=== PATIENT | female | born 1975 | race Caucasian/White ===

== ENCOUNTER 2016-08-11 08:26 | Emergency (ER) | payer MEDICAID ==
[~2016-08-11] VITALS: Ht 157.5 cm; Wt 130.2 kg
[~2016-08-11 08:26] MED LIST: AEROCHAMBER1 DEV IH; ALBUTEROL2 PUFFS/17 IN; AMOXICOT500 MG PO; AMOXIL500 MG PO; AUGMENTIN 875-1 EACH PO; AZITHROMYCIN250 M1 PO; BENTYL20 MG PO; BENZONATATE100 MG PO; CERUMENEX 12 ML12 ML OT; CORTISPORIN OTI10 M1 OT; DARVOCET-N 1001 EACH PO; DICLOFENAC 50MG50 MG PO; DIOVAN HCT 25 M1 TA1 PO; FAMOTIDINE 20MG20 MG PO; FLEXERIL10 MG PO; FOLIC ACID 1MG T1 MG PO; HYDROCHLOROTHIA25 M1 PO; HYDROCODONE/ACE1 TA5 PO; HYDROCODONE1 TABLET PO; IBU-8800 MG PO; IBUPROFEN800 MG PO; KEFLEX 500MG.500 MG PO; LEVOTHROID0.05 MG PO; LEVOTHYROXIN0.075 MG PO; LEVOTHYROXIN0.088 MG PO; LISINOPRIL 10MG10 MG PO; LISINOPRIL 5MG T5 MG PO; LORTAB 5/500 501 TAB PO; LOVASTATIN40 MG PO; MEDROL 4MG. DOSE4 MG PO; METFORMIN1000 MG PO; METFORMIN500 MG PO; MULTI VITAMINS1 TAB PO; NADOLOL 20 MG T20 MG PO; NAPROSYN500 M1 PO; NAPROXEN SODIU500 MG PO; NOMEDS *; NORCO 325 MG-51 TAB PO; NORFLEX100 MG PO; ORTHO EVRA1 TD2 TD; PAROXETINE HCL40 MG PO; PAXIL40 MG PO; PHENERGAN 25MG.25 M1 PO; PRILOSEC OTC20 MG PO; PRINIVIL40 MG PO; PROTONIX40 MG PO; RANITIDINE HCL150 MG PO; RANITIDINE150 M1 PO; ROBAXIN500 M1 PO; ROBITUSSIN100 MG/5 M; SULFAMETHOXAZOL1 TA6 PO; TESSALON PERLE100 MG PO; TESSALON PERLE200 MG PO; TRAMADOL 512 EACH/PA PO; TRAZODO50 MG PO; ULTRAM50 MG PO; UTIRA-C TABLET1 TAB PO; VIBRAMYCIN 100100 MG PO; ZANTAC 150150 MG OR; ZITHROMAX Z PA250 MG PO; [UNRECOGNIZED DRUG - OTHER] PO
[2016-08-11] MEDS ORDERED: AUGMENTIN 875-1 EACH PO (08:48)
--- NOTE | 2016-08-11 08:56 | Emergency Room Report ---
History of Present Illness Time Seen by [id number] Presenting Problem in Triage Pt arrived:Walked Presenting Problem:PT STATES HER HEAD HURTS AROUND HER EYES FOR 5 DAYS. NASAL CONGESTION, SINUS DRAINAGE WITH THROAT PAIN. 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 N Clinical Suspician of Infection? N Mental Status: 1 - Regular (Normal Baseline) Sepsis Risk:Low Sepsis Risk Have you (or family members/close friends) recently traveled outside the [place]? N If Yes, where/when: Have you had exposure to infectious disease within the past month? TB? Other? Specify: Source patient, RN notes reviewed, family, RN/MD Exam Limitations no limitations Comment This is a 40-year-old lady presenting to the emergency room with headache, nasal congestion, sore throat, sinus drainage for the past 5 days. Patient denies any recent travel or exposure to sick contacts. ALLERGIES Coded Allergies: Fish Containing Products (From SEAFOOD (F/D)) (Intermediate, I-HIVES 08/11/16) Mushroom (Intermediate, I-HIVES 08/11/16) SEAFOOD (F) (From SEAFOOD (F/D)) (Intermediate, I-HIVES 08/11/16) mold (08/11/16) aspirin (Mild, NA-NAUSEA/VOMITING 08/11/16) Home Medications Active Scripts DICLOFENAC SODIUM (Diclofenac 50MG) 50 MG PO BID #60 TAB Prov: 06/05/16 Methocarbamol (Robaxin) 500 MG PO BID #60 TAB Prov: 06/05/16 NAPROXEN (NAPROXEN 500MG TAB) 500 MG PO BID PRN pain #20 TAB Prov: 07/20/16 Naproxen (Naprosyn 500MG Tab) 500 MG PO BID #12 TAB Prov: 10/05/14 VALSARTAN/HYDROCHLOROTHIAZIDE (Diovan Hct 320-25 MG Tablet) 1 TAB PO DAILY #30 TAB Prov: 06/29/16 Reported Medications METFORMIN HCL (Metformin) 1,000 MG PO BID Levothyroxine Sodium (Levothyroxine 0.088MG) 0.088 MG PO DAILY Lovastatin 40 MG PO DAILY Lisinopril (PRINIVIL (GEQ) 40MG) 40 MG PO DAILY Famotidine (Famotidine 20MG) 20 MG PO DAILY #90 History Medical History General CAD? No Angina: No CT: No Hypertension? Yes Hyperlipidemia? Yes CHF? No DVT? No PE? No COPD? No Asthma? Yes Anemia? No GERD? Yes Gastric ulcers? No GI Bleed? No Hernia? No Thyroid Problems? No Hypothyroidism? Yes CVA? No Seizures? No Diabetes? Yes Insulin Dependent: No Insulin Pump: No Home FSBS? Yes Renal Insuffiency? No End Stage Renal Disease? No UTI? Yes Stones? No BPH? No GB Disease: No Nephritic Syndrome? No Asplenia? No Hepatitis? No Sickle Cell Disease? No Arthritis? Yes Migraines? Yes Cataracts? No Glaucoma? No MRSA? No HIV? No TB? No Anxiety? Yes Depression? Yes Cancer? No More? 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 Physical Exam Vital Signs Vital Signs Date Time Temp Pulse Resp B/P Pulse O2 O2 Flow FiO2 Ox Delivery Rate 08/11 0902 98.5 94 18 136/109 98 08/11 0831 98.5 94 18 136/109 98 General Appearance normal appearance, WD/WN, no apparent distress Ear, Nose, Throat hearing grossly normal, nasal congestion, pharyngeal erythema, tonsillar exudate, postnasal drip present Neck normal inspection, non-tender, supple, full range of motion Respiratory Status Yes: trachea midline, chest symmetrical. No: respiratory distress. Lung Sounds bilateral: normal breath sounds, lungs clear. Cardiovascular normal exam, regular rate/rhythm, no peripheral edema, no gallop, no JVD, no murmur, no rub, normal peripheral pulses Gastrointestinal normal bowel sounds, normal exam, non tender, soft, no organomegaly Extremities non-tender, normal range of motion, normal inspection Neurologic alert, instructor modeling II-XII nml as tested, normal exam, oriented x 3 Mental status normal mood/affect Skin intact, normal color, warm/dry Medical Decision Making LABS/Meds/Orders Pt receiving controlled substance in ED? No Comment Patient appears medically stable, minimally symptomatic. Advised her to follow up with PCP per discharge instructions if no better. She'll be started on antibiotics at this time. Departure Departure Time of Disposition 0844 Disposition DC Home or Self Care(routine) Clinical Impression Primary Impression: Acute sinusitis Qualifiers: Sinusitis location: maxillary Recurrence: not specified as recurrent Qualified Code: J01.00 - Acute maxillary sinusitis, unspecified Condition STABLE Patient Instructions DI for Sinusitis Additional Instructions Please take the antibioticis prescribed as instructed, follow-up with your family physician if not better in 2 days. In addition he will also need to take [id number] antihistamine such as Claritin, Bridgett or Zyrtec. Discharge Counseling Counseled pt/family regarding diagnosis, medications/RX, home care, follow up needs Comment Please take the antibioticis prescribed as instructed, follow-up with your family physician if not better in 2 days. In addition he will also need to take fujl-kad-[id number] antihistamine such as Claritin, Bridgett or Zyrtec. Prescriptions Current Visit Scripts Amoxicillin/Potassium Clav (Augmentin 875-125 Tablet) 1 EACH PO BID #20 TAB ED Critical Care Critical Care No at 1430
--- NOTE | 2016-08-11 08:56 | Emergency Room Report ---
History of Present Illness Time Seen by [id number] Presenting Problem in Triage Pt arrived:Walked Presenting Problem:PT STATES HER HEAD HURTS AROUND HER EYES FOR 5 DAYS. NASAL CONGESTION, SINUS DRAINAGE WITH THROAT PAIN. 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 N Clinical Suspician of Infection? N Mental Status: 1 - Regular (Normal Baseline) Sepsis Risk:Low Sepsis Risk Have you (or family members/close friends) recently traveled outside the [place]? N If Yes, where/when: Have you had exposure to infectious disease within the past month? TB? Other? Specify: Source patient, RN notes reviewed, family, RN/MD Exam Limitations no limitations Comment This is a 40-year-old lady presenting to the emergency room with headache, nasal congestion, sore throat, sinus drainage for the past 5 days. Patient denies any recent travel or exposure to sick contacts. ALLERGIES Coded Allergies: Fish Containing Products (From SEAFOOD (F/D)) (Intermediate, I-HIVES 08/11/16) Mushroom (Intermediate, I-HIVES 08/11/16) SEAFOOD (F) (From SEAFOOD (F/D)) (Intermediate, I-HIVES 08/11/16) mold (08/11/16) aspirin (Mild, NA-NAUSEA/VOMITING 08/11/16) Home Medications Active Scripts DICLOFENAC SODIUM (Diclofenac 50MG) 50 MG PO BID #60 TAB Prov: 06/05/16 Methocarbamol (Robaxin) 500 MG PO BID #60 TAB Prov: 06/05/16 NAPROXEN (NAPROXEN 500MG TAB) 500 MG PO BID PRN pain #20 TAB Prov: 07/20/16 Naproxen (Naprosyn 500MG Tab) 500 MG PO BID #12 TAB Prov: 10/05/14 VALSARTAN/HYDROCHLOROTHIAZIDE (Diovan Hct 320-25 MG Tablet) 1 TAB PO DAILY #30 TAB Prov: 06/29/16 Reported Medications METFORMIN HCL (Metformin) 1,000 MG PO BID Levothyroxine Sodium (Levothyroxine 0.088MG) 0.088 MG PO DAILY Lovastatin 40 MG PO DAILY Lisinopril (PRINIVIL (GEQ) 40MG) 40 MG PO DAILY Famotidine (Famotidine 20MG) 20 MG PO DAILY #90 History Medical History General CAD? No Angina: No [place]: No Hypertension? Yes Hyperlipidemia? Yes CHF? No DVT? No PE? No COPD? No Asthma? Yes Anemia? No GERD? Yes Gastric ulcers? No GI Bleed? No Hernia? No Thyroid Problems? No Hypothyroidism? Yes CVA? No Seizures? No Diabetes? Yes Insulin Dependent: No Insulin Pump: No Home FSBS? Yes Renal Insuffiency? No End Stage Renal Disease? No UTI? Yes Stones? No BPH? No GB Disease: No Nephritic Syndrome? No Asplenia? No Hepatitis? No Sickle Cell Disease? No Arthritis? Yes Migraines? Yes Cataracts? No Glaucoma? No MRSA? No HIV? No TB? No Anxiety? Yes Depression? Yes Cancer? No More? 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 Physical Exam Vital Signs Vital Signs Date Time Temp Pulse Resp B/P Pulse O2 O2 Flow FiO2 Ox Delivery Rate 08/11 0902 98.5 94 18 136/109 98 08/11 0831 98.5 94 18 136/109 98 General Appearance normal appearance, WD/WN, no apparent distress Ear, Nose, Throat hearing grossly normal, nasal congestion, pharyngeal erythema, tonsillar exudate, postnasal drip present Neck normal inspection, non-tender, supple, full range of motion Respiratory Status Yes: trachea midline, chest symmetrical. No: respiratory distress. Lung Sounds bilateral: normal breath sounds, lungs clear. Cardiovascular normal exam, regular rate/rhythm, no peripheral edema, no gallop, no JVD, no murmur, no rub, normal peripheral pulses Gastrointestinal normal bowel sounds, normal exam, non tender, soft, no organomegaly Extremities non-tender, normal range of motion, normal inspection Neurologic alert, offc spec II-XII nml as tested, normal exam, oriented x 3 Mental status normal mood/affect Skin intact, normal color, warm/dry Medical Decision Making LABS/Meds/Orders Pt receiving controlled substance in ED? No Comment Patient appears medically stable, minimally symptomatic. Advised her to follow up with PCP per discharge instructions if no better. She'll be started on antibiotics at this time. Departure Departure Time of Disposition 0844 Disposition DC Home or Self Care(routine) Clinical Impression Primary Impression: Acute sinusitis Qualifiers: Sinusitis location: maxillary Recurrence: not specified as recurrent Qualified Code: J01.00 - Acute maxillary sinusitis, unspecified Condition STABLE Patient Instructions DI for Sinusitis Additional Instructions Please take the antibioticis prescribed as instructed, follow-up with your family physician if not better in 2 days. In addition he will also need to take [id number] antihistamine such as Claritin, Bridgett or Zyrtec. Discharge Counseling Counseled pt/family regarding diagnosis, medications/RX, home care, follow up needs Comment Please take the antibioticis prescribed as instructed, follow-up with your family physician if not better in 2 days. In addition he will also need to take ioge-tzj-qevlvxn antihistamine such as Claritin, Bridgett or Zyrtec. Prescriptions Current Visit Scripts Amoxicillin/Potassium Clav (Augmentin 875-125 Tablet) 1 EACH PO BID #20 TAB ED Critical Care Critical Care No at 143
[2016-08-11 09:02] VITALS: BP 136/109
== END 2016-08-11 09:02 | disposition home or self-care (01) ==
LOC: ER 08:26
DX: J01.00 Acute maxillary sinusitis, unspecified (principal); F41.8 Other specified anxiety disorders; E11.9 Type 2 diabetes mellitus without complications; K21.9 Gastro-esophageal reflux disease without esophagitis; I10 Essential (primary) hypertension

== ENCOUNTER 2017-02-22 06:17 | Day surgery (SDC) | payer MEDICAID ==
--- NOTE | 2017-02-22 08:36 | Anesthesia Record ---
Anesthesia Record Part I Total IV fluids: 1200 EBL (ml): 200 Urine Output: 0 B/P: 138/74 % SaO2: 97 Pulse: 110 Resps: 12 Temp: 98.1 Patient is: Awake, Stable Stable to PACU at: 0830 at 0835
--- NOTE | 2017-02-22 08:37 | Anesthesia Record ---
Anesthesia Record Part II Discharge time: 0900 Destination: Same day surgery PACU nurse assessment review? Yes Patient is: Awake, Stable Anesthesia complications? No at 0836
--- NOTE | 2017-02-22 08:38 | Operative Note ---
Procedure/Operative Record Procedure Date of procedure: 02/22/17 Pre-Op Dx: Genuine stress urinary incontinence Post-Op Dx: Genuine stress urinary incontinence Procedure performed: Tension-free vaginal tape Surgeon: Dr. Noe Cristina Machine Cementer And Folder(s): None Anesthesia: Pranay Paredes EBL (ml): 200 Clinical note: She is a 41-year-old lady who complains of loss of urine with laughing coughing sneezing. She had urodynamics in my office that demonstrated stress incontinence. As result of that she was offered TVT. The risks and benefits of surgery were discussed with the patient prior to surgery. Operative findings: She had a normal-appearing bladder on inspection with the cystoscope. The urethral orifices were seen and appeared normal. She had a grade 1 cystocele. Operative note: She was taken to the operating room where LMA anesthesia was found be adequate. She was prepped and draped in normal sterile fashion in the lithotomy position. A weighted speculum was placed in the vagina and I injected approximately 30 mL of 1 percent Xylocaine with epinephrine along the anterior vaginal wall below the urethra and laterally out towards the pubic rami. I then injected approximately 60 cc of 0.5 percent ropivacaine along the path of the trocar in the space of Retzius. I used a spinal needle for this. I grasped the vaginal mucosa starting about a centimeter below the urethral orifice and grasped at again approximately 2 cm beyond this. I then made a small incision in the skin. I grasped the edges of the mucosa and using Metzenbaum scissors I dissected out laterally to each pubic rami. I then drained the bladder and placed an obturator within the bladder. I pulled it to its ipsilateral side. I then placed the LEFT side of the tape under the pubic rami, through the urogenital diaphragm and then through the space of Retzius. The trocar was then passed through the skin. I then inspected the bladder with a 70 degree cystoscope. There was no evidence of tape within the bladder. The tape was then passed through the space of Retzius and out through the skin. I then drained the bladder and once again placed an obturator within the bladder and pulled it to its ipsilateral side. I then passed the RIGHT side of the tape under the pubic rami, through the urogenital diaphragm and through the space of Retzius. The trocar was then passed through the skin. Once again I inspected the bladder with a cystoscope. There was no evidence of tape within the bladder. I then passed the tape completely through the skin. I cut off the trochars and grasped the outer sheath with a [place] clamp. I then placed a large sponge forcep underneath the tape and remove the outer sheath of the tape. I once again inspected to be sure that the tape was not too tight. The tape was then cut off at the level of the skin bilaterally. The vaginal mucosa was then closed using interrupted 2-0 Vicryl suture in a mattress fashion. Once again hemostasis was assured. The patient tolerated the procedure well and was taken to the recovery room in excellent condition. All sponge instrument and needle counts were correct. Estimated blood loss was approximately 200 mL. Conplications: None Specimens: None at 0892
[2017-02-22 11:38] VITALS: BP 105/69
== END 2017-02-22 10:00 | disposition home or self-care (01) ==
LOC: SDC 06:17
PROVIDERS: Nurse Practitioner Obstetrics & Gynecology
PROC: 0USGXZZ Reposition Vagina, External Approach (ICD-10-PCS; principal; 2017-02-22 07:30)
DX: N39.3 Stress incontinence (female) (male) (principal)
CPT/HCPCS: J2405

== ENCOUNTER 2017-04-23 11:24 | Emergency (ER) | payer MEDICAID ==
[~2017-04-23] VITALS: Ht 157.5 cm; Wt 108.4 kg
--- NOTE | 2017-04-23 11:54 | Urgent Treatment Center Report ---
History of Present Issue Date/Time Seen by Provider 04/23/17 1137 Visit Reason Pt arrived:Walked Presenting Problem:PT STATES RUNNY NOSE, COUGH, SORE THROAT, CHEST CONGESTION AND FEVER SINCE WEDNESDAY Location if Accident: Onset of symptoms date/time:04/21/17/ or onset unknown for:MEDICAL HX UNKNOWN Have you (or family members/close friends) recently traveled outside the [place]? N If Yes, where/when: Have you had exposure to infectious disease within the past month? TB? Other? Specify: Patient state that she has been not feeling well for several days now States that several members of her household has had a virus. States that she has had runny nose, with clear drainage, sorethroat, cough and feeling feverish today. State that she is not coughing anything up and now today she noticed that she is starting to loose her voice ALLERGIES Coded Allergies: Fish Containing Products (From SEAFOOD (F/D)) (Intermediate, I-HIVES 02/22/17) Mushroom (Intermediate, I-HIVES 02/22/17) SEAFOOD (F) (From SEAFOOD (F/D)) (Intermediate, I-HIVES 02/22/17) mold (02/22/17) aspirin (Mild, NA-NAUSEA/VOMITING 02/22/17) Home Medications Active Scripts DICLOFENAC SODIUM (Diclofenac 50MG) 50 MG PO BID #60 TAB Prov: 06/05/16 Methocarbamol (Robaxin) 500 MG PO BID #60 TAB Prov: 06/05/16 Naproxen (Naprosyn 500MG Tab) 500 MG PO BID #12 TAB Prov: 10/05/14 VALSARTAN/HYDROCHLOROTHIAZIDE (Diovan Hct 320-25 MG Tablet) 1 TAB PO DAILY #30 TAB Prov: 06/29/16 Amoxicillin/Potassium Clav (Augmentin 875-125 Tablet) 1 EACH PO BID #20 TAB Prov: 08/11/16 Reported Medications METFORMIN HCL (Metformin) 1,000 MG PO BID Levothyroxine Sodium (Levothyroxine 0.088MG) 0.088 MG PO DAILY Lovastatin 40 MG PO DAILY Lisinopril (PRINIVIL (GEQ) 40MG) 40 MG PO DAILY Famotidine (Famotidine 20MG) 20 MG PO DAILY #90 History Medical History General CAD? No Angina: Yes [place]: No Hypertension? Yes Hyperlipidemia? Yes CHF? No DVT? No PE? No COPD? No Asthma? Yes Anemia? No GERD? Yes Gastric ulcers? No GI Bleed? No Hernia? No Thyroid Problems? No Hypothyroidism? Yes CVA? No Seizures? No Diabetes? Yes Insulin Dependent: No Insulin Pump: No Home FSBS? Yes Renal Insuffiency? No UTI? Yes Stones? No BPH? No GB Disease: Yes Nephritic Syndrome? No Asplenia? No Hepatitis? No Sickle Cell Disease? No Arthritis? Yes Migraines? Yes Cataracts? No Glaucoma? No MRSA? No HIV? No TB? No Anxiety? Yes Depression? Yes Cancer? No More? No Immunization HX DT/Tetanus 1-4 Years Ago Flu 2015- Flu Season Pneumonia Never Had Surgical Hx Previous Surgery?Y GALLBLADDER ORAL SURGERY LUMPECTOMY STOMACH BIOPSY IUD-INSERTION/REMOVAL COLONOSCOPY EGD Family History Family HX Diabetes Yes CAD Yes Hypertension Yes Hyperlipidemia Yes Cancer Yes TB No Social History Smoking Hx Smoker: Never Smoker Tobacco: No Alcohol Alcohol: No Review of Systems All Other Systems Reviewed and Negative ENT throat pain. Respiratory cough Physical Exam Vital Signs Vital Signs Date Time Temp Pulse Resp B/P Pulse O2 O2 Flow FiO2 Ox Delivery Rate 04/23 1131 97.8 84 20 116/47 96 General Appearance normal appearance, WD/WN, no apparent distress Ear, Nose, Throat sinus pain/drainage, throat mildly red, irritated, nose draining clear, denies productive cough, Respiratory Status Yes: trachea midline, chest symmetrical. No: respiratory distress. 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 No Departure Departure Time of Disposition 1153 Disposition DC Home or Self Care(routine) Clinical Impression Primary Impression: Viral upper respiratory infection Condition STABLE Patient Instructions DI for Laryngitis, DI for Viral Upper Respiratory Infection -- Adult, Laryngitis Additional Instructions Laryngitis is self-limiting and should last for only a few days, and symptoms should resolve within 7 days, but can linger up to two weeks. If symptoms persist longer than three weeks, this is considered chronic laryngitis and causes other than a viral infection need to be explored. Croup is often described as a disease of the nighttime because visits to the emergency department peak after midnight with sick infants and children. The treatment for viral laryngitis is supportive and the person should: Stay well hydrated by drinking plenty of fluids Breathe humidified air Take acetaminophen (Tylenol and others) or ibuprofen (Advil, Aleve, and others) for pain control Discharge Counseling Counseled pt/family regarding diagnosis, home care, follow up needs at 1150
[2017-04-23 11:56] VITALS: BP 116/47
== END 2017-04-23 11:56 | disposition home or self-care (01) ==
LOC: UTC 11:24
DX: J06.9 Acute upper respiratory infection, unspecified (principal); I10 Essential (primary) hypertension; E78.5 Hyperlipidemia, unspecified; J45.909 Unspecified asthma, uncomplicated; E03.9 Hypothyroidism, unspecified; E11.9 Type 2 diabetes mellitus without complications; Z79.84 Long term (current) use of oral hypoglycemic drugs; Z79.899 Other long term (current) drug therapy

== ENCOUNTER → 2017-04-28 | Outpatient (CLI) | payer MEDICAID ==
[2017-04-28 17:21] LABS: HEMOGLOBIN 12.4 g/dL (12.2-16.2); LYMPH # 2.8 K/mm3 (0.7-4.5)
[2017-04-28 18:36] LABS: BUN 15 mg/dL (7-18)
[2017-04-28 18:37] LABS: GFR (ESTIMATED) 55 ML/MIN (59-)
[2017-04-30 05:38] LABS: Vitamin D, 25-Hydroxy 15.6 ng/mL (30.0-100.0)
[2017-04-30 08:45] LABS: Folate (Folic Acid) 3.3 ng/mL (>3.0)
[2017-04-30 10:40] LABS: Creatinine, Urine 110.1 mg/dL (Not Estab.); Microalbumin, Urine 12.2 ug/mL (Not Estab.)
== END ==
LOC: LAB 16:50
PROVIDERS: Physician Assistant
DX: E11.9 Type 2 diabetes mellitus without complications (principal)

== ENCOUNTER 2017-05-19 19:43 | Emergency (ER) | payer MEDICAID ==
[~2017-05-19] VITALS: Ht 157.5 cm; Wt 110.2 kg
--- NOTE | 2017-05-19 20:08 | [facility]gent Treatment Center Report ---
History of Present Issue Date/Time Seen by Provider 05/19/172001 Visit Reason Pt arrived:Walked Presenting Problem:RT SIDE OF NECK RAISED RED AREA. PT COMPLAINS OF BURNING AND PAIN ON NECK AND EAR. Location if Accident: Onset of symptoms date/time:/ or onset unknown for:MEDICAL HX UNKNOWN Have you (or family members/close friends) recently traveled outside the [place]? N If Yes, where/when: Have you had exposure to infectious disease within the past month? TB? Other? Specify: Patient state that she noticed a place on the right side of her neck State that the area was red and raised and it began to get bigger State that it looked like a rash that montez and cause pain to the right side of her neck and ear. State that it is burning now and she noticed that it was getting more red and went from the size of a pencil eraser to quarter sized and still burning when she touches it ALLERGIES Coded Allergies: Fish Containing Products (From SEAFOOD (F/D)) (Intermediate, I-HIVES 02/22/17) Mushroom (Intermediate, I-HIVES 02/22/17) SEAFOOD (F) (From SEAFOOD (F/D)) (Intermediate, I-HIVES 02/22/17) mold (02/22/17) aspirin (Mild, NA-NAUSEA/VOMITING 02/22/17) Home Medications Active Scripts DICLOFENAC SODIUM (Diclofenac 50MG) 50 MG PO BID #60 TAB Prov: 06/05/16 Methocarbamol (Robaxin) 500 MG PO BID #60 TAB Prov: 06/05/16 Naproxen (Naprosyn 500MG Tab) 500 MG PO BID #12 TAB Prov: 10/05/14 VALSARTAN/HYDROCHLOROTHIAZIDE (Diovan Hct 320-25 MG Tablet) 1 TAB PO DAILY #30 TAB Prov: 06/29/16 Reported Medications Levothyroxine Sodium (Levothyroxine 0.088MG) 0.088 MG PO DAILY Lovastatin 40 MG PO DAILY Lisinopril (PRINIVIL (GEQ) 40MG) 40 MG PO DAILY Famotidine (Famotidine 20MG) 20 MG PO DAILY #90 History Medical History General CAD? No Angina: Yes NH: No Hypertension? Yes Hyperlipidemia? Yes CHF? No DVT? No PE? No COPD? No Asthma? Yes Anemia? No GERD? Yes Gastric ulcers? No GI Bleed? No Hernia? No Thyroid Problems? No Hypothyroidism? Yes CVA? No Seizures? No Diabetes? No Insulin Dependent: No Insulin Pump: No Home FSBS? Yes Renal Insuffiency? No UTI? Yes Stones? No BPH? No GB Disease: Yes Nephritic Syndrome? No Asplenia? No Hepatitis? No Sickle Cell Disease? No Arthritis? Yes Migraines? Yes Cataracts? No Glaucoma? No MRSA? No HIV? No TB? No Anxiety? Yes Depression? Yes Cancer? No More? No Immunization HX DT/Tetanus 1-4 Years Ago Flu 2015- Flu Season Pneumonia Never Had Surgical Hx Previous Surgery?Y GALLBLADDER ORAL SURGERY LUMPECTOMY STOMACH BIOPSY IUD-INSERTION/REMOVAL COLONOSCOPY EGD Family History Family HX Diabetes Yes CAD Yes Hypertension Yes Hyperlipidemia Yes Cancer Yes TB No Social History Smoking Hx Smoker: Never Smoker Tobacco: No Alcohol Alcohol: No Review of Systems All Other Systems Reviewed and Negative Comment Red rash on right side of neck that is painful and montez Physical Exam Vital Signs Vital Signs Date Time Temp Pulse Resp B/P Pulse O2 O2 Flow FiO2 Ox Delivery Rate 05/19 1953 97.8 99 20 136/78 98 General Appearance normal appearance, WD/WN, no apparent distress Ear, Nose, Throat hearing grossly normal, normal ENT inspection Respiratory Status Yes: trachea midline, chest symmetrical, non tender chest. No: respiratory distress. Cardiovascular normal exam, regular rate/rhythm, no peripheral edema Neurologic alert, normal exam, oriented x 3 Skin Complains of burning feeling on the right side of her neck, today noticed red rash coming on the right side of neck which is painful Comments State that she had a viral infection several weeks ago State that the skin on the right side of her neck has been painful to touch and burning States today red rash occured on the right side of her neck and pain seems to be radiating up from the rash causing her ear to hurt Medical Decision Making LABS/Meds/Orders Pt receiving controlled substance in ED? No Departure Departure Time of Disposition 2013 Disposition DC Home or Self Care(routine) Clinical Impression Primary Impression: Shingles Qualifiers: Herpes zoster complications: without complications Qualified Code: B02.9 - Zoster without complications Condition STABLE Referrals Jamie RUTHERFORD,Fidel Mar (Family): 2 Days-Call Office MEGHA PLATA: Tomorrow-Call Office Follow up with dermatology as needed if symptoms do not improve Patient Instructions DI for Shingles, Shingles Additional Instructions Take medication as prescribed Follow up with family doctor if needed Follow up wt Dermatology if symptoms do not improve for further treatment Return if needed Discharge Counseling Counseled pt/family regarding diagnosis, medications/RX, home care, follow up needs Prescriptions Current Visit Scripts Acyclovir (Acyclovir 800MG) 800 MG PO 5XDAY #35 TAB at 2017
[2017-05-19] MEDS ORDERED: ACYCLOVIR800 MG PO (20:17)
[2017-05-19 20:20] VITALS: BP 136/78
--- OUTSIDE RECORDS SUMMARY | 2017-05-22 13:35 | External Medical Summary Rpt | CCD ---
Author Author , JOSIANE Organization JOSIANE Address Unknown Phone [email or web address] Care Team Providers Care Train Attendant Name Role Phone [employer] Unavailable Unavailable INC, [employer] ALLRAN JR, ALLRAN JR Unavailable Unavailable ALLRAN JR ELVIA, ALLRAN Unavailable Unavailable JR ELVIA HORTON MITALI, HORTON MITALI Unavailable Unavailable CHELY PORTER MD, PSC, Unavailable Unavailable CHELY PORTER MD, PSC Nixon Vigil MD, Unavailable Unavailable JOSSE Anderson MD Unavailable Unavailable BRO BEINEFLY ISIDORO, BEINEKE Unavailable Unavailable ISIDORO BESSON ZAC, BESSON Unavailable Unavailable ZAC [facility]available [facility]available [facility], [facility] LAUGHLIN, LAUGHLIN Unavailable Unavailable LAUGHLIN ALL, LAUGHLIN ALL Unavailable Unavailable [facility] Unavailable Unavailable JULIAN LOAIZA MD, Unavailable Unavailable JULIAN LOAIZA MD BUX ANJ, BUX ANJ Unavailable Unavailable [facility]available [facility]available [facility], [facility] MARIE SALAZAR Unavailable Unavailable SALAZAR ALLEN, SALAZAR Unavailable Unavailable ALLEN BOZENA JOÃO, Unavailable Unavailable BOZENA JOÃO DUFF CHRISTIAN, DUFF CHRISTIAN Unavailable Unavailable FALLUJI LESLEY, FALLUJI Unavailable Unavailable LESLEY FRYMAN, FRYMAN Unavailable Unavailable FRYMAN EUG, FRYMAN Unavailable Unavailable EUG SHANTI, ELZ, Unavailable Unavailable SHANTI, JR CHONG LEOPOLDO, LEOPOLDO Unavailable Unavailable LEOPOLDO MAICO, LEOPOLDO Unavailable Unavailable MAICO GIANULCA NGUYEN MD, Unavailable Unavailable PATRICK ELLER MD Unavailable Unavailable I[facility] Unavailable Unavailable INC, [facility] Unavailable Unavailable HOS[facility], [facility] Unavailable [facility]available H[facility]PITAL P, [facility] CALZADA KINDRA, CALZADA KINDRA Unavailable Unavailable [facility]ADA KINDRA, CALZADA KINDRA Unavailable Unavailable [facility], Unavailable Unavailable [facility] RAMOS, RAMOS Unavailable Unavailable RAMOS MONI, RAMOS MONI Unavailable Unavailable [facility] Angela Wise MD, Unavailable Unavailable Angela Wise MD [facility] MYA CRI, MYA CRI Unavailable Unavailable DAWSON, DAWSON Unavailable Unavailable DAWSON RD, DAWSON Unavailable Unavailable RD JACIEL JR DWI, JACIEL Unavailable Unavailable JR DWI AYAN ISI, AYAN ISI Unavailable Unavailable [facility] Unavailable Unavailable SERVICES, [facility], Unavailable Unavailable [facility], Unavailable Unavailable [facility] Un[facility]available [facility], [facility] PETTEY JAM, PETTEY Unavailable Unavailable JAM MYARNDA MAT, Unavailable Unavailable MYRANDA MAT [facility] Unavailable Unavailable [facility], [facility] SOTINGEANU, Unavailable Unavailable SOTINGEANU SOTINGEANU ISIDORO, Unavailable Unavailable SOTINGEANU ISIDORO [facility] Unavailable Unavailable EMERGENCY PH[facility], [facility] STONE MARK, STONE MARK Unavailable Unavailable KALI, KALI Unavailable Unavailable HERIBERTO PHI, HERIBERTO PHI Unavailable Unavailable DARIO SHORT, Unavailable Unavailable DARIO SHORT Purpose Continuity of Care Document - 10-01-2012 through 2016 Problems Code Diagnosis DOS Provider Status [id number] DM D/T 04-07-2017 [facility] UNDERLYING PHYSICIANS COND GROUP W/DIABETIC MONONEUROPA THY E119 TYPE 2 04-07-2017 [facility] DIABETES PHYSICIANS MELLITUS GROUP WITHOUT COMPLICATIO NS L989 DISORDER 04-07-2017 [facility] THE SKIN & PHYSICIANS SUBCUTANEOU GROUP S TISSUE UNS M545 LOW BACK 04-07-2017 [facility] PAIN PHYSICIANS GROUP Z8719 PERSONAL 04-07-2017 [facility] HISTORY PHYSICIANS OTHER GROUP DISEASES DIGESTIVE SYSTEM N393 STRESS 02-22-2017 [facility] INCONTINENC PHYSICIANS E FEMALE GROUP MALE E6601 MORBID 12-22-2016 [facility] SEVERE PHYSICIANS OBESITY DUE GROUP TO EXCESS CALORIES L680 HIRSUTISM 12-22-2016 [facility] PHYSICIANS GROUP H6980 OTHER SPEC 11-26-2016 [facility] DISORDERS PHYSICIANS EUSTACHIAN GROUP TUBE UNS EAR J309 ALLERGIC 11-26-2016 [facility] RHINITIS PHYSICIANS UNSPECIFIED GROUP J310 CHRONIC 11-26-2016 [facility] RHINITIS PHYSICIANS GROUP J320 CHRONIC 11-16-2016 [facility] MAXILLARY PHYSICIANS SINUSITIS GROUP 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 DEVIATED 11-16-2016 [facility] NASAL PHYSICIANS SEPTUM GROUP E039 HYPOTHYROID 11-03-2016 [facility] UNSPECIFIED INC J341 CYST AND 11-03-2016 [facility] NASAL SINUS R040 EPISTAXIS 11-03-2016 [facility] R1013 EPIGASTRIC 09-24-2016 [facility] PAIN PHYSICIANS GROUP I10 ESSENTIAL 09-01-2016 [facility] PRIMARY PHYSICIANS HYPERTENSIO GROUP N M1990 UNSPECIFIED 09-01-2016 [facility] PHYSICIANS OSTEOARTHRI GROUP TIS UNSPECIFIED SITE K210 GASTRO-ESOP 08-28-2016 [facility] HAGEAL PHYSICIANS REFLUX GROUP DISEASE W/ ESOPHAGITIS J0100 ACUTE 08-11-2016 [facility] MAX[facility]ARY [facility], SINUSITIS PLLC UNSPECIFIED [id number] PAIN IN 07-20-2016 [facility] LEFT KNEE PHYSICIANS, PLLC N819 FEMALE 07-16-2016 [facility] GENITAL PHYSICIANS PROLAPSE GROUP UNSPECIFIED N920 EXCESS & 07-16-2016 [facility] FREQUENT PHYSICIANS MENSTRUATIO GROUP N W/REGULAR CYCLE Z1231 ENCOUNTER 07-16-2016 [facility] SCREENING MEDICAL MAMMO MALIG IMAGING ASS NEOPLASM BREAST Z3009 ENCOUNTER 07-16-2016 [facility] OT GENERAL PHYSICIANS GROUP B[place] PULP&ADV ICE CONTRACEPT E663 OVERWEIGHT 07-13-2016 [facility] PHYSICIANS GROUP 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 07-13-2016 [facility]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 D/O GROUP W/RADICULOP ATHY LUMB RGN N888 OTH SPEC 07-13-2016 [facility] NONINFLAMMA MEDICAL TORY IMAGING ASS DISORDERS CERVIX UTERI R102 PELVIC AND 07-13-2016 [facility] PERINEAL [facility]ICAL PAIN IMAGING ASS J26815 OTHER 07-08-2016 [employer] [facility] Q39308 ENCOUNTER 06-30-2016 [facility] 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 EXAM PHYSICIANS GENERAL RTN GROUP W/ABNORMAL FIND P04299 ENCOUNTER 06-30-2016 [facility] DAY CARE WORKER EXAM PHYSICIANS GENERAL RTN GROUP W/O ABNORMAL FIND Z803 FAMILY 06-30-2016 [facility] HISTORY OF PHYSICIANS MALIGNANT GROUP NEOPLASM OF BREAST R05 COUGH 06-29-2016 [facility] R5383 OTHER 06-22-2016 [facility] H5213 MYOPIA 06-19-2016 [facility] K[facility]DRA BILATERAL J40 BRONCHITIS 06-19-2016 [facility] NOT PHYSICIANS SPECIFIED GROUP ACUTE OR CHRONIC K219 GASTRO-ESOP 06-19-2016 [facility] H REFLUX PHYSICIANS DISEASE GROUP WITHOUT ESOPHAGITIS R32 UNSPECIFIED 06-19-2016 [facility] URINARY PHYSICIANS INCONTINENC GROUP E [id number] ALLERGY 06-19-2016 [facility] UNSPECIFIED PHYSICIANS INITIAL GROUP ENCOUNTER J029 ACUTE 06-05-2016 [facility] PHARYNGITIS [facility], PLLC UNSPECIFIED M1712 UNILATERAL 06-05-2016 [facility] PRIMARY [facility]YSIC[facility], OSTEOARTHRI PLLC TIS LEFT KNEE R0989 OT SPEC SX 06-05-2016 [facility]NS [facility]ICAL IN[facility]LV THE IMAGING ASS CIRC & RESP SYS O471 FALSE LABOR 05-13-2016 [facility] AT/AFTER PHYSICIANS 37 GROUP COMPLETED WEEKS GEST M7541 IMPINGEMENT 04-08-2016 [facility] SYNDROME PHYSICIANS OF RIGHT GROUP SHOULDER N27810 PAIN IN 02-28-2016 [facility] RIGHT MEDICAL SHOULDER [facility]ING ASS M542 CERVICALGIA 02-28-2016 [facility] PHYSICIANS GROUP Q890YOE UNSPECIFIED 02-28-2016 [facility] INJURY OF MEDICAL NECK IMAGING ASS INITIAL ENCOUNTER [id number] STRN UNS 02-28-2016 [facility] M&T SHLDR PHYSICIANS UP ARM LEVL GROUP RT ARM INIT ENC G4733 OBSTRUCTIVE 02-04-2016 [facility] APNEA ADULT INC PEDIATRIC A54935 UNSPECIFIED 01-24-2016 [facility] P ED E049 NONTOXIC 01-23-2016 [facility] GOITER PHYSICIANS UNSPECIFIED GROUP 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 R7989 OTHER SPEC 01-16-2016 [facility] ABNORMAL [facility] FINDINGS INC BLOOD CHEMISTRY G4730 SLEEP APNEA 01-02-2016 [facility] I959 HYPOTENSION 01-02-2016 [facility] R748 ABNORMAL 12-17-2015 [facility] OTHER SERUM INC ENZYMES E1165 TYPE 2 11-28-2015 [facility] DIABETES [facility] MELLITUS [facility] WITH HYPERGLYCEM [place] N926 IRREGULAR 11-28-2015 [facility] MENSTRUATIO [facility] UNSPECIFIED U11902 OTHER 09-26-2015 [facility] MUSCLE PHYSICIANS SPASM GROUP [id number] LACERATION 09-26-2015 [facility] WITHOUT PHYSICIANS FOREIGN GROUP BODY LT EAR INITIAL Z23 ENCOUNTER 09-26-2015 [facility] FOR PHYSICIANS IMMUNIZATIO GROUP N E139 OTH SPEC 08-27-2015 [facility] DI[facility] LAR MELLITUS CONSULTANTS W/O O COMPLICATIO NS E669 OBESITY 08-27-2015 [facility] INC E785 HYPERLIPIDE 08-27-2015 [facility] JOSE PHYSICIANS UNSPECIFIED GROUP G737 MYOPATHY IN 08-27-2015 [facility] DISEASES PHYSICIANS CLASSIFIED GROUP ELSEWHERE I119 HYPERTENSIV 08-27-2015 [facility] E HEART LAR DISEASE CONSULTANTS WITHOUT O HEART FAILURE M791 MYALGIA 08-27-2015 [facility] PHYSICIANS GROUP R9431 ABNORMAL 07-30-2015 [facility]ROCARD [facility] IOGRAM INC N24042 OTHER LONG 07-24-2015 [facility] TERM [facility] CURRENT INC DRUG THERAPY Z9861 CORONARY 07-24-2015 [facility] ANGIOPLASTY [facility] STATUS INC E138 OTH SPEC 07-18-2015 [facility] DIABETES [facility] MELLITUS INC W/UNS COMPLICATIO NS I209 ANGINA 07-18-2015 [facility] UNSPECIFIED INC R079 CHEST PAIN 07-18-2015 [facility]NSPECIFIED [facility] INC R9439 ABNORMAL 07-18-2015 [facility] RESULT OTH [facility] CARDIOVASCU INC LR FUNCTION STUDY Z6843 BODY MASS 07-18-2015 [facility] INDEX BMI [facility] 50-59.9 INC ADULT Z8249 FAMILY HX 07-18-2015 [facility] ISCHEMIC LAR HRT DZ OTH CONSULTANTS DZ CIRC O SYSTEM I340 NONRHEUMATI 07-16-2015 [facility] INSUFFICIEN CY I361 NONRHEUMATI 07-16-2015 [facility] TRICUS[facility] INSUFFICIEN CY I371 NONRHEUMATI 07-16-2015 [facility] P[facility]ARY [facility] INSUFFICIEN CY R000 TACHYCARDIA 07-02-2015 [facility] LAR UNSPECIFIED CONSULTANTS O R011 CARDIAC 07-02-2015 [facility] UNSPECIFIED INC R0602 SHORTNESS 07-02-2015 [facility] OF BREATH [facility] INC R0789 OTHER CHEST 07-02-2015 [facility] PAIN [facility] INC R42 DIZZINESS 07-02-2015 [facility] AND [facility] GIDDINESS INC R9430 ABNORMAL 07-02-2015 [facility] RESULT CV PHYSICIANS FUNCTION GROUP STUDY UNS R002 PALPITATION 06-17-2015 [facility] 03808 DEGEN 04-19-2015 [facility] LUMBAR/LUMB [facility] OSACRAL INC INTERVERTEB RAL DISC 7244 THORACIC/AMY 03-21-2015 SOHA LEDESMA MD, PSC NEURITIS/RA DICULITIS UNSPEC V5869 LONG-TERM 12-24-2014 [facility] (CURRENT) [facility] USE OF INC OTHER MEDICATIONS 05999 OSTEOARTHRO 11-21-2014 [facility] SIS UNSPEC PHYSICIANS WHETHER GROUP GEN/LOC LOWER LEG 64687 PAIN IN 11-16-2014 [facility] JOINT, MEDICAL LOWER LEG IMAGING ASS V7263 PRE-PROCEDU 11-16-2014 [facility] RAL [facility] LABORATORY INC EXAMINATION 2449 UNSPECIFIED 11-14-2014 [facility] HYPOTHYROID INC ISM 74609 DIAB W/O 11-14-2014 [facility] COMP TYPE [facility] II/UNS NOT INC STATED UNCNTRL 6259 UNSPEC 11-02-2014 GIANLUCA Davis SYMPTOM [facility] W/FEMALE GENITAL ORGANS 6262 EXCESSIVE 11-02-2014 GIANLU[facility] Davis OR AROLDO NGUYEN MD MENSTRUATIO N V7231 ROUTINE 11-02-2014 GIANLUCA Davis GYNECOLOGIC [facility] EXAMINATION 42919 ESOPHAGEAL 10-23-2014 [facility] REFLUX PHYSICIANS GROUP 56798 ABDOMINAL 10-23-2014 [facility] PAIN, PHYSICIANS EPIGASTRIC GROUP 6160 CERVICITIS 10-18-2014 [facility] AND MEDICAL ENDOCERVICI IMAGING ASS TIS 93608 ABDOMINAL 10-18-2014 [facility] PAIN OTHER MEDICAL SPECIFIED IMAGING ASS SITE 56639 ABDOMINAL 10-09-2014 [facility] PAIN, MEDICAL UNSPECIFIED IMAGING ASS SITE 4019 UNSPECIFIED 10-06-2014 [facility] N 4139 OTHER AND 10-06-2014 [facility] P PECT[place] 66803 ASTHMA, 10-06-2014 [facility] P UNSPECIFIED STATUS 1129 CANDIDIASIS 09-19-2014 [facility] OF PHYSICIANS UNSPECIFIED GROUP SITE 03599 REFLUX 09-04-2014 [facility] 5368 DYSPEPSIA&O 09-03-2014 [facility] THER SPEC PHYSICIANS DISORDERS GROUP FUNCTION STOMACH 32529 OBESITY, 08-23-2014 [facility] UNSPECIFIED PHYSICIANS GROUP 7242 LUMBAGO 08-23-2014 [facility] PHYSICIANS GROUP 88520 CLOSED 07-20-2014 [facility] FRACTURE OF PHYSICIANS UPPER END GROUP OF FIBULA V0481 NEED 07-20-2014 [facility] PROPHYLACTI PHYSICIANS C GROUP VACCINATION &INOCULATIO N FLU 3540 CARPAL 07-19-2014 [facility] TUNNEL PHYSICIANS SYNDROME GROUP V5416 AFTERCARE 07-19-2014 [facility] HEALING PHYSICIANS TRAUMATIC GROUP FRACTURE LOWER LEG 8449 SPRAIN&STRA 06-22-2014 [facility] IN OF PHYSICIANS UNSPECIFIED GROUP SITE OF KNEE&LEG 16324 CLOSED 06-16-2014 [facility] FRACTURE OF N EMERGENCY PHYS UNSPECIFIED PART OF FIBULA 18263 UNSPECIFIED 06-16-2014 [facility] SITE OF N EMERGENCY ANKLE PHYS SPRAIN AND STRAIN E8888 OTHER FALL 06-16-2014 [facility] N EMERGENCY PHYS 7231 CERVICALGIA 02-22-2014 [facility] 7291 UNSPECIFIED 02-22-2014 [facility] MYOSITIS 7210 CERVICAL 02-16-2014 [facility] SPONDYLOSIS [facility]ICAL WITHOUT IMAGING ASS MYELOPATHY 7213 LUMBOSACRAL 02-16-2014 [facility] SPONDYLOSIS IMAGING ASS WITHOUT MYELOPATHY 7220 DISPLCMT 02-16-2014 [facility] CERV MEDICAL INTERVERT IMAGING ASS DISC WITHOUT MYELOPATHY 48212 DISPLCMT 02-16-2014 [facility] LUMBAR MEDICAL INTERVERT IMAGING ASS DISC W/O MYELOPATHY E8859 FALL FROM 02-10-2014 [facility] OTHER N EMERGENCY SLIPPING PHYS TRIPPING OR STUMBLING V1582 PERS HX 02-10-2014 [facility] TOBACCO USE [facility] PRESENTING [facility] 2409 GOITER, 01-09-2014 [facility] UNSPECIFIED [facility]ICAL IMAGING ASS 7842 SWELLING 01-09-2014 [facility] MASS OR [facility] LUMP IN INC HEAD AND NECK 7945 NONSPECIFIC 01-09-2014 [facility] ABNORM MEDICAL RESULTS IMAGING ASS THYROID FUNCT STUDY 7245 UNSPECIFIED 12-19-2013 [facility] BACKACHE PHYSICIANS GROUP 48147 HELICOBACTE 11-20-2013 [facility] R PYLORI PHYSICIANS INFECTION GROUP 3559 MONONEURITI 10-19-2013 [facility] S OF PHYSICIANS UNSPECIFIED GROUP SITE 2724 OTHER AND 10-10-2013 [facility] UNSPECIFIED PHYSICIANS GROUP HYPERLIPIDE JOSE 68734 PAIN IN 10-10-2013 [facility] JOINT, SITE PHYSICIANS GROUP UNSPECIFIED 16035 CHEST PAIN 10-04-2013 [facility] INC 250.00 250.00 DIAB 08-24-2013 [facility] COMPL, TYPE Hospital II OR UNSPEC TYPE, NOT UNCNTRLD 401.9 401.9 08-24-2013 Joseph HYPERTENSIO [facility] NOS Hospital 493.90 493.90 08-24-2013 Joseph ASTHMA, [facility] UNSPECIFIED Hospital 530.81 530.81 08-24-2013 Joseph ESOPHAGEAL [facility] REFLUX Hospital 575.8 575.8 DIS 08-24-2013 Joseph OF [facility] GALLBLADDER [facility] NEC 786.59 786.59 08-24-2013 Joseph CHEST PAIN [facility] 06975 OTHER CHEST 08-24-2013 [facility] 272.4 272.4 06-02-2013 Joseph HYPERLIPIDE [facility]/NOS Hospital 845.09 845.09 06-02-2013 Joseph SPRAIN OF [facility] ANKLE [facility] E928.9 E928.9 06-02-2013 Joseph ACCIDENT [facility] 845.00 845.00 05-20-2013 Joseph SPRAIN OF [facility] ANKLE [facility] E849.8 E849.8 05-20-2013 Joseph ACCIDENT IN [facility] PLACE [facility] E927.0 E927.0 05-20-2013 Joseph OVEREXERTIO [facility] SUDDEN STRENUOUS MOVEMENT 915.6 915.6 03-18-2013 Joseph FOREIGN [facility] BODY FINGER Hospital 729.5 729.5 PAIN 10-01-2012 Joseph IN LIMB [facility] 844.9 844.9 10-01-2012 Joseph SPRAIN OF [facility] KNEE & LEG [facility] NOS E849.0 E849.0 10-01-2012 Joseph ACCIDENT IN [facility] E885.9 E885.9 FALL 10-01-2012 Joseph FROM [facility] SLIPPING, Hospital TRIPPING, OR STUMBLING [facility] Allergies, Adverse Reactions, Alerts Type Drug Allergy Food Allergy Adverse Reaction to Substance Substance Reaction Severity Aspirin NA-NAUSEA/VOMITING Unknown Seafood I-HIVES Intermediate Mushroom I-HIVES Intermediate Seafood I-HIVES Intermediate Clinical Alert Notifications Alert Asthma: no influenza vaccine in the last 365 days Diabetes: no A1C in the last 6 months Diabetes: no influenza vaccine in the last 365 days Diabetes: no lipid panel in the last 365 days Medications Na ND Rx Da Fi Fi Am Da Di Ph RX Ph St me C No te ll ll ou ys ag ar # ys at s nt no ma ic us Or Da si cy ia de te s n re d MO 60 09 10 30 30 00 EA Ac NT 50 -1 -[address] ti EL 53 3- 6- 00 00 SI ve UK 56 20 20 47 DE 20 17 17 99 T 8 56 PH SO AR D MA 10 CY MG OF CY TA NT BL HI ET AN A IN C PA 65 09 10 30 30 00 EA Ac NT 86 -1 -[address] ti OP 20 3- 6- 00 00 SI ve RA 56 20 20 50 DE ZO 09 17 17 14 LE 0 82 PH AR SO MA D CY DR OF 40 CY NT MG HI AN TA A B IN C HM 62 09 09 60 30 00 EA Ac 01 -0 -[address] ti AC 10 4- 9- 00 00 SI ve ID 22 20 20 48 DE 50 17 17 40 RE 2 30 PH DU AR CE MA R CY 75 OF MG CY NT TA HI BL AN ET A IN C LE 00 09 09 90 90 00 EA Ac VO 78 -0 -[address] ti TH 15 5- 9- 00 00 SI ve YR 18 20 20 50 DE OX 39 17 17 02 IN 2 64 PH E AR 88 MA CY MC G OF TA CY BL NT ET HI AN A IN C GA 16 08 09 90 30 00 EA Ac BA 71 -3 -[address] ti PE 40 0- 2- 00 00 SI ve NT 33 20 20 49 DE IN 00 17 17 97 2 24 PH 60 AR 0 MA MG CY TA OF BL CY ET NT HI AN A IN C AC 00 08 09 40 20 00 EA Ac ET 40 -3 -[address] ti AM 60 0- 2- 00 00 SI ve IN 48 20 20 49 DE OP 41 17 17 97 HE 0 25 PH N- AR CO MA D CY #3 OF TA CY BL NT ET HI AN A IN C VA 65 08 09 30 30 00 EA Ac LS 86 -2 -[address] ti AR 20 1- 5- 00 00 SI ve TA 55 20 20 49 DE N- 19 17 17 85 HC 0 97 PH TZ AR MA 32 CY 0- 25 OF CY MG NT HI TA AN B A IN C ON 65 08 09 15 5 00 EA Ac DA 86 -2 -[address] ti NS 20 0- 5- 00 00 SI ve ET 18 20 20 49 DE RO 73 17 17 74 N 0 32 PH HC AR L MA 4 CY MG OF TA CY BL NT ET HI AN A IN C SP 65 08 09 30 30 00 EA Ac IR 16 -1 -[address] ti ON 20 0- 8- 00 00 SI ve OL 51 20 20 49 DE AC 51 17 17 74 TO 0 31 PH NE AR MA 10 CY 0 MG OF CY TA NT BL HI ET AN A IN C MO 60 08 09 30 30 00 EA Ac NT 50 -0 -[address] ti EL 53 9- 1- 00 00 SI ve UK 56 20 20 47 DE 20 17 17 99 T 8 56 PH SO AR D MA 10 CY MG OF CY TA NT BL HI ET AN A IN C ON 65 07 08 15 5 00 EA Ac DA 86 -2 -[address] ti NS 20 0- 8- 00 00 SI ve ET 18 20 20 49 DE RO 73 17 17 51 N 0 39 PH HC AR L MA 4 CY MG OF TA CY BL NT ET HI AN A IN C HY 00 07 08 [address] 40 -2 -[address] ti OC 60 6- 8- 00 00 SI ve OD 12 20 20 49 DE ON 40 17 17 57 -A 5 39 PH CE AR TA MA MS CY NO PH OF CY 7. NT 5- HI 32 AN 5 A IN C HY 00 07 08 [address] 40 -1 -[address] ti OC 60 7- 1- 00 00 SI ve OD 12 20 20 49 DE ON 40 17 17 46 -A 5 27 PH CE AR TA MA MS CY NO PH OF CY 7. NT 5- HI 32 AN 5 A IN C CA 00 07 07 18 90 00 EA Ac RV 09 -0 -[address] ti ED 30 5- 8- 00 00 SI ve IL 13 20 20 0 49 DE OL 50 17 17 34 1 16 PH 6. AR 25 MA CY MG OF TA CY BL NT ET HI AN A IN C ME 68 07 07 18 90 00 EA Ac TF 38 -0 -[address] ti OR 20 5- 8- 00 00 SI ve MS 76 20 20 0 49 DE N 01 17 17 34 HC 0 28 PH L AR 1, MA 00 CY 0 MG OF CY TA NT BL HI ET AN A IN C VA 65 07 07 30 30 00 EA Ac LS 86 -0 -[address] ti AR 20 5- 8- 00 00 SI ve TA 55 20 20 49 DE N- 19 17 17 34 HC 0 29 PH TZ AR MA 32 CY 0- 25 OF CY MG NT HI TA AN B A IN C BU 43 07 07 60 30 00 EA Ac IN 59 -0 -[address] ti OP 80 5- 8- 00 00 SI ve IO 53 20 20 49 DE N 70 17 17 34 HC 5 32 PH L AR SR MA CY 15 0 OF MG CY NT TA HI BL AN ET A IN C IB 53 07 07 90 30 00 EA Ac UP 74 -0 -[address] ti RO 60 5- 8- 00 00 SI ve FE 46 20 20 49 DE N 50 17 17 34 60 5 31 PH 0 AR MG MA CY TA BL OF ET CY NT HI AN A IN C PA 65 07 07 30 30 00 EA Ac NT 86 -0 -[address] ti OP 20 3- 8- 00 00 SI ve RA 56 20 20 48 DE ZO 09 17 17 32 LE 0 36 PH AR SO MA D CY DR OF 40 CY NT MG HI AN TA A B IN C MO 60 07 07 30 30 00 EA Ac NT 50 -0 -[address] ti EL 53 3- 8- 00 00 SI ve UK 56 20 20 47 DE 20 17 17 99 T 8 56 PH SO AR D MA 10 CY MG OF CY TA NT BL HI ET AN A IN C FL 60 07 07 16 30 00 EA Ac UT 43 -0 -[address] ti IC 20 3- 8- 00 00 SI ve 26 20 20 46 DE ON 41 17 17 71 E 5 33 PH IN AR OP MA CY 50 OF MC CY G NT SP HI RA AN Y A IN C HM 62 07 07 60 30 00 EA Ac 01 -0 -[address] ti AC 10 3- 8- 00 00 SI ve ID 22 20 20 48 DE 50 17 17 40 RE 2 30 PH DU AR CE MA R CY 75 OF MG CY NT TA HI BL AN ET A IN C SP 65 06 07 30 30 00 EA Ac IR 16 -1 -[address] ti ON 20 5- 4- 00 00 SI ve OL 51 20 20 48 DE AC 51 17 17 77 TO 0 46 PH NE AR MA 10 CY 0 MG OF CY TA NT BL HI ET AN A IN C LO 00 06 07 90 90 00 EA Ac VA 18 -1 -[address] 50 5- 4- 00 00 SI ve AT 07 20 20 48 DE IN 26 17 17 33 0 63 PH 20 AR MA MG CY TA OF BL CY ET NT HI AN A IN C FR 99 06 07 50 30 00 EA Ac EE 07 -1 -[address] 30 5- 4- 00 00 SI ve YL 70 20 20 49 DE E 82 17 17 14 LI 2 58 PH TE AR MA TE CY ST OF ST CY RI NT P HI AN A IN C GL 00 06 07 90 90 00 EA Ac IP 78 -1 -[address] ti IZ 11 5- 4- 00 00 SI ve ID 45 20 20 49 DE E 30 17 17 14 10 1 88 PH AR MG MA CY TA BL OF ET CY NT HI AN A IN C PA 65 05 06 30 30 00 EA Ac NT 86 -2 -[address] ti OP 20 7- 3- 00 00 SI ve RA 56 20 20 48 DE ZO 09 17 17 32 LE 0 36 PH AR SO MA D CY DR OF 40 CY NT MG HI AN TA A B IN C MO 60 05 06 30 30 00 EA Ac NT 50 -2 -[address] ti EL 53 7- 3- 00 00 SI ve UK 56 20 20 47 DE 20 17 17 99 T 8 56 PH SO AR D MA 10 CY MG OF CY TA NT BL HI ET AN A IN C FL 60 05 06 16 30 00 EA Ac UT 43 -2 -[address] ti IC 20 7- 3- 00 00 SI ve 26 20 20 46 DE ON 41 17 17 71 E 5 33 PH IN AR OP MA CY 50 OF MC CY G NT SP HI RA AN Y A IN C LE 00 06 90 90 00 EA Ac VO 78 -2 -[address] ti TH 15 7- 3- 00 00 SI ve YR 18 20 20 48 DE OX 39 17 17 40 IN 2 29 PH E AR 88 MA CY MC G OF TA CY BL NT ET HI AN A IN C VA 65 05 06 30 30 00 EA Ac LS 86 -2 -[address] ti AR 20 7- 3- 00 00 SI ve TA 55 20 20 47 DE N- 19 17 17 35 HC 0 48 PH TZ AR MA 32 CY 0- 25 OF CY MG NT HI TA AN B A IN C BU 43 05 06 60 30 00 EA Ac IN 59 -3 -[address] ti OP 80 0- 3- 00 00 SI ve IO 53 20 20 48 DE N 70 17 17 93 HC 5 11 PH L AR SR MA CY 15 0 OF MG CY NT TA HI BL AN ET A IN C SP 65 05 06 30 30 00 EA Ac IR 16 -1 -[address] ti ON 20 6- 9 00 SI ve OL 51 20 20 48 DE AC 51 17 17 77 TO 0 46 PH NE AR MA 10 CY 0 MG OF CY TA NT BL HI ET AN A IN C MA 51 04 05 59 1 00 EA Ac LA 67 -2 -[address] ti TH 25 5- 9- 00 00 SI ve IO 29 20 20 48 DE N 40 17 17 48 0. 4 61 PH 5% AR MA LO CY TI ON OF CY NT HI AN A IN C AC 65 04 05 40 20 00 EA Ac ET 16 -1 -[address] ti AM 20 8- 2- 00 SI ve IN 03 20 20 48 DE OP 31 17 17 40 HE 1 25 PH N- AR CO MA D CY #3 OF TA CY BL NT ET HI AN A IN C ME 68 04 05 18 90 00 EA Ac TF 38 -1 -[address] ti OR 20 8- 2- 00 SI ve MS 76 20 20 0 48 DE N 01 17 17 40 HC 0 26 PH L AR 1, MA 00 CY 0 MG OF CY TA NT BL HI ET AN A IN C CA 00 04 05 18 90 00 EA Ac RV 09 -1 -[address] ti ED 30 8- 2- 00 00 SI ve IL 13 20 20 0 48 DE OL 50 17 17 40 1 27 PH 6. AR 25 MA CY MG OF TA CY BL NT ET HI AN A IN C IB 53 04 05 90 30 00 EA Ac UP 74 -1 -[address] ti RO 60 8- 2- 00 00 SI ve FE 46 20 20 48 DE N 50 17 17 40 60 5 28 PH 0 AR MG MA CY TA BL OF ET CY NT HI AN A IN C HM 62 04 05 60 30 00 EA Ac 01 -1 -[address] ti AC 10 8- 2- 00 00 SI ve ID 22 20 20 48 DE 50 17 17 40 RE 2 30 PH DU AR CE MA R CY 75 OF MG CY NT TA HI BL AN ET A IN C MO 60 04 05 30 30 00 EA Ac NT 50 -1 -[address] ti EL 53 0- 5- 00 00 SI ve UK 56 20 20 47 DE 20 17 17 99 T 8 56 PH SO AR D MA 10 CY MG OF CY TA NT BL HI ET AN A IN C BU 00 04 05 60 30 00 EA Ac IN 18 -1 -[address] ti OP 50 0- 5- 00 00 SI ve IO 41 20 20 47 DE N 56 17 17 73 HC 0 82 PH L AR SR MA CY 15 0 OF MG CY NT TA HI BL AN ET A IN C FL 60 04 05 16 30 00 EA Ac UT 43 -1 -[address] ti IC 20 0- 5- 00 00 SI ve 26 20 20 46 DE ON 41 17 17 71 E 5 33 PH IN AR OP MA CY 50 OF MC CY G NT SP HI RA AN Y A IN C PU 00 04 05 1. 30 00 EA Ac LM 18 -1 -[address] ti IC 60 0- 5- 0 00 SI ve OR 91 20 20 46 DE T 61 17 17 71 18 2 46 PH 0 AR MC MA G CY FL EX OF VELASCO CY LE NT R HI AN A IN C VE 00 04 05 18 23 00 EA Ac NT 17 -1 -[address] ti OL 30 0- 5- 00 00 SI ve IN 68 20 20 46 DE 22 17 17 71 HF 0 31 PH A AR 90 MA CY MC G OF IN CY VELASCO NT LE HI R AN A IN C CY 00 04 05 30 10 00 EA Ac CL 37 -1 -[address] ti OB 80 0- 5- 00 00 SI ve EN 75 20 20 47 DE ZA 11 17 17 73 IN 0 89 PH IN AR E MA 10 CY MG OF CY TA NT BL HI ET AN A IN C VA 65 04 05 30 30 00 EA Ac LS 86 -1 -[address] ti AR 20 2- 5- 00 00 SI ve TA 55 20 20 48 DE N- 19 17 17 33 HC 0 58 PH TZ AR MA 32 CY 0- 25 OF CY MG NT HI TA AN B A IN C LE 00 04 05 30 30 00 EA Ac VO 78 -1 -[address] ti TH 15 2- 5- 00 00 SI ve YR 18 20 20 48 DE OX 39 17 17 33 IN 2 62 PH E AR 88 MA CY MC G OF TA CY BL NT ET HI AN A IN C PA 65 04 05 30 30 00 EA Ac NT 86 -1 -[address] ti OP 20 1- 5- 00 00 SI ve RA 56 20 20 48 DE ZO 09 17 17 32 LE 0 36 PH AR SO MA D CY DR OF 40 CY NT MG HI AN TA A B IN C HY 00 03 04 [address] 40 -1 -[address] ti OC 60 4- 7- 00 00 SI ve OD 12 20 20 47 DE ON 30 17 17 96 -A 5 48 PH CE AR TA MA MS CY NO PH OF EN CY NT 5- HI 32 AN 5 A IN C LA 00 02 03 11 14 00 EA Ac NS 78 -2 -[address] ti OP 14 7- 4- 00 00 SI ve RA 05 20 20 0 47 DE ZO 44 17 17 78 L- 2 14 PH AM AR OX MA IC CY IL -C OF LA CY RI NT TH HI RO AN A IN C BU 00 02 03 60 30 00 EA Ac IN 18 -2 -[address] ti OP 50 3- 4- 00 00 SI ve IO 41 20 20 47 DE N 56 17 17 73 HC 0 82 PH L AR SR MA CY 15 0 OF MG CY NT TA HI BL AN ET A IN C LO 00 02 03 90 90 00 EA Ac VA 18 -2 -[address] 50 3- 4- 00 00 SI ve AT 07 20 20 47 DE IN 26 17 17 73 0 83 PH 20 AR MA MG CY TA OF BL CY ET NT HI AN A IN C VA 65 02 03 30 30 00 EA Ac LS 86 -2 -[address] ti AR 20 3- 4- 00 00 SI ve TA 55 20 20 47 DE N- 19 17 17 73 HC 0 84 PH TZ AR MA 32 CY 0- 25 OF CY MG NT HI TA AN B A IN C LE 00 02 03 30 30 00 EA Ac VO 78 -2 -[address] ti TH 15 3- 4- 00 00 SI ve YR 18 20 20 47 DE OX 39 17 17 73 IN 2 85 PH E AR 88 MA CY MC G OF TA CY BL NT ET HI AN A IN C ME 68 02 03 60 30 00 EA Ac TF 38 -2 -[address] ti OR 20 3- 4- 00 00 SI ve MS 76 20 20 47 DE N 01 17 17 73 HC 0 86 PH L AR 1, MA 00 CY 0 MG OF CY TA NT BL HI ET AN A IN C GL 02 03 90 90 00 EA Ac IP 78 -2 -[address] ti IZ 11 3- 4- 00 00 SI ve ID 45 20 20 47 DE E 30 17 17 73 10 1 87 PH AR MG MA CY TA BL OF ET CY NT HI AN A IN C GA 02 03 90 30 00 EA Ac BA 71 -2 -[address] ti PE 40 3- 4- 00 00 SI ve NT 33 20 20 47 DE IN 00 17 17 73 2 88 PH 60 AR 0 MA MG CY TA OF BL CY ET NT HI AN A IN C CY 03 30 10 00 EA Ac CL 37 -2 -[address] ti OB 80 3- 4- 00 00 SI ve EN 75 20 20 47 DE ZA 11 17 17 73 IN 0 89 PH IN AR E MA 10 CY MG OF CY TA NT BL HI ET AN A IN C AC 60 30 00 EA Ac ET 16 -2 -[address] ti AM 20 3- 4- 00 00 SI ve IN 03 20 20 47 DE OP 31 17 17 73 HE 1 90 PH N- AR CO MA D CY #3 OF TA CY BL NT ET HI AN A IN C GL 02 30 30 00 EA Ac IP 78 -2 -[address] ti IZ 11 4- 7- 00 00 SI ve ID 45 20 20 47 DE E 30 17 17 35 10 1 46 PH AR MG MA CY TA BL OF ET CY NT HI AN A IN C VA 65 08 10 30 30 00 EA Ac LS 86 -2 -[address] ti AR 20 4- 7- 00 00 SI ve TA 55 20 20 47 DE N- 19 17 17 35 HC 0 48 PH TZ AR MA 32 CY 0- 25 OF CY MG NT HI TA AN B A IN C AC 65 02 60 30 00 EA Ac ET 16 -2 -[address] ti AM 20 4- 7- 00 00 SI ve IN 03 20 20 47 DE OP 31 17 17 35 HE 1 49 PH N- AR CO MA D CY #3 OF TA CY BL NT ET HI AN A IN C LO 02 30 30 00 EA Ac VA 18 -1 -[address] 50 2- 0- 00 00 SI ve AT 07 20 20 46 DE IN 26 17 17 85 0 56 PH 20 AR MA MG CY TA OF BL CY ET NT HI AN A IN C LE 00 01 02 30 30 00 EA Ac VO 78 -1 -[address] ti TH 15 2- 0- 00 00 SI ve YR 18 20 20 46 DE OX 39 17 17 85 IN 2 55 PH E AR 88 MA CY MC G OF TA CY BL NT ET HI AN A IN C AM 16 01 01 20 10 00 EA Ac OX 71 -0 -[address] ti -C 40 3- 7- 00 00 SI ve LA 29 20 20 47 DE V 70 17 17 10 87 1 39 PH 5- AR 12 MA 5 CY MG OF TA CY BL NT ET HI AN A IN C IB 53 12 01 21 7 00 EA Ac UP 74 -2 -[address] ti RO 60 7- 0- 00 00 SI ve FE 46 20 20 47 DE N 50 16 17 02 60 5 61 PH 0 AR MG MA CY TA BL OF ET CY NT HI AN A IN C ME 68 12 01 60 30 00 EA Ac TF 38 -2 -[address] ti OR 20 3- 0- 00 00 SI ve MS 76 20 20 45 DE N 01 16 17 92 HC 0 14 PH L AR 1, MA 00 CY 0 MG OF CY TA NT BL HI ET AN A IN C CY 00 12 01 30 10 00 EA Ac CL 37 -2 -[address] ti OB 80 3- 0- 00 00 SI ve EN 75 20 20 46 DE ZA 11 16 17 52 IN 0 42 PH IN AR E MA 10 CY MG OF CY TA NT BL HI ET AN A IN C GA 16 12 90 30 00 EA Ac BA 71 -2 -[address] ti PE 40 3- 0- 00 00 SI ve NT 33 20 20 46 DE IN 00 16 17 52 2 36 PH 60 AR 0 MA MG CY TA OF BL CY ET NT HI AN A IN C BU 00 12 01 60 30 00 EA Ac IN 18 -2 -[address] ti OP 50 3- 0- 00 00 SI ve IO 41 20 20 46 DE N 50 16 17 52 HC 5 37 PH L AR SR MA CY 15 0 OF MG CY NT TA HI BL AN ET A IN C LO 00 12 01 30 30 00 EA Ac VA 18 -0 -[address] 50 9- 9- 00 00 SI ve AT 07 20 20 46 DE IN 26 16 17 83 0 66 PH 20 AR MA MG CY TA OF BL CY ET NT HI AN A IN C LE 00 12 01 30 30 00 EA Ac VO 78 -0 -[address] ti TH 15 9- 9- 00 00 SI ve YR 18 20 20 46 DE OX 39 16 17 83 IN 2 65 PH E AR 88 MA CY MC G OF TA CY BL NT ET HI AN A IN C OX 62 12 01 21 21 00 EA Ac YB 17 -0 -[address] ti UT 50 8- 9- 00 00 SI ve YN 27 20 20 46 DE IN 13 16 17 82 7 10 PH CL AR MA ER CY 10 OF CY MG NT HI TA AN BL A ET IN C HM 62 12 01 5. 30 00 EA Ac 01 -1 -[address] ti EY 10 2- 9- 0 00 SI ve E 23 20 20 46 DE IT 20 16 17 50 CH 1 18 PH AR RE MA LI CY EF OF 0. CY 02 NT 5% HI AN DR A OP IN C NA 68 12 01 20 10 00 EA Ac IN 46 -1 -[address] ti OX 20 2- 9- 00 00 SI ve EN 19 20 20 46 DE 00 16 17 86 50 5 35 PH 0 AR MG MA CY TA BL OF ET CY NT HI AN A IN C GI 12 01 0 No 32 -1 CO 22 6- Lo CK 22 20 ng TA 22 14 er IL 2 Ac 60 ti ML ve UD C Sa 63 01 0 No li 80 -1 ne 70 6- Lo 10 20 ng Fl 07 14 er us 5 h Ac 10 ti ML ve Sy ri ng e Sa 63 01 0 No li 80 -1 ne 70 6- Lo 10 20 ng Fl 07 14 er us 5 h Ac 10 ti ML ve Sy ri ng e GI 12 01 0 No 32 -1 CO 22 6- Lo CK 22 20 ng TA 22 14 er IL 2 Ac 60 ti ML ve UD C TR 65 10 0 No AM 16 -1 AD 20 2- Lo OL 62 20 ng 71 13 er HC 0 L Ac 50 ti ve MG TA BL ET AD 49 10 0 No AC 28 -1 EL 10 2- Lo 40 20 ng TD 01 13 er AP 0 Ac ti AL ve MA 00 02 0 No PA 90 -2 P 41 3- Lo 32 98 20 ng 5 26 13 er MG 1 Ac TA ti BL ve ET Immunization Name Date Rout CVX Reac Dose Comm Prov Is Faci e tion ent ider Refu lity Give sed n IIV3 02-1 141 GAIN No [facility] 8-20 EY PHYS VACC 16 ICIA INE NS SPLI GROU T P VIRU S 0.5 ML DOSA GE IM USE IIV3 12-1 140 GAIN No [facility] 2-20 EY PHYS VACC 14 MAICO ICIA NS PRES GROU ERVA P TIVE FREE 0.5 ML DOSA GE IM USE Vital Signs 08-24-2013 12:52 Name Value Interpretat Reference Comment ion Range BP 92 mm[Hg] Diastolic BP Systolic 121 mm[Hg] Heart 81 /min Rate/Pulse O2% 98 % Respiratory 20 /min Rate 08-24-2013 09:00 Name Value Interpretat Reference Comment ion Range BP 67 mm[Hg] Diastolic BP Systolic 117 mm[Hg] Heart 84 /min Rate/Pulse Respiratory 20 /min Rate 08-24-2013 08:33 Name Value Interpretat Reference Comment ion Range O2% 96 % 06-02-2013 12:27 Name Value Interpretat Reference Comment ion Range BP 90 mm[Hg] Diastolic BP Systolic 133 mm[Hg] Heart 84 /min Rate/Pulse O2% 96 % Respiratory 20 /min Rate 06-02-2013 12:16 Name Value Interpretat Reference Comment ion Range Body 98.5 [degF] Temperature BP 90 mm[Hg] Diastolic BP Systolic 133 mm[Hg] Heart 84 /min Rate/Pulse O2% 95 % Respiratory 18 /min Rate 05-20-2013 18:37 Name Value Interpretat Reference Comment ion Range Body 99 [degF] Temperature BP 99 mm[Hg] Diastolic BP Systolic 144 mm[Hg] Heart 90 /min Rate/Pulse O2% 98 % Respiratory 18 /min Rate 05-20-2013 18:07 Name Value Interpretat Reference Comment ion Range BP 93 mm[Hg] Diastolic BP Systolic 147 mm[Hg] Heart 94 /min Rate/Pulse O2% 99 % Respiratory 18 /min Rate 03-18-2013 18:49 Name Value Interpretat Reference Comment ion Range Body 98.4 [degF] Temperature BP 90 mm[Hg] Diastolic BP Systolic 153 mm[Hg] Heart 76 /min Rate/Pulse O2% 97 % Respiratory 18 /min Rate 03-18-2013 18:48 Name Value Interpretat Reference Comment ion Range Body 98.4 [degF] Temperature BP 90 mm[Hg] Diastolic BP Systolic 153 mm[Hg] Heart 76 /min Rate/Pulse O2% 97 % Respiratory 18 /min Rate 10-01-2012 20:16 Name Value Interpretat Reference Comment ion Range Body 98.3 [degF] Temperature BP 73 mm[Hg] Diastolic BP Systolic 114 mm[Hg] Heart 69 /min Rate/Pulse O2% 96 % Respiratory 18 /min Rate 10-01-2012 19:55 Name Value Interpretat Reference Comment ion Range Body 98.3 [degF] Temperature 10-01-2012 18:47 Name Value Interpretat Reference Comment ion Range BP 69 mm[Hg] Diastolic BP Systolic 116 mm[Hg] Heart 69 /min Rate/Pulse O2% 94 % Respiratory 17 /min Rate Results Labs Lab Lab Date Result Refere Interp Status Commen Order Detail nces retati t Range on Hemoglobin A1c in Blood (04-28-2017 14:10) Hemoglo 5.9 % 0.0% Normal complet bin A1c 017 - ed in 14:10 7.0% Blood COMPREHENSIVE METABOLIC PANEL (08-24-2013 08:45) Glucose 124 74-106 complet 014 mg/dL ed Bld-mCn 08:45 c BUN 13 7-18 complet Bld-mCn 014 mg/dL ed c 08:45 Creat 0.9 0.6-1.0 complet SerPl-m 014 mg/dL ed Cnc 08:45 GFR/BSA 71 59- complet .pred 014 ML/MIN ed SerPl 08:45 Schwart z-vRate Sodium 138 136-145 complet SerPl-s 014 mmoL/L ed Cnc 08:45 Potassi 4.2 3.5-5.1 complet um 014 mmoL/L ed SerPl-s 08:45 Cnc Chlorid 102 98-107 complet e 014 mmoL/L ed SerPl-s 08:45 Cnc CO2 29 21.0-32 complet SerPl-s 014 mmoL/L .0 ed Cnc 08:45 Calcium 9.0 8.5-10. complet 014 mg/dL 1 ed SerPl-m 08:45 Cnc Prot 7.9 6.4-8.2 complet SerPl-m 014 gm/dL ed Cnc 08:45 Albumin 3.6 3.4-5.0 complet 014 gm/dL ed SerPl-m 08:45 Cnc Globuli 16-2 4.3 1.3-3.2 complet n 014 gm/dL ed Ser-mCn 08:45 c Albumin 16-2 0.8 UNK 1.1-1.8 complet /Glob 014 ed SerPl-m 08:45 Rto Bilirub 08-24-2 0.3 0.2-1.0 complet 014 mg/dL ed SerPl-m 08:45 Cnc AST 08-24-2 36 U/L 15-37 complet SerPl-c 014 ed Cnc 08:45 ALT 08-24-2 74 U/L 12-78 complet SerPl-c 014 ed Cnc 08:45 ALP 08-24-2 96 U/L 50-136 complet SerPl-c 014 ed Cnc 08:45 BNP Bld-mCnc (08-24-2013 08:45) BNP 08-24-2 15 0-100 complet Bld-mCn 014 pg/mL ed c 08:45 CBC with AUTO DIFF (08-24-2013 08:45) WBC # -16-2 7.7 4.8-10. complet Bld 014 K/MM3 8 ed Auto 08:45 RBC # 16-2 4.40 4.2-5.4 complet Bld 014 M/mm3 ed Auto 08:45 Hgb 16-2 13.4 12.2-16 complet Bld-mCn 014 g/dL .2 ed c 08:45 Hct Fr 08-24-2 39.6 % 37.0-47 complet Bld 014 .0 ed 08:45 MCV RBC 08-24-2 90.0 fl 82.2-97 complet 014 .8 ed 08:45 MCH RBC 16-2 30.6 pg 27-31.2 complet Qn 014 ed Auto 08:45 MEAN 16-2 34.0 31.8-35 complet CORPUSC 014 g/dl .4 ed ULAR 08:45 HGB CONC RDW RBC 16-2 15.0 % 11.5-17 complet Auto 014 .5 ed 08:45 Platele 16-2 228 142-424 complet t Bld 014 K/mm3 ed Ql 08:45 Manual MEAN 08-24-2 8.9 fl 7.4-10. complet PLATELE 014 4 ed T 08:45 VOLUME Granulo 01-16-2 58.0 % 37.0-80 complet cytes 014 .0 ed Fr Bld 08:45 Auto LYMPH % 01-16-2 34.0 % 10-50.0 complet 014 ed 08:45 Monocyt 01-16-2 4.5 % 1.7-9.3 complet es Fr 014 ed Bld 08:45 Auto Eosinop 01-16-2 2.7 % 0.1-12. complet hil Fr 014 0 ed Bld 08:45 Auto Basophi 01-16-2 0.8 % 0.1-2.0 complet ls Fr 014 ed Bld 08:45 Auto Granulo 01-16-2 4.5 1.8-7.8 complet cytes # 014 K/mm3 ed Bld 08:45 Auto Lymphoc -16-2 2.6 0.7-4.5 complet ytes Fr 014 K/mm3 ed Bld 08:45 Auto Monocyt -16-2 0.4 0.1-1.0 complet es # 014 K/mm3 ed Bld 08:45 Auto Eosinop -16-2 0.2 0.0-0.4 complet hil # 014 K/mm3 ed Bld 08:45 Auto Basophi 01-16-2 0.1 0-0.2 complet ls # 014 K/MM3 ed Bld 08:45 Auto Procedures Procedure DOS Code Location Performer Comment SLING [address] [facility] SALAZAR OPERATION 7 PHYSICIAN STRESS S GROUP INCONTINE NCE ANES 96873 [facility] 7 ANESTH TONEAL OF THE LWR ABD BLUE W/URINARY TRACT NOS REPAIR C1771 [facility]ICE [facility] URINARY INC INC INCONTINE NCE W/SLING GRAFT GLUC BLD 10496 JOSEPH RUIZ GLUC MNTR 7 [facility] DEV INC INC CLEARED FDA SPEC HOME USE COMPLX 31272 [facility] CYSTOMETR 7 PHYSICIAN PHYSICIAN O W/VOID S GROUP S GROUP PRESS & URETHRAL PROFIL SHAVING 57481 [facility] LEOPOLDO SKIN 7 PHYSICIAN LESION 1 S GROUP S/N/H/F/G DIAM 0.6-[place] [address] [place] LAUGHLIN MAXILLOFA 7 MEDICAL CIAL W/O IMAGING CONTRAST ASS MATERIAL RADIOLOGI 79755 [facility] 6 MEDICAL JOÃO EXAMINATI IMAGING ON KNEE 3 ASS VIEWS COMPUTER- 58690 [facility] AIDED 6 [facility] DETECTION INC INC SCREENING MAMMOGRAP HY SCREENING G0202 [facility] 6 [facility] MAMMOGRAP INC INC [place] [address] [place] QIAN TRANSVAGI 6 MEDICAL NAL IMAGING ASS SPACR A4627 MT MED MT MED BAG/RESRV 6 EQUIPMENT EQUIPMENT OR W/WO INC INC MASK W/METRD DOSE INHAL IADNA 80643 [facility] NEISSERIA 6 PHYSICIAN PHYSICIAN S GROUP S GROUP GONORRHOE AE DIRECT PROBE TQ IADNA 91192 BIO BIO NEISSERIA 6 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 GONORRHOE IES IES AE AMPLIFIED PROBE TQ IADNA NOS 49219 BIO BIO 6 REFERNCE REFERNCE AMPLIFIED LABORATOR LABORATOR PROBE TQ IES IES EACH ORGANISM IADNA 99867 BIO BIO CHLAMYDIA 6 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 TRACHOMAT IES IES IS AMPLIFIED PROBE TQ SCR G0145 BIO BIO CYTOPATH 6 REFERNCE REFERNCE CERV/VAG LABORATOR LABORATOR SCR IES IES AUTO&MNL RSCR PHYS CULTURE 84470 [facility] HARPEL CHLAMYDIA 6 PHYSICIAN IONA ANY S GROUP SOURCE IADNA 40703 BIO BIO TRICHOMON 6 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 VAGINALIS IES IES AMPLIFIED PROBE TECH URINLS 50640 [facility] HARPEL DIP 6 PHYSICIAN IONA STICK/TAB S GROUP [place] RE[place] [address] [facility] R[facility] THYROID 6 [facility] STIMULATI INC INC NG HORMONE TSH HEMOGLOBI 40288 JOSE[facility] R[facility] N 6 [facility] GLYCOSYLA INC INC JAY A1C COMPREHEN 83010 [facility] SIVE 6 [facility] METABOLIC INC INC PANEL COLLECTIO 07818 JOSEPH JOSEPH N VENOUS 6 [facility] BLOOD INC INC VENIPUNCT URE OPHTH 14548 [facility] MEDICAL 6 XM&EVAL COMPRE NEW PT 1/> VST RADIOLOGI 81967 [facility] C EXAM 6 MEDICAL JOÃO CHEST 2 IMAGING VIEWS ASS FRONTAL&L ATERAL 91434 [facility] SALAZAR NONSTRESS 6 PHYSICIAN ALLEN TEST S GROUP 42920 [facility] SALAZAR NONSTRESS 6 PHYSICIAN ALLEN TEST S GROUP ARTHROCEN 47869 [facility] PETTE TESIS 6 PHYSICIAN JAM ASPIR&/IN S GROUP J MAJOR JT/BURSA W/O US RADEX 00935 ANDREW LAUGHLIN ALL SPINE 6 MEDICAL CERVICAL IMAGING 2 OR 3 ASS VIEWS RADEX 02068 [facility] SPINE 6 [facility] CERVICAL INC INC 4 OR 5 VIEWS RADEX 71150 [facility] ALL SHOULDER 6 MEDICAL 1 VIEW IMAGING ASS RADEX 69200 JOSEPH RUIZ SHOULDER 6 [facility] COMPLETE INC INC MINIMUM 2 VIEWS POLYSOM 46227 JOSEPH RUIZ 6/>YRS 6 [facility] SLEEP 4/> INC INC ADDL ADAM ATTND CONTINUOU E0601 ANGELA MILLER S 6 HOME HOME POSITIVE MEDICAL MEDICAL AIRWAY EQUIPME EQUIPME PRESSURE DEVICE BRNCDILAT 58142 JOSEPH [place] RSPSE 6 [facility] PRE&POST- P BRNCDILAT ADMN UNCLASSIF J3490 JOSEPH RUIZ IED DRUGS 6 [facility] INC INC HEPATITIS 10816 JOSEPH RUIZ C 6 [facility] [place] [address] JOSEPH RUIZ HEPATITIS 6 [facility] B INC INC SURFACE ANTIGEN HEPATITIS 77268 JOSEPH [place] CORE 6 [facility] ANTIBODY INC INC HBCAB TOTAL HEPATITIS 41957 JOSEPH [place] SURF 6 [facility] ANTIBODY INC INC HBSAB HEPATITIS 45498 JOSEPH RUIZ A 6 [facility] ANTIBODY INC INC HAAB COLLECTIO 26993 JOSEPH Mancera VENOUS 6 [facility] BLOOD INC INC VENIPUNCT URE US SOFT 47894 ANDREW LAUGHLIN ALL TISSUE 6 MEDICAL HEAD & IMAGING NECK REAL ASS TIME IMGE DOCM HEPATITIS 90748 JOSEPH RUIZ A 6 [facility] ANTIBODY INC INC HAAB HEPATITIS 82227 JOSEPH Henley SURF 6 [facility] ANTIBODY INC INC HBSAB HEPATITIS 08428 JOSEPH JOSEPH Henley CORE 6 [facility] [place] [address] JOSEPH RUIZ HEPATITIS 6 [facility] B INC INC SURFACE ANTIGEN HEPATITIS 46325 JOSEPH RUIZ C 6 [facility] ANTIBODY INC INC HEPATIC 75913 JOSEPH RUIZ FUNCTION 6 [facility] PANEL INC INC CONTINUOU E0601 ANGELA MILLER S 6 HOME HOME POSITIVE MEDICAL MEDICAL AIRWAY EQUIPME EQUIPME PRESSURE DEVICE ALBUMIN 52257 JOSEPH RUIZ URINE 6 [facility] MICROALBU INC INC MIN QUANTIATI VE COMPREHEN 81255 JOSEPH RUIZ SIVE 6 [facility] METABOLIC INC INC PANEL LIPID 48527 JOSEPH RUIZ PANEL 6 [place] [address] JOSEPH RUIZ THYROXINE 6 [facility] [place] [address] JOSEPH RUIZ THYROID 6 [facility] STIMULATI INC INC NG HORMONE TSH HEMOGLOBI 86796 JOSEPH RUIZ N 6 [facility] GLYCOSYLA INC INC JAY A1C BLOOD 96905 JOSEPH RUIZ COUNT 6 [facility] COMPLETE INC INC AUTO&AUTO DIFRNTL WBC CONTINUOU E0601 ANGELA MILLER S 6 HOME HOME POSITIVE MEDICAL MEDICAL AIRWAY EQUIPME EQUIPME PRESSURE DEVICE CONTINUOU E0601 ANGELA MILLER S 6 HOME HOME POSITIVE MEDICAL MEDICAL AIRWAY EQUIPME EQUIPME PRESSURE DEVICE NASL A7034 ANGELA MILLER INTRFCE 6 HOME HOME POS ARWAY MEDICAL MEDICAL PRSS EQUIPME EQUIPME DEVC W/WO HEAD STRAP HEADGEAR A7035 ANGELA MILLER USED 6 HOME HOME W/POSITIV MEDICAL MEDICAL E AIRWAY EQUIPME EQUIPME PRESSURE DEVICE FILTER A7038 ANGELA MILLER DISPBL 6 HOME HOME USED MEDICAL MEDICAL W/POS EQUIPME EQUIPME ARWAY PRESSURE DEVICE FILTER A7039 ANGELA MILLER NON 6 HOME HOME DISPBL MEDICAL MEDICAL USED EQUIPME EQUIPME W/POS ARWAY PRESS DEVICE HUMDIFIR E0562 ANGELA MILLER HEATED 6 HOME HOME USED MEDICAL MEDICAL W/POS EQUIPME EQUIPME ARWAY PRESSURE DEVICE TUBING A7037 ANGELA MILLER USED WITH 6 HOME HOME POSITIVE MEDICAL MEDICAL AIRWAY EQUIPME EQUIPME PRESSURE DEVICE IM ADM 92160 [facility] PRQ ID 6 PHYSICIAN SUBQ/IM S GROUP NJXS 1 VACCINE IIV3 71456 [facility] VACCINE 6 PHYSICIAN SPLIT S GROUP VIRUS 0.5 ML DOSAGE IM USE ECG 34630 CARDIOVAS MYRANDA ROUTINE 6 CULAR MAT ECG CONSULTAN W/LEAST TS O 12 LDS I&R ONLY LIPID 83107 JOSEPH RUIZ PANEL 6 [facility] INC INC COMPREHEN 99550 JOSEPH [facility]UIZ SIVE 6 [facility] METABOLIC INC INC PANEL SLEEP STD 87072 JOSEPH RUIZ AIRFLOW 6 [facility] HRT INC INC RATE&O2 SAT EFFORT UNATT CREATINE 22625 JOSEPH RUIZ KINASE 6 [facility] ISOENZYME INC INC S COLLECTIO 95181 JOSEPH RUIZ N VENOUS 6 [facility] [place] [address] JOSEPH RUIZ THYROID 6 [facility] STIMULATI [place] [address] JOSEPH RUIZ MAGNESIUM 6 [facility] INC INC BLOOD 93836 JOSEPH RUIZ COUNT 6 [facility] COMPLETE INC INC AUTO&AUTO DIFRNTL WBC HEMOGLOBI 81488 JOSEPH RUIZ N 6 [facility] GLYCOSYLA INC INC JAY A1C DUP-SCAN 52261 [place] LAUGHLIN ALL ARTL MARLYN 6 MEDICAL ABDL/PEL/ IMAGING SCROT&/[place] [address] ANDREW LAUGHLIN ALL RETROPERI 6 MEDICAL TONEAL IMAGING REAL TIME ASS W/IMAGE LIMITED ECG 50284 JOSEPH RUIZ ROUTINE 5 [facility] ECG INC INC W/LEAST 12 LDS TRCG ONLY W/O I&R ECG 60109 CARDIOVAS MYRANDA ROUTINE 5 CULAR MAT ECG CONSULTAN W/LEAST TS O 12 LDS I&R ONLY COLLECTIO 82022 JOSEPH RUIZ N VENOUS 5 [facility] BLOOD INC INC VENIPUNCT URE BASIC 63478 JOSEPH RUIZ METABOLIC 5 [facility] PANEL INC INC CALCIUM TOTAL BASIC 79391 JOSEPH RUIZ METABOLIC 5 [facility] PANEL INC INC CALCIUM TOTAL CATH PLMT 29818 JOSEPH RUIZ L HRT & 5 [facility] ARTS INC INC W/NJX & ANGIO IMG S&I THROMBOPL 30726 JOSEPH RUIZ ASTIN 5 [facility] TIME INC INC PARTIAL PLASMA/WH OLE BLOOD LOCM Q9967 JOSEPH RUIZ [phone] 5 [facility] MG/ML INC INC IODINE CONCENTRA TION PER ML PROTHROMB 30440 JOSEPH RUIZ IN TIME 5 [facility] INC INC BLOOD 57737 JOSEPH RUIZ COUNT 5 [facility] COMPLETE INC INC AUTO&AUTO DIFRNTL WBC CATHETER C1725 JOSEPH RUIZ TRANSLUMI 5 [facility] NAL INC INC ANGIOPLAS TY NON-LASER GUIDE C1769 JOSEPH RUIZ WIRE 5 [facility] INC INC UNCLASSIF [id number] JOSEPH RUIZ IED DRUGS 5 [facility] INC INC URINE 99817 JOSEPH RUIZ 5 [facility] TEST INC INC VISUAL COLOR CMPRSN METH ECG 42943 CARDIOVAS MYRANDA ROUTINE 5 CULAR MAT ECG CONSULTAN W/LEAST TS O 12 LDS I&R ONLY ECG 61346 JOSEPH RUIZ ROUTINE 5 [facility] ECG INC INC W/LEAST 12 LDS TRCG ONLY W/O I&R ECHO 59317 [facility]T 5 MEDICAL 2D SERV W/WOM-MOD FOUNDATIO E COMPL N SPEC&COLR D MYOCARDIA 63178 CARDIOVAS MYRANDA L SPECT 5 CULAR MAT MULTIPLE CONSULTAN STUDIES TS O CV STRS 24897 [facility] TST 5 [facility]YS[facility] [place] XERS&/OR S GROUP RX CONT ECG W/O I&R CV STRS 81963 JOSEPH RUIZ TST 5 [facility] XERS&/OR INC INC RX CONT ECG TRCG ONLY UNCLASSIF [id number] JOSEPH RUIZ IED DRUGS 5 [facility] INC INC INJECTION J2785 JOSEPH RUIZ 5 [facility] REGADENOS INC INC ON 0.1 MG ECG 01573 CARDIOVAS MYRANDA ROUTINE 5 CULAR MAT ECG CONSULTAN W/LEAST TS O 12 LDS I&R ONLY XTRNL ECG 74221 JOSEPH RUIZ & 48 HR 5 [facility] RECORDING INC INC XTRNL ECG 07029 JOSEPH GRISSOM JR 5 [facility] S RHYTHM P W/I&R UP TO 48 HRS EXTERNAL 58746 JOSEPH RUIZ ECG 5 [facility] SCANNING INC INC ANALYSIS REPORT CREATINE 99625 JOSEPH RUIZ KINASE MB 5 [facility] FRACTION INC INC ONLY ECG 27190 JOSEPH CAMPOVERDE ROUTINE [facility] W/LEAST P 12 LDS I&R ONLY COMPREHEN 04115 JOSEPH RUIZ SIVE 5 [facility] METABOLIC INC INC PANEL THER 12299 JOSEPH RUIZ PROPH/DX 5 [facility] NJX IV INC INC PUSH SINGLE/1S T SBST/DRUG ECG 48508 JOSEPH RUIZ ROUTINE 5 [facility] ECG INC INC W/LEAST 12 LDS TRCG ONLY W/O I&[place] [address] JOSEPH RUIZ THYROID 5 [facility] STIMULATI INC INC NG HORMONE TSH CREATINE 22182 JOSEPH RUIZ KINASE 5 [facility] TOTAL INC INC UNCLASSIF J3490 JOSEPH RUIZ IED DRUGS 5 [facility] INC INC RADIOLOGI 08262 JOSEPH RUIZ C EXAM 5 [facility] CHEST 2 INC INC VIEWS FRONTAL&[place] [address] JOSEPH RUIZ THYROXINE 5 [facility] TOTAL INC INC BLOOD 23296 JOSEPH RUIZ COUNT 5 [facility] COMPLETE INC INC AUTO&AUTO DIFRNTL WBC NATRIURET 29521 JOSEPH RUIZ IC 5 [facility] [place] [address] JOSEPH RUIZ TROPONIN 5 [facility] QUANTITAT INC INC COBY INJECTION J1030 JOSEPH RUIZ 5 [facility] METHYLPRE INC INC DNISOLONE ACETATE 40 MG FLUOR 10045 CHELY MYA CRI NEEDLE/CA 5 MD GERMAN, TH PSC SPINE/PAR ASPINAL DX/[place] ADD[place] NJX 49465 CHELY MYA CRI DX/THER 5 MD GERMAN, SBST PSC EPIDURAL/ SUBARACH LUMBAR/SA CRAL LOCM Q9966 JOSEPH JOSEPH [phone] [facility] MG/ML INC INC IODINE CONCENTRA TION PER ML DRUG/SUBS 01988 JOSEPH RUZI TANCE 5 [facility] DEFINITIV INC INC E QUAL/ALTAGRACIA T NOS 7/MORE ARTHROCEN [facility] TIMI VILLAGRAN 5 PHYSICIAN JAM ASPIR&/IN S GROUP J MAJOR JT/BURSA W/O US LOCM Q9966 JOSEPH JOSEPH [phone] [facility] MG/ML INC INC IODINE CONCENTRA TION PER ML RADIOLOGI 85792 ANDREW SEALS C EXAM 5 MEDICAL JOÃO KNEE IMAGING COMPLETE ASS 4/MORE VIEWS NJX 78692 MADAR BUX BUX ANJ DX/THER 5 SBST EPIDURAL/ SUBARACH LUMBAR/SA CRAL FLUOR 67486 MADAR BUX BUX ANJ NEEDLE/CA 5 SPINE/PAR ASPINAL DX/THER ADDON URINE 70140 JOSEPH RUIZ 5 [facility] TEST INC INC VISUAL COLOR CMPRSN METHS INJECTION J1040 JOSEPH RUIZ 5 [facility] METHYLPRE INC INC DNISOLONE ACETATE 80 MG BLOOD 77032 JOSEPH RUIZ COUNT 5 [facility] COMPLETE INC INC AUTO&[place] [address] JOSEPH RUIZ THYROXINE 5 [facility] [place] [address] JOSEPH RUIZ THYROID 5 [facility] STIMULATI INC INC NG HORMONE TSH COMPREHEN 38834 JOSEPH RUIZ SIVE 5 [facility] METABOLIC INC INC PANEL COLLECTIO 37092 JOSEPH RUIZ N VENOUS 5 [facility] BLOOD INC INC VENIPUNCT URE IADNA 06337 BIO BIO CHLAMYDIA 5 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 TRACHOMAT IES IES IS AMPLIFIED PROBE TQ URINLS 76959 GIANLUCA NGUYEN DIP 5 PATRICK MONSON STICK/TAB LET REAGNT NON-AUTO MICRSCPY HANDLG&/O 33395 GIANLUCA NGUYEN R CONVEY 5 PATRICK RUTHERFORD IONA OF SPEC FOR TR OFFICE TO LAB IADNA 89508 GIANLUCA NGUYEN NEISSERIA 5 PATRICK MONSON GONORRHOE AE DIRECT PROBE TQ IADNA 82741 BIO BIO NEISSERIA 5 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 GONORRHOE IES IES AE AMPLIFIED PROBE TQ IADNA NOS 77801 BIO BIO 5 REFERNCE REFERNCE AMPLIFIED LABORATOR LABORATOR PROBE TQ IES IES EACH ORGANISM IADNA 22832 BIO BIO TRICHOMON 5 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 VAGINALIS IES IES AMPLIFIED PROBE TECH CULTURE 71393 GIANLUCA NGUYEN CHLAMYDIA 5 PATRICK RUTHERFORD IONA ANY SOURCE CYTP C/V 58982 BIO BIO AUTO THIN 5 REFERNCE REFERNCE LYR LABORATOR LABORATOR PREPJ SCR IES IES MNL RESCR PHYS URINE 55361 GIANLUCA NGUYEN 5 HARPEL MD IONA TEST V[place] [address] ANDREW SEALS TRANSVAGI 5 MEDICAL JOÃO NAL IMAGING ASS GASTRIC 75947 ANDREW BEINEKE EMPTYING 5 MEDICAL ISIDORO IMAGING IMAGING STUDY ASS TECHNETIU A9541 JOSEPH Gaytan TC-99M 5 [facility] SULFUR INC INC COLLOID DX [place] [address] [place] [address] ANDREW SEALS ABDOMEN & 5 MEDICAL JOÃO PELVIS IMAGING W/O ASS CONTRAST MATERIAL COMPREHEN 66273 JSOEPH RUIZ SIVE 5 [facility] METABOLIC INC INC PANEL URINE 68988 JOSEPH RUIZ 5 [facility] TEST INC INC VISUAL COLOR CMPRSN METHS UNCLASSIF J3490 JOSEPH RUIZ IED DRUGS 5 [facility] INC INC BLOOD 58658 JOSEPH RUIZ COUNT 5 [facility] COMPLETE INC INC AUTO&AUTO DIFRNTL WBC URNLS DIP 08948 JOSEPH RUIZ 5 [facility] STICK/TAB INC INC LET REAGENT AUTO MICROSCOP Y HEMOGLOBI 55981 JOSEPH RUIZ N 5 [facility] GLYCOSYLA INC INC JAY A1C BLOOD 03856 JOSEPH RUIZ COUNT 5 [facility] COMPLETE INC INC AUTO&[place] [address] JOSEPH RUIZ THYROID 5 [facility] STIMULATI INC INC NG HORMONE TSH COMPREHEN 18669 JOSEPH RUIZ SIVE 5 [facility] METABOLIC INC INC PANEL COLLECTIO 82805 JOSEPH RUIZ N VENOUS 5 [facility] [place] [address] JOSEPH RUIZ FREE 5 [facility] THYROXINE INC INC URNLS DIP 42733 [facility] MARIE Brown PHYSICIAN ALLEN STICK/TAB S GROUP LET RGNT NON-AUTO W/O MICRSCP HANDLG&/O 52448 [facility] MARIE Davis CONVEY 5 PHYSICIAN ALLEN OF SPEC S GROUP FOR TR OFFICE TO LAB CYTP C/V 41417 [facility], AUTO THIN 5 [facility] LYR PREPJ SCR MNL RESCR PHYS SPCL STN 69626 [facility], 2 I&R 5 [facility] EXCPT MICROORG/ ENZYME/IM CYT EGD 15532 JOSEPH RUIZ TRANSORAL 5 [facility] BIOPSY INC INC SINGLE/[place] [address] JOSEPH RUIZ INFUSION 5 [facility] THERAPY/P INC INC ROPHYLAXI S /DX 1ST TO 1 [place] [address] JOSEPH VILLARREALON INFUSION 5 [facility] THERAPY INC INC PROPHYLAX IS/[place] [address] [facility], SURG 5 [facility] PATHOLOGY GROSS&[place] [address] JOSEPH RUIZ HPYLORI 5 [facility] INC INC UNCLASSIF J3490 JOSEPH RUIZ IED DRUGS 5 [facility] INC INC URINE 98721 JOSEPH RUIZ 5 [facility] TEST INC INC VISUAL COLOR CMPRSN METHS GLUC BLD 31058 JOSEPH RUIZ GLUC MNTR 5 [facility] DEV INC INC CLEARED FDA SPEC HOME USE RADEX 94982 IDAHO BOZENA ESOPHAGUS 5 MEDICAL JOÃO IMAGING ASS IM ADM 80977 [facility] LEOPOLDO PRQ ID 4 PHYSICIAN MAICO SUBQ/IM S GROUP NJXS 1 VACCINE IIV3 VACC 39229 [facility] LEOPOLDO 4 PHYSICIAN MAICO PRESERVAT S GROUP COBY FREE 0.5 ML DOSAGE IM USE RADIOLOGI 73939 JOSEPH Feliz 4 [facility] EXAMINATI INC INC ON TIBIA & FIBULA 2 VIEWS CLTX 27808 [facility] PETTE TIBIAL FX 4 PHYSICIAN JAM PROXIMAL S GROUP W/O MANIPULAT ION KNEE L1830 ADVANCED ADVANCED ORTHOSIS 4 TECHNOLOG TECHNOLOG IMMOBLIZE IES INC IES INC R CANVAS LONGTUDNL PREFAB MRI 14428 IDAHO BOZENA SPINAL 4 MEDICAL JOÃO CANAL IMAGING LUMBAR ASS W/O CONTRAST MATERIAL 3D 90506 JOSEPH RUIZ RENDERING 4 [facility] W/INTERP INC INC & POSTPROCE SS SUPERVISI ON MRI 57398 ANDREW SEALS SPINAL 4 MEDICAL JOÃO CANAL IMAGING CERVICAL ASS W/O CONTRAST MATRL RADIOLOGI 15665 JOSEPH RUIZ C 4 [facility] EXAMINATI INC INC ON KNEE 3 VIEWS KNEE L1830 [facility] INC. BREG INC. ORTHOSIS 4 IMMOBLIZE R CANVAS LONGTUDNL PREFAB HEPATITIS 04930 JOSEPH RUIZ A 4 [facility] [address] JOSEPH RUIZ HEPATITIS 4 [facility] B INC INC SURFACE ANTIGEN HEPATITIS 25802 JOSEPH Henley CORE 4 [facility] ANTIBODY INC INC HBCAB TOTAL HEPATITIS 24727 JOSEPH RUIZ B SURF 4 [facility] ANTIBODY INC INC HBSAB COMPREHEN 50817 JOSEPH RUIZ SIVE 4 [facility] METABOLIC INC INC PANEL HEPATITIS 74175 JOSEPH RUIZ C 4 [facility] ANTIBODY INC INC HEMOGLOBI 26170 JOSEPH RUIZ N 4 [facility] GLYCOSYLA INC INC JAY A1C BLOOD 06208 JOSEPH RUIZ COUNT 4 [facility] COMPLETE INC INC AUTO&[place] [address] JOSEPH RUIZ THYROXINE 4 [facility] [place] [address] JOSEPH RUIZ THYROID 4 [facility] STIMULATI INC INC NG HORMONE TSH US SOFT 87023 JOSEPH RUIZ TISSUE 4 [facility] HEAD & INC INC NECK REAL TIME IMGE DOCM IODINE A9516 JOSEPH RUIZ I-123 4 [facility] SODIUM INC INC IODIDE DX PER 100 UCI TO 999 THYROID 51766 JOESPH RUIZ UPTAKE 4 [facility] W/BLOOD INC INC FLOW SNGLE/MUL T ALTAGRACIA WENDI COMPREHEN 51795 JOSEPH RUIZ SIVE 4 [facility] METABOLIC INC INC PANEL RADEX ABD 05858 JOSEPH RUIZ COMPL 4 [facility] AQT ABD INC INC W/S/E/D VIEWS 1 [place] [address] JOSEPH RUIZ AMYLASE 4 [facility] INC INC COLLECTIO 47259 [facility] LEOP[facility] N VENOUS 4 PHYSICIAN [place] [address] JOSEPH URIZ LIPASE 4 [facility] INC INC BLOOD 90454 JOSEPH RUIZ COUNT 4 [facility] COMPLETE INC INC AUTO&AUTO DIFRNTL WBC URNLS DIP 56611 JOSEPH RUIZ 4 [facility] STICK/TAB INC INC LET REAGENT AUTO MICROSCOP Y HEMOGLOBI 99802 JOSEPH RUIZ N 4 [facility] GLYCOSYLA INC INC JAY A1C BLOOD 00276 JOSEPH RUIZ COUNT 4 [facility] COMPLETE INC INC AUTO&[place] [address] JOSEPH RUIZ THYROID 4 [facility] STIMULATI [place] [address] JOSEPH RUIZ THYROXINE 4 [facility] TOTAL INC INC ANTIBODY 18110 JOSEPH RUIZ HELICOBAC 4 [facility] TER INC INC PYLORI COMPREHEN 05162 JOSEPH RUIZ SIVE 4 [facility] METABOLIC INC INC PANEL LIPID 23478 JOSEPH JOSEPH PANEL 4 [facility] INC INC ECG 10184 [facility] ROUTINE 4 EMERGENCY BRO ECG SERVICES W/LEAST 12 LDS I&R ONLY INCIS W 86.05 Nixon REM OF Yaritza RUTHERFORD FORIEGN BODY OR DEV FROM SKIN & SUBCUT TISSUE Encounters Encounter Start End Date Code Location Performer Type Date OFFICE 86997 [facility] LUIS OUTKRISTIN 7 7 PHYSICIAN T VISIT S GROUP 15 MINUTES [facility]PH - [facility] 7 [facility] OUTPATIEN INC T OFFICE 60448 [facility] MARIE OUTPATIEN 7 7 PHYSICIAN T VISIT S GROUP 15 MINUTES OFFICE 99984 [facility] EUNICE OUTPATIEN 7 7 PHYSICIAN T VISIT S GROUP 10 MINUTES OFFICE 07600 [facility] LEOPOLDO OUTPATIEN 7 7 PHYSICIAN T VISIT S GROUP 15 MINUTES OFFICE 20443 [facility] DAWSON OUTPATIEN 7 7 PHYSICIAN T VISIT S GROUP 10 MINUTES HOSPITAL JOSEPH - 7 7 [facility] OUTPATIEN INC T OFFICE 38974 [facility] DAWSON OUTPATIEN 7 7 PHYSICIAN T VISIT S GROUP 15 MINUTES OFFICE 13950 [facility] FRYMAN OUTPATIEN 7 7 PHYSICIAN T VISIT S GROUP 25 MINUTES OFFICE 09525 [facility] LEOPOLDO OUTPATIEN 7 7 PHYSICIAN T VISIT S GROUP 15 MINUTES OFFICE 33399 [facility] ALLRAN JR OUTPATIEN 7 7 PHYSICIAN T VISIT S GROUP 15 MINUTES EMERGENCY 40197 BRE TOMLINSON 7 7 PHYSICIAN U [facility] T VISIT MODERATE SEVERITY EMERGENCY 77870 BRE RAMOS 6 6 PHYSICIAN [facility] S, [facility] T VISIT MODERATE SEVERITY OFFICE 70485 [facility] HARPEL OUTPATIEN 6 6 PHYSICIAN IONA T VISIT S GROUP 15 MINUTES HOSPITAL JOSEPH - 6 6 [facility] OUTPATIEN INC T [facility]OSPITAL JOSEPH - 6 6 [facility] OUTPATIEN INC T OFFICE 84608 [facility] LEOPOLDO OUTPATIEN 6 6 PHYSICIAN MAICO T VISIT S GROUP 25 MINUTES PERIODIC 06316 [facility] HARPEL PREVENTIV 6 6 PHYSICIAN IONA E MED EST S GROUP PATIENT 18-39 YRS EMERGENCY 62595 BRE TOMLINSON 6 6 PHYSICIAN U ISIDORO [facility] S, [facility] T VISIT MODERATE SEVERITY HOSPITAL JOSEPH - 6 6 [facility] OUTPATIEN INC T OFFICE 68372 [facility] FRYMAN OUTPATIEN 6 6 PHYSICIAN EUG T VISIT S GROUP 25 MINUTES EMERGENCY 68378 BRE MOSER 6 6 PHYSICIAN JR CHONG DEPARTMEN S, [facility] T VISIT HIGH/URGE NT SEVERITY EMERGENCY 45343 BRE MONTENEGRO 6 6 PHYSICIAN DEPARTMEN S, [facility] T VISIT MODERATE SEVERITY OFFICE 57852 [facility] LEOPOLDO OUTPATIEN 6 6 PHYSICIAN MAICO T VISIT S GROUP 25 MINUTES OFFICE 93216 [facility] FRYMAN OUTPATIEN 6 6 PHYSICIAN EUG T VISIT S GROUP 25 MINUTES HOSPITAL JOSEPH - 6 6 [facility] OUTPATIEN [facility] JOSEPH - 6 6 [facility] JOSEPH - 6 6 [facility] OUTPATIEN [facility] T OFFICE 28203 [facility] DAWSON OUTPATIEN [address] T VISIT S GROUP 15 MINUTES HOSPITAL JOSEPH - 6 6 [facility] JOSEPH - 6 6 [facility] OUTPATIEN [facility] T OFFICE 63469 JOSEPH FRYMAN OUTPATIEN 6 6 [facility] T VISIT HOSPITAL 15 MINUTES OFFICE 64392 [facility] DA[place]SON OUTPATIEN [address] T NEW 30 S GROUP MINUTES HOSPITAL JOSEPH - 6 6 [facility] OUTPATIEN INC T OFFICE 07327 JOSEPH FRYMAN OUTPATIEN 6 6 [facility] T VISIT HOSPITAL 15 MINUTES HOSPITAL JOSEPH - 6 6 [facility] OUTPATIEN INC T OFFICE 59992 [facility] LEOPOLDO OUTPATIEN 6 6 PHYSICIAN T VISIT S GROUP 15 MINUTES HOSPITAL JOSEPH - 6 6 [facility] OUTPATIEN INC T OFFICE 89242 [facility] [place] OUTPATIEN 6 6 PHYSICIAN T VISIT S GROUP 25 MINUTES HOSPITAL JOSEPH - 6 6 [facility] OUTPATIEN INC [facility] JOSEPH - 5 5 [facility] OUTPATIEN INC T OFFICE 35377 [facility] MYRANDA OUTPATIEN 5 5 CULAR MAT T VISIT CONSULTAN 25 TS O MINUTES [facility] JOSEPH - 5 5 [facility] OUTPATIEN INC [facility] JOSEPH - 5 5 [facility] JOSEPH - 5 5 [facility] OUTPATIEN [facility] OFFICE 63112 CARDIOVAS MYRANDA OUTPATIEN 5 5 CULAR MAT T VISIT CONSULTAN 40 TS O MINUTES [facility] JOSEPH - 5 5 [facility] JOSEPH - 5 5 [facility] OUTPATIEN [facility] T OFFICE 26288 CARDIOVAS MYRANDA OUTPATIEN 5 5 CULAR MAT T NEW 60 CONSULTAN MINUTES TS O EMERGENCY 33014 JOSEPH 5 5 [facility] T VISIT HIGH/URGE NT SEVERITY EMERGENCY 47812 BRE MINA DEPT 5 5 PHYSICIAN MAICO VISIT S, [facility] HIGH SEVERITY& THREAT [facility] JOSEPH - 5 5 [facility]PATIEN [facility] JOSEPH - 5 5 [facility] OUTPATIEN INC T OFFICE 97706 CHELY GONZALES [facility] 5 5 MD GERMAN, T VISIT PSC 15 MINUTES [facility] JOSEPH - 5 5 [facility]EN [facility] JOSEPH - 5 5 [facility] OUTPATIEN INC T OFFICE 72993 [facility] TIMI OUTPATIEN 5 5 PHYSICIAN JAM T VISIT S GROUP 15 MINUTES [facility] JOSEPH - 5 5 [facility] OUTPATIEN INC T INITIAL 79059 GIANLUCA NGUYEN PREVENTIV 5 5 PATRICK RUTHERFORD IONA E MEDICINE NEW PT AGE 18-39YRS OFFICE 48158 [facility] ALLRAN JR OUTPATIEN 5 5 PHYSICIAN ELVIA T VISIT S GROUP 15 MINUTES OFFICE 84834 JUANI ROBISONBhargav ANJ OUTPATIEN 5 5 MD T NEW 30 MINUTES HOSPITAL JOSEPH - 5 5 [facility] OUTPATIEN INC T [facility]OSPITAL JOSEPH - 5 5 [facility] OUTPATIEN INC T EMERGENCY 53926 JOSEPH BOTELLO ISI 5 5 [facility] T VISIT P MODERATE SEVERITY HOSPITAL JOSEPH - 5 5 [facility] OUTPATIEN INC T [facility]OSPITAL JOSEPH - 5 5 [facility] OUTPATIEN INC T INITIAL 61145 [facility] MARIE PREVENTIV 5 5 PHYSICIAN ALLEN E S GROUP MEDICINE NEW PT AGE 18-39YRS HOSPITAL JOSEPH - 5 5 [facility] OUTPATIEN INC T OFFICE 31676 [facility] ALLRAN JR OUTPATIEN 5 5 PHYSICIAN ELVIA T NEW 30 S GROUP MINUTES HOSPITAL JOSEPH - 5 5 [facility] OUTPATIEN INC T OFFICE 39381 [facility] LEOPOLDO OUTPATIEN 5 5 PHYSICIAN MAICO T VISIT S GROUP 15 MINUTES OFFICE 35303 [facility] LEOPOLDO OUTPATIEN 4 4 PHYSICIAN MAICO T VISIT S GROUP 10 MINUTES HOSPITAL JOSEPH - 4 4 [facility] OUTPATIEN INC T OFFICE 61568 [facility] PETTEY OUTPATIEN 4 4 PHYSICIAN JAM T VISIT S GROUP 15 MINUTES OFFICE 51757 [facility] LEOPOLDO OUTPATIEN 4 4 PHYSICIAN MAICO T VISIT S GROUP 10 MINUTES OFFICE 04343 [facility] LEOPOLDO OUTPATIEN 4 4 PHYSICIAN MAICO T VISIT S GROUP 10 MINUTES EMERGENCY 55159 [facility] LEOPOLDO 4 4 RADHA MAICO DEPARTMEN EMERGENCY T VISIT PHYS HIGH/URGE NT SEVERITY OFFICE 06702 [facility] LEOPOLDO OUTPATIEN 4 4 PHYSICIAN MAICO T VISIT S GROUP 15 MINUTES OFFICE 60095 [place] [facility] OUTPATIEN 4 4 MEDICAL T NEW 30 SERV MINUTES [facility] JOSEPH - 4 4 [facility] OUTPATIEN INC T HOSPITAL JOSEPH - 4 4 [facility] OUTPATIEN INC T EMERGENCY 48320 JOSEPH 4 4 [facility] DEPARTMEN INC T VISIT MODERATE SEVERITY HOSPITAL JOSEPH - 4 4 [facility] OUTPATIEN INC T OFFICE 29646 [facility] LEOPOLDO OUTPATIEN 4 4 PHYSICIAN MAICO T VISIT S GROUP 10 MINUTES HOSPITAL JOSEPH - 4 4 [facility] OUTPATIEN INC T [facility]OSPITAL JOSEPH - 4 4 [facility] OUTPATIEN INC T OFFICE 15050 [facility] LEOPOLDO OUTPATIEN 4 4 PHYSICIAN MAICO T VISIT S GROUP 10 MINUTES OFFICE 48303 [facility] LEOP[facility]DO OUTPATIEN 4 4 PHYSICIAN MAICO T VISIT S GROUP 15 MINUTES HOSPITAL JOSEPH - 4 4 [facility] OUTPATIEN INC T OFFICE 73995 [facility] LEOP[facility]DO OUTPATIEN 4 4 PHYSICIAN MAICO T VISIT S GROUP 15 MINUTES OFFICE 47735 [facility] LE[facility] OUTPATIEN 4 4 PHYSICIAN MAICO T VISIT S GROUP 15 MINUTES OFFICE 34874 [facility] LE[facility]DO OUTPATIEN 4 4 PHYSICIAN MAICO T VISIT S GROUP 15 MINUTES [facility] - [facility] 4 [facility] MARY LOAIZA MD (ER) 4 08:50 4 12:52 [facility] EMERGENCY 36443 MONICA LOAIZA DEPT 4 4 EMERGENCY BRO VISIT SERVICES HIGH SEVERITY& THREAT FUN Emergency MARY Wise MD (ER) 3 11:11 3 12:27 [facility] Emergency MARY Wise MD (ER) 3 17:32 3 18:42 [facility] Emergency MARY Vigil MD (ER) 3 18:16 3 18:49 [facility] Emergency MARY SHORT (ER) 3 17:52 3 20:18 [facility]
--- OUTSIDE RECORDS SUMMARY | 2017-05-22 13:35 | External Medical Summary Rpt | CCD ---
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 Name Role Phone [employer] Unavailable Unavailable [...] Unavailable LEOPOLDO MAICO, LEOPOLDO Unavailable Unavailable MAICO GIANLUCA NGUYEN MD, Unavailable Unavailable PATRICK ELLER MD Unavailable Unavailable IONA [facility] Unavailable Unavailable INC, [facility] Unavailable Unavailable HOSPITAL, [facility] Unavailable Unavailable HOSPITAL P, [facility] CALZADA KINDRA, CALZADA KINDAR Unavailable Unavailable [facility] KINDRA, CALZADA KINDRA Unavailable Unavailable [facility], Unavailable Unavailable [facility] RAMOS, RAMOS Unavailable Unavailable RAMOS MONI, RAMOS MONI Unavailable Unavailable [facility] Angela Wise MD, Unavailable Unavailable Angela Wise MD [facility] MYA CRI, MYA CRI Unavailable Unavailable DAWSON, DAWSON Unavailable Unavailable DAWSON RD, DAWSON Unavailable Unavailable RD JACIEL JR DWI, JACIEL Unavailable Unavailable JR DWI AYAN ISI, AYAN ISI Unavailable Unavailable [facility] Unavailable Unavailable SERVICES, [facility], Unavailable Unavailable [facility], Unavailable Unavailable [facility] Un[facility], [facility] PETTEY JAM, PETTEY Unavailable Unavailable JAM MYRANDA MAT, Unavailable Unavailable MYRANDA MAT [facility] Unavailable Unavailable E[facility], [facility] SOTINGEANU, Unavailable Unavailable SOTINGEANU SOTINGEANU ISIDORO, Unavailable Unavailable SOTINGEANU ISIDORO [facility] Unavailable Unavailable EMERGENCY PHYS, [facility] STONE MARK, STONE MARK Unavailable Unavailable KALI, KALI Unavailable Unavailable HERIBERTO PHI, HERIBERTO PHI Unavailable Unavailable DARIO SHORT, Unavailable Unavailable DARIO SHORT Purpose Continuity of Care Document - 10-01-2012 through 2016 Problems Code Diagnosis DOS Provider Status E0841 DM D/T 04-07-2017 [facility] UNDERLYING PHYSICIANS COND GROUP W/DIABETIC MONONEUROPA THY E119 TYPE 2 04-07-2017 [facility] DIABETES PHYSICIANS MELLITUS GROUP WITHOUT COMPLICATIO NS L989 DISORDER 04-07-2017 [facility] THE SKIN & PHYSICIANS SUBCUTANEOU GROUP S TISSUE UNS M545 LOW BACK 04-07-2017 [facility] PAIN PHYSICIANS GROUP Z8719 PERSONAL 04-07-2017 [facility] HISTORY PHYSICIANS OTHER GROUP DISEASES DIGESTIVE SYSTEM N393 STRESS 02-22-2017 [facility] INCONTINENC PHYSICIANS E FEMALE GROUP MALE E6601 MORBID 12-22-2016 [facility] SEVERE PHYSICIANS OBESITY DUE GROUP TO EXCESS CALORIES L680 HIRSUTISM 12-22-2016 [facility] PHYSICIANS GROUP H6980 OTHER SPEC 11-26-2016 [facility] DISORDERS PHYSICIANS EUSTACHIAN GROUP TUBE UNS EAR J309 ALLERGIC 11-26-2016 [facility] RHINITIS PHYSICIANS UNSPECIFIED GROUP J310 CHRONIC 11-26-2016 [facility] RHINITIS PHYSICIANS GROUP J320 CHRONIC 11-16-2016 [facility] MAXILLARY PHYSICIANS SINUSITIS GROUP 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 DEVIATED 11-16-2016 [facility] NASAL PHYSICIANS SEPTUM GROUP E039 HYPOTHYROID 11-03-2016 [facility] UNSPECIFIED INC J341 CYST AND 11-03-2016 [facility] NASAL SINUS R040 EPISTAXIS 11-03-2016 [facility] INC R1013 EPIGASTRIC 09-24-2016 [facility] PAIN PHYSICIANS GROUP I10 ESSENTIAL 09-01-2016 [facility] PRIMARY PHYSICIANS HYPERTENSIO GROUP N M1990 UNSPECIFIED 09-01-2016 [facility] PHYSICIANS OSTEOARTHRI GROUP TIS UNSPECIFIED SITE K210 GASTRO-ESOP 08-28-2016 [facility] HAGEAL PHYSICIANS REFLUX GROUP DISEASE W/ ESOPHAGITIS J0100 ACUTE 08-11-2016 [facility] MAXILLARY [facility], SINUSITIS PLLC UNSPECIFIED [id number] PAIN IN 07-20-2016 [facility] LEFT KNEE PHYSICIANS, PLLC N819 FEMALE 07-16-2016 [facility] GENITAL PHYSICIANS PROLAPSE GROUP UNSPECIFIED N920 EXCESS & 07-16-2016 [facility] FREQUENT PHYSICIANS MENSTRUATIO GROUP N W/REGULAR CYCLE Z1231 ENCOUNTER 07-16-2016 [facility] SCREENING MEDICAL MAMMO MALIG IMAGING ASS NEOPLASM BREAST Z3009 ENCOUNTER 07-16-2016 [facility] OT GENERAL PHYSICIANS GROUP MAINTENANCE OF WAY SUPERINTENDENT&ADV ICE CONTRACEPT E663 OVERWEIGHT 07-13-2016 [facility] PHYSICIANS GROUP 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 07-13-2016 [facility]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 D/O GROUP W/RADICULOP ATHY LUMB RGN N888 OTH SPEC 07-13-2016 [facility] NONINFLAMMA MEDICAL TORY IMAGING ASS DISORDERS CERVIX UTERI R102 PELVIC AND 07-13-2016 [place] PERINEAL MEDICAL PAIN IMAGING ASS I70929 OTHER 07-08-2016 [facility] Y17530 ENCOUNTER 06-30-2016 [facility] 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 EXAM PHYSICIANS GENERAL RTN GROUP W/ABNORMAL FIND W79357 ENCOUNTER 06-30-2016 [facility] 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 EXAM PHYSICIANS GENERAL RTN GROUP W/O ABNORMAL FIND Z803 FAMILY 06-30-2016 [facility] HISTORY OF PHYSICIANS MALIGNANT GROUP NEOPLASM OF BREAST R05 COUGH 06-29-2016 [facility], PLLC R5383 OTHER 06-22-2016 [facility] [facility]UE [facility] INC 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 MYOPIA 06-19-2016 [facility] KINDRA BILATERAL J40 BRONCHITIS 06-19-2016 [facility] NOT PHYSICIANS SPECIFIED GROUP ACUTE OR CHRONIC K219 GASTRO-ESOP 06-19-2016 [facility] H REFLUX PHYSICIANS DISEASE GROUP WITHOUT ESOPHAGITIS R32 UNSPECIFIED 06-19-2016 [facility] URINARY PHYSICIANS INCONTINENC GROUP E [id number] ALLERGY 06-19-2016 [facility] UNSPECIFIED PHYSICIANS INITIAL GROUP ENCOUNTER J029 ACUTE 06-05-2016 [facility] PHARYNGITIS PHYSICIANS, PLLC UNSPECIFIED M1712 UNILATERAL 06-05-2016 [facility] PRIMARY PHYSICIANS, OSTEOARTHRI PLLC TIS LEFT KNEE R0989 OT SPEC SX 06-05-2016 [place] & SIGNS MEDICAL INVLV THE IMAGING ASS CIRC & RESP SYS O471 FALSE LABOR 05-13-2016 [facility] AT/AFTER PHYSICIANS 37 GROUP COMPLETED WEEKS GEST M7541 IMPINGEMENT 04-08-2016 [facility] SYNDROME PHYSICIANS OF RIGHT GROUP SHOULDER N75979 PAIN IN 02-28-2016 [facility] RIGHT MEDICAL SHOULDER IMAGING ASS M542 CERVICALGIA 02-28-2016 [facility] PHYSICIANS GROUP [id number] UNSPECIFIED 02-28-2016 [place] INJURY OF MEDICAL NECK IMAGING ASS INITIAL ENCOUNTER [id number] STRN UNS 02-28-2016 [facility] M&T SHLDR PHYSICIANS UP ARM LEVL GROUP RT ARM INIT ENC G4733 OBSTRUCTIVE 02-04-2016 [facility] SLEEP [facility] APNEA ADULT INC PEDIATRIC C52936 UNSPECIFIED 01-24-2016 [facility] P ED E049 NONTOXIC 01-23-2016 [facility] GOITER PHYSICIANS UNSPECIFIED GROUP 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 R7989 OTHER SPEC 01-16-2016 [place] ABNORMAL [facility] FINDINGS INC BLOOD CHEMISTRY G4730 SLEEP APNEA 01-02-2016 [facility] I959 HYPOTENSION 01-02-2016 [facility] R748 ABNORMAL 12-17-2015 [place] LEVELS OF MEM [facility] OTHER SERUM INC ENZYMES E1165 TYPE 2 11-28-2015 [place] DIABETES [facility] [place]CEM [place] N926 IRREGULAR 11-28-2015 [place] MENSTRUATIO [facility] UNSPECIFIED P06401 OTHER 09-26-2015 [facility] MUSCLE PHYSICIANS SPASM GROUP [id number] LACERATION 09-26-2015 [facility] WITHOUT PHYSICIANS FOREIGN GROUP BODY LT EAR INITIAL Z23 ENCOUNTER 09-26-2015 [facility] FOR PHYSICIANS IMMUNIZATIO GROUP N E139 OTH SPEC 08-27-2015 [facility] LAR MELLITUS CONSULTANTS W/O O COMPLICATIO NS E669 OBESITY 08-27-2015 [facility] UNSPECIFIED [facility] INC E785 HYPERLIPIDE 08-27-2015 [facility] JOSE PHYSICIANS UNSPECIFIED GROUP G737 MYOPATHY IN 08-27-2015 [facility] DISEASES PHYSICIANS CLASSIFIED GROUP ELSEWHERE I119 HYPERTENSIV 08-27-2015 [facility] E HEART LAR DISEASE CONSULTANTS WITHOUT O HEART FAILURE M791 MYALGIA 08-27-2015 [facility] PHYSICIANS GROUP R9431 ABNORMAL 07-30-2015 [facility] ELECTROCARD [facility] IOGRAM INC Y29499 OTHER LONG 07-24-2015 [facility] TERM [facility] [...] [facility] INSUFFICIEN [place] I371 NONRHEUMATI 07-16-2015 [facility] INSUFFICIEN CY R000 TACHYCARDIA 07-02-2015 [facility] LAR UNSPECIFIED CONSULTANTS O R011 CARDIAC 07-02-2015 [facility] UNSPECIFIED INC R0602 SHORTNESS 07-02-2015 [facility] OF BREATH [facility] INC R0789 OTHER CHEST 07-02-2015 [facility] PAIN [facility] INC R42 DIZZINESS 07-02-2015 [facility] AND [facility] GIDDINESS INC R9430 ABNORMAL 07-02-2015 [facility] RESULT CV PHYSICIANS FUNCTION GROUP STUDY UNS R002 PALPITATION 06-17-2015 [facility] 16576 DEGEN 04-19-2015 [facility] LUMBAR/LUMB [facility] OSACRAL INC INTERVERTEB RAL DISC 7244 THORACIC/AMY 03-21-2015 SOHA LEDESMA MD, PSC NEURITIS/RA DICULITIS UNSPEC V5869 LONG-TERM 12-24-2014 [facility] (CURRENT) [facility] USE OF INC OTHER MEDICATIONS 11674 OSTEOARTHRO 11-21-2014 [facility] SIS UNSPEC PHYSICIANS WHETHER GROUP GEN/LOC LOWER LEG 17953 PAIN IN 11-16-2014 [place] JOINT, MEDICAL LOWER LEG IMAGING ASS V7263 PRE-PROCEDU 11-16-2014 [facility] RAL [facility] LABORATORY INC EXAMINATION 2449 UNSPECIFIED 11-14-2014 [facility] HYPOTHYROID INC ISM 41194 DIAB W/O 11-14-2014 [facility] COMP TYPE [facility] II/UNS NOT INC STATED UNCNTRL 6259 UNSPEC 11-02-2014 GIANLUCA Davis SYMPTOM [facility] W/FEMALE GENITAL ORGANS 6262 EXCESSIVE 11-02-2014 GIANLUCA Davis OR AROLDO NGUYEN MD MENSTRUATIO N V7231 ROUTINE 11-02-2014 GIANLUCA Davis GYNECOLOGIC [facility] AL EXAMINATION 85075 ESOPHAGEAL 10-23-2014 [facility] REFLUX PHYSICIANS GROUP 08533 ABDOMINAL 10-23-2014 [facility] PAIN, PHYSICIANS EPIGASTRIC GROUP 6160 CERVICITIS 10-18-2014 [place] AND MEDICAL ENDOCERVICI IMAGING ASS TIS 59100 ABDOMINAL 10-18-2014 [facility] OTHER MEDICAL SPECIFIED IMAGING ASS SITE 05772 ABDOMINAL 10-09-2014 [place] PAIN, MEDICAL UNSPECIFIED IMAGING ASS SITE 4019 UNSPECIFIED 10-06-2014 [facility] N 4139 OTHER AND 10-06-2014 [facility] P [place] 37597 ASTHMA, 10-06-2014 [facility] P UNSPECIFIED STATUS 1129 CANDIDIASIS 09-19-2014 [facility] OF PHYSICIANS UNSPECIFIED GROUP SITE 60487 REFLUX 09-04-2014 [facility] 5368 DYSPEPSIA&O 09-03-2014 [facility] THER SPEC PHYSICIANS DISORDERS GROUP FUNCTION STOMACH 34485 OBESITY, 08-23-2014 [facility] UNSPECIFIED PHYSICIANS GROUP 7242 LUMBAGO 08-23-2014 [facility] PHYSICIANS GROUP 23850 CLOSED 07-20-2014 [facility] FRACTURE OF PHYSICIANS UPPER END GROUP OF FIBULA V0481 NEED 07-20-2014 [facility] PROPHYLACTI PHYSICIANS C GROUP VACCINATION &INOCULATIO N FLU 3540 CARPAL 07-19-2014 [facility] TUNNEL PHYSICIANS SYNDROME GROUP V5416 AFTERCARE 07-19-2014 [facility] HEALING PHYSICIANS TRAUMATIC GROUP FRACTURE LOWER LEG 8449 SPRAIN&STRA 06-22-2014 [facility] IN OF PHYSICIANS UNSPECIFIED GROUP SITE OF KNEE&LEG 72013 CLOSED 06-16-2014 [facility] FRACTURE OF N EMERGENCY PHYS UNSPECIFIED PART OF FIBULA 74423 UNSPECIFIED 06-16-2014 [facility] SITE OF N EMERGENCY ANKLE PHYS SPRAIN AND STRAIN E8888 OTHER FALL 06-16-2014 [facility] N EMERGENCY PHYS 7231 CERVICALGIA 02-22-2014 [facility] 7291 UNSPECIFIED 02-22-2014 [facility] MYOSITIS 7210 CERVICAL 02-16-2014 [place] SPONDYLOSIS MEDICAL WITHOUT IMAGING ASS MYELOPATHY 7213 LUMBOSACRAL 02-16-2014 [facility] SPONDYLOSIS IMAGING ASS WITHOUT MYELOPATHY 7220 DISPLCMT 02-16-2014 [place] CERV MEDICAL INTERVERT IMAGING ASS DISC WITHOUT MYELOPATHY 67683 DISPLCMT 02-16-2014 [place] LUMBAR MEDICAL INTERVERT IMAGING ASS DISC W/O MYELOPATHY E8859 FALL FROM 02-10-2014 [facility] OTHER N EMERGENCY SLIPPING PHYS TRIPPING OR STUMBLING V1582 PERS HX 02-10-2014 [facility] TOBACCO USE [facility] PRESENTING [facility] 2409 GOITER, 01-09-2014 [place] UNSPECIFIED MEDICAL IMAGING ASS 7842 SWELLING 01-09-2014 [facility] MASS OR [facility] LUMP IN INC HEAD AND NECK 7945 NONSPECIFIC 01-09-2014 [place] ABNORM MEDICAL RESULTS IMAGING ASS THYROID FUNCT STUDY 7245 UNSPECIFIED 12-19-2013 [facility] BACKACHE PHYSICIANS GROUP 03821 HELICOBACTE 11-20-2013 [facility] R PYLORI PHYSICIANS INFECTION GROUP 3559 MONONEURITI 10-19-2013 [facility] S OF PHYSICIANS UNSPECIFIED GROUP SITE 2724 OTHER AND 10-10-2013 [facility] UNSPECIFIED PHYSICIANS GROUP HYPERLIPIDE JOSE 17678 PAIN IN 10-10-2013 [facility] JOINT, SITE PHYSICIANS GROUP UNSPECIFIED 65093 CHEST PAIN 10-04-2013 [facility] UNSPECIFIED [facility] INC 250.00 250.00 DIAB 08-24-2013 [facility] JOVITA WO [facility] COMPL, TYPE Hospital II OR UNSPEC TYPE, NOT UNCNTRLD 401.9 401.9 08-24-2013 [facility] HYPERTENSIO [facility] NOS Hospital 493.90 493.90 08-24-2013 Joseph ASTHMA, [facility] UNSPECIFIED Hospital 530.81 530.81 08-24-2013 Joseph ESOPHAGEAL [facility] REFLUX Hospital 575.8 575.8 DIS 08-24-2013 Joseph OF [facility] GALLBLADDER [facility] NEC 786.59 786.59 08-24-2013 Joseph CHEST PAIN [facility] [address] OTHER CHEST 08-24-2013 [place] [facility] 272.4 272.4 06-02-2013 [facility] HYPERLIPIDE [facility]note 2[facility]NOS Hospital 845.09 845.09 06-02-2013 Joseph SPRAIN OF [facility] ANKLE [facility] E928.9 E928.9 06-02-2013 Joseph ACCIDENT [facility] 845.00 845.00 05-20-2013 Joseph SPRAIN OF [facility] ANKLE [facility] E849.8 E849.8 05-20-2013 Joseph ACCIDENT IN [facility] PLACE [facility] E927.0 E927.0 05-20-2013 Joseph OVEREXERTIO [facility] SUDDEN STRENUOUS MOVEMENT 915.6 915.6 03-18-2013 Joseph FOREIGN [facility] BODY FINGER Hospital 729.5 729.5 PAIN 10-01-[address] [facility] 844.9 844.9 10-01-2012 Joseph SPRAIN OF [facility] KNEE & LEG [facility] NOS E849.0 E849.0 10-01-[address] [facility] E885.9 E885.9 FALL 10-01-2012 Joseph FROM [facility] SLIPPING, Hospital TRIPPING, OR STUMBLING [facility] Allergies, Adverse Reactions, Alerts Type [...] 5 39 PH CE AR TA MA FL CY NO PH OF CY 7. NT 5- HI 32 AN 5 A IN C HY 00 07 08 [address] 40 -1 -[address] ti OC 60 7- 1- 00 00 SI ve OD 12 20 20 49 DE ON 40 17 17 46 -A 5 27 PH CE AR TA MA FL CY NO PH OF CY 7. NT [...] 20 5- 8- 00 00 SI ve FL 76 20 20 0 49 DE N [...] 07 07 60 30 00 EA Ac TX 59 -0 -[address] ti [...] 17 17 71 E 5 33 PH TX AR OP MA CY 50 OF MC [...] 17 17 71 E 5 33 PH TX AR OP MA CY 50 OF MC [...] 05 06 60 30 00 EA Ac TX 59 -3 -[address] ti [...] OR 20 8- 2- 00 SI ve FL 76 20 20 0 48 DE N [...] 04 05 60 30 00 EA Ac TX 18 -1 -[address] ti [...] 17 17 71 E 5 33 PH TX AR OP MA CY 50 OF MC [...] 47 DE ZA 11 17 17 73 TX 0 89 PH IN AR E MA [...] 5 48 PH CE AR TA MA FL CY NO PH OF EN CY NT [...] 02 03 60 30 00 EA Ac TX 18 -2 -[address] ti [...] 20 3- 4- 00 00 SI ve FL 76 20 20 47 DE N 01 [...] 47 DE ZA 11 17 17 73 TX 0 89 PH IN AR E MA [...] 20 3- 0- 00 00 SI ve FL 76 20 20 45 DE N 01 [...] 46 DE ZA 11 16 17 52 TX 0 42 PH IN AR E MA [...] 12 01 60 30 00 EA Ac TX 18 -2 -[address] ti [...] 12 01 20 10 00 EA Ac TX 46 -1 -[address] ti [...] Procedure DOS Code Location Performer Comment SLING 97984 [facility] SALAZAR OPERATION 7 PHYSICIAN STRESS S GROUP INCONTINE NCE ANES 40815 [facility] 7 ANESTH TONEAL OF THE LWR ABD BLUE W/URINARY TRACT NOS REPAIR C1771 [facility] DEVICE 7 [facility] URINARY INC INC INCONTINE NCE W/SLING GRAFT GLUC BLD 92013 [facility] GLUC MNTR 7 [facility] DEV INC INC CLEARED FDA SPEC HOME USE COMPLX 05823 [facility] CYSTOMETR 7 PHYSICIAN PHYSICIAN O W/VOID S GROUP S GROUP PRESS & URETHRAL PROFIL SHAVING 21746 [facility] LEOPOLDO SKIN 7 PHYSICIAN LESION 1 S GROUP S/N/H/F/G DIAM 0.6-[address] [place] [address] [place] LAUGHLIN MAXILLOFA 7 MEDICAL CIAL W/O IMAGING CONTRAST ASS MATERIAL RADIOLOGI 75678 [facility] BOZENA C 6 MEDICAL JOÃO EXAMINATI IMAGING ON KNEE 3 ASS VIEWS COMPUTER- 17962 [facility] AIDED 6 [facility] DETECTION INC INC SCREENING MAMMOGRAP HY SCREENING G0202 [facility]Z 6 [facility] MAMMOGRAP INC [place] IN[place] [address] [place] QIAN TRANSVAGI 6 MEDICAL NAL IMAGING ASS SPACR A4627 MT MED MT MED BAG/RESRV 6 EQUIPMENT EQUIPMENT OR W/WO INC INC MASK W/METRD DOSE INHAL IADNA 99244 [facility] NEISSERIA 6 PHYSICIAN PHYSICIAN S GROUP S GROUP GONORRHOE AE DIRECT PROBE TQ IADNA 48845 BIO BIO NEISSERIA 6 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 GONORRHOE IES IES AE AMPLIFIED PROBE TQ IADNA NOS 94034 BIO BIO 6 REFERNCE REFERNCE AMPLIFIED LABORATOR LABORATOR PROBE TQ IES IES EACH ORGANISM IADNA 44590 BIO BIO CHLAMYDIA 6 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 TRACHOMAT IES IES IS AMPLIFIED PROBE TQ SCR G0145 BIO BIO CYTOPATH 6 REFERNCE REFERNCE CERV/VAG LABORATOR LABORATOR SCR IES IES AUTO&MNL RSCR PHYS CULTURE 58053 [facility] HARPEL CHLAMYDIA 6 PHYSICIAN IONA ANY S GROUP SOURCE IADNA 06790 BIO BIO TRICHOMON 6 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 VAGINALIS IES IES AMPLIFIED PROBE TECH URINLS 22210 [facility] HARPEL DIP 6 PHYSICIAN IONA STICK/TAB S GROUP [place] [address] [facility] THYROID 6 [facility] STIMULATI INC INC NG HORMONE TSH HEMOGLOBI 26684 [facility] N 6 [facility] GLYCOSYLA INC INC JAY A1C COMPREHEN 73831 [facility] SIVE 6 [facility] METABOLIC INC INC PANEL COLLECTIO 72680 [facility] N VENOUS 6 [facility] H[facility]OS[facility] BLOOD INC INC VENIPUNCT URE OPHTH 10061 [facility] MEDICAL 6 XM&EVAL COMPRE NEW PT 1/> VST RADIOLOGI 91186 [facility] SEALS C EXAM 6 MEDICAL JOÃO CHEST 2 IMAGING VIEWS ASS FRONTAL&L ATERAL 32212 [facility] SALAZAR NONSTRESS 6 PHYSICIAN ALLEN TEST S GROUP 49974 [facility] SALAZAR NONSTRESS 6 PHYSICIAN ALLEN TEST S GROUP ARTHROCEN 12105 [facility] PETTE TESIS 6 PHYSICIAN JAM ASPIR&/IN S GROUP J MAJOR JT/BURSA W/O US RADEX 97317 ANDREW LAUGHLIN ALL SPINE 6 MEDICAL CERVICAL IMAGING 2 OR 3 ASS VIEWS RADEX 51979 [facility] SPINE 6 [facility] CERVICAL INC INC 4 OR 5 VIEWS RADEX 73836 [facility] LA[facility] ALL SHOULDER 6 MEDICAL 1 VIEW IMAGING ASS RADEX 46366 [facility] SHOULDER 6 [facility] COMPLETE INC INC MINIMUM 2 VIEWS POLYSOM 61975 [facility] 6/>YRS 6 [facility] H[facility] SLEEP 4/> INC INC ADDL ADAM ATTND CONTINUOU E0601 ANGELA MILLER S 6 HOME HOME POSITIVE MEDICAL MEDICAL AIRWAY EQUIPME EQUIPME PRESSURE DEVICE BRNCDILAT 47502 [facility] [place] RSPSE 6 [facility] PRE&POST- P BRNCDILAT ADMN UNCLASSIF J3490 [facility] IED DRUGS 6 [facility] INC INC HEPATITIS 76022 [facility] C 6 [facility] [place] [address] [facility] HEPATITIS 6 [facility] B INC INC SURFACE ANTIGEN HEPATITIS 30350 [facility] [place] CORE 6 [facility]OS[facility] ANTIBODY INC INC HBCAB TOTAL HEPATITIS 43985 [facility] [place] SURF 6 [facility]OS[facility] ANTIBODY INC INC HBSAB HEPATITIS 59944 [facility] R[facility] A 6 [facility]OS[facility] ANTIBODY INC INC HAAB COLLECTIO 65076 [facility] Mancera VENOUS 6 [facility] BLOOD INC INC VENIPUNCT URE US SOFT 06409 ANDREW LAUGHLIN ALL TISSUE 6 MEDICAL HEAD & IMAGING NECK REAL ASS TIME IMGE DOCM HEPATITIS 15737 [facility] A [facility] ANTIBODY INC INC HAAB HEPATITIS 05540 JOSEPH [facility] SURF 6 [facility] ANTIBODY INC INC HBSAB HEPATITIS 93104 JOSEPH JOSEPH [place] CORE 6 [facility] [place] [address] JOSE[facility]PATITIS 6 [facility] INC SURFACE ANTIGEN HEPATITIS 16590 [facility] C [facility] ANTIBODY INC INC HEPATIC 09142 [facility] FUNCTION [facility] PANEL INC INC CONTINUOU E0601 ANGELA MILLER S 6 HOME HOME POSITIVE MEDICAL MEDICAL AIRWAY EQUIPME EQUIPME PRESSURE DEVICE ALBUMIN 33906 [facility] URINE [facility] MICROALBU INC INC MIN QUANTIATI VE COMPREHEN 60390 [facility] SIVE [facility] METABOLIC INC INC PANEL LIPID 15933 JOSEPH RUIZ PANEL 6 [place] [address] JOSEPH [facility] THYROXINE 6 [facility] [place] [address] [facility] R[facility] THYROID 6 [facility] STIMULATI INC INC NG HORMONE TSH HEMOGLOBI 17059 [facility] N [facility] GLYCOSYLA INC INC JAY A1C BLOOD 70410 JO[facility] COUNT 6 [facility] MEM [...] AIRWAY EQUIPME EQUIPME PRESSURE DEVICE IM ADM 98047 [facility] PRQ ID 6 PHYSICIAN SUBQ/IM S GROUP NJXS 1 VACCINE IIV3 [id number] [facility] VACCINE 6 PHYSICIAN SPLIT S GROUP VIRUS 0.5 ML DOSAGE IM USE ECG 91633 CARDIOVAS MYRANDA ROUTINE 6 CULAR MAT ECG CONSULTAN W/LEAST TS O 12 LDS I&R ONLY LIPID 53073 [facility] PANEL [facility] INC COMPREHEN [id number] [facility] R[facility] SIVE 6 [facility] METABOLIC INC INC PANEL SLEEP STD 68657 JO[facility] AIRFLOW 6 [facility] HRT INC INC RATE&O2 SAT EFFORT UNATT CREATINE 92566 JOSEPH RUIZ KINASE 6 [facility] [facility] ISOENZYME INC INC S COLLECTIO 93060 JOSEPH RUIZ N VENOUS 6 [facility] [place]LO[place] [address] JOSEPH RUIZ THYROID 6 [facility] STIMULATI [place] [address] JOSEPH RUIZ MAGNESIUM 6 [facility] INC INC BLOOD 34836 JOSEPH RUIZ COUNT 6 [facility] COMPLETE INC INC AUTO&AUTO DIFRNTL WBC HEMOGLOBI 62757 JOSEPH RUIZ N 6 [facility] GLYCOSYLA INC INC JAY A1C DUP-SCAN 77709 [place] LAUGHLIN ALL ARTL MARLYN 6 MEDICAL ABDL/PEL/ IMAGING SCROT&/[place] [address] ANDREW LAUGHLIN ALL RETROPERI 6 MEDICAL TONEAL IMAGING REAL TIME ASS W/IMAGE LIMITED ECG 60572 JOSEPH RUIZ ROUTINE 5 [facility] ECG INC INC W/LEAST 12 LDS TRCG ONLY W/O I&R ECG 74781 CARDIOVAS MYRANDA ROUTINE 5 CULAR MAT ECG CONSULTAN W/LEAST TS O 12 LDS I&R ONLY COLLECTIO 36215 JOSEPH RUIZ N VENOUS 5 [facility] BLOOD INC INC VENIPUNCT URE BASIC 46902 JOSEPH RUIZ METABOLIC 5 [facility] PANEL INC INC CALCIUM TOTAL BASIC 52840 JOSEPH RUIZ METABOLIC 5 [facility] PANEL INC INC CALCIUM TOTAL CATH PLMT 69516 JOSEPH RUIZ L HRT & 5 [facility] ARTS INC INC W/NJX & ANGIO IMG S&I THROMBOPL 03128 JOSEPH RUIZ ASTIN 5 [facility] TIME INC INC PARTIAL PLASMA/WH OLE BLOOD LOCM Q9967 JOSEPH RUIZ [phone] [facility] MG/ML INC INC IODINE CONCENTRA TION PER ML PROTHROMB 98502 JOSEPH RUIZ IN TIME 5 [facility] INC INC BLOOD 47910 JOSEPH RUIZ COUNT 5 [facility] COMPLETE INC INC AUTO&AUTO DIFRNTL WBC CATHETER C1725 JOSEPH RUIZ TRANSLUMI 5 [facility] NAL INC INC ANGIOPLAS TY NON-LASER GUIDE C1769 JOSEPH RUIZ WIRE 5 [facility] INC INC UNCLASSIF J3490 JOSEPH RUIZ IED DRUGS 5 [facility] INC INC URINE 28482 JOSEPH RUIZ 5 [facility] TEST INC INC VISUAL COLOR CMPRSN METH ECG 05670 CARDIOVAS MYRANDA ROUTINE 5 CULAR MAT ECG CONSULTAN W/LEAST TS O 12 LDS I&R ONLY ECG 19904 JOSEPH RUIZ ROUTINE 5 [facility] ECG INC INC W/LEAST 12 LDS TRCG ONLY W/O I&R ECHO 87256 [facility] MEDICAL 2D SERV W/WOM-MOD FOUNDATIO E COMPL N SPEC&COLR D MYOCARDIA 75035 CARDIOVAS MYRANDA L SPECT 5 CULAR MAT MULTIPLE CONSULTAN STUDIES TS O CV STRS 06406 [facility] GINNYUARTHUR TST 5 PHYSICIAN LESLEY XERS&/OR S GROUP RX CONT ECG W/O I&R CV STRS 95022 JOSEPH RUIZ TST 5 [facility] XERS&/OR INC INC RX CONT ECG TRCG ONLY UNCLASSIF [id number] JOSEPH RUIZ IED DRUGS 5 [facility] INC INC INJECTION J2785 JOSEPH RUIZ 5 [facility] REGADENOS INC INC ON 0.1 MG ECG 09715 CARDIOVAS MYRANDA ROUTINE 5 CULAR MAT ECG CONSULTAN W/LEAST TS O 12 LDS I&R ONLY XTRNL ECG 41941 JOSEPH RUIZ & 48 HR 5 [facility] RECORDING INC INC XTRNL ECG 08089 JOSEPH GRISSOM JR 5 [facility] S RHYTHM P W/I&R UP TO 48 HRS EXTERNAL 29878 JOSEPH RUIZ ECG 5 [facility] SCANNING INC INC ANALYSIS REPORT CREATINE 75898 JOSEPH RUIZ KINASE MB 5 [facility] FRACTION INC INC ONLY ECG 50415 JOSEPH CAMPOVERDE ROUTINE 5 [facility] W/LEAST P 12 LDS I&R ONLY COMPREHEN 24937 JOSEPH RUIZ SIVE 5 [facility] METABOLIC INC INC PANEL THER 57677 JOSEPH RUIZ PROPH/DX 5 [facility] NJX IV INC INC PUSH SINGLE/1S T SBST/DRUG ECG 20272 JOSEPH RUIZ ROUTINE 5 [facility] ECG INC INC W/LEAST 12 LDS TRCG ONLY W/O I&[place] [address] JOSEPH RUIZ THYROID 5 [facility] STIMULATI INC INC NG HORMONE TSH CREATINE 89130 JOSEPH RUIZ KINASE 5 [facility] TOTAL INC INC UNCLASSIF J3490 JOSEPH RUIZ IED DRUGS 5 [facility] INC INC RADIOLOGI 12902 JOSEPH RUIZ C EXAM 5 [facility] CHEST 2 INC INC VIEWS FRONTAL&[place] [address] JOSEPH RUIZ THYROXINE 5 [facility] TOTAL INC INC BLOOD 00270 JOSEPH RUIZ COUNT 5 [facility] COMPLETE INC INC AUTO&AUTO DIFRNTL WBC NATRIURET 82105 JOSEPH RUIZ IC 5 [facility] [place] [address] JOSEPH RUIZ TROPONIN 5 [facility] QUANTITAT INC INC COBY INJECTION J1030 JOSEPH RUIZ 5 [facility] METHYLPRE INC INC DNISOLONE ACETATE 40 MG FLUOR 39951 CHELY MYA CRI NEEDLE/CA 5 MD GERMAN, TH PSC SPINE/PAR ASPINAL DX/THER ADDON NJX 12427 CHELY MYA CRI DX/THER 5 MD GERMAN, SBST PSC EPIDURAL/ SUBARACH LUMBAR/SA CRAL LOCM Q9966 JOSEPH JOSEPH [phone] [facility] MG/ML INC INC IODINE CONCENTRA TION PER ML DRUG/SUBS 55546 JOSEPH RUIZ TANCE 5 [facility] DEFINITIV INC INC E QUAL/ALTAGRACIA T NOS 7/MORE ARTHROCEN [facility] TIMI VILLAGRAN 5 PHYSICIAN JAM ASPIR&/IN S GROUP J MAJOR JT/BURSA W/O US LOCM Q9966 JOSEPH JOSEPH [phone] 5 [facility] MG/ML INC INC IODINE CONCENTRA TION PER ML RADIOLOGI 62951 ANDREW SEALS C EXAM 5 MEDICAL JOÃO KNEE IMAGING COMPLETE ASS 4/MORE VIEWS NJX 65925 MADAR BUX BUX ANJ DX/THER 5 SBST EPIDURAL/ SUBARACH LUMBAR/SA CRAL FLUOR 93894 MADAR BUX BUX ANJ NEEDLE/CA 5 SPINE/PAR ASPINAL DX/THER ADDON URINE 39233 JOSEPH RUIZ 5 [facility] TEST INC INC VISUAL COLOR CMPRSN METHS INJECTION J1040 JOSEPH RUIZ 5 [facility] METHYLPRE INC INC DNISOLONE ACETATE 80 MG BLOOD 36198 JOSEPH RUIZ COUNT 5 [facility] COMPLETE INC INC AUTO&[place] [address] JOSEPH RUIZ THYROXINE 5 [facility] [place] [address] JOSEPH RUIZ THYROID 5 [facility] STIMULATI INC INC NG HORMONE TSH COMPREHEN 71418 JOSEPH RUIZ SIVE 5 [facility] METABOLIC INC INC PANEL COLLECTIO 74248 JOSEPH RUIZ N VENOUS 5 [facility] BLOOD INC INC VENIPUNCT URE IADNA 66950 BIO BIO CHLAMYDIA 5 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 TRACHOMAT IES IES IS AMPLIFIED PROBE TQ URINLS 98817 GIANLUCA NGUYEN DIP 5 PATRICK MONSON STICK/TAB LET REAGNT NON-AUTO MICRSCPY HANDLG&/O 99479 GIANLUCA NGUYEN R CONVEY 5 PATRICK RUTHERFORD IONA OF SPEC FOR TR OFFICE TO LAB IADNA 20384 GIANLUCA NGUYEN NEISSERIA 5 PATRICK MONSON GONORRHOE AE DIRECT PROBE TQ IADNA 76860 BIO BIO NEISSERIA 5 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 GONORRHOE IES IES AE AMPLIFIED PROBE TQ IADNA NOS 58935 BIO BIO 5 REFERNCE REFERNCE AMPLIFIED LABORATOR LABORATOR PROBE TQ IES IES EACH ORGANISM IADNA 01267 BIO BIO TRICHOMON 5 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 VAGINALIS IES IES AMPLIFIED PROBE TECH CULTURE 06842 GIANLUAC NGUYEN CHLAMYDIA 5 PATRICK RUTHERFORD IONA ANY SOURCE CYTP C/V 51440 BIO BIO AUTO THIN 5 REFERNCE REFERNCE LYR LABORATOR LABORATOR PREPJ SCR IES IES MNL RESCR PHYS URINE 11396 GIANLUCA NGUYEN 5 HARPEL MD IONA TEST V[place] [address] ANDREW SEALS TRANSVAGI 5 MEDICAL JOÃO NAL IMAGING ASS GASTRIC 49940 ANDREW BEINEKE EMPTYING 5 MEDICAL ISIDORO IMAGING IMAGING STUDY ASS TECHNETIU A9541 JOSEPH Gaytan TC-99M 5 [facility] SULFUR INC INC COLLOID DX [place] [address] [place] [address] ANDREW SEALS ABDOMEN & 5 MEDICAL JOÃO PELVIS IMAGING W/O ASS CONTRAST MATERIAL COMPREHEN 25010 JOSEPH RUIZ SIVE 5 [facility] METABOLIC INC INC PANEL URINE 80833 JOSEPH RUIZ 5 [facility] TEST INC INC VISUAL COLOR CMPRSN METHS UNCLASSIF J3490 JOSEPH RUIZ IED DRUGS 5 [facility] INC INC BLOOD 50185 JOSEPH RUIZ COUNT 5 [facility] COMPLETE INC INC AUTO&AUTO DIFRNTL WBC URNLS DIP 64547 JOSEPH RUIZ 5 [facility] STICK/TAB INC INC LET REAGENT AUTO MICROSCOP Y HEMOGLOBI 17944 JOSEPH RUIZ N 5 [facility] GLYCOSYLA INC INC JAY A1C BLOOD 95353 JOSEPH RUIZ COUNT 5 [facility] COMPLETE INC INC AUTO&[place] [address] JOSEPH RUIZ THYROID 5 [facility] STIMULATI INC INC NG HORMONE TSH COMPREHEN 91142 JOSEPH RUIZ SIVE 5 [facility] METABOLIC INC INC PANEL COLLECTIO 95961 JOSEPH RUIZ N VENOUS 5 [facility] [place] [address] JOSPEH RUIZ FREE 5 [facility] THYROXINE INC INC URNLS DIP 67058 [facility] MARIE Brown PHYSICIAN ALLEN STICK/TAB S GROUP LET RGNT NON-AUTO W/O MICRSCP HANDLG&/O 09477 [facility] MAREI Davis CONVEY 5 PHYSICIAN ALLEN OF SPEC S GROUP FOR TR OFFICE TO LAB CYTP C/V 15137 [facility], AUTO THIN 5 [facility] LYR PREPJ SCR MNL RESCR PHYS SPCL STN 01301 [facility], 2 I&R 5 [facility] EXCPT MICROORG/ ENZYME/IM CYT EGD 61599 JOSEPH RUIZ TRANSORAL 5 [facility] BIOPSY INC INC SINGLE/[place] [address] JOSEPH RUIZ INFUSION 5 [facility] THERAPY/P INC INC ROPHYLAXI S /DX 1ST TO 1 [place] [address] JOSEPH VILLARREALON INFUSION 5 [facility] THERAPY INC INC PROPHYLAX IS/[place] [address] [facility], SURG 5 [facility] PATHOLOGY GROSS&[place] [address] JOSEPH RUIZ HPYLORI 5 [facility] INC INC UNCLASSIF J3490 JOSEPH RUIZ IED DRUGS 5 [facility] INC INC URINE 07194 JOSEPH RUIZ 5 [facility] TEST INC INC VISUAL COLOR CMPRSN METHS GLUC BLD 38830 JOSEPH RUIZ GLUC MNTR 5 [facility] DEV INC INC CLEARED FDA SPEC HOME USE RADEX 98237 [place] BOZENA ESOPHAGUS 5 MEDICAL JOÃO IMAGING ASS IM ADM 65400 [facility] LEOPOLDO PRQ ID 4 PHYSICIAN MAICO SUBQ/IM S GROUP NJXS 1 VACCINE IIV3 VACC 42124 [facility] LEOPOLDO 4 PHYSICIAN MAICO PRESERVAT S GROUP COBY FREE 0.5 ML DOSAGE IM USE RADIOLOGI 38970 JOSEPH Feliz 4 [facility] EXAMINATI INC INC ON TIBIA & FIBULA 2 VIEWS CLTX 08655 [facility] PETTE TIBIAL FX 4 PHYSICIAN JAM PROXIMAL S GROUP W/O MANIPULAT ION KNEE L1830 ADVANCED ADVANCED ORTHOSIS 4 TECHNOLOG TECHNOLOG IMMOBLIZE IES INC IES INC R CANVAS LONGTUDNL PREFAB MRI 26733 [place] BO[place] SPINAL 4 MEDICAL JOÃO CANAL IMAGING LUMBAR ASS W/O CONTRAST MATERIAL 3D 05282 JOSEPH RUIZ RENDERING 4 [facility] W/INTERP INC INC & POSTPROCE SS SUPERVISI ON MRI 50739 ANDREW SEALS SPINAL 4 MEDICAL JOÃO CANAL IMAGING CERVICAL ASS W/O CONTRAST MATRL RADIOLOGI 71436 JOSEPH RUIZ C 4 [facility] EXAMINATI INC INC ON KNEE 3 VIEWS KNEE L1830 be[employer] INC. BREG INC. ORTHOSIS 4 IMMOBLIZE R CANVAS LONGTUDNL PREFAB HEPATITIS 80909 JOSEPH RUIZ A 4 [facility] [address] JOSEPH RUIZ HEPATITIS 4 [facility] B INC INC SURFACE ANTIGEN HEPATITIS 62684 JOSEPH Henley CORE 4 [facility] ANTIBODY INC INC HBCAB TOTAL HEPATITIS 63562 JOSEPH RUIZ B SURF 4 [facility] ANTIBODY INC INC HBSAB COMPREHEN 66713 JOSEPH RUIZ SIVE 4 [facility] METABOLIC INC INC PANEL HEPATITIS 10230 JOSEPH RUIZ C 4 [facility] ANTIBODY INC INC HEMOGLOBI 50359 JOSEPH RUIZ N 4 [facility] GLYCOSYLA INC INC JAY A1C BLOOD 66773 JOSEPH RUIZ COUNT 4 [facility] COMPLETE INC INC AUTO&[place] [address] JOSEPH RUIZ THYROXINE 4 [facility] [place] [address] JOSEPH RUIZ THYROID 4 [facility] STIMULATI INC INC NG HORMONE TSH US SOFT 85810 JOSEPH RUIZ TISSUE 4 [facility] HEAD & INC INC NECK REAL TIME IMGE DOCM IODINE A9516 JOSEPH RUIZ I-123 4 [facility] SODIUM INC INC IODIDE DX PER 100 UCI TO 999 THYROID 03212 JOSEPH RUIZ UPTAKE 4 [facility] W/BLOOD INC INC FLOW SNGLE/MUL T ALTAGRACIA WENDI COMPREHEN 99768 JOSEPH RUIZ SIVE 4 [facility] METABOLIC INC INC PANEL RADEX ABD 58712 JOSEPH RUIZ COMPL 4 [facility] AQT ABD INC INC W/S/E/D VIEWS 1 [place] [address] JOSEPH RUIZ AMYLASE 4 [facility] INC INC COLLECTIO 50816 [facility] LEOPOLDO N VENOUS 4 PHYSICIAN MA[place] [address] JOSEPH RUIZ LIPASE 4 [facility] INC INC BLOOD 79309 JOSEPH RUIZ COUNT 4 [facility] COMPLETE INC INC AUTO&AUTO DIFRNTL WBC URNLS DIP 31888 JOSEPH RUIZ 4 [facility] STICK/TAB INC INC LET REAGENT AUTO MICROSCOP Y HEMOGLOBI 24049 JOSEPH RUIZ N 4 [facility] GLYCOSYLA INC INC JAY A1C BLOOD 95875 JOSEPH RUIZ COUNT 4 [facility] COMPLETE INC INC AUTO&[place] [address] JOSEPH RUIZ THYROID 4 [facility] STIMULATI [place] [address] JOSEPH RUIZ THYROXINE 4 [facility] TOTAL INC INC ANTIBODY 44820 JOSEPH RUIZ HELICOBAC 4 [facility] TER INC INC PYLORI COMPREHEN 85256 JOSEPH RUIZ SIVE 4 [facility] METABOLIC INC INC PANEL LIPID 91737 JOSEPH JOSEPH PANEL 4 [facility] INC INC ECG 75327 [facility] ROUTINE 4 EMERGENCY BRO ECG SERVICES W/LEAST 12 LDS I&R ONLY INCIS W 86.05 Nixon REM OF Yaritza RUTHERFORD FORIEGN BODY OR DEV FROM SKIN & SUBCUT TISSUE Encounters Encounter Start End Date Code Location Performer Type Date OFFICE 52967 [facility] LUIS OUTKRISTIN 7 7 PHYSICIAN T VISIT S GROUP 15 MINUTES HOSPITAL JOSEPH - 7 7 [facility] OUTPATIEN INC T OFFICE 83932 [facility] MARIE OUTPATIEN 7 7 PHYSICIAN T VISIT S GROUP 15 MINUTES OFFICE 30091 [facility] EUNICE OUTPATIEN 7 7 PHYSICIAN T VISIT S GROUP 10 MINUTES OFFICE 29173 [facility] LEOPOLDO OUTPATIEN 7 7 PHYSICIAN T VISIT S GROUP 15 MINUTES OFFICE 30373 [facility] DAWSON OUTPATIEN 7 7 PHYSICIAN T VISIT S GROUP 10 MINUTES HOSPITAL JOSEPH - 7 7 [facility] OUTPATIEN INC T OFFICE 38512 [facility] DAWSON OUTPATIEN 7 7 PHYSICIAN T VISIT S GROUP 15 MINUTES OFFICE 11059 [facility] FRYMAN OUTPATIEN 7 7 PHYSICIAN T VISIT S GROUP 25 MINUTES OFFICE 34628 [facility] LEOPOLDO OUTPATIEN 7 7 PHYSICIAN T VISIT S GROUP 15 MINUTES OFFICE 62392 [facility] ALLRAN JR OUTPATIEN 7 7 PHYSICIAN T VISIT S GROUP 15 MINUTES EMERGENCY 64025 BRE TOMLINSON 7 7 PHYSICIAN U [facility] S, [facility] T VISIT MODERATE SEVERITY EMERGENCY 75634 BRE RAMOS 6 6 PHYSICIAN [facility] S, [facility] T VISIT MODERATE SEVERITY OFFICE 09231 [facility] HARPEL OUTPATIEN 6 6 PHYSICIAN IONA T VISIT S GROUP 15 MINUTES HOSPITAL JOSEPH - 6 6 [facility] OUTPATIEN INC T HOSPITAL JOSEPH - 6 6 [facility] OUTPATIEN INC T OFFICE 19087 [facility] LEOPOLDO OUTPATIEN 6 6 PHYSICIAN MAICO T VISIT S GROUP 25 MINUTES PERIODIC 04697 [facility] HARPEL PREVENTIV 6 6 PHYSICIAN IONA E MED EST S GROUP PATIENT 18-39 YRS EMERGENCY 33760 BRE TOMLINSON 6 6 PHYSICIAN U ISIDORO [facility] S, [facility] T VISIT MODERATE SEVERITY HOSPITAL JOSEPH - 6 6 [facility] OUTPATIEN INC T OFFICE 34446 [facility] FRYMAN OUTPATIEN 6 6 PHYSICIAN EUG T VISIT S GROUP 25 MINUTES EMERGENCY 32875 BRE MOSER 6 6 PHYSICIAN JR CHONG DEPARTMEN S, [facility] T VISIT HIGH/URGE NT SEVERITY EMERGENCY 43745 BRE MONTENEGRO 6 6 PHYSICIAN DEPARTMEN S, [facility] T VISIT MODERATE SEVERITY OFFICE 52989 [facility] LEOPOLDO OUTPATIEN 6 6 PHYSICIAN MAICO T VISIT S GROUP 25 MINUTES OFFICE 60147 [facility] FRYMAN OUTPATIEN 6 6 PHYSICIAN EUG T VISIT S GROUP 25 MINUTES HOSPITAL JOSEPH - 6 6 [facility]PATIEN [facility] JOSEPH - 6 6 [facility] OUTPATIEN [facility] JOSEPH - 6 6 [facility] OUTPATIEN [facility] T OFFICE 38603 [facility] [place]SON OUTPATIEN [address] T VISIT S GROUP 15 MINUTES HOSPITAL JOSEPH - 6 6 [facility] OUTPATIEN [facility] JOSEPH - 6 6 [facility] OUTPATIEN [facility] T OFFICE 05754 JOSEPH FRYMAN OUTPATIEN 6 6 [facility] T VISIT HOSPITAL 15 MINUTES OFFICE 17833 [facility] DA[place]SON OUTPATIEN [address] T NEW 30 S GROUP MINUTES HOSPITAL JOSEPH - 6 6 [facility] OUTPATIEN INC T OFFICE 25392 JOSEPH FRYMAN OUTPATIEN 6 6 [facility] T VISIT HOSPITAL 15 MINUTES HOSPITAL JOSEPH - 6 6 [facility] OUTPATIEN INC T OFFICE 84577 [facility] LEOPOLDO OUTPATIEN 6 6 PHYSICIAN T VISIT S GROUP 15 MINUTES HOSPITAL JOSEPH - 6 6 [facility] OUTPATIEN INC T OFFICE 45190 [facility] [place] OUTPATIEN 6 6 PHYSICIAN T VISIT S GROUP 25 MINUTES HOSPITAL JOSEPH - 6 6 [facility] OUTPATIEN INC [facility] JOSEPH - 5 5 [facility] OUTPATIEN INC T OFFICE 72504 CARDIOVAS MYRANDA OUTPATIEN 5 5 CULAR MAT T VISIT CONSULTAN 25 TS O MINUTES [facility] JOSEPH - 5 5 [facility] OUTPATIEN INC [facility] JOSEPH - 5 5 [facility] OUTPATIEN [facility] JOSEPH - 5 5 [facility] OUTPATIEN [facility] OFFICE 90590 CARDIOVAS MYRANDA OUTPATIEN 5 5 CULAR MAT T VISIT CONSULTAN 40 TS O MINUTES [facility] JOSEPH - 5 5 [facility] OUTPATIEN [facility] JOSEPH - 5 5 [facility] OUTPATIEN [facility] T OFFICE 24138 CARDIOVAS MYRANDA OUTPATIEN 5 5 CULAR MAT T NEW 60 CONSULTAN MINUTES TS O EMERGENCY 56811 JOSEPH 5 5 [facility] T VISIT HIGH/URGE NT SEVERITY EMERGENCY 75052 BRE MINA DEPT 5 5 PHYSICIAN MAICO VISIT S, [facility] HIGH SEVERITY& THREAT [facility] JOSEPH - 5 5 [facility] OUTPATIEN [facility] JOSEPH - 5 5 [facility] OUTPATIEN INC T OFFICE 24859 CHE[facility] 5 5 MD GERMAN, T VISIT PSC 15 MINUTES [facility] JOSEPH - 5 5 [facility] OUTPATIEN [facility] JOSEPH - 5 5 [facility] OUTPATIEN INC T OFFICE 16584 [facility] TIMI OUTPATIEN 5 5 PHYSICIAN JAM T VISIT S GROUP 15 MINUTES [facility] JOSEPH - 5 5 [facility] OUTPATIEN INC T INITIAL 38008 GIANLUCA NGUYEN PREVENTIV 5 5 PATRICK RUTHERFORD IONA E MEDICINE NEW PT AGE 18-39YRS OFFICE 54351 [facility] ALLRAN JR OUTPATIEN 5 5 PHYSICIAN ELVIA T VISIT S GROUP 15 MINUTES OFFICE 99466 JUANI RBOISONBhargav ANJ OUTPATIEN 5 5 MD T NEW 30 MINUTES HOSPITAL JOSEPH - 5 5 [facility] OUTPATIEN INC T [facility]OSPITAL JOSEPH - 5 5 [facility] OUTPATIEN INC T EMERGENCY 40652 JOSEPH BOTELLO ISI 5 5 [facility] T VISIT P MODERATE SEVERITY [facility] 5 [facility] - [facility] 5 [facility] T INITIAL [id number] [facility] MARIE PREVENTIV 5 5 PHYSICIAN ALLEN E S GROUP MEDICINE NEW PT AGE [id number] [facility] - 5 5 [facility] T OFFICE [id number] [facility] ALLRAN JR OUTPATIEN 5 5 PHYSICIAN ELVIA T NEW 30 S GROUP MINUTES [facility] - [facility] 5 [facility] T OFFICE 58062 [facility] [place] OUTPATIEN 5 5 PHYSICIAN MAICO T VISIT S GROUP 15 MINUTES OFFICE 93434 [facility] [place] OUTPATIEN 4 4 PHYSICIAN MAICO T VISIT S GROUP 10 MINUTES [facility] - 4 4 [facility] T OFFICE 10930 [facility] [place] OUTPATIEN 4 4 PHYSICIAN JAM T VISIT S GROUP 15 MINUTES OFFICE 96334 [facility] [place] OUTPATIEN 4 4 PHYSICIAN [place] T VISIT S GROUP 10 MINUTES OFFICE 18372 [facility] [place] OUTPATIEN 4 4 PHYSICIAN MAICO T VISIT S GROUP 10 MINUTES EMERGENCY 80320 [facility] 4 4 RADHA MAICO DEPARTMEN EMERGENCY T VISIT PHYS HIGH/URGE NT SEVERITY OFFICE 22758 [facility] [place] OUTPATIEN 4 4 PHYSICIAN MAICO T VISIT S GROUP 15 MINUTES OFFICE 33031 [place] [facility] [facility] OUTPATIEN 4 4 MEDICAL T NEW 30 SERV MINUTES [facility] - 4 4 [facility] OUTPATI[facility] INC T [facility] 4 4 [facility] OUTPATIEN INC T EMERGENCY 05985 [facility] 4 4 [facility] DEPARTMEN INC T VISIT MODERATE SEVERITY [facility] - 4 4 [facility] OUTPATI[facility] INC T OFFICE 27162 [facility] [place] OUTPATIEN 4 4 PHYSICIAN MAICO T VISIT S GROUP 10 MINUTES [facility] - 4 4 [facility] INC T [facility] - 4 4 [facility] OUTPATIEN INC T OFF[facility] 10442 [facility] [place] OUTPATIEN 4 4 PHYSICIAN MAICO T VISIT S GROUP 10 MINUTES OFFICE 22215 [facility] [place] OUTPATIEN 4 4 PHYSICIAN [place] T VISIT S GROUP 15 MINUTES [facility] - 4 4 [facility] OUTPATIEN INC T OFFICE 50054 [facility] [place] OUTPATIEN 4 4 PHYSICIAN [place] T VISIT S GROUP 15 MINUTES OFFICE 42045 [facility] [place] OUTPATIEN 4 4 PHYSICIAN [place] T VISIT S GROUP 15 MINUTES OFFICE 46653 [facility] [place] OUTPATIEN 4 4 PHYSICIAN MAICO T VISIT S GROUP 15 MINUTES [facility] MARY LOAIZA MD (ER) 4 08:50 4 12:52 [facility] EMERGENCY [id number] MONICA LOAIZA DEPT 4 4 EMERGENCY BRO VISIT SERVICES HIGH SEVERITY& THREAT FUN Emergency MARY Wise MD (ER) 3 11:11 3 12:27 [facility] Emergency MARY Wise MD (ER) 3 17:32 3 18:42 [facility] Emergency MARY Vigil MD (ER) 3 18:16 3 18:49 [facility] Emergency MARY SHORT (ER) 3 17:52 3 20:18 [facility]
--- OUTSIDE RECORDS SUMMARY | 2017-05-22 13:42 | External Medical Summary Rpt | CCD ---
Author Author , CHADKANDACE Organization JOSIANE Address Unknown Phone [email or web address] Care Team Providers Care Lunchroom Attendant Name Role Phone [employer] Unavailable Unavailable INC, [employer] ALLRAN JR, ALLRAN JR Unavailable Unavailable ALLRAN JR ELVIA, ALLRAN Unavailable Unavailable JR ELVIA CHELY PORTER MD, PSC, Unavailable Unavailable CHELY PORTER MD, PSC LOAIZA BRO, LOAIZA Unavailable Unavailable BRO BEINEKE, BEINEKE Unavailable Unavailable BESSON ZAC, BESSON Unavailable Unavailable ZAC [facility]available [facility]available [facility], [facility] LAUGHLIN, LAUGHLIN Unavailable Unavailable LAUGHLIN ALL, LAUGHLIN ALL Unavailable Unavailable [facility] [employer] [employer] Unavailable Unavailable BUX ANJ, BUX ANJ Unavailable Unavailable [facility] Unavailable Unavailable [facility], [facility] MARIE SALAZAR Unavailable Unavailable SALAZAR ALLEN, SALAZAR Unavailable Unavailable ALLEN BOZENA JOÃO, Unavailable Unavailable BOZENA JOÃO DUFF CHRISTIAN, DUFF CHRISTIAN Unavailable Unavailable FALLUJI LESLEY, FALLUJI Unavailable Unavailable LESLEY FRYMAN, FRYMAN Unavailable Unavailable FRYMAN EUG, FRYMAN Unavailable Unavailable JR CASTILLO HILL, Unavailable Unavailable JR CASTILLO MOSER LEOPOLDO, LEOPOLDO Unavailable Unavailable LEOPOLDO MAICO, LEOPOLDO Unavailable Unavailable MAICO GIANLUCA NGUYEN MD, Unavailable Unavailable GIANLUCA NGUYEN IONA, HARPEL Unavailable Unavailable IONA [facility] Unavailable Unavailable INC, [facility] Unavailable Unavailable [facility]ITAL, [facility] Unavailable Unavailable HOSPITAL P, [facility] CALZADA KINDRA, CALZADA KINDRA Unavailable Unavailable [facility] KIN[facility], [facility] Unavailable Unavailable [facility], Unavailable Unavailable [facility] RAMOS, RAMOS Unavailable Unavailable RAMOS MONI, RAMOS MONI Unavailable Unavailable [facility] Un[facility] Unavailable [facility], [email or web address] MYA CRI, MYA CRI Unavailable Unavailable DAWSON, DAWSON Unavailable Unavailable DAWSON RD, DAWSON Unavailable Unavailable RD JACIEL JR DWI, JACIEL Unavailable Unavailable JR DWI [facility] Unavailable Unavailable SERVICES, [facility], Unavailable [...] SOTINGEANU SOTINGEANU ISIDORO, Unavailable Unavailable SOTINGEANU ISIDORO [facility] Unavailable Unavailable EMERGENCY PH[facility], [facility] STONE MARK, STONE MARK Unavailable Unavailable KALIKALI Unavailable Unavailable HERIBERTO PHI, HERIBERTO PHI Unavailable Unavailable Purpose Continuity of Care Document - 08-24-2013 through 2016 Problems Code Diagnosis DOS Provider Status [id number] DM D/T 04-07-2017 [facility] UNDERLYING PHYSICIANS COND GROUP W/DIABETIC MONONEUROPA THY E119 TYPE 2 04-07-2017 [facility] DIABETES PHYSICIANS MELLITUS GROUP WITHOUT COMPLICATIO NS L989 DISORDER 04-07-2017 [facility] THE SKIN & PHYSICIANS SUBCUTANEOU GROUP S TISSUE UNS M545 LOW BACK 04-07-2017 [facility] PAIN PHYSICIANS GROUP Z8719 PERSONAL 04-07-2017 [facility] HISTORY PHYSICIANS OTHER GROUP DISEASES DIGESTIVE SYSTEM N393 STRESS 02-22-2017 [facility] INCONTINENC PHYSICIANS E FEMALE GROUP MALE E6601 MORBID 12-22-2016 [facility] SEVERE PHYSICIANS OBESITY DUE GROUP TO EXCESS CALORIES L680 HIRSUTISM 12-22-2016 [facility] PHYSICIANS GROUP H6980 OTHER SPEC 11-26-2016 [facility] DISORDERS PHYSICIANS EUSTACHIAN GROUP TUBE UNS EAR J309 ALLERGIC 11-26-2016 [facility] RHINITIS PHYSICIANS UNSPECIFIED GROUP J310 CHRONIC 11-26-2016 [facility] RHINITIS PHYSICIANS GROUP J320 CHRONIC 11-16-2016 [facility] MAXILLARY PHYSICIANS SINUSITIS GROUP J342 DEVIATED 11-16-2016 [facility] NASAL PHYSICIANS SEPTUM GROUP E039 HYPOTHYROID 11-03-2016 [facility] UNSPECIFIED INC J341 CYST AND 11-03-2016 [facility] OF MEDICAL NOSE AND IMAGING ASS NASAL SINUS R040 EPISTAXIS 11-03-2016 [facility] INC R1013 EPIGASTRIC 09-24-2016 [facility] PAIN PHYSICIANS GROUP I10 ESSENTIAL 09-01-2016 [facility] PRIMARY PHYSICIANS HYPERTENSIO GROUP N M1990 UNSPECIFIED 09-01-2016 [facility] PHYSICIANS OSTEOARTHRI GROUP TIS UNSPECIFIED SITE K210 GASTRO-ESOP 08-28-2016 [facility] HAGEAL PHYSICIANS REFLUX GROUP DISEASE W/ ESOPHAGITIS J0100 ACUTE 08-11-2016 [facility] MAXILLARY PHYSICIANS, SINUSITIS PLLC UNSPECIFIED T07380 PAIN IN 07-20-2016 [facility] LEFT KNEE PHYSICIANS, PLLC N819 FEMALE 07-16-2016 [facility] GENITAL PHYSICIANS PROLAPSE GROUP UNSPECIFIED N920 EXCESS & 07-16-2016 [facility] FREQUENT PHYSICIANS MENSTRUATIO GROUP N W/REGULAR CYCLE Z1231 ENCOUNTER 07-16-2016 [facility] [place] SCREENING MEDICAL MAMMO MALIG IMAGING ASS NEOPLASM BREAST Z3009 ENCOUNTER 07-16-2016 [facility] OT GENERAL PHYSICIANS GROUP ELASTIC TAPE INSERTER&ADV ICE CONTRACEPT E663 OVERWEIGHT 07-13-2016 [facility] GROUP 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 07-13-2016 [facility]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 D/O GROUP W/RADICULOP ATHY LUMB RGN N888 OT SPEC 07-13-2016 [facility] NONINFLAMMA MEDICAL TORY IMAGING ASS DISORDERS CERVIX UTERI R102 PELVIC AND 07-13-2016 [place] PERINEAL MEDICAL PAIN IMAGING ASS W19970 OTHER 07-08-2016 [employer] H18106 ENCOUNTER 06-30-2016 [facility] CREDIT CONTROL OFFICER EXAM PHYSICIANS GENERAL RTN GROUP W/ABNORMAL FIND Q00641 ENCOUNTER 06-30-2016 [facility] CREDIT CONTROL OFFICER EXAM PHYSICIANS GENERAL RTN GROUP W/O ABNORMAL FIND Z803 FAMILY 06-30-2016 [facility] HISTORY OF PHYSICIANS MALIGNANT GROUP NEOPLASM OF BREAST R05 COUGH 06-29-2016 [facility]YSICIANS, PLLC R5383 OTHER 06-22-2016 [facility] INC H5213 MYOPIA 06-19-2016 [facility] KINDRA BILATERAL J40 BRONCHITIS 06-19-2016 [facility] NOT PHYSICIANS SPECIFIED GROUP ACUTE OR CHRONIC K219 GASTRO-ESOP 06-19-2016 [facility] H REFLUX PHYSICIANS DISEASE GROUP WITHOUT ESOPHAGITIS R32 UNSPECIFIED 06-19-2016 [facility] URINARY PHYSICIANS INCONTINENC GROUP E C3428TV ALLERGY 06-19-2016 [facility] UNSPECIFIED PHYSICIANS INITIAL GROUP ENCOUNTER J029 ACUTE 06-05-2016 [facility] PHARYNGITIS PHYSICIANS, PLLC UNSPECIFIED M1712 UNILATERAL 06-05-2016 [facility] PRIMARY PHYSICIANS, OSTEOARTHRI PLLC TIS LEFT KNEE R0989 OTH SPEC SX 06-05-2016 [place] & SIGNS MEDICAL INVLV THE IMAGING ASS CIRC & RESP SYS O471 FALSE LABOR 05-13-2016 [facility] AT/AFTER PHYSICIANS 37 GROUP COMPLETED WEEKS GEST M7541 IMPINGEMENT 04-08-2016 [facility] SYNDROME PHYSICIANS OF RIGHT GROUP SHOULDER D80927 PAIN IN 02-28-2016 [place] RIGHT MEDICAL SHOULDER IMAGING ASS M542 CERVICALGIA 02-28-2016 [facility] PHYSICIANS GROUP W105JMB UNSPECIFIED 02-28-2016 [place] INJURY OF MEDICAL NECK IMAGING ASS INITIAL ENCOUNTER N85097T STRN UNS 02-28-2016 [facility] M&T SHLDR PHYSICIANS UP ARM LEVL GROUP RT ARM INIT ENC G4733 OBSTRUCTIVE 02-04-2016 [facility] APNEA ADULT INC PEDIATRIC N34879 UNSPECIFIED 01-24-2016 [facility] ED E049 NONTOXIC 01-23-2016 [facility] GOITER PHYSICIANS UNSPECIFIED GROUP 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 R7989 OTHER SPEC 01-16-2016 [facility] ABNORMAL [facility] FINDINGS INC BLOOD CHEMISTRY G4730 SLEEP APNEA 01-02-2016 [facility] I959 HYPOTENSION 01-02-2016 [facility] R748 ABNORMAL 12-17-2015 [facility] LEVELS OF [facility] OTHER SERUM INC ENZYMES E1165 TYPE 2 11-28-2015 [facility] WITH HYPERGLYCEM IA N926 IRREGULAR 11-28-2015 [facility] UNSPECIF[facility] A56833 OTHER 09-26-2015 [facility] MUSCLE PHYSICIANS SPASM GROUP O83696V LACERATION 09-26-2015 [facility] WITHOUT PHYSICIANS FOREIGN GROUP BODY LT EAR INITIAL Z23 ENCOUNTER 09-26-2015 [facility] FOR PHYSICIANS IMMUNIZATIO GROUP N E139 OTH SPEC 08-27-2015 [facility] DIABETES LAR MELLITUS CONSULTANTS W/O O COMPLICATIO NS E669 OBESITY 08-27-2015 [facility] UNSPECIFIED [facility] INC E785 HYPERLIPIDE 08-27-2015 [facility] JOSE PHYSICIANS UNSPECIFIED GROUP G737 MYOPATHY IN 08-27-2015 [facility] DISEASES PHYSICIANS CLASSIFIED GROUP ELSEWHERE I119 HYPERTENSIV 08-27-2015 [facility] E HEART LAR DISEASE CONSULTANTS WITHOUT O HEART FAILURE M791 MYALGIA 08-27-2015 [facility] PHYSICIANS GROUP R9431 ABNORMAL 07-30-2015 [facility] ELECTROCARD [facility] IOGRAM INC B25996 OTHER LONG 07-24-2015 [facility] TERM [facility] [...] HX 07-18-2015 [facility] ISCHEMIC LAR HRT DZ OT CONSULTANTS DZ CIRC O SYSTEM I340 NONRHEUMATI 07-16-2015 [facility] INSUFFICIEN CY I361 NONRHEUMATI 07-16-2015 [facility] TRICUSPID [facility] INSUFFICIEN CY I371 NONRHEUMATI 07-16-2015 [facility] PULMONARY [facility] INSUFFICIEN CY R000 TACHYCARDIA 07-02-2015 [facility] LAR UNSPECIFIED CONSULTANTS O R011 CARDIAC 07-02-2015 [facility] UNSPECIFIED INC R0602 SHORTNESS 07-02-2015 [facility] OF BREATH [facility] INC R0789 OTHER CHEST 07-02-2015 [facility] PAIN [facility] INC R42 DIZZINESS 07-02-2015 [facility] AND [facility] GIDDINESS INC R9430 ABNORMAL 07-02-2015 [facility] RESULT CV PHYSICIANS FUNCTION GROUP STUDY UNS R002 PALPITATION 06-17-2015 [facility] P 27509 DEGEN 04-19-2015 [facility] LUMBAR/LUMB [facility] OSACRAL INC INTERVERTEB RAL DISC 7244 THORACIC/AMY 03-21-2015 SOHA LEDESMA MD, PSC NEURITIS/RA DICULITIS UNSPEC V5869 LONG-TERM 12-24-2014 [facility] (CURRENT) [facility] USE OF INC OTHER MEDICATIONS 93936 OSTEOARTHRO 11-21-2014 [facility] SIS UNSPEC PHYSICIANS WHETHER GROUP GEN/LOC LOWER LEG 46379 PAIN IN 11-16-2014 [place] JOINT, MEDICAL LOWER LEG IMAGING ASS V7263 PRE-PROCEDU 11-16-2014 [facility] LABORATORY INC EXAMINATION 2449 UNSPECIFIED 11-14-2014 [facility] HYPOTHYROID INC ISM 59846 DIAB W/O 11-14-2014 [facility] COMP TYPE [facility] II/UNS NOT INC STATED UNCNTRL 6259 UNSPEC 11-02-2014 GIANLUCA Davis SYMPTOM [facility] W/FEMALE GENITAL ORGANS 6262 EXCESSIVE 11-02-2014 GIANLUCA Davis OR FREQUENT [facility] MENSTRUATIO N V7231 ROUTINE 11-02-2014 GIANLUCA Davis GYNECOLOGIC [facility] AL EXAMINATION 18256 ESOPHAGEAL 10-23-2014 [facility] REFLUX PHYSICIANS GROUP 78822 ABDOMINAL 10-23-2014 [facility] PAIN, PHYSICIANS EPIGASTRIC GROUP 6160 CERVICITIS 10-18-2014 [place] [facility] ENDOCERVICI IMAGING ASS TIS 93554 ABDOMINAL 10-18-2014 [place] [facility] OTHER MEDICAL SPECIFIED IMAGING ASS SITE 43721 ABDOMINAL 10-09-2014 [facility], MEDICAL UNSPECIFIED IMAGING ASS SITE 4019 UNSPECIFIED 10-06-2014 [facility] P N 4139 OTHER AND 10-06-2014 [facility] P PECTORIS 33649 ASTHMA, 10-06-2014 [facility] P UNSPECIFIED STATUS 1129 CANDIDIASIS 09-19-2014 [facility] OF PHYSICIANS UNSPECIFIED GROUP SITE 46592 REFLUX 09-04-2014 [facility], ESOPHAGITIS [facility] 5368 DYSPEPSIA&O 09-03-2014 [facility] THER SPEC PHYSICIANS DISORDERS GROUP FUNCTION STOMACH 10685 OBESITY, 08-23-2014 [facility] UNSPECIFIED PHYSICIANS GROUP 7242 LUMBAGO 08-23-2014 [facility] PHYSICIANS GROUP 56579 CLOSED 07-20-2014 [facility] FRACTURE OF PHYSICIANS UPPER END GROUP OF FIBULA V0481 NEED 07-20-2014 [facility] PROPHYLACTI PHYSICIANS C GROUP VACCINATION &INOCULATIO N FLU 3540 CARPAL 07-19-2014 [facility] TUNNEL PHYSICIANS SYNDROME GROUP V5416 AFTERCARE 07-19-2014 [facility] HEALING PHYSICIANS TRAUMATIC GROUP FRACTURE LOWER LEG 8449 SPRAIN&STRA 06-22-2014 [facility] IN OF PHYSICIANS UNSPECIFIED GROUP SITE OF KNEE&LEG 06292 CLOSED 06-16-2014 [facility] N EMERGENCY PHYS UNSPECIFIED PART OF FIBULA 55866 UNSPECIFIED 06-16-2014 [facility] OF N EMERGENCY ANKLE PHYS SPRAIN AND STRAIN E8888 OTHER FALL 06-16-2014 [facility] PHYS 7231 CERVICALGIA 02-22-2014 [facility] 7291 UNSPECIFIED 02-22-2014 [facility] MYOSITIS 7210 CERVICAL 02-16-2014 [place] SPONDYLOSIS MEDICAL WITHOUT IMAGING ASS MYELOPATHY 7213 LUMBOSACRAL 02-16-2014 [place] [facility] SPONDYLOSIS IMAGING ASS WITHOUT MYELOPATHY 7220 DISPLCMT 02-16-2014 [place] CERV MEDICAL INTERVERT IMAGING ASS DISC WITHOUT MYELOPATHY 90985 DISPLCMT 02-16-2014 [place] LUMBAR MEDICAL INTERVERT IMAGING ASS DISC W/O MYELOPATHY E8859 FALL FROM 02-10-2014 [facility] OTHER N EMERGENCY SLIPPING PHYS TRIPPING OR STUMBLING V1582 PERS HX 02-10-2014 [facility] TOBACCO USE [facility] PRESENTING INC HAZARDS HEALTH 2409 GOITER, 01-09-2014 [place] UNSPECIFIED MEDICAL IMAGING ASS 7842 SWELLING 01-09-2014 [facility] MASS OR [facility] LUMP IN INC HEAD AND NECK 7945 NONSPECIFIC 01-09-2014 [place] ABNORM MEDICAL RESULTS IMAGING ASS THYROID FUNCT STUDY 7245 UNSPECIFIED 12-19-2013 [facility] BACKACHE PHYSICIANS GROUP 99958 HELICOBACTE 11-20-2013 [facility] R PYLORI PHYSICIANS INFECTION GROUP 3559 MONONEURITI 10-19-2013 [facility] S OF PHYSICIANS UNSPECIFIED GROUP SITE 2724 OTHER AND 10-10-2013 [facility] UNSPECIFIED PHYSICIANS GROUP HYPERLIPIDE JOSE 59760 PAIN IN 10-10-2013 [facility] JOINT, SITE PHYSICIANS GROUP UNSPECIFIED 21070 CHEST PAIN 10-04-2013 [facility] UNSPECIFIED [facility] INC 79331 OTHER CHEST 08-24-2013 [facility] Medications Na ND Rx Da Fi Fi Am Da Di Ph RX Ph St me C No te ll ll ou ys ag ar # ys at rm s nt no ma ic us Or [...] NT ET HI AN A IN C ON 65 08 09 [...] HI TA AN B A IN C SP 65 08 09 [...] BL HI ET AN A IN C HY 00 07 08 [address] 40 -2 -[address] ti OC 60 6- 8- 00 00 SI ve OD 12 20 20 49 DE ON 40 17 17 57 -A 5 39 PH CE AR TA MA CO CY NO PH OF CY 7. NT 5- HI 32 AN 5 A IN C ON 65 07 08 [...] 5 27 PH CE AR TA MA CO CY NO PH OF CY 7. NT 5- HI 32 AN 5 A IN C PA 65 07 07 [...] HI BL AN ET A IN C CA 00 07 07 [...] 20 5- 8- 00 00 SI ve CO 76 20 20 0 49 DE N [...] CY NT HI AN A IN C SP 65 06 07 30 30 00 EA Ac IR 16 -1 -[address] ti ON 20 5- 4- 00 00 SI ve OL 51 20 20 48 DE AC 51 17 17 77 TO 0 46 PH NE AR MA 10 CY 0 MG OF CY TA NT BL HI ET AN A IN C LO 00 07 90 90 00 EA Ac VA [...] AN A IN C PA 65 05 30 30 00 EA Ac NT 86 -2 -[address] ti OP 20 7- 3- 00 00 SI ve RA 56 20 20 48 DE ZO 09 17 17 32 LE 0 36 PH AR SO MA D CY DR OF 40 CY NT MG HI AN TA A B IN C MO 60 05 30 30 00 EA Ac NT [...] AN Y A IN C LE 00 12 12 89 90 00 EA Ac VO 78 -2 -[address] ti TH 15 7- 3- 00 00 SI ve YR 18 20 20 48 DE OX 39 17 17 40 IN 2 29 PH E AR 88 MA CY MC G OF TA CY BL NT ET HI AN A IN C VA 65 05 30 30 00 EA Ac LS [...] .[address] ti ON 20 6- 9- 00 00 SI ve OL 51 20 [...] ST ti AM 20 8- 2- 00 00 SI ve IN 03 20 20 48 DE OP 31 17 17 40 HE 1 25 PH N- AR CO MA D CY #3 OF TA CY BL NT ET HI AN A IN C ME 68 04 05 18 90 00 EA Ac TF 38 -1 -[address] ti OR 20 8- 2- 00 00 SI ve CO 76 20 20 0 48 DE N [...] 5 48 PH CE AR TA MA CO CY NO PH OF EN CY NT 5- HI 32 AN 5 A IN C BU 00 02 03 60 30 00 EA Ac TX 18 -2 -[address] ti OP 50 3- 4- 00 00 SI ve IO 41 20 20 47 DE N 56 17 17 73 HC 0 82 PH L AR SR MA CY 15 0 OF MG CY NT TA HI BL AN ET A IN C LO 02 03 90 90 00 EA Ac [...] TA AN B A IN C LE 02 03 30 30 00 EA Ac [...] 20 3- 4- 00 00 SI ve CO 76 20 20 47 DE N 01 17 17 73 HC 0 86 PH L AR 1, MA 00 CY 0 MG OF CY TA NT BL HI ET AN A IN C GL 90 90 00 EA Ac IP 78 -2 -[address] ti IZ 11 3- 4- 00 00 SI ve ID 45 20 20 47 DE E 30 17 17 73 10 1 87 PH AR MG MA CY TA BL OF ET CY NT HI AN A IN C GA 16 02 03 90 30 00 EA Ac BA 71 -2 -[address] ti PE 40 3- 4- 00 00 SI ve NT 33 20 20 47 DE IN 00 17 17 73 2 88 PH 60 AR 0 MA MG CY TA OF BL CY ET NT HI AN A IN C CY 00 02 03 30 10 00 EA Ac CL 37 -2 -[address] ti OB 80 3- 4- 00 00 SI ve EN 75 20 20 47 DE ZA 11 17 17 73 TX 0 89 PH IN AR E MA 10 CY MG OF CY TA NT BL HI ET AN A IN C AC 65 02 03 60 30 00 EA Ac ET 16 -2 -[address] ti AM 20 3- 4- 00 00 SI ve IN 03 20 20 47 DE OP 31 17 17 73 HE 1 90 PH N- AR CO MA D CY #3 OF TA CY BL NT ET HI AN A IN C LA 00 02 03 [...] TH HI RO AN A IN C GL 00 02 30 30 00 EA Ac IP 78 -2 -[address] ti IZ 11 4- 7- 00 00 SI ve ID 45 20 20 47 DE E 30 17 17 35 10 1 46 PH AR MG MA CY TA BL OF ET CY NT HI AN A IN C VA 65 01 02 30 30 00 EA Ac LS 86 -2 -[address] ti AR 20 4- 7- 00 00 SI ve TA 55 20 20 47 DE N- 19 17 17 35 HC 0 48 PH TZ AR MA 32 CY 0- 25 OF CY MG NT HI TA AN B A IN C AC 65 01 02 60 30 00 EA Ac ET 16 -2 -[address] ti AM 20 4- 7- 00 00 SI ve IN 03 20 20 47 DE OP 31 17 17 35 HE 1 49 PH N- AR CO MA D CY #3 OF TA CY BL NT ET HI AN A IN C LO 00 02 30 30 00 EA Ac VA 18 -1 -[address] 50 2- 0- 00 00 SI ve AT 07 20 20 46 DE IN 26 17 17 85 0 56 PH 20 AR MA MG CY TA OF BL CY ET NT HI AN A IN C LE 00 02 30 30 00 EA Ac VO [...] 20 3- 0- 00 00 SI ve CO 76 20 20 45 DE N 01 [...] ET AN A IN C BU 00 12 01 60 30 00 EA Ac TX 18 -2 -[address] ti OP 50 3- 0- 00 00 SI ve IO 41 20 20 46 DE N 50 16 17 52 HC 5 37 PH L AR SR MA CY 15 0 OF MG CY NT TA HI BL AN ET A IN C GA 16 12 01 90 30 00 EA Ac BA 71 -2 -[address] ti PE 40 3- 0- 00 00 SI ve NT 33 20 20 46 DE IN 00 16 17 52 2 36 PH 60 AR 0 MA MG CY TA OF BL CY ET NT HI AN A IN C LO 00 12 30 30 00 EA Ac VA 18 [...] NT ET HI AN A IN C HM 62 12 01 5. [...] CY NT HI AN A IN C OX 62 12 01 21 21 00 EA Ac YB 17 -0 -[address] ti UT 50 8- 9- 00 00 SI ve YN 27 20 20 46 DE IN 13 16 17 82 7 10 PH CL AR MA ER CY 10 OF CY MG NT HI TA AN BL A ET IN C Immunization Name Date Rout CVX Reac Dose Comm Prov Is Faci e tion ent ider Refu lity Give sed n IIV3 02- 141 GAIN No [facility] 8-20 EY PHYS VACC 16 ICIA INE NS SPLI GROU T P VIRU S 0.5 ML DOSA GE IM USE IIV3 07-09 140 GAIN No [facility] 2-20 EY PHYS VACC 14 MAICO ICIA NS PRES GROU ERVA P TIVE FREE 0.5 ML DOSA GE IM USE Procedures Procedure DOS Code Location Performer Comment GLUC BLD 76069 [facility] MNTR [facility] DEV INC INC CLEARED FDA SPEC HOME USE SLING 41654 [facility] OPERATION 7 [facility] STRESS INC INC INCONTINE NCE ANES 29991 [facility] EXTRAPERI 7 ANESTH TONEAL OF THE LWR ABD BLUE W/URINARY TRACT NOS REPAIR C1771 [facility] DEVICE 7 [facility] URINARY INC INC INCONTINE NCE W/SLING GRAFT COMPLX 12931 [facility] BETTEND[facility] CYSTOMETR 7 PHYSICIAN PHYSICIAN O W/VOID S GROUP S GROUP PRESS & URETHRAL PROFIL SHAVING 34921 [facility] SKIN 7 PHYSICIAN LESION 1 S GROUP S/N/H/F/G DIAM 0.6-[address] [place] [address] [facility] MAXILLOFA 7 [facility] CIAL W/O INC INC CONTRAST MATERIAL RADIOLOGI 04681 [place] BOZE[facility] C 6 MEDICAL JOÃO EXAMINATI IMAGING ON KNEE 3 ASS VIEWS COMPUTER- 58482 [place] HERMANN AIDED 6 MEDICAL DETECTION IMAGING ASS SCREENING MAMMOGRAP HY SCREENING G0202 [place] [facility] 6 MEDICAL MAMMOGRAP IMAGING [place] [address] [place] LAUGHLIN TRANSVAGI 6 MEDICAL NAL IMAGING ASS SPACR A4627 [facility] MED MT MED BAG/RESRV 6 EQUIPMENT EQUIPMENT OR W/WO INC INC MASK W/METRD DOSE INHAL IADNA 36973 BIO BIO CHLAMYDIA 6 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 TRACHOMAT IES IES IS AMPLIFIED PROBE TQ URINLS 33338 [facility] HARPEL DIP 6 PHYSICIAN IONA STICK/TAB S GROUP LET REAGNT NON-AUTO MICRSCPY SCR G0145 BIO BIO CYTOPATH 6 REFERNCE REFERNCE CERV/VAG LABORATOR LABORATOR SCR IES IES AUTO&MNL RSCR PHYS IADNA 72305 BIO BIO TRICHOMON 6 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 VAGINALIS IES IES AMPLIFIED PROBE TECH CULTURE 73636 [facility] HARPEL CHLAMYDIA 6 PHYSICIAN IONA ANY S GROUP SOURCE IADNA 73306 [facility] NEISSERIA 6 PHYSICIAN PHYSICIAN S GROUP S GROUP GONORRHOE AE DIRECT PROBE TQ IADNA 75184 BIO BIO NEISSERIA 6 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 GONORRHOE IES IES AE AMPLIFIED PROBE TQ IADNA NOS 30514 BIO BIO 6 REFERNCE REFERNCE AMPLIFIED LABORATOR LABORATOR PROBE TQ IES IES EACH ORGANISM HEMOGLOBI 25600 [facility] N 6 [facility] GL[place]COS[place] [address] [facility] THYROID 6 [facility] STIMULATI INC INC NG HORMONE TSH COLLECTIO 82772 [facility] N VENOUS 6 [facility] BLOOD INC INC VENIPUNCT URE COMPREHEN 96597 [facility] SIVE 6 [facility] METABOLIC INC INC PANEL OPHTH 60759 [facility] MEDICAL 6 XM&EVAL COMPRE NEW PT 1/> VST RADIOLOGI 13920 [place] BO[place] C EXAM 6 MEDICAL JOÃO CHEST 2 IMAGING VIEWS ASS FRONTAL&L ATERAL 72432 [facility] SALAZAR NONSTRESS 6 PHYSICIAN ALLEN TEST S GROUP 52039 [facility] SALAZAR NONSTRESS 6 PHYSICIAN ALLEN TEST S GROUP ARTHROCEN 07147 [facility] PETTEY TESIS 6 PHYSICIAN JAM ASPIR&/IN S GROUP J MAJOR JT/BURSA W/O US RADEX 21304 [facility] [place] ALL SPINE 6 MEDICAL CERVICAL IMAGING 2 OR 3 ASS VIEWS RADEX 86443 [facility] SPINE 6 [facility] CERVICAL INC INC 4 OR 5 VIEWS RADEX 52894 [place] QIAN ALL SHOULDER 6 MEDICAL 1 VIEW IMAGING ASS RADEX 04713 [facility] SHOULDER 6 [facility] COMPLETE INC INC MINIMUM 2 VIEWS POLYSOM 42979 [facility] 6/>YRS 6 [facility] SLEEP 4/> INC INC ADDL ADAM ATTND CONTINUOU E0601 ANGELA MILLER S 6 HOME HOME POSITIVE MEDICAL MEDICAL AIRWAY EQUIPME EQUIPME PRESSURE DEVICE BRNCDILAT 50682 [facility] RSPSE 6 [facility] SPMTRY INC INC PRE&POST- BRNCDILAT ADMN UNCLASSIF [id number] [facility] IED DRUGS 6 [facility] INC INC COLLECTIO 09226 [facility] N VENOUS 6 [facility] BLOOD INC INC VENIPUNCT URE US SOFT 06553 [facility] TISSUE 6 [facility] HEAD & INC INC NECK REAL TIME IMGE DOCM HEPATITIS 02933 [facility] C 6 [facility] ANTIBODY INC INC HEPATITIS 30861 [facility] A 6 [facility] ANTIBODY INC INC HAAB HEPATITIS 18623 [facility] B SURF 6 [facility] [address] [facility] HEPATITIS 6 [facility] B INC INC SURFACE ANTIGEN HEPATITIS 24262 [facility] CORE 6 [facility] ANTIBODY INC INC HBCAB TOTAL HEPATITIS 94219 [facility] CORE 6 [facility] ANTIBODY INC INC HBCAB TOTAL HEPATITIS 83147 [facility] SURF 6 [facility] [place] [address] [facility] HEPATITIS 6 [facility] B INC INC SURFACE ANTIGEN HEPATITIS 05974 [facility] A 6 [facility] ANTIBODY INC INC HAAB HEPATITIS 07206 [facility] R[facility] C 6 [facility] ANTIBODY INC INC CONTINUOU E0601 ANGELA MILLER S 6 HOME HOME POSITIVE MEDICAL MEDICAL AIRWAY EQUIPME EQUIPME PRESSURE DEVICE HEPATIC 20164 [facility] FUNCTION 6 [facility] PANEL INC INC LIPID 74382 [facility] R[facility] PANEL 6 [place] [address] [facility] THYROXINE 6 [facility] TOTAL INC INC COMPREHEN 75381 [facility] SIVE 6 [facility] METABOLIC INC INC PANEL HEMOGLOBI 28535 [facility] N 6 [facility] [place] [address] [facility] R[facility] THYROID 6 [facility] STIMULATI INC INC NG HORMONE TSH ALBUMIN 36162 [facility] URINE 6 [facility] MICROALBU INC INC MIN QUANTIATI VE BLOOD 34951 [facility] COUNT 6 [facility] MEM [...] AIRWAY EQUIPME EQUIPME PRESSURE DEVICE IM ADM 24301 [facility] PRQ ID 6 PHYSICIAN SUBQ/IM S GROUP NJXS 1 VACCINE IIV3 99086 [facility] VACCINE 6 PHYSICIAN SPLIT S GROUP VIRUS 0.5 ML DOSAGE IM USE BLOOD 84415 JOSEPH RUIZ COUNT 6 [facility] COMPLETE INC INC AUTO&[place] [address] JOSEPH RUIZ MAGNESIUM 6 [facility] [place] [address] JOSEPH RUIZ THYROID 6 [facility] STIMULATI INC INC NG HORMONE TSH ECG 11710 CARDIOVAS MYRANDA ROUTINE 6 CULAR MAT ECG CONSULTAN W/LEAST TS O 12 LDS I&R ONLY CREATINE 07417 JOSEPH RUIZ KINASE 6 [facility] ISOENZYME INC INC S HEMOGLOBI 38624 JOSEPH RUIZ N 6 [facility] GLYCOSYLA INC INC JAY A1C LIPID 04353 JOSEPH RUIZ PANEL 6 [facility] INC INC SLEEP STD 02463 JOSEPH RUIZ AIRFLOW 6 [facility] HRT INC INC RATE&O2 SAT EFFORT UNATT COLLECTIO 01723 JOSEPH RUIZ N VENOUS 6 [facility] BLOOD INC INC VENIPUNCT URE COMPREHEN 03213 JOSEPH RUIZ SIVE 6 [facility] METABOLIC INC INC PANEL DUP-SCAN 85725 JOSEPH RUIZ ARTL MARLYN 6 [facility] ABDL/PEL/ INC INC SCROT&/RP [place] [address] [place] LAUGHLIN ALL RETROPERI 6 MEDICAL TONEAL IMAGING REAL TIME ASS W/IMAGE LIMITED ECG 43683 CARDIOVAS MYRANDA ROUTINE 5 CULAR MAT ECG CONSULTAN W/LEAST TS O 12 LDS I&R ONLY ECG 52281 JOSEPH RUIZ ROUTINE 5 [facility] ECG INC INC W/LEAST 12 LDS TRCG ONLY W/O I&R BASIC 99509 JOSEPH RUIZ METABOLIC 5 [facility] PANEL INC INC CALCIUM TOTAL COLLECTIO 91706 JOSEPH RUIZ N VENOUS 5 [facility] BLOOD INC INC VENIPUNCT URE UNCLASSIF J3490 JOSEPH RUIZ IED DRUGS 5 [facility] INC INC LOCM Q9967 JOSEPH RUIZ [phone] 5 [facility] MG/ML INC INC IODINE CONCENTRA TION PER ML BASIC 57770 JOSEPH RUIZ METABOLIC 5 [facility] PANEL INC INC CALCIUM TOTAL CATH PLMT 22704 JOSEPH RUIZ L HRT & 5 [facility] ARTS INC INC W/NJX & ANGIO IMG S&I URINE 78975 JOSEPH RUIZ 5 [facility] TEST INC INC VISUAL COLOR CMPRSN METHS CATHETER C1725 JOSEPH RUIZ TRANSLUMI 5 [facility] NAL INC INC ANGIOPLAS TY NON-LASER GUIDE C1769 JOSEPH RUIZ WIRE 5 [facility] INC INC BLOOD 24115 JOSEPH RUIZ COUNT 5 [facility] COMPLETE INC INC AUTO&AUTO DIFRNTL WBC THROMBOPL 47336 JOSEPH RUIZ ASTIN 5 [facility] TIME INC INC PARTIAL PLASMA/WH OLE BLOOD PROTHROMB 00429 JOSEPH RUIZ IN TIME 5 [facility] INC INC ECHO 04171 JOSEPH RUIZ TTHRC R-T 5 [facility] 2D INC INC W/WOM-MOD E COMPL SPEC&COLR D ECG 49637 CARDIOVAS MYRANDA ROUTINE 5 CULAR MAT ECG CONSULTAN W/LEAST TS O 12 LDS I&R ONLY ECG 40222 JOSEPH RUIZ ROUTINE 5 [facility] ECG INC INC W/LEAST 12 LDS TRCG ONLY W/O I&R CV STRS 53803 [facility] GINNYUARTHUR TST 5 PHYSICIAN LESLEY XERS&/OR S GROUP RX CONT ECG W/O I&R CV STRS 83645 JOSEPH RUIZ TST 5 [facility] XERS&/OR INC INC RX CONT ECG TRCG ONLY INJECTION J2785 JOSEPH RUIZ 5 [facility] REGADENOS INC INC ON 0.1 MG MYOCARDIA 95338 JOSEPH [facility]UIZ L SPECT 5 [facility] MULTIPLE INC INC STUDIES UNCLASSIF J3490 JOSEPH RUIZ IED DRUGS 5 [facility] INC INC EXTERNAL 08943 JOSEPH RUIZ ECG 5 [facility] SCANNING INC INC ANALYSIS REPORT ECG 63084 CARDIOVAS MYRANDA ROUTINE 5 CULAR MAT ECG CONSULTAN W/LEAST TS O 12 LDS I&R ONLY XTRNL ECG 92852 JOSEPH RUIZ & 48 HR 5 [facility] RECORDING INC INC XTRNL ECG 72321 JOSEPH JACIEL JR 5 [facility] S RHYTHM P W/I&R UP TO [address] [place] [address] JOSEPH RUIZ THYROID 5 [facility] STIMULATI INC INC NG HORMONE TSH CREATINE 11385 JOSEPH RUIZ KINASE MB 5 [facility] FRACTION INC INC ONLY ECG 44990 JOSEPH CAMPOVERDE ROUTINE 5 [facility] W/LEAST P 12 LDS I&R ONLY BLOOD 93225 JOSEPH RUIZ COUNT 5 [facility] COMPLETE INC INC AUTO&AUTO DIFRNTL WBC CREATINE 39171 JOSEPH RUIZ KINASE 5 [facility] TOTAL INC INC THER 69354 JOSEPH RUIZ PROPH/DX 5 [facility] NJX IV INC INC PUSH SINGLE/1S T SBST/DRUG ECG 30975 JOSEPH RUIZ ROUTINE 5 [facility] ECG INC INC W/LEAST 12 LDS TRCG ONLY W/O I&R NATRIURET 88611 JOSEPH RUIZ IC 5 [facility] [place] [address] JOSEPH RUIZ TROPONIN 5 [facility] QUANTITAT INC INC COBY RADIOLOGI 87277 JOSEPH RUIZ C EXAM 5 [facility] CHEST 2 INC INC VIEWS FRONTAL&[place] [address] JOSEPH RUIZ THYROXINE 5 [facility] TOTAL INC INC COMPREHEN 36927 JOSEPH RUIZ SIVE 5 [facility] METABOLIC INC INC PANEL UNCLASSIF J3490 JOSEPH RUIZ IED DRUGS 5 [facility] INC INC INJECTION J1030 JOSEPH RUIZ 5 [facility] METHYLPRE INC INC DNISOLONE ACETATE 40 MG LOCM Q9966 JOSEPH RUIZ 200-299 5 [facility] MG/ML INC INC IODINE CONCENTRA TION PER ML FLUOR 39962 CHELY MARTINEZ NEEDLE/CA 5 MD [place] [place] [facility] SPINE/PAR ASPINAL DX/THER [place] NJX 49347 JOSEPH RUIZ DX/THER 5 [facility] SBST INC INC EPIDURAL/ SUBARACH LUMBAR/SA CRAL DRUG/SUBS 35020 JOSEPH RUIZ TANCE 5 [facility] DEFINITIV INC INC E QUAL/ALTAGRACIA T NOS 7/MORE ARTHROCEN 41217 [facility] TIMI VILLAGRAN 5 PHYSICIAN JAM ASPIR&/IN S GROUP J MAJOR JT/BURSA W/O US FLUOR 43773 JUANI PORTER ANJ NEEDLE/CA 5 [facility] SPINE/PAR ASPINAL DX/THER ADDON INJECTION J1040 JOSEPH RUIZ 5 [facility] METHYLPRE INC INC DNISOLONE ACETATE 80 MG NJX 84286 JOSEPH RUIZ DX/THER 5 [facility] SBST INC INC EPIDURAL/ SUBARACH LUMBAR/SA CRAL RADIOLOGI 02768 JOSEPH RUIZ C EXAM 5 [facility] KNEE INC INC COMPLETE 4/MORE VIEWS URINE 79702 JOSEPH RUIZ 5 [facility] TEST INC INC VISUAL COLOR CMPRSN METHS LOCM Q9966 JOSEPH RUIZ 200-299 5 [facility] MG/ML INC INC IODINE CONCENTRA TION PER ML COMPREHEN 03326 JOSEPH RUIZ SIVE 5 [facility] METABOLIC INC INC PANEL COLLECTIO 62549 JOSEPH RUIZ N VENOUS 5 [facility] [place] [address] JOSEPH RUIZ THYROXINE 5 [facility] TOTAL INC INC BLOOD 46347 JOSEPH RUIZ COUNT 5 [facility] COMPLETE INC INC AUTO&[place] [address] JOSEPH RUIZ THYROID 5 [facility] STIMULATI INC INC NG HORMONE TSH IADNA 87577 BIO BIO CHLAMYDIA 5 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 TRACHOMAT IES IES IS AMPLIFIED PROBE TQ IADNA 09880 BIO BIO TRICHOMON 5 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 VAGINALIS IES IES AMPLIFIED PROBE TECH CYTP C/V 64900 BIO BIO AUTO THIN 5 REFERNCE REFERNCE LYR LABORATOR LABORATOR PREPJ SCR IES IES MNL RESCR PHYS IADNA 55156 GIANLUCA NGUYEN NEISSERIA 5 PATRICK RUTHERFORD IONA GONORRHOE AE DIRECT PROBE TQ IADNA NOS 44461 BIO BIO 5 REFERNCE REFERNCE AMPLIFIED LABORATOR LABORATOR PROBE TQ IES IES EACH ORGANISM IADNA 44737 BIO BIO NEISSERIA 5 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 GONORRHOE IES IES AE AMPLIFIED PROBE TQ CULTURE 78938 GIANLUAC NGUYEN CHLAMYDIA 5 [facility] IONA ANY SOURCE URINE 03845 GIANLUCA NGUYEN 5 PATRICK MONSON TEST VISUAL COLOR CMPRSN METHS HANDLG&/O 72297 GIANLUCA NGUYEN R CONVEY 5 [facility] IONA OF SPEC FOR TR OFFICE TO LAB URINLS 24304 GIANLUCA NGUYEN DIP 5 [facility] IONA STICK/[place] [address] JOSEPH JOSEPH TRANSVAGI 5 [facility] NAL INC INC GASTRIC 35870 JOSEPH JOSEPH EMPTYING 5 [facility] IMAGING INC INC STUDY TECHNETIU A9541 JOSEPH RUIZ M TC-99M 5 [facility] SULFUR INC INC COLLOID DX UP TO 20 MCI COMPREHEN 56231 JOSEPH RUIZ SIVE 5 [facility] METABOLIC INC INC PANEL URINE 16199 JOSEPH RUIZ 5 [facility] TEST INC INC VISUAL COLOR CMPRSN METHS UNCLASSIF J3490 JOSEPH RUIZ IED DRUGS 5 [facility] INC INC BLOOD 39167 JOSEPH RUIZ COUNT 5 [facility] COMPLETE INC INC AUTO&[place] [address] JOSEPH RUIZ ABDOMEN & 5 [facility] PELVIS INC INC W/O CONTRAST MATERIAL URNLS DIP 94575 JOSEPH RUIZ 5 [facility] STICK/TAB INC INC LET REAGENT AUTO MICROSCOP Y HEMOGLOBI 23269 JOSEPH RUIZ N 5 [facility] GLYCOSYLA INC INC JAY A1C BLOOD 96304 JOSEPH RUIZ COUNT 5 [facility] COMPLETE INC INC AUTO&[place] [address] JOSEPH RUIZ FREE 5 [facility] [place] [address] JOSEPH RUIZ THYROID 5 [facility] STIMULATI INC INC NG HORMONE TSH COLLECTIO 62713 JOSEPH RUIZ N VENOUS 5 [facility] BLOOD INC INC VENIPUNCT URE COMPREHEN 36778 JOSEPH RUIZ SIVE 5 [facility] METABOLIC INC INC PANEL HANDLG&/O 46866 [facility] MARIE Davis CONVEY 5 PHYSICIAN ALELN OF SPEC S GROUP FOR TR OFFICE TO LAB URNLS DIP 01663 [facility] MARIE 5 PHYSICIAN ALLEN STICK/TAB S GROUP LET RGNT NON-AUTO W/O MICRSCP CYTP C/V 70570 [facility], AUTO THIN 5 [facility] LYR [place] [address] [facility], SURG 5 [facility] PATHOLOGY GROSS&MAICO ROSCOPIC EXAM SPCL STN 39371 [facility], 2 I&R 5 [facility] EXCPT MICROORG/ ENZYME/[place] [address] JOSEPH RUIZ HPYLORI 5 [facility] INC INC GLUC BLD 51565 JOSEPH RUIZ GLUC MNTR 5 [facility] DEV INC INC CLEARED FDA SPEC HOME USE EGD 04891 JOSEPH RUIZ TRANSORAL 5 [facility] BIOPSY INC INC [place]INGLE/[place] [address] JOSEPH RUIZ INFUSION 5 [facility] THERAPY/P INC INC ROPHYLAXI S /DX 1ST TO 1 [place] [address] JOSEPH RUIZ INFUSION 5 [facility] THERAPY INC INC PROPHYLAX IS/DX EA HOUR URINE 90187 JOSEPH RUIZ 5 [facility] TEST INC INC VISUAL COLOR CMPRSN METHS UNCLASSIF J3490 JOSEPH RUIZ IED DRUGS 5 [facility] INC INC RADEX 63645 JOSEPH RUIZ ESOPHAGUS 5 [facility] INC INC IM ADM 28932 [facility] LEOPOLDO PRQ ID 4 PHYSICIAN MAICO SUBQ/IM S GROUP NJXS 1 VACCINE IIV3 VACC 30706 [facility] LE[facility] 4 PHYSICIAN MAICO PRESERVAT S GROUP COBY FREE 0.5 ML DOSAGE IM USE RADIOLOGI 87471 JOSEPH RUIZ C 4 [facility] EXAMINATI INC INC ON TIBIA & FIBULA 2 VIEWS CLTX 54790 [facility] PETTEY TIBIAL FX 4 PHYSICIAN JAM PROXIMAL S GROUP W/O MANIPULAT ION KNEE L1830 ADVANCED ADVANCED ORTHOSIS 4 TECHNOLOG TECHNOLOG IMMOBLIZE IES INC IES INC R CANVAS LONGTUDNL PREFAB 3D 98789 JOSEPH RUIZ RENDERING 4 [facility] W/INTERP INC INC & POSTPROCE SS SUPERVISI ON MRI 87608 JOSEPH RUIZ SPINAL 4 [facility] CANAL INC INC LUMBAR W/O CONTRAST MATERIAL MRI 85961 JOSEPH RUIZ SPINAL 4 [facility] CANAL INC INC CERVICAL W/O CONTRAST MATRL RADIOLOGI 94549 JOSEPH RUIZ C 4 [facility] EXAMINATI INC INC ON KNEE 3 VIEWS KNEE L1830 BREG INC. BREG INC. ORTHOSIS 4 IMMOBLIZE [place] [address] JOSEPH RUIZ THYROID 4 [facility] STIMULATI INC INC NG HORMONE TSH HEPATITIS 71251 JOSEPH RUIZ C 4 [facility] ANTIBODY INC INC BLOOD 23659 JOSEPH RUIZ COUNT 4 [facility] COMPLETE INC INC AUTO&AUTO DIFRNTL WBC HEMOGLOBI 35284 JOSEPH RUIZ N 4 [facility] GLYCOSYLA INC INC JAY A1C HEPATITIS 78818 JOSEPH RUIZ B SURF 4 [facility] ANTIBODY INC INC HBSAB HEPATITIS 25787 JOSEPH RUIZ B CORE 4 [facility] [place] [address] JOSEPH RUIZ HEPATITIS 4 [facility] B INC INC SURFACE ANTIGEN HEPATITIS 65237 JOSEPHLES RUIZ A 4 [facility] ANTIBODY INC INC HAAB COMPREHEN 54834 JOSEPH RUIZ SIVE 4 [facility] [address] JOSEPH RUIZ THYROXINE 4 [facility] TOTAL INC INC US SOFT 31825 JOSEPH RUIZ TISSUE 4 [facility] HEAD & INC INC NECK REAL TIME IMGE DOCM THYROID 70813 JOSEPH RUIZ UPTAKE 4 [facility] W/BLOOD INC INC FLOW SNGLE/MUL T ALTAGRACIA WENDI IODINE A9516 JOSEPH RUIZ I-123 4 [facility] SODIUM INC INC IODIDE DX PER 100 UCI TO 999 COMPREHEN 33316 JOSEPH RUIZ SIVE 4 [facility] METABOLIC INC INC PANEL COLLECTIO 57084 [facility] N VENOUS 4 PHYSICIAN MAICO BLOOD S GROUP VENIPUNCT URE URNLS DIP 77677 JOSEPHLES RUIZ 4 [facility] STICK/TAB INC INC LET REAGENT AUTO MICROSCOP Y RADEX ABD 60396 JOSEPH RUIZ COMPL 4 [facility] AQT ABD INC INC W/S/E/D VIEWS 1 [place] [address] JOSEPH RUIZ AMYLASE 4 [facility] INC INC BLOOD 55377 JOSEPH RUIZ COUNT 4 [facility] COMPLETE INC INC AUTO&[place] [address] JOSEPH RUIZ LIPASE 4 [place] [address] JOSEPH RUIZ THYROID 4 [facility] STIMULATI INC INC NG HORMONE TSH HEMOGLOBI 71077 JOSEPH RUIZ N 4 [facility] GLYCOSYLA INC INC JAY A1C BLOOD 98035 JOSEPH RUIZ COUNT 4 [facility] COMPLETE INC INC AUTO&AUTO DIFRNTL WBC ANTIBODY 98154 JOSEPH RUIZ HELICOBAC 4 [facility] TER INC INC PYLORI COMPREHEN 61798 JOSEPH RUIZ SIVE 4 [facility] METABOLIC INC INC PANEL LIPID 51430 JOSEPH RUIZ PANEL 4 [place] [address] JOSEPH RUIZ THYROXINE 4 [facility] TOTAL INC INC ECG 07087 MONICA LOAIZA ROUTINE 4 EMERGENCY BRO ECG SERVICES W/LEAST 12 LDS I&R ONLY Encounters Encounter Start End Date Code Location Performer Type Date OFFICE 72647 [facility] YMAN OUTPATIEN 7 7 PHYSICIAN T VISIT S GROUP 15 MINUTES [facility] JO[facility]PH - 7 7 [facility] OUTPATIEN INC T OFFICE 29137 [facility] SALAZAR OUTPATIEN 7 7 PHYSICIAN T VISIT S GROUP 15 MINUTES OFFICE 21529 [facility] DAWSON OUTPATIEN 7 7 PHYSICIAN T VISIT S GROUP 10 MINUTES OFFICE 50728 [facility] LEOPOLDO OUTPATIEN 7 7 PHYSICIAN T VISIT S GROUP 15 MINUTES OFFICE 68482 [facility] DAWSON OUTPATIEN 7 7 PHYSICIAN T VISIT S GROUP 10 MINUTES HOSPITAL JOSEPH - 7 7 [facility] OUTPATIEN INC T OFFICE 70122 [facility] DAWSON OUTPATIEN 7 7 PHYSICIAN T VISIT S GROUP 15 MINUTES OFFICE 29091 [facility] FRYMAN OUTPATIEN 7 7 PHYSICIAN T VISIT S GROUP 25 MINUTES OFFICE 47449 [facility] LEOP[facility] OUTPATIEN 7 7 PHYSICIAN T VISIT S GROUP 15 MINUTES OFFICE 61190 [facility] ALLRAN JR OUTPATIEN 7 7 PHYSICIAN T VISIT S GROUP 15 MINUTES EMERGENCY 47032 BRE TOMLINSON 7 7 PHYSICIAN U [facility]PARTMEN [facility] T VISIT MODERATE SEVERITY EMERGENCY 44350 BRE RAMOS 6 6 PHYSICIAN DEPARTMEN [facility] T VISIT MODERATE SEVERITY OFFICE 31076 [facility] HARPEL OUTPATIEN 6 6 PHYSICIAN IONA T VISIT S GROUP 15 MINUTES HOSPITAL JOSEPH - 6 6 [facility] OUTPATIEN INC T OFFICE 33779 [facility] LEOPOLDO OUTPATIEN 6 6 PHYSICIAN MAICO T VISIT S GROUP 25 MINUTES HOSPITAL JOSEPH - 6 6 [facility] OUTPATIEN INC T PERIODIC 53058 [facility] HARPEL PREVENTIV 6 6 PHYSICIAN IONA E MED EST S GROUP PATIENT 18-39 YRS EMERGENCY 84892 BRE TOMLINSON 6 6 PHYSICIAN U ISIDORO DEPARTMEN S, PLLC T VISIT MODERATE SEVERITY HOSPITAL JOSEPH - 6 6 [facility] OUTPATIEN INC T OFFICE 88527 [facility] FRYMAN OUTPATIEN 6 6 PHYSICIAN EUG T VISIT S GROUP 25 MINUTES EMERGENCY 60024 BRE MOSER, 6 6 PHYSICIAN JR CHONG DEPARTMEN S, PLLC T VISIT HIGH/URGE NT SEVERITY EMERGENCY 71154 BRE MONTENEGRO 6 6 PHYSICIAN DEPARTMEN [facility] T VISIT MODERATE SEVERITY OFFICE 04122 [facility] LEOPOLDO OUTPATIEN 6 6 PHYSICIAN MAICO T VISIT S GROUP 25 MINUTES OFFICE 84731 [facility] FRYMAN OUTPATIEN 6 6 PHYSICIAN EUG T VISIT S GROUP 25 MINUTES HOSPITAL JO[facility]PH - 6 6 [facility] OUTPATIEN INC T [facility] JO[facility] - 6 6 [facility] OUTPATIEN INC [facility] JOSEPH - 6 6 [facility] OUTPATIEN INC T OFFICE 63820 [facility] DAWSON OUTPATIEN [address] T VISIT S GROUP 15 MINUTES HOSPITAL JOSEPH - 6 6 [facility] OUTPATIEN INC [facility] JOSEPH - 6 6 [facility] OUTPATIEN INC T OFFICE 34937 JOSEPH FRYMAN OUTPATIEN 6 6 [facility] 15 MINUTES OFFICE 39893 [facility] DAWSON OUTPATIEN [address] T NEW 30 S GROUP MINUTES HOSPITAL JOSEPH - 6 6 [facility] OUTPATIEN INC T OFFICE 63943 JOSEPH FRYMAN OUTPATIEN 6 6 [facility] 15 MINUTES HOSPITAL JOSEPH - 6 6 [facility] OUTPATIEN INC T OFFICE 55576 [facility] OUTPATIEN 6 6 PHYSICIAN T VISIT S GROUP 15 MINUTES HOSPITAL JOSEPH - 6 6 [facility] OUTPATIEN INC T OFFICE 38902 [facility] [place] OUTPATIEN 6 6 PHYSICIAN T VISIT S GROUP 25 MINUTES [facility] - [facility] 6 [facility] - 5 5 [facility] T OFFICE 11702 [facility] MYRANDA OUTPATIEN 5 5 CULAR MAT T VISIT CONSULTAN 25 TS O MINUTES [facility] T OFFICE 15744 [facility] MYRANDA [facility]PATIEN 5 5 CULAR MAT T VISIT CONSULTAN 40 TS O MINUTES [facility] 5 [facility] - 5 5 [facility] OFFICE 65166 [facility]ARDI[facility] MYRANDA OUTPATIEN 5 5 CULAR MAT T NEW 60 CONSULTAN MINUTES TS O EMERGENCY 69449 [facility] DEPT 5 5 PHYSICIAN MAICO VISIT S, [facility] HIGH SEVERITY& THREAT FUNJ EMERGENCY 03181 [facility] 5 5 [facility] T VISIT HIGH/URGE NT SEVERITY [facility] 5 [facility] - 5 5 [facility] OFFICE 97255 [facility] GONZALES OUTPATIEN 5 5 MD GERMAN, T VISIT PSC 15 MINUTES [facility] T OFFICE 52463 [facility] TIMI OUTPATIEN 5 5 PHYSICIAN JAM T VISIT S GROUP 15 MINUTES [facility] JOSEPH - 5 5 [facility] T INITIAL 43422 GIANLUCA NGUYEN PREVENTIV 5 5 PATRICK RUTHERFORD [facility] NEW PT AGE 18-39YRS OFFICE 84628 [facility] ALLRAN JR OUTPATIEN 5 5 PHYSICIAN ELVIA T VISIT S GROUP 15 MINUTES OFFICE 69793 JUANI PORTER ANCorona OUTPATIEN 5 5 MD T NEW 30 MINUTES [facility] T EMERGENCY 66696 [facility] 5 5 [facility] DE[facility] T VISIT MODERATE SEVERITY [facility] 5 5 [facility] T INITIAL 67191 [facility] SALAZAR PREVENTIV 5 5 PHYSICIAN ALLEN E S GROUP MEDICINE NEW PT AGE 18-39YRS [facility] JOSPEH - 5 5 [facility] T OFF[facility] 10122 [facility] ALLRAN JR OUTPATIEN 5 5 PHYSICIAN ELVIA T NEW 30 S GROUP MINUTES [facility] 5 [facility] T OFFICE 73699 [facility] LEOPOLDO OUTPATIEN 5 5 PHYSICIAN MAICO T VISIT S GROUP 15 MINUTES OFFICE 48560 [facility] LEOP[facility]DO OUTPATIEN 4 4 PHYSICIAN MAICO T VISIT S GROUP 10 MINUTES OFFICE 12702 [facility] PETTEY OUTPATIEN 4 4 PHYSICIAN JAM T VISIT S GROUP 15 MINUTES [facility] - [facility] 4 [facility] T OFFICE 41529 [facility] OUTPATIEN 4 4 PHYSICIAN MAICO T VISIT S GROUP 10 MINUTES OFFICE 31629 [facility] OUTPATIEN 4 4 PHYSICIAN MAICO T VISIT S GROUP 10 MINUTES EMERGENCY 18900 [facility] 4 4 RADHA MAICO DEPARTMEN EMERGENCY T VISIT PHYS HIGH/URGE NT SEVERITY OFFICE 41998 [place] [facility] PHI OUTPATIEN 4 4 MEDICAL T NEW 30 SERV MINUTES FOUNDATIO N OFFICE 16465 [facility] LEOPOLDO OUTPATIEN 4 4 PHYSICIAN MAICO T VISIT S GROUP 15 MINUTES [facility] - 4 4 [facility] T [facility] - 4 4 [facility] T EMERGENCY 84374 [facility] 4 4 [facility] T VISIT MODERATE SEVERITY [facility] - 4 4 [facility] T OFFICE 47227 [facility] LE[facility] OUTPATIEN 4 4 PHYSICIAN MAICO T VISIT S GROUP 10 MINUTES [facility] - 4 4 [facility] - [facility] 4 [facility] T OFFICE 47653 [facility] LEOPOLDO OUTPATIEN 4 4 PHYSICIAN MAICO T VISIT S GROUP 10 MINUTES OFFICE 64083 [facility] OUTPATIEN 4 4 PHYSICIAN MAICO T VISIT S GROUP 15 MINUTES [facility] - 4 4 [facility] T OFFICE 01455 [facility] OUTPATIEN 4 4 PHYSICIAN MAICO T VISIT S GROUP 15 MINUTES OFFICE 63825 [facility] OUTPATIEN 4 4 PHYSICIAN MAICO T VISIT S GROUP 15 MINUTES OFFICE 96426 [facility] LE[facility] OUTPATIEN 4 4 PHYSICIAN MAICO T VISIT S GROUP 15 MINUTES [facility] - 4 4 [facility] T EMERGENCY 13840 MONICA LOAIZA DEPT 4 4 EMERGENCY BRO VISIT SERVICES HIGH SEVERITY& THREAT FUNCJ
--- OUTSIDE RECORDS SUMMARY | 2017-05-22 13:42 | External Medical Summary Rpt | CCD ---
Author Author , CHADKANDACE Organization JOSIANE Address Unknown Phone [email or web address] Consulting Care Team Providers Care Fuel Manager Name Role Phone [employer] Unavailable Unavailable [...] GIANLUCA NGUYEN IONA, HARPEL Unavailable Unavailable IONA [facility] Unavailable Unavailable INC, [facility] Unavailable Unavailable HOSPITAL, [facility] Unavailable Unavailable [facility]OSPITAL P, [facility], [facility] Unavailable Unavailable [facility], [facility]available Unavailable [facility], Unavailable Unavailable [facility] RAMOS, RAMOS Unavailable Unavailable RAMOS MONI, RAMOS MONI Unavailable Unavailable [facility] Un[facility] Unavailable [facility] MAY CRI, MYA CRI Unavailable Unavailable DAWSON, DAWSON Unavailable Unavailable DAWSON RD, DAWSON Unavailable Unavailable RD JACIEL JR DWI, JACIEL Unavailable Unavailable JR DW[facility] Unavailable Unavailable SERVICES, [facility], Unavailable [...] SOTINGEANU SOTINGEANU ISIDORO, Unavailable Unavailable SOTINGEANU ISIDORO [facility] Unavailable Unavailable EMERGENCY PHYS, [facility] STONE MARK, STONE MARK Unavailable Unavailable KALIKALI Unavailable Unavailable HERBIERTO PHI, HERIBERTO PHI Unavailable Unavailable Purpose Continuity of Care Document - 08-24-2013 through 2016 Problems Code Diagnosis DOS Provider Status E0841 DM D/T 04-07-2017 [facility] UNDERLYING PHYSICIANS COND GROUP W/DIABETIC MONONEUROPA THY E119 TYPE 2 04-07-2017 [facility] DIABETES PHYSICIANS MELLITUS GROUP WITHOUT COMPLICATIO NS L989 DISORDER 04-07-2017 [facility] THE SKIN & PHYSICIANS SUBCUTANEOU GROUP S TISSUE UNS M545 LOW BACK 04-07-2017 [facility] PAIN PHYSICIANS GROUP Z8719 PERSONAL 04-07-2017 [facility] HISTORY PHYSICIANS OTHER GROUP DISEASES DIGESTIVE SYSTEM N393 STRESS 02-22-2017 [facility] INCONTINENC PHYSICIANS E FEMALE GROUP MALE E6601 MORBID 12-22-2016 [facility] SEVERE PHYSICIANS OBESITY DUE GROUP TO EXCESS CALORIES L680 HIRSUTISM 12-22-2016 [facility] PHYSICIANS GROUP H6980 OTHER SPEC 11-26-2016 [facility] DISORDERS PHYSICIANS EUSTACHIAN GROUP TUBE UNS EAR J309 ALLERGIC 11-26-2016 [facility] RHINITIS PHYSICIANS UNSPECIFIED GROUP J310 CHRONIC 11-26-2016 [facility] RHINITIS PHYSICIANS GROUP J320 CHRONIC 11-16-2016 [facility] MAXILLARY PHYSICIANS SINUSITIS GROUP 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 UNSPECIFIED INC J341 CYST AND 11-03-2016 [facility] AND IM[facility] NASAL SINUS R040 EPISTAXIS 11-03-2016 [facility] INC R1013 EPIGASTRIC 09-24-2016 [facility] PAIN PHYSICIANS GROUP I10 ESSENTIAL 09-01-2016 [facility] PRIMARY PHYSICIANS HYPERTENSIO GROUP N M1990 UNSPECIFIED 09-01-2016 [facility] PHYSICIANS OSTEOARTHRI GROUP TIS UNSPECIFIED SITE K210 GASTRO-ESOP 08-28-2016 [facility] HAGEAL PHYSICIANS REFLUX GROUP DISEASE W/ ESOPHAGITIS J0100 ACUTE 08-11-2016 [facility] MAXILLARY PHYSICIANS, SINUSITIS PLLC UNSPECIFIED [id number] PAIN IN 07-20-2016 [facility] LEFT KNEE PHYSICIANS, PLLC N819 FEMALE 07-16-2016 [facility] GENITAL PHYSICIANS PROLAPSE GROUP UNSPECIFIED N920 EXCESS & 07-16-2016 [facility] FREQUENT PHYSICIANS MENSTRUATIO GROUP N W/REGULAR CYCLE Z1231 ENCOUNTER 07-16-2016 [place] SCREENING MEDICAL MAMMO MALIG IMAGING ASS NEOPLASM BREAST Z3009 ENCOUNTER 07-16-2016 [facility] OT GENERAL PHYSICIANS GROUP ASSISTANT PROFESSOR OF COMMUNICATION&ADV ICE CONTRACEPT E663 OVERWEIGHT 07-13-2016 [facility] PHYSICIANS GROUP 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 07-13-2016 [facility]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 D/O GROUP W/RADICULOP ATHY LUMB RGN N888 OT SPEC 07-13-2016 [place] NONINFLAMMA MEDICAL TORY IMAGING ASS DISORDERS CERVIX UTERI R102 PELVIC AND 07-13-2016 [place] PERINEAL MEDICAL PAIN IMAGING ASS W31775 OTHER 07-08-2016 [facility] P98392 ENCOUNTER 06-30-2016 [facility] JAIL GUARD EXAM PHYSICIANS GENERAL RTN GROUP W/ABNORMAL FIND Q44177 ENCOUNTER 06-30-2016 [facility] JAIL GUARD EXAM PHYSICIANS GENERAL RTN GROUP W/O ABNORMAL FIND Z803 FAMILY 06-30-2016 [facility] HISTORY OF PHYSICIANS MALIGNANT GROUP NEOPLASM OF BREAST R05 COUGH 06-29-2016 [facility]IC[facility]ANS, PLLC R5383 OTHER 06-22-2016 [facility] INC H5213 MYOPIA 06-19-2016 [facility] BILATERAL J40 BRONCHITIS 06-19-2016 [facility] NOT PHYSICIANS SPECIFIED GROUP ACUTE OR CHRONIC K219 GASTRO-ESOP 06-19-2016 [facility] H REFLUX PHYSICIANS DISEASE GROUP WITHOUT ESOPHAGITIS R32 UNSPECIFIED 06-19-2016 [facility] URINARY PHYSICIANS INCONTINENC GROUP E D1634IS ALLERGY 06-19-2016 [facility] UNSPECIFIED PHYSICIANS INITIAL GROUP ENCOUNTER J029 ACUTE 06-05-2016 [facility] PHARYNGITIS PHYSICIANS, PLLC UNSPECIFIED M1712 UNILATERAL 06-05-2016 [facility] PRIMARY PHYSICIANS, OSTEOARTHRI PLLC TIS LEFT KNEE R0989 OTH SPEC SX 06-05-2016 [place] & [facility]NS [facility] IN[facility] THE IMAGING ASS CIRC & RESP SYS O471 FALSE LABOR 05-13-2016 [facility] AT/AFTER PHYSICIANS 37 GROUP COMPLETED WEEKS GEST M7541 IMPINGEMENT 04-08-2016 [facility] SYNDROME PHYSICIANS OF RIGHT GROUP SHOULDER G21427 PAIN IN 02-28-2016 [place] RIGHT MEDICAL SHOULDER IMAGING ASS M542 CERVICALGIA 02-28-2016 [facility] PHYSICIANS GROUP Y365PAW UNSPECIFIED 02-28-2016 [place] INJURY OF MEDICAL NECK IMAGING ASS INITIAL ENCOUNTER S86263N STRN UNS 02-28-2016 [facility] M&T SHLDR PHYSICIANS UP ARM LEVL GROUP RT ARM INIT ENC G4733 OBSTRUCTIVE 02-04-2016 [facility]EP [facility] APNEA ADULT INC PEDIATRIC N93064 UNSPECIFIED 01-24-2016 [facility] P ED E049 NONTOXIC 01-23-2016 [facility] GOITER PHYSICIANS UNSPECIFIED GROUP 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 UNSPECIF[facility] Y57887 OTHER 09-26-2015 [facility] MUSCLE PHYSICIANS SPASM GROUP [id number] LACERATION 09-26-2015 [facility] WITHOUT PHYSICIANS FOREIGN GROUP BODY LT EAR INITIAL Z23 ENCOUNTER 09-26-2015 [facility] FOR PHYSICIANS IMMUNIZATIO GROUP N E139 OTH SPEC 08-27-2015 [facility] DIABETES LAR MELLITUS CONSULTANTS W/O O COMPLICATIO NS E669 OBESITY 08-27-2015 [facility]NSPECIFIED [facility] INC E785 HYPERLIPIDE 08-27-2015 [facility] JOSE PHYSICIANS UNSPECIFIED GROUP G737 MYOPATHY IN 08-27-2015 [facility] DISEASES PHYSICIANS CLASSIFIED GROUP ELSEWHERE I119 HYPERTENSIV 08-27-2015 [facility] E HEART LAR DISEASE CONSULTANTS WITHOUT O HEART FAILURE M791 MYALGIA 08-27-2015 [facility] PHYSICIANS GROUP R9431 ABNORMAL 07-30-2015 [facility] ELECTROCARD [facility] IOGRAM INC P23347 OTHER LONG 07-24-2015 [facility] TERM [facility] [...] [facility]OS[facility] GIDDINESS INC R9430 ABNORMAL 07-02-2015 [facility] RESULT CV PHYSICIANS FUNCTION GROUP STUDY UNS R002 PALPITATION 06-17-2015 [facility] P 38660 DEGEN 04-19-2015 [facility] LUMBAR/LUMB [facility] OSACRAL INC INTERVERTEB RAL DISC 7244 THORACIC/AMY 03-21-2015 SOHA LEDESMA MD, PSC NEURITIS/RA DICULITIS UNSPEC V5869 LONG-TERM 12-24-2014 [facility] (CURRENT) [facility] USE OF INC OTHER MEDICATIONS 71312 OSTEOARTHRO 11-21-2014 [facility] SIS UNSPEC PHYSICIANS WHETHER GROUP GEN/LOC LOWER LEG 32578 PAIN IN 11-16-2014 [place] JO[facility], MEDICAL LOWER LEG IMAGING ASS V7263 PRE-PROCEDU 11-16-2014 [facility] LABORATORY INC EXAMINATION 2449 UNSPECIFIED 11-14-2014 [facility] HYPOTHYROID INC ISM 86707 DIAB W/O 11-14-2014 [facility] COMP TYPE [facility] II/UNS NOT INC STATED UNCNTRL 6259 UNSPEC 11-02-2014 GIANLUCA Davis SYMPTOM [facility] W/FEMALE GENITAL ORGANS 6262 EXCESSIVE 11-02-2014 GIANLUCA Davsi OR FREQUENT [facility] MENSTRUATIO N V7231 ROUTINE 11-02-2014 GIANLUCA Davis GYNECOLOGIC [facility] AL EXAMINATION 92715 ESOPHAGEAL 10-23-2014 [facility] REFLUX PHYSICIANS GROUP 38585 ABDOMINAL 10-23-2014 [facility] PAIN, PHYSICIANS EPIGASTRIC GROUP 6160 CERVICITIS 10-18-2014 [place] [facility]OCERV[facility]I IMAGING ASS TIS 69679 ABDOMINAL 10-18-2014 [place] PA[facility] OTHER MEDICAL SPECIFIED IMAGING ASS SITE 12125 ABDOMINAL 10-09-2014 [facility] PAIN, MEDICAL UNSPECIFIED IMAGING ASS SITE 4019 UNSPECIFIED 10-06-2014 [facility] P N 4139 OTHER AND 10-06-2014 [facility] P PECTORIS 75438 ASTHMA, 10-06-2014 [facility] P UNSPECIFIED STATUS 1129 CANDIDIASIS 09-19-2014 [facility] OF PHYSICIANS UNSPECIFIED GROUP SITE 90475 REFLUX 09-04-2014 [facility] ESOPHAGITIS [facility] 5368 DYSPEPSIA&O 09-03-2014 [facility] THER SPEC PHYSICIANS DISORDERS GROUP FUNCTION STOMACH 17210 OBESITY, 08-23-2014 [facility] UNSPECIFIED PHYSICIANS GROUP 7242 LUMBAGO 08-23-2014 [facility] PHYSICIANS GROUP 96043 CLOSED 07-20-2014 [facility] FRACTURE OF PHYSICIANS UPPER END GROUP OF FIBULA V0481 NEED 07-20-2014 [facility] PROPHYLACTI PHYSICIANS C GROUP VACCINATION &INOCULATIO N FLU 3540 CARPAL 07-19-2014 [facility] TUNNEL PHYSICIANS SYNDROME GROUP V5416 AFTERCARE 07-19-2014 [facility] HEALING PHYSICIANS TRAUMATIC GROUP FRACTURE LOWER LEG 8449 SPRAIN&STRA 06-22-2014 [facility] IN OF PHYSICIANS UNSPECIFIED GROUP SITE OF KNEE&LEG 74595 CLOSED 06-16-2014 [facility] N [facility]ERGENCY PHYS UNSPECIFIED PART OF FIBULA 88528 UNSPECIFIED 06-16-2014 [facility] OF N EMERGENCY ANKLE PHYS SPRAIN AND STRAIN E8888 OTHER FALL 06-16-2014 [facility] N [facility] PH[facility] 7231 CERVICALGIA 02-22-2014 [facility] 7291 UNSPECIFIED 02-22-2014 [facility] MYOSITIS 7210 CERVICAL 02-16-2014 [place] SPONDYLOSIS MEDICAL WITHOUT IMAGING ASS MYELOPATHY 7213 LUMBOSACRAL 02-16-2014 [place] [facility] SPONDYLOSIS IMAGING ASS WITHOUT MYELOPATHY 7220 DISPLCMT 02-16-2014 [place] CERV MEDICAL INTERVERT IMAGING ASS DISC WITHOUT MYELOPATHY 28166 DISPLCMT 02-16-2014 [place] LUMBAR MEDICAL INTERVERT IMAGING ASS DISC W/O MYELOPATHY E8859 FALL FROM 02-10-2014 [facility] OTHER N EMERGENCY SLIPPING PHYS TRIPPING OR STUMBLING V1582 PERS HX 02-10-2014 [facility] TOBACCO USE [facility] PRESENTING INC HAZARDS HEALTH 2409 GOITER, 01-09-2014 [place] UNSPECIFIED MEDICAL IMAGING ASS 7842 SWELLING 01-09-2014 [facility] MASS OR [facility] LUMP IN INC HEAD AND NECK 7945 NONSPECIFIC 01-09-2014 [place] ABNORM MEDICAL RESULTS IMAGING ASS THYROID FUNCT STUDY 7245 UNSPECIFIED 12-19-2013 [facility] BACKACHE PHYSICIANS GROUP 38273 HELICOBACTE 11-20-2013 [facility] R PYLORI PHYSICIANS INFECTION GROUP 3559 MONONEURITI 10-19-2013 [facility] S OF PHYSICIANS UNSPECIFIED GROUP SITE 2724 OTHER AND 10-10-2013 [facility] UNSPECIFIED PHYSICIANS GROUP HYPERLIPIDE JOSE 75541 PAIN IN 10-10-2013 [facility] JOINT, SITE PHYSICIANS GROUP UNSPECIFIED 69662 CHEST PAIN 10-04-2013 [facility] UNSPECIFIED [facility] INC 20237 OTHER CHEST 08-24-2013 [facility] Medications Na ND Rx [...] 5 39 PH CE AR TA MA NV CY NO PH OF CY 7. NT [...] 5 27 PH CE AR TA MA NV CY NO PH OF CY 7. NT [...] 17 17 71 E 5 33 PH IA AR OP MA CY 50 OF MC [...] 20 5- 8- 00 00 SI ve NV 76 20 20 0 49 DE N [...] 07 07 60 30 00 EA Ac IA 59 -0 -[address] ti [...] 17 17 71 E 5 33 PH IA AR OP MA CY 50 OF MC [...] 05 06 60 30 00 EA Ac IA 59 -3 -[address] ti [...] 20 8- 2- 00 00 SI ve NV 76 20 20 0 48 DE N [...] 04 05 60 30 00 EA Ac IA 18 -1 -[address] ti [...] 17 17 71 E 5 33 PH IA AR OP MA CY 50 OF MC [...] 47 DE ZA 11 17 17 73 IA 0 89 PH IN AR E MA [...] 5 48 PH CE AR TA MA NV CY NO PH OF EN CY NT 5- HI 32 AN 5 A IN C BU 00 02 03 60 30 00 EA Ac IA 18 -2 -[address] ti [...] 20 3- 4- 00 00 SI ve NV 76 20 20 47 DE N 01 [...] 47 DE ZA 11 17 17 73 IA 0 89 PH IN AR E MA [...] 20 3- 0- 00 00 SI ve NV 76 20 20 45 DE N 01 [...] 46 DE ZA 11 16 17 52 IA 0 42 PH IN AR E MA 10 CY MG OF CY TA NT BL HI ET AN A IN C BU 00 12 01 60 30 00 EA Ac IA 18 -2 -[address] ti [...] 12 01 20 10 00 EA Ac IA 46 -1 -[address] ti [...] DOS Code Location Performer Comment GLUC BLD 84737 [facility] GLUC MNTR 7 [facility] DEV INC INC CLEARED FDA SPEC HOME USE SLING 44080 [facility] OPERATION 7 [facility] STRESS INC INC INCONTINE NCE ANES 31423 [facility] EXTRAPERI 7 ANESTH TONEAL OF THE LWR ABD BLUE W/URINARY TRACT NOS REPAIR C1771 [facility] DEVICE 7 [facility] URINARY INC INC INCONTINE NCE W/SLING GRAFT COMPLX 79098 [facility] CYSTOMETR 7 PHYSICIAN PHYSICIAN O W/VOID S GROUP S GROUP PRESS & URETHRAL PROFIL SHAVING 91439 [facility] SKIN 7 PHYSICIAN LESION 1 S GROUP S/N/H/F/G DIAM 0.6-[address] [place] [address] [facility] MAXILLOFA 7 [facility] CIAL W/O INC INC CONTRAST MATERIAL RADIOLOGI 51073 [place] BOZENA C 6 MEDICAL JOÃO EXAMINATI IMAGING ON KNEE 3 ASS VIEWS COMPUTER- 13671 [place] HERMANN AIDED 6 MEDICAL DETECTION IMAGING ASS SCREENING MAMMOGRAP HY SCREENING G0202 [place] [facility] 6 MEDICAL MAMMOGRAP IMAGING HY [place] [address] [place] [facility]UG[facility]IN TRANSVAGI 6 MEDICAL NAL IMAGING ASS SPACR A4627 MT MED MT MED BAG/RESRV 6 EQUIPMENT EQUIPMENT OR W/WO INC INC MASK W/METRD DOSE INHAL IADNA 57097 BIO BIO CHLAMYDIA 6 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 TRACHOMAT IES IES IS AMPLIFIED PROBE TQ URINLS 93641 [facility] HARPEL DIP 6 PHYSICIAN IONA STICK/TAB S GROUP LET REAGNT NON-AUTO MICRSCPY SCR G0145 BIO BIO CYTOPATH 6 REFERNCE REFERNCE CERV/VAG LABORATOR LABORATOR SCR IES IES AUTO&MNL RSCR PHYS IADNA 96193 BIO BIO TRICHOMON 6 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 VAGINALIS IES IES AMPLIFIED PROBE TECH CULTURE 55773 [facility] HARPEL CHLAMYDIA 6 PHYSICIAN IONA ANY S GROUP SOURCE IADNA 85014 [facility] NEISSERIA 6 PHYSICIAN PHYSICIAN S GROUP S GROUP GONORRHOE AE DIRECT PROBE TQ IADNA 52233 BIO BIO NEISSERIA 6 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 GONORRHOE IES IES AE AMPLIFIED PROBE TQ IADNA NOS 70541 BIO BIO 6 REFERNCE REFERNCE AMPLIFIED LABORATOR LABORATOR PROBE TQ IES IES EACH ORGANISM HEMOGLOBI 14427 [facility] N 6 [facility] [place] [address] [facility] THYROID 6 [facility] STIMULATI INC INC NG HORMONE TSH COLLECTIO 09870 [facility] N VENOUS 6 [facility] BLOOD INC INC VENIPUNCT URE COMPREHEN 53579 [facility] SIVE 6 [facility] METABOLIC INC INC PANEL OPHTH 47766 [facility] MEDICAL 6 XM&EVAL COMPRE NEW PT 1/> VST RADIOLOGI 27013 [place] [facility] C EXAM 6 MEDICAL JOÃO CHEST 2 IMAGING VIEWS ASS FRONTAL&L ATERAL 77882 [facility] SALAZAR NONSTRESS 6 PHYSICIAN ALLEN TEST S GROUP 80443 [facility] SALAZAR NONSTRESS 6 PHYSICIAN ALLEN TEST S GROUP ARTHROCEN 18503 [facility] PETTEY TESIS 6 PHYSICIAN JAM ASPIR&/IN S GROUP J MAJOR JT/BURSA W/O US RADEX 57055 [facility] LAUGHLIN ALL SPINE 6 MEDICAL CERVICAL IMAGING 2 OR 3 ASS VIEWS RADEX 98894 [facility] SPINE 6 [facility] CERVICAL INC INC 4 OR 5 VIEWS RADEX 37358 [place] QIAN ALL SHOULDER 6 MEDICAL 1 VIEW IMAGING ASS RADEX 02897 [facility] SHOULDER 6 [facility] COMPLETE INC INC MINIMUM 2 VIEWS POLYSOM 24958 [facility] 6/>YRS 6 [facility] SLEEP 4/> INC INC ADDL ADAM ATTND CONTINUOU E0601 ANGELA MILLER S 6 HOME HOME POSITIVE MEDICAL MEDICAL AIRWAY EQUIPME EQUIPME PRESSURE DEVICE BRNCDILAT 18303 [facility] RSPSE 6 [facility] SPMTRY INC INC PRE&POST- BRNCDILAT ADMN UNCLASSIF J3490 [facility] IED DRUGS 6 [facility] INC INC COLLECTIO 76596 [facility] N VENOUS 6 [facility] BLOOD INC INC VENIPUNCT URE US SOFT 21216 [facility] TISSUE 6 [facility] HEAD & INC INC NECK REAL TIME IMGE DOCM HEPATITIS 05384 [facility] C 6 [facility] ANTIBODY INC INC HEPATITIS 01697 [facility] R[facility] A 6 [facility] ANTIBODY INC INC HAAB HEPATITIS 97026 [facility] R[facility] B SURF 6 [facility] [place] [address] [facility] HEPATITIS 6 [facility] B INC INC SURFACE ANTIGEN HEPATITIS 61683 [facility] Henley CORE 6 [facility] ANTIBODY INC INC HBCAB TOTAL HEPATITIS 43233 [facility] Henley CORE 6 [facility] ANTIBODY INC INC HBCAB TOTAL HEPATITIS 63746 [facility] [place] SURF 6 [facility] [place] [address] [facility] HEPATITIS 6 [facility] B INC INC SURFACE ANTIGEN HEPATITIS 21878 [facility] A 6 [facility] ANTIBODY INC INC HAAB HEPATITIS 11403 [facility] R[facility] C 6 [facility] ANTIBODY INC INC CONTINUOU E0601 ANGELA MILLER S 6 HOME HOME POSITIVE MEDICAL MEDICAL AIRWAY EQUIPME EQUIPME PRESSURE DEVICE HEPATIC 39336 [facility] FUNCTION 6 [facility] PANEL INC INC LIPID 34754 [facility] PANEL 6 [place] [address] [facility] THYROXINE 6 [facility] TOTAL INC INC COMPREHEN 06959 [facility] SIVE 6 [facility] METABOLIC INC INC PANEL HEMOGLOBI 56363 [facility] R[facility] N 6 [facility] GL[place]OS[place] [address] [facility] R[facility] THYROID 6 [facility] STIMULATI INC INC NG HORMONE TSH ALBUMIN 21158 [facility] URINE 6 [facility] MICROALBU INC INC MIN QUANTIATI VE BLOOD 24076 [facility] COUNT 6 [facility] MEM [...] AIRWAY EQUIPME EQUIPME PRESSURE DEVICE IM ADM 96239 [facility] PRQ ID 6 PHYSICIAN SUBQ/IM S GROUP NJXS 1 VACCINE IIV3 24985 [facility] VACCINE 6 PHYSICIAN SPLIT S GROUP VIRUS 0.5 ML DOSAGE IM USE BLOOD 74339 [facility] COUNT 6 [facility] COMPLETE INC INC AUTO&[place] [address] [facility] MAGNESIUM 6 [facility] [place] [address] [facility] THYROID 6 [facility] STIMULATI INC INC NG HORMONE TSH ECG 61038 CARDIOVAS MYRANDA ROUTINE 6 CULAR MAT ECG CONSULTAN W/LEAST TS O 12 LDS I&R ONLY CREATINE 41293 [facility] KINASE 6 [facility] ISOENZYME INC INC S HEMOGLOBI 70832 [facility] N 6 [facility] GLYCOSYLA INC INC JAY A1C LIPID 28139 [facility] R[facility] PANEL 6 [facility] INC INC SLEEP STD 80832 [facility] AIRFLOW 6 [facility] HRT INC INC RATE&O2 SAT EFFORT UNATT COLLECTIO 71167 [facility] R[facility] N VENOUS 6 [facility] BLOOD INC INC VENIPUNCT URE COMPREHEN 49268 [facility] R[facility] SIVE 6 [facility] METABOLIC INC INC PANEL DUP-SCAN 10800 [facility] ARTL MARLYN 6 [facility] ABDL/PEL/ INC INC SCROT&/[place] [address] [place] LAUG[place] ALL RETROPERI 6 MEDICAL TONEAL IMAGING REAL TIME ASS W/IMAGE LIMITED ECG [id number] CARDIOVAS MYRANDA ROUTINE 5 CULAR MAT ECG CONSULTAN W/LEAST TS O 12 LDS I&R ONLY ECG 34845 JOSEPH RUIZ ROUTINE 5 [facility] ECG INC INC W/LEAST 12 LDS TRCG ONLY W/O I&R BASIC 30040 JOSEPH RUIZ METABOLIC 5 [facility] PANEL INC INC CALCIUM TOTAL COLLECTIO 10969 JOSEPH RUIZ N VENOUS 5 [facility] BLOOD INC INC VENIPUNCT URE UNCLASSIF [id number] JOSEPH RUIZ IED DRUGS 5 [facility] INC INC LOCM Q9967 JOSEPH RUIZ [phone] [facility] MG/ML INC INC IODINE CONCENTRA TION PER ML BASIC 11612 JOSEPH RUIZ METABOLIC 5 [facility] PANEL INC INC CALCIUM TOTAL CATH PLMT 98972 JOSEPH RUIZ L HRT & 5 [facility] ARTS INC INC W/NJX & ANGIO IMG S&I URINE 14954 JOSEPH RUIZ 5 [facility] TEST INC INC VISUAL COLOR CMPRSN METHS CATHETER C1725 JOSEPH RUIZ TRANSLUMI 5 [facility] NAL INC INC ANGIOPLAS TY NON-LASER GUIDE C1769 JOSEPH RUIZ WIRE 5 [facility] INC INC BLOOD 26122 JOSEPH RUIZ COUNT 5 [facility] COMPLETE INC INC AUTO&AUTO DIFRNTL WBC THROMBOPL 22525 JOSEPH RUIZ ASTIN 5 [facility] TIME INC INC PARTIAL PLASMA/WH OLE BLOOD PROTHROMB 58901 JOSEPH RUIZ IN TIME 5 [facility] INC INC ECHO 26344 JOSEPH RUIZ TTHRC R-T 5 [facility] 2D INC INC W/WOM-MOD E COMPL SPEC&COLR D ECG 76233 CARDIOVAS MYRANDA ROUTINE 5 CULAR MAT ECG CONSULTAN W/LEAST TS O 12 LDS I&R ONLY ECG 79380 JOSEPH RUIZ ROUTINE 5 [facility] ECG INC INC W/LEAST 12 LDS TRCG ONLY W/O I&R CV STRS 09338 [facility] TST 5 [facility] [place] XERS&/OR S GROUP RX CONT ECG W/O I&R CV STRS 98197 JOSEPH RUIZ TST 5 [facility] XERS&/OR INC INC RX CONT ECG TRCG ONLY INJECTION [id number] JOSEPH RUIZ 5 [facility] REGADENOS INC INC ON 0.1 MG MYOCARDIA 26686 JOSEPH RUIZ L SPECT 5 [facility] MULTIPLE INC INC STUDIES UNCLASSIF J3490 JOSEPH RUIZ IED DRUGS 5 [facility] INC INC EXTERNAL 67022 JOSEPH RUIZ ECG 5 [facility] SCANNING INC INC ANALYSIS REPORT ECG 81462 CARDIOVAS MYRANDA ROUTINE 5 CULAR MAT ECG CONSULTAN W/LEAST TS O 12 LDS I&R ONLY XTRNL ECG 72088 JOSEPH RUIZ & 48 HR 5 [facility] RECORDING INC INC XTRNL ECG 19896 JOSEPH JACIEL JR [facility]&R [place] [address] [place] [address] JOSEPH RUIZ THYROID 5 [facility] STIMULATI INC INC NG HORMONE TSH CREATINE 39457 JOSEPH RUIZ KINASE MB 5 [facility] [facility] FRACTION INC INC ONLY ECG 49495 JOSEPH CAMPOVERDE ROUTINE 5 [facility] W/LEAST P 12 LDS I&R ONLY BLOOD 50075 JOSEPH RUIZ COUNT 5 [facility] COMPLETE INC INC AUTO&AUTO DIFRNTL WBC CREATINE 34807 JOSEPH RUIZ KINASE 5 [facility] TOTAL INC INC THER 83153 JOSEPH RUIZ PROPH/DX 5 [facility] NJX IV INC INC PUSH SINGLE/1S T SBST/DRUG ECG 17839 JOSEPH RUIZ ROUTINE 5 [facility] ECG INC INC W/LEAST 12 LDS TRCG ONLY W/O I&R NATRIURET 52147 JOSEPH RUIZ IC 5 [facility] [place] [address] JOSEPH RUIZ TROPONIN 5 [facility] QUANTITAT INC INC COBY RADIOLOGI 98288 JOSEPH RUIZ C EXAM 5 [facility] CHEST 2 INC INC VIEWS FRONTAL&[place] [address] JOSEPH RUIZ THYROXINE 5 [facility] TOTAL INC INC COMPREHEN 56811 JOSEPH RUIZ SIVE 5 [facility] METABOLIC INC INC PANEL UNCLASSIF J3490 JOSEPH RUIZ IED DRUGS 5 [facility] INC INC INJECTION J1030 JOSEPH RUIZ 5 [facility] METHYLPRE INC INC DNISOLONE ACETATE 40 MG LOCM Q9966 JOSEPH RUIZ 200-299 5 [facility] MG/ML INC INC IODINE CONCENTRA TION PER ML FLUOR 34836 CHELY MARTINEZ NEEDLE/CA 5 [facility], [facility] SPINE/PAR ASPINAL DX/THER ADDON NJX 51498 JOSEPH RUIZ DX/THER 5 [facility] SBST INC INC EPIDURAL/ SUBARACH LUMBAR/SA CRAL DRUG/SUBS 77017 JOSEPH RUIZ TANCE 5 [facility] DEFINITIV INC INC E QUAL/ALTAGRACIA T NOS 7/MORE ARTHROCEN 35844 [facility] TIMI VILLAGRAN 5 PHYSICIAN JAM ASPIR&/IN S GROUP J MAJOR JT/BURSA W/O US FLUOR 26651 JUANI PORTER ANJ NEEDLE/CA 5 [facility] SPINE/PAR ASPINAL DX/THER ADDON INJECTION J1040 JOSEPH RUIZ 5 [facility] METHYLPRE INC INC DNISOLONE ACETATE 80 MG NJX 85812 JOSEPH RUIZ DX/THER 5 [facility] SBST INC INC EPIDURAL/ SUBARACH LUMBAR/SA CRAL RADIOLOGI 01348 JOSEPH RUIZ C EXAM 5 [facility] KNEE INC INC COMPLETE 4/MORE VIEWS URINE 73650 JOSEPH RUIZ 5 [facility] TEST INC INC VISUAL COLOR CMPRSN METHS LOCM Q9966 JOSEPH RUIZ 200-299 5 [facility] MG/ML INC INC IODINE CONCENTRA TION PER ML COMPREHEN 72202 JOSEPH RUIZ SIVE 5 [facility] METABOLIC INC INC PANEL COLLECTIO 84220 JOSEPH RUIZ N VENOUS 5 [facility] [place] [address] JOSEPH RUIZ THYROXINE 5 [facility] TOTAL INC INC BLOOD 76450 JOSEPH RUIZ COUNT 5 [facility] COMPLETE INC INC AUTO&[place] [address] JOSEPH RUIZ THYROID 5 [facility] STIMULATI INC INC NG HORMONE TSH IADNA 22343 BIO BIO CHLAMYDIA 5 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 TRACHOMAT IES IES IS AMPLIFIED PROBE TQ IADNA 43279 BIO BIO TRICHOMON 5 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 VAGINALIS IES IES AMPLIFIED PROBE TECH CYTP C/V 60171 BIO BIO AUTO THIN 5 REFERNCE REFERNCE LYR LABORATOR LABORATOR PREPJ SCR IES IES MNL RESCR PHYS IADNA 04270 GIANLUCA NGUYEN NEISSERIA 5 [facility]ICK R[facility] IONA GONORRHOE AE DIRECT PROBE TQ IADNA NOS 88943 BIO BIO 5 REFERNCE REFERNCE AMPLIFIED LABORATOR LABORATOR PROBE TQ IES IES EACH ORGANISM IADNA 40937 BIO BIO NEISSERIA 5 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 GONORRHOE IES IES AE AMPLIFIED PROBE TQ CULTURE 33627 GIANLUCA NGUYEN CHLAMYDIA 5 [facility] IONA ANY SOURCE URINE 51940 GIANLUCA NGUYEN 5 PATRICK MONSON TEST VISUAL COLOR CMPRSN METHS HANDLG&/O 07046 GIANLUCA NGUYEN R CONVEY 5 [facility] IONA OF SPEC FOR TR OFFICE TO LAB URINLS 94407 GIANLUCA NGUYEN DIP 5 [facility] IONA STICK/[place] [address] JOSEPH JOSEPH TRANSVAGI 5 [facility] NAL INC INC GASTRIC 35139 JOSEPH JOSEPH EMPTYING 5 [facility] IMAGING INC INC STUDY TECHNETIU A9541 JOSEPH RUIZ M TC-99M 5 [facility] SULFUR INC INC COLLOID DX UP TO 20 MCI COMPREHEN 37995 JOSEPH RUIZ SIVE 5 [facility] METABOLIC INC INC PANEL URINE 69427 JOSEPH RUIZ 5 [facility] TEST INC INC VISUAL COLOR CMPRSN METHS UNCLASSIF J3490 JOSEPH RUIZ IED DRUGS 5 [facility] INC INC BLOOD 65005 JOSEPH RUIZ COUNT 5 [facility] COMPLETE INC INC AUTO&[place] [address] JOSEPH RUIZ ABDOMEN & 5 [facility] PELVIS INC INC W/O CONTRAST MATERIAL URNLS DIP 17352 JOSEPH RUIZ 5 [facility] STICK/TAB INC INC LET REAGENT AUTO MICROSCOP Y HEMOGLOBI 44245 JOSEPH RUIZ N 5 [facility] GLYCOSYLA INC INC JAY A1C BLOOD 81049 JOSEPH RUIZ COUNT 5 [facility] COMPLETE INC INC AUTO&[place] [address] JOSEPH RUIZ FREE 5 [facility] [place] [address] JOSEPH RUIZ THYROID 5 [facility] STIMULATI INC INC NG HORMONE TSH COLLECTIO 89411 JOSEPH RUIZ N VENOUS 5 [facility] BLOOD INC INC VENIPUNCT URE COMPREHEN 68490 JOSEPH RUIZ SIVE 5 [facility] METABOLIC INC INC PANEL HANDLG&/O 36470 [facility] MARIE Davis CONVEY 5 PHYSICIAN ALLEN OF SPEC S GROUP FOR TR OFFICE TO LAB URNLS DIP 77905 [facility] MARIE 5 PHYSICIAN ALLEN STICK/TAB S GROUP LET RGNT NON-AUTO W/O MICRSCP CYTP C/V 82444 [facility], AUTO THIN 5 [facility] LYR [place] [address] [facility], SURG 5 [facility] PATHOLOGY GROSS&MAICO ROSCOPIC EXAM SPCL STN 79532 [facility], 2 I&R 5 [facility] EXCPT MICROORG/ ENZYME/[place] [address] JOSEPH RUIZ HPYLORI 5 [facility] INC INC GLUC BLD 70375 JOSEPH RUIZ GLUC MNTR 5 [facility] DEV INC INC CLEARED FDA SPEC HOME USE EGD 61018 JOSEPH RUIZ TRANSORAL 5 [facility] BIOPSY INC INC SINGLE/[place] [address] JOSEPH RUIZ INFUSION 5 [facility] THERAPY/P INC INC ROPHYLAXI S /DX 1ST TO 1 [place] [address] JOSEPH RUIZ INFUSION 5 [facility] THERAPY INC INC PROPHYLAX IS/DX EA HOUR URINE 42046 JOSEPH RUIZ 5 [facility] TEST INC INC VISUAL COLOR CMPRSN METHS UNCLASSIF J3490 JOSEPH RUIZ IED DRUGS 5 [facility] INC INC RADEX 44414 JOSEPH RUIZ ESOPHAGUS 5 [facility] INC INC IM ADM 43093 [facility] LEOPOLDO PRQ ID 4 PHYSICIAN MAICO SUBQ/IM S GROUP NJXS 1 VACCINE IIV3 VACC 59996 [facility] LEOPOLDO 4 PHYSICIAN MAICO PRESERVAT S GROUP COBY FREE 0.5 ML DOSAGE IM USE RADIOLOGI 10976 JOSEPH RUIZ C 4 [facility] EXAMINATI INC INC ON TIBIA & FIBULA 2 VIEWS CLTX 14343 [facility] PETTEY TIBIAL FX 4 PHYSICIAN JAM PROXIMAL S GROUP W/O MANIPULAT ION KNEE L1830 ADVANCED ADVANCED ORTHOSIS 4 TECHNOLOG TECHNOLOG IMMOBLIZE IES INC IES INC R CANVAS LONGTUDNL PREFAB 3D 88362 JOSEPH RUIZ RENDERING 4 [facility] W/INTERP INC INC & POSTPROCE SS SUPERVISI ON MRI 51249 JOSEPH RUIZ SPINAL 4 [facility] CANAL INC INC LUMBAR W/O CONTRAST MATERIAL MRI 37608 JOSEPH RUIZ SPINAL 4 [facility] CANAL INC INC CERVICAL W/O CONTRAST MATRL RADIOLOGI 58209 JOSEPH RUIZ C 4 [facility] EXAMINATI INC INC ON KNEE 3 VIEWS KNEE L1830 BREG INC. BREG INC. ORTHOSIS 4 IMMOBLIZE [place] [address] JOSEPH RUIZ THYROID 4 [facility] STIMULATI INC INC NG HORMONE TSH HEPATITIS 76651 JOSEPH RUIZ C 4 [facility] ANTIBODY INC INC BLOOD 84356 JOSEPH RUIZ COUNT 4 [facility] COMPLETE INC INC AUTO&AUTO DIFRNTL WBC HEMOGLOBI 79224 JOSEPH RUIZ N 4 [facility] GLYCOSYLA INC INC JAY A1C HEPATITIS 48701 JOSEPH RUIZ B SURF 4 [facility] ANTIBODY INC INC HBSAB HEPATITIS 85614 JOSEPH RUIZ B CORE 4 [facility] [place] [address] JOSEPH RUIZ HEPATITIS 4 [facility] B INC INC SURFACE ANTIGEN HEPATITIS 82665 JOSEPHLES RUIZ A 4 [facility] ANTIBODY INC INC HAAB COMPREHEN 78556 JOSEPH RUIZ SIVE 4 [facility] [address] JOSEPH RUIZ THYROXINE 4 [facility] TOTAL INC INC US SOFT 89065 JOSEPH RUIZ TISSUE 4 [facility] HEAD & INC INC NECK REAL TIME IMGE DOCM THYROID 87675 JOSEPH RUIZ UPTAKE 4 [facility] W/BLOOD INC INC FLOW SNGLE/MUL T ALTAGRACIA WENDI IODINE A9516 JOSEPH RIUZ I-123 4 [facility] SODIUM INC INC IODIDE DX PER 100 UCI TO 999 COMPREHEN 63189 JOSEPH RUIZ SIVE 4 [facility] METABOLIC INC INC PANEL COLLECTIO 16792 [facility] LEOPOLDO N VENOUS 4 PHYSICIAN MAICO BLOOD S GROUP VENIPUNCT URE URNLS DIP 79725 JOSEPHLES RUIZ 4 [facility] STICK/TAB INC INC LET REAGENT AUTO MICROSCOP Y RADEX ABD 92754 JOSEPH RUIZ COMPL 4 [facility] AQT ABD INC INC W/S/E/D VIEWS 1 [place] [address] JOSEPH RUIZ AMYLASE 4 [facility] INC INC BLOOD 79660 JOSEPH RUIZ COUNT 4 [facility] COMPLETE INC INC AUTO&[place] [address] JOSEPH RUIZ LIPASE 4 [place] [address] JOSEPH RUIZ THYROID 4 [facility] STIMULATI INC INC NG HORMONE TSH HEMOGLOBI 66793 JOSEPH RUIZ N 4 [facility] GLYCOSYLA INC INC JAY A1C BLOOD 94252 JOSEPH RUIZ COUNT 4 [facility] COMPLETE INC INC AUTO&AUTO DIFRNTL WBC ANTIBODY 36697 JOSEPH RUIZ HELICOBAC 4 [facility] TER INC INC PYLORI COMPREHEN 69118 JOSEPH RUIZ SIVE 4 [facility] METABOLIC INC INC PANEL LIPID 72205 JOSEPH RUIZ PANEL 4 [place] [address] JOSEPH RUIZ THYROXINE 4 [facility] TOTAL INC INC ECG 98165 MONICA LOAIZA ROUTINE 4 EMERGENCY BRO ECG SERVICES W/LEAST 12 LDS I&R ONLY Encounters Encounter Start End Date Code Location Performer Type Date OFFICE 22853 [facility] YMAN OUTPATIEN 7 7 PHYSICIAN T VISIT S GROUP 15 MINUTES [facility]PITAL JOSEPH - 7 7 [facility] OUTPATIEN INC T OFFICE 99765 [facility] SALAZAR OUTPATIEN 7 7 PHYSICIAN T VISIT S GROUP 15 MINUTES OFFICE 31649 [facility] DAWSON OUTPATIEN 7 7 PHYSICIAN T VISIT S GROUP 10 MINUTES OFFICE 02891 [facility] LEOPOLDO OUTPATIEN 7 7 PHYSICIAN T VISIT S GROUP 15 MINUTES OFFICE 14030 [facility] DAWSON OUTPATIEN 7 7 PHYSICIAN T VISIT S GROUP 10 MINUTES HOSPITAL JOSEPH - 7 7 [facility] OUTPATIEN INC T OFFICE 08147 [facility] DAWSON OUTPATIEN 7 7 PHYSICIAN T VISIT S GROUP 15 MINUTES OFFICE 77060 [facility] FRYMAN OUTPATIEN 7 7 PHYSICIAN T VISIT S GROUP 25 MINUTES OFFICE 24616 [facility] LEOPOLDO OUTPATIEN 7 7 PHYSICIAN T VISIT S GROUP 15 MINUTES OFFICE 36585 [facility] ALLRAN JR OUTPATIEN 7 7 PHYSICIAN T VISIT S GROUP 15 MINUTES EMERGENCY 56019 BRE TOMLINSON 7 7 PHYSICIAN U DEPARTMEN [facility] T VISIT MODERATE SEVERITY EMERGENCY 38040 BRE RAMOS 6 6 PHYSICIAN DEPARTMEN S, PLLC T VISIT MODERATE SEVERITY OFFICE 53339 [facility] HARPEL OUTPATIEN 6 6 PHYSICIAN IONA T VISIT S GROUP 15 MINUTES HOSPITAL JOSEPH - 6 6 [facility] OUTPATIEN INC T OFFICE 80894 [facility] LEOPOLDO OUTPATIEN 6 6 PHYSICIAN MAICO T VISIT S GROUP 25 MINUTES HOSPITAL JOSEPH - 6 6 [facility] OUTPATIEN INC T PERIODIC 86474 [facility] HARPEL PREVENTIV 6 6 PHYSICIAN IONA E MED EST S GROUP PATIENT 18-39 YRS EMERGENCY 31977 BRE TOMLINSON 6 6 PHYSICIAN U ISIDORO DEPARTMEN S, PLLC T VISIT MODERATE SEVERITY HOSPITAL JOSEPH - 6 6 [facility] OUTPATIEN INC T OFFICE 76748 [facility] FRYMAN OUTPATIEN 6 6 PHYSICIAN EUG T VISIT S GROUP 25 MINUTES EMERGENCY 98540 BRE MOSER, 6 6 PHYSICIAN JR CHONG DEPARTMEN S, PLLC T VISIT HIGH/URGE NT SEVERITY EMERGENCY 19665 BRE MONTENEGRO 6 6 PHYSICIAN DEPARTMEN S, PLLC T VISIT MODERATE SEVERITY OFFICE 00959 [facility] LEOPOLDO OUTPATIEN 6 6 PHYSICIAN MAICO T VISIT S GROUP 25 MINUTES OFFICE 54868 [facility] FRYMAN OUTPATIEN 6 6 PHYSICIAN EUG T VISIT S GROUP 25 MINUTES HOSPITAL JOSEPH - 6 6 [facility] OUTPATIEN INC T [facility]OSP[facility] JOSEPH - 6 6 [facility] OUTPATIEN INC [facility] JOSEPH - 6 6 [facility] OUTPATIEN INC T OFFICE 69421 [facility] DAWSON OUTPATIEN [address] T VISIT S GROUP 15 MINUTES HOSPITAL JOSEPH - 6 6 [facility] OUTPATIEN INC [facility] JOSEPH - 6 6 [facility] OUTPATIEN INC T OFFICE 58919 JOSEPH FRYMAN OUTPATIEN 6 6 [facility] T [facility] 15 MINUTES OFFICE 35955 [facility] DAWSON OUTPATIEN [address] T NEW 30 S GROUP MINUTES HOSPITAL JOSEPH - 6 6 [facility] OUTPATIEN INC T OFFICE 87632 JOSEPH FRYMAN OUTPATIEN 6 6 [facility] 15 MINUTES HOSPITAL JOSEPH - 6 6 [facility] OUTPATIEN INC T OFFICE 47542 [facility] LEOPOLDO OUTPATIEN 6 6 PHYSICIAN T VISIT S GROUP 15 MINUTES HOSPITAL JOSEPH - 6 6 [facility] OUTPATIEN INC T OFFICE 27919 [facility] [place] OUTPATIEN 6 6 PHYSICIAN T VISIT S GROUP 25 MINUTES HOSPITAL JOSEPH - 6 6 [facility] OUTPATIEN INC [facility] JOSEPH - 5 5 [facility] OUTPATIEN INC T OFFICE 42210 CARDIOV[facility] MYRANDA OUTPATIEN 5 5 CULAR MAT T VISIT CONSULTAN 25 TS O MINUTES HOSPITAL JOSEPH - 5 5 [facility] OUTPATIEN INC [facility] JOSEPH - 5 5 [facility] OUTPATIEN INC [facility] JOSEPH - 5 5 [facility] OUTPATIEN INC T OFFICE 03632 CARDIOVAS MYRANDA OUTPATIEN 5 5 CULAR MAT T VISIT CONSULTAN 40 TS O MINUTES HOSPITAL JOSEPH - 5 5 [facility] OUTPATIEN INC [facility] JOSEPH - 5 5 [facility] OUTPATIEN INC OFFICE 20574 CARDIOVAS MYRANDA OUTPATIEN 5 5 CULAR MAT T NEW 60 CONSULTAN MINUTES TS O EMERGENCY 94095 BRE MINA DEPT 5 5 PHYSICIAN MAICO VISIT S, [facility] HIGH SEVERITY& THREAT FUNJ EMERGENCY 82030 [facility] 5 [facility] HIGH/URGE NT SEVERITY HOSPITAL JO[facility]PH - 5 5 [facility]PAT[facility]EN [facility] JOSEPH - 5 5 [facility] OUTPATIEN INC OFFICE 39051 CHE[facility] GONZALES OUTPATIEN 5 5 MD GERMAN, T VISIT PSC 15 MINUTES HOSPITAL JOSEPH - 5 5 [facility] OUTPATIEN INC [facility] JO[facility]PH - 5 5 [facility] OUTPATIEN INC T OFFICE 63344 [facility] TIMI OUTPATIEN 5 5 PHYSICIAN JAM T VISIT S GROUP 15 MINUTES [facility] JOSEPH - 5 5 [facility] OUTPATIEN INC T INITIAL 05671 GIANLUCA NGUYEN PREVENTIV 5 5 PATRICK RUTHERFORD IONA [facility] NEW PT AGE 18-39YRS OFFICE 42804 [facility] ALLRAN JR OUTPATIEN 5 5 PHYSICIAN ELVIA T VISIT S GROUP 15 MINUTES OFFICE 03381 JUANI PORTER [facility]Corona OUTPATIEN 5 5 MD T NEW 30 MINUTES HOSPITAL JOSEPH - 5 5 [facility] OUTPATIEN INC T [facility] JO[facility]PH - 5 5 [facility] OUTPATIEN INC T [facility] JO[facility] - 5 5 [facility] OUTPATIEN INC T EMERGENCY 30190 JOSEPH 5 5 [facility] DEPARTMEN INC T VISIT MODERATE SEVERITY HOSPITAL JOSEPH - 5 5 [facility] OUTPATIEN INC T INITIAL 54126 [facility] SALAZAR PREVENTIV 5 5 PHYSICIAN ALLEN E S GROUP MEDICINE NEW PT AGE 18-39YRS [facility] JOSEPH - 5 5 [facility] OUTPATIEN INC T OFFICE 93213 [facility] ALLRAN JR OUTPATIEN 5 5 PHYSICIAN ELVIA T NEW 30 S GROUP MINUTES HOSPITAL JOSEPH - 5 5 [facility] OUTPATIEN INC T OFFICE 69593 [facility] LEOPOLDO OUTPATIEN 5 5 PHYSICIAN MAICO T VISIT S GROUP 15 MINUTES OFFICE 39400 [facility] LEOPOLDO OUTPATIEN 4 4 PHYSICIAN MAICO T VISIT S GROUP 10 MINUTES OFFICE 56649 [facility] PETTEY OUTPATIEN 4 4 PHYSICIAN JAM T VISIT S GROUP 15 MINUTES HOSPITAL JOSEPH - 4 4 [facility] OUTPATIEN INC T OFFICE 57264 [facility] LEOPOLDO OUTPATIEN 4 4 PHYSICIAN MAICO T VISIT S GROUP 10 MINUTES OFFICE 28815 [facility] LEOPOLDO OUTPATIEN 4 4 PHYSICIAN MAICO T VISIT S GROUP 10 MINUTES EMERGENCY 35998 [facility] 4 4 RADHA MAICO DEPARTMEN EMERGENCY T VISIT PHYS HIGH/URGE NT SEVERITY OFFICE 72799 [place] HERIBERTO PHI OUTPATIEN 4 4 MEDICAL T NEW 30 SERV MINUTES FOUNDATIO N OFFICE 95432 [facility] LEOPOLDO OUTPATIEN 4 4 PHYSICIAN MAICO T VISIT S GROUP 15 MINUTES HOSPITAL JOSEPH - 4 4 [facility] OUTPATIEN INC T [facility]OSP[facility] JOSEPH - 4 4 [facility] OUTPATIEN INC T EMERGENCY 45466 [facility] 4 [facility] VISIT MODERATE SEVERITY [facility]PH - 4 4 [facility] OUTPATIEN INC T OFFICE 31258 [facility] LEOPOLDO OUTPATIEN 4 4 PHYSICIAN MAICO T VISIT S GROUP 10 MINUTES HOSPITAL JOSEPH - 4 4 [facility] OUTPATIEN INC T [facility]OSPITAL JOSEPH - 4 4 [facility] OUTPATIEN INC T OFFICE 43937 [facility] LEOPOLDO OUTPATIEN 4 4 PHYSICIAN MAICO T VISIT S GROUP 10 MINUTES OFFICE 40079 [facility] LEOPOLDO OUTPATIEN 4 4 PHYSICIAN MAICO T VISIT S GROUP 15 MINUTES HOSPITAL JOSEPH - 4 4 [facility] OUTPATIEN INC T OFFICE 44797 [facility] LEOPOLDO OUTPATIEN 4 4 PHYSICIAN MAICO T VISIT S GROUP 15 MINUTES OFFICE 46418 [facility] LEOPOLDO OUTPATIEN 4 4 PHYSICIAN MAICO T VISIT S GROUP 15 MINUTES OFFICE 51010 [facility] LEOPOLDO OUTPATIEN 4 4 PHYSICIAN MAICO T VISIT S GROUP 15 MINUTES HOSPITAL JOSEPH - 4 4 [facility] OUTPATIEN INC T EMERGENCY 06706 MONICA LOAIZA DEPT 4 4 EMERGENCY BRO VISIT SERVICES HIGH SEVERITY& THREAT FUNCJ
--- OUTSIDE RECORDS SUMMARY | 2017-05-22 13:43 | External Medical Summary Rpt | CCD ---
Author Author , JOSIANE JOSHUA Address Unknown Phone Immunization Name Date Rout CVX Reac Dose Comm Prov Is Faci e tion ent ider Refu lity Give sed n Tdap 01-2 115 999 Hist H149 No H149 , 9-20 oric Adso 13 al rbed Info rmat ion - Sour ce Unsp ecif ied
--- OUTSIDE RECORDS SUMMARY | 2017-05-22 13:43 | External Medical Summary Rpt | CCD ---
Author Author , JOSIANE JOSHUA Address Unknown Phone [email or web address] Immunization Name Date Rout CVX Reac Dose Comm Prov Is Faci e tion ent ider Refu lity Give sed n Tdap 01-2 115 999 Hist H149 No H149 , 9-20 oric Adso 13 al rbed Info rmat ion - Sour ce Unsp ecif ied
--- OUTSIDE RECORDS SUMMARY | 2017-05-22 13:44 | External Medical Summary Rpt ---
Author Author JOSIANE Moulton, JOSIANE [employer] Organization [employer] Address Unknown Phone Unavailable Results Cobalamin (Vitamin B12) [Mass/volume] in Serum Observa Value Referen Units Interpr Notes Date tion ce etation Range Cobalamin 211 - 946 pg/mL No Performed Sep 20 (Vitamin informati at: CB 2017 2:10 B12) on in - [facility] PM [Mass/vol source ume] in data [id number] Serum 0 [place], [place] [id number] Truck Unloader: Dez Flores PhD, Phone: [phone] Folate [Mass/volume] in Serum or Plasma Observa Value Referen Units Interpr Notes Date tion ce etation Range Folate >3.0 ng/mL No A serum Sep 20 [Mass/vol informati folate 2017 2:10 ume] in on in concentra PM Serum or source tion of Plasma data less than 3.1 ng/mL isconside red to represent clinical deficienc y. Microalb/Creat Ratio, Randm Ur Observa Value Referen Units Interpr Notes Date tion ce etation Range Microalbu Not ug/mL No No Sep 20 min Estab. informati informati 2017 2:10 [Mass/vol on in on in PM ume] in source source Urine data data Albumin/C 0.0 - No No INFCE Sep 20 reatinine 30.0 informati informati Result 2017 2:10 [Mass on in on in Units: PM ratio] in source source mg/g Urine data data creatPerf ormed at: CB - [facility] [id number] [place], [place] [id number] Truck Unloader: Dez Flores PhD, Phone: [phone] Creatinin Not mg/dL No No Sep 20 e Estab. informati informati 2017 2:10 [Mass/vol on in on in PM ume] in source source Urine data data 25-Hydroxyvitamin D [Mass/volume] in Serum or Plasma Observa Value Referen Units Interpr Notes Date tion ce etation Range 25-Hydrox 30.0 - ng/mL Low Vitamin D Sep 20 yvitamin 100.0 2016 2:10 D deficienc PM [Mass/vol y has ume] in been Serum or defined Plasma by the [place] ofMedicin e and an Endocrine Society practice guideline as alevel of serum 25-OH vitamin D less than 20 ng/mL (1,2).The Endocrine Society went on to further define vitamin Dinsuffic iency as a level between 21 and 29 ng/mL (2).1. IOM (Institut e of Medicine) . 2010. Dietary reference intakes for calcium and D. [place]: [employer].2. Dina MF, [place], Leigh Kwok VELASCO, et al.Evalua tion, treatment , and preventio n of vitamin Ddeficien cy: an Endocrine Society clinical practiceg uideline. JCEM. 2010; 96(7):191 1-30.Perf ormed at: CB - [facility] [place] [id number] Truck Unloader: Dez Flores PhD, Phone: [phone] Hemoglobin A1c in Blood Observa Value Referen Units Interpr Notes Date tion ce etation Range Hemoglo 5.9 0.0 - % Normal < 6% Sep 20 bin A1c 7.0 NON-MAURICIO 2017 in BETIC 2:10 PM Blood LEVEL< 7% CONTROL LED DIABETI C LEVEL> 8% POORLY CONTROL LED DIABETI C LEVEL Comprehensive metabolic 2000 panel in Serum or Plasma Observa Value Referen Units Interpr Notes Date tion ce etation Range Albumin/G 1.1 - 1.8 No Normal No Sep 20 lobulin informati informati 2017 2:10 [Mass on in on in PM ratio] in source source Serum or data data Plasma Albumin 3.4 - 5.0 gm/dL Normal No Sep 20 [Mass/vol informati 2017 2:10 ume] in on in PM Serum or source Plasma data Alkaline 46 - 116 U/L Normal No Sep 20 phosphata informati 2017 2:10 se on in PM [Enzymati source c data activity/ volume] in Serum or Plasma Bilirubin 0.2 - 1.0 mg/dL Normal No Sep 20 .total informati 2017 2:10 [Mass/vol on in PM ume] in source Serum or data Plasma Urea 7 - 18 mg/dL Normal No Sep 20 nitrogen informati 2017 2:10 [Mass/vol on in PM ume] in source Serum or data Plasma Calcium 8.5 - mg/dL Normal No Sep 20 [Mass/vol 10.1 informati 2017 2:10 ume] in on in PM Serum or source Plasma data Chloride 98 - 107 mmoL/L Normal No Sep 20 [Moles/vo informati 2017 2:10 lume] in on in PM Serum or source Plasma data Carbon 21.0 - mmoL/L Normal No Sep 20 dioxide, 32.0 informati 2017 2:10 total on in PM [Moles/vo source lume] in data Serum or Plasma Creatinin 0.55 - mg/dL High No Sep 20 e 1.02 informati 2017 2:10 [Mass/vol on in PM ume] in source Serum or data Plasma Estimated 59- ML/MIN Low REFERENCE Sep 20 RANGE: 2017 2:10 glomerula >60 PM r ML/MIN/1. filtratio 73 SQUARE n rate METERSIf (GF this patient is -A merican, then multiply theresult by 1.210. Globulin 1.3 - 3.2 gm/dL High No Sep 20 [Mass/vol informati 2017 2:10 ume] in on in PM Serum source data Glucose 74 - 106 mg/dL High No Sep 20 [Mass/vol informati 2017 2:10 ume] in on in PM Serum or source Plasma data Potassium 3.5 - 5.1 mmoL/L Normal No Sep 20 informati 2017 2:10 [Moles/vo on in PM lume] in source Serum or data Plasma Sodium 136 - 145 mmoL/L Normal No Sep 20 [Moles/vo informati 2017 2:10 lume] in on in PM Serum or source Plasma data Aspartate 15 - 37 U/L Normal No Sep 20 informati 2017 2:10 aminotran on in PM sferase source [Enzymati data c activity/ volume] in Serum or Plasma Alanine 12 - 78 U/L Normal No Sep 20 aminotran informati 2017 2:10 sferase on in PM [Enzymati source c data activity/ volume] in Serum or Plasma Protein 6.4 - 8.2 gm/dL Normal No Sep 20 [Mass/vol informati 2017 2:10 ume] in on in PM Serum or source Plasma data Thyroxine (T4) free [Mass/volume] in Serum or Plasma Observa Value Referen Units Interpr Notes Date tion ce etation Range Thyroxine 0.76 - ng/dL Normal No Sep 20 (T4) 1.46 informati 2016 2:10 free on in PM [Mass/vol source ume] in data Serum or Plasma Lipid 1996 panel in Serum or Plasma Observa Value Referen Units Interpr Notes Date tion ce etation Range Cholester < 200 mg/dL No No Sep 20 ol informati informati 2017 2:10 [Moles/vo on in on in PM lume] in source source Unspecifi data data ed specimen Cholester 40 - 60 MG/DL Normal No Sep 20 ol in HDL informati 2016 2:10 on in PM [Mass/vol source ume] in data Serum or Plasma Cholester 0 - 130 mg/dL Normal No Sep 20 ol in LDL informati 2017 2:10 on in PM [Mass/vol source ume] in data Serum or Plasma by calculati on Triglycer 30 - 200 mg/dL Normal No Sep 20 tess informati 2017 2:10 [Moles/vo on in PM lume] in source Serum or data Plasma Cholester 0 - 40 No Normal No Sep 20 ol in informati informati 2017 2:10 VLDL on in on in PM [Mass/vol source source ume] in data data Serum or Plasma Thyrotropin [Units/volume] in Serum or Plasma Observa Value Referen Units Interpr Notes Date tion ce etation Range Thyrotrop 0.358 - uIU/ml No No Sep 20 in 3.740 informati informati 2016 2:10 [Units/vo on in on in PM lume] in source source Serum or data data Plasma CBC W Auto Differential panel in Blood Observa Value Referen Units Interpr Notes Date tion ce etation Range Basophils 0 - 0.2 K/MM3 Normal No Sep 20 informati 2017 2:10 [#/volume on in PM ] in source Blood by data Automated count Basophils 0.1 - 2.0 % Normal No Sep 20 /100 informati 2016 2:10 leukocyte on in PM s in source Blood by data Automated count Eosinophi 0.0 - 0.4 K/mm3 Normal No Sep 20 ls informati 2016 2:10 [#/volume on in PM ] in source Blood by data Automated count Eosinophi 0.1 - % Normal No Sep 20 ls/100 12.0 informati 2016 2:10 leukocyte on in PM s in source Blood by data Automated count Granulocy 1.8 - 7.8 K/mm3 Normal No Sep 20 michael informati 2016 2:10 [#/volume on in PM ] in source Blood by data Automated count Granulocy 37.0 - % Normal No Sep 20 michael/100 80.0 informati 2016 2:10 leukocyte on in PM s in source Blood by data Automated count Hematocri 37.0 - % Normal No Sep 20 t [Volume 47.0 informati 2016 2:10 on in PM Fraction] source of Blood data Hemoglobi 12.2 - g/dL Normal No Sep 20 n 16.2 inform2016 2:10 [Mass/vol on in PM ume] in source Blood data Lymphocyt 0.7 - 4.5 K/mm3 Normal No Sep 20 es informati 2017 2:10 [#/volume on in PM ] in source Unspecifi data ed specimen by Automated count Lymphocyt 10 - 50.0 % Normal No Sep 20 es inform 2017 2:10 [#/volume on in PM ] in source Unspecifi data ed specimen by Automated count Erythrocy 27 - 31.2 pg Normal No Sep 20 te mean informati 2017 2:10 corpuscul on in PM ar source hemoglobi data n [Entitic mass] Erythrocy 31.8 - g/dl Normal No Sep 20 te mean 35.4 informati 2016 2:10 corpuscul on in PM ar source hemoglobi data n concentra tion [Mass/vol ume] by Automated count Erythrocy 82.2 - fl Normal No Sep 20 te mean 97.8 informati 2017 2:10 corpuscul on in PM ar volume source [Entitic data volume] by Automated count Monocytes 0.1 - 1.0 K/mm3 Normal No Sep 20 ati 2016 2:10 [#/volume on in PM ] in source Blood by data Automated count Monocytes 1.7 - 9.3 % Normal No Sep 20 /100 informati 2016 2:10 leukocyte on in PM s in source Blood by data Automated count Platelet 7.4 - fl High No Sep 20 mean 10.4 informati 2017 2:10 volume on in PM [Entitic source volume] data in Blood by Automated count Platelets 142 - 424 K/mm3 Normal No Sep 20 informati 2017 2:10 [#/volume on in PM ] in source Blood data Erythrocy 4.2 - 5.4 M/mm3 Low No Apr 20 michael informati 2017 2:10 [#/volume on in PM ] in source Amniotic data fluid Erythrocy 11.5 - % Normal No Apr 20 te 17.5 informati 2016 2:10 distribut on in PM ion width source [Entitic data volume] by Automated count Leukocyte 4.8 - K/MM3 Normal No Apr 20 s 10.8 informati 2017 2:10 [#/volume on in PM ] in source Blood data Glucose [Mass/volume] in Capillary blood by Glucometer Observa Value Referen Units Interpr Notes Date tion ce etation Range Glucose 70 - 110 mg/dl Normal No Feb 22 [Mass/vol informati 2016 8:54 ume] in on in AM Capillary source blood by data Glucomete r Glucose [Mass/volume] in Capillary blood by Glucometer Observa Value Referen Units Interpr Notes Date tion ce etation Range Glucose 70 - 110 mg/dl No No Feb 22 [Mass/vol informati informati 2016 7:09 ume] in on in on in AM Capillary source source blood by data data Glucomete r Basic metabolic panel in Blood Observa Value Referen Units Interpr Notes Date tion ce etation Range Urea 7 - 18 mg/dL Normal No Feb 18 nitrogen informati 2016 5:52 [Mass/vol on in PM ume] in source Serum or data Plasma Calcium 8.5 - mg/dL Normal No Feb 18 [Mass/vol 10.1 informati 2016 5:52 ume] in on in PM Serum or source Plasma data Chloride 98 - 107 mmoL/L Normal No Feb 18 [Moles/vo informati 2016 5:52 lume] in on in PM Serum or source Plasma data Carbon 21.0 - mmoL/L Normal No Feb 18 dioxide, 32.0 informati 2016 5:52 total on in PM [Moles/vo source lume] in data Serum or Plasma Creatinin 0.55 - mg/dL High No Feb 18 e 1.02 informati 2016 5:52 [Mass/vol on in PM ume] in source Serum or data Plasma Estimated 59- ML/MIN Low REFERENCE Feb 18 RANGE: 2017 5:52 glomerula >60 PM r ML/MIN/1. filtratio 73 SQUARE n rate METERSIf (GF this patient is -A merican, then multiply theresult by 1.210. Glucose 74 - 106 mg/dL High No Feb 18 [Mass/vol informati 2016 5:52 ume] in on in PM Serum or source Plasma data Potassium 3.5 - 5.1 mmoL/L Normal No Feb 18 inform2016 5:52 [Moles/vo on in PM lume] in source Serum or data Plasma Sodium 136 - 145 mmoL/L Normal No Feb 18 [Moles/vo informati 2016 5:52 lume] in on in PM Serum or source Plasma data Choriogonadotropin [Units/volume] in Serum or Plasma Observa Value Referen Units Interpr Notes Date tion ce etation Range Choriogon NEG No No No Feb 18 adotropin informati informati informati 2016 5:52 on in on in on in PM [Units/vo source source source lume] in data data data Serum or Plasma CBC W Auto Differential panel in Blood Observa Value Referen Units Interpr Notes Date tion ce etation Range Basophils 0 - 0.2 K/MM3 Normal No Feb 18 inform2016 5:52 [#/volume on in PM ] in source Blood by data Automated count Basophils 0.1 - 2.0 % Normal No Feb 18 informati 2016 5:52 leukocyte on in PM s in source Blood by data Automated count Eosinophi 0.0 - 0.4 K/mm3 Normal No Feb 18 ls informati 2016 5:52 [#/volume on in PM ] in source Blood by data Automated count Eosinophi 0.1 - % Normal No Feb 18 ls/100 12.0 informati 2016 5:52 leukocyte on in PM s in source Blood by data Automated count Granulocy 1.8 - 7.8 K/mm3 Normal No Feb 18 michael informati 2016 5:52 [#/volume on in PM ] in source Blood by data Automated count Granulocy 37.0 - % Normal No Feb 18 michael/100 80.0 informati 2016 5:52 leukocyte on in PM s in source Blood by data Automated count Hematocri 37.0 - % Normal No Feb 18 t [Volume 47.0 informati 2016 5:52 on in PM Fraction] source of Blood data Hemoglobi 12.2 - g/dL Normal No Feb 18 n 16.2 informati 2016 5:52 [Mass/vol on in PM ume] in source Blood data Lymphocyt 0.7 - 4.5 K/mm3 Normal No Feb 18 es informati 2016 5:52 [#/volume on in PM ] in source Unspecifi data ed specimen by Automated count Lymphocyt 10 - 50.0 % Normal No Feb 18 es informati 2016 5:52 [#/volume on in PM ] in source Unspecifi data ed specimen by Automated count Erythrocy 27 - 31.2 pg Normal No Feb 18 te mean informati 2016 5:52 corpuscul on in PM ar source hemoglobi data n [Entitic mass] Erythrocy 31.8 - g/dl Normal No Feb 18 te mean 35.4 informati 2016 5:52 corpuscul on in PM ar source hemoglobi data n concentra tion [Mass/vol ume] by Automated count Erythrocy 82.2 - fl Normal No Feb 18 te mean 97.8 informati 2016 5:52 corpuscul on in PM ar volume source [Entitic data volume] by Automated count Monocytes 0.1 - 1.0 K/mm3 Normal No Feb 18 informati 2016 5:52 [#/volume on in PM ] in source Blood by data Automated count Monocytes 1.7 - 9.3 % Normal No Feb 18 /100 informati 2017 5:52 leukocyte on in PM s in source Blood by data Automated count Platelet 7.4 - fl Normal No Feb 18 mean 10.4 informati 2016 5:52 volume on in PM [Entitic source volume] data in Blood by Automated count Platelets 142 - 424 K/mm3 Normal No Feb 18 informati 2016 5:52 [#/volume on in PM ] in source Blood data Erythrocy 4.2 - 5.4 M/mm3 Normal No Feb 18 michael informati 2017 5:52 [#/volume on in PM ] in source Amniotic data fluid Erythrocy 11.5 - % Normal No Feb 18 te 17.5 informati 2017 5:52 distribut on in PM ion width source [Entitic data volume] by Automated count Leukocyte 4.8 - K/MM3 Normal No Feb 18 s 10.8 informati 2016 5:52 [#/volume on in PM ] in source Blood data
--- OUTSIDE RECORDS SUMMARY | 2017-05-22 13:44 | External Medical Summary Rpt ---
Author Author JOSIANE Moulton, JOSIANE [employer] Organization [employer] Address Unknown Phone Unavailable Results Cobalamin (Vitamin B12) [Mass/volume] in Serum Observa Value Referen Units Interpr Notes Date tion ce etation Range Cobalamin 211 - 946 pg/mL No Performed Sep 20 (Vitamin informati at: CB 2017 2:10 B12) on in - [facility] PM [Mass/vol source ume] in data [id number] Serum 0 [place], [place] [id number] Credit Department Manager: Dez Flores PhD, Phone: [phone] Folate [Mass/volume] in Serum or Plasma [...] data creatPerf ormed at: CB - [facility] [id number] [place], [place] [id number] Credit Department Manager: Dez Flores PhD, Phone: [phone] Creatinin Not mg/dL No No Sep [...] been Serum or defined Plasma by the [place] ofMedicin e and an Endocrine Society practice guideline as alevel of serum 25-OH vitamin D less than 20 ng/mL (1,2).The Endocrine Society went on to further define vitamin Dinsuffic iency as a level between 21 and 29 ng/mL (2).1. IOM (Institut e of Medicine) . 2010. Dietary reference intakes for calcium and D. [place]: [employer].2. Dina MF, [place], Leigh Kwok VELASCO, et al.Evalua tion, treatment , and preventio n of vitamin Ddeficien cy: an Endocrine Society clinical practiceg uideline. JCEM. 2010; 96(7):191 1-30.Perf ormed at: CB - [facility] [place] [id number] Credit Department Manager: Dez Flores PhD, Phone: [phone] Hemoglobin A1c in Blood Observa Value [...]
== END 2017-05-19 20:21 | disposition home or self-care (01) ==
LOC: UTC 19:43
DX: B02.9 Zoster without complications (principal); I10 Essential (primary) hypertension; J45.909 Unspecified asthma, uncomplicated; E78.5 Hyperlipidemia, unspecified

== ENCOUNTER → 2017-06-14 | Outpatient (CLI) | payer MEDICAID ==
[~2017-06-14] MED LIST changes: +ACYCLOVIR800 MG PO
[2017-06-14 16:52] LABS: HEMOGLOBIN 12.5 g/dL (12.2-16.2); LYMPH # 3.5 K/mm3 (0.7-4.5); LYMPH % 38.6 % (10-50.0)
[2017-06-14 19:12] LABS: BUN 14 mg/dL (7-18)
[2017-06-14 19:19] LABS: GFR (ESTIMATED) 55 ML/MIN (59-)
== END ==
LOC: LAB 16:36
PROVIDERS: Nurse Practitioner Obstetrics & Gynecology
DX: N92.0 Excessive and frequent menstruation with regular cycle (principal)

== ENCOUNTER → 2017-06-17 | Outpatient (CLI) | payer MEDICAID ==
--- NOTE | 2017-06-17 14:08 | RADIOLOGY REPORT PS360 ---
KNEE-4 OR 5 VIEWS-RT HISTORY: Right knee pain BILAT KNEE PAIN ORDERING PHYSICIAN: Wilmer Alvarez MD PATIENT AGE: 41 years COMPARISON: None FINDINGS: Weightbearing views are performed No fracture or dislocation. No lytic or blastic change. Normal mineralization. No significant arthritic changes evident. No other significant findings IMPRESSION: Negative Knee
--- NOTE | 2017-06-17 14:10 | RADIOLOGY REPORT PS360 ---
KNEE-4 OR 5 VIEWS-LT HISTORY: Left knee pain BILAT KNEE PAIN ORDERING PHYSICIAN: Wilmer Alvarez MD PATIENT AGE: 41 years COMPARISON: 07-24 FINDINGS: Weightbearing views are performed Old proximal fibular shaft fracture with callus formation. There is slight decrease in joint space medially with mild osteophyte formation. No fracture or dislocation. No lytic or blastic change. IMPRESSION: 1. Mild osteoarthritis of the medial compartment which may be slightly worse when compared to 07/20/2016 2. Old proximal fibular fracture
== END ==
LOC: RAD 12:46
DX: M25.561 Pain in right knee (principal); M25.562 Pain in left knee

== ENCOUNTER → 2017-06-18 | Outpatient (CLI) | payer MEDICAID ==
--- NOTE | 2017-06-18 14:47 | RADIOLOGY REPORT PS360 ---
US PELVIS-TRANSVAGINAL ONLY HISTORY: HEAVY BLEEDING ORDERING PHYSICIAN: Noe Cristina MD PATIENT AGE: 41 years COMPARISON: None FINDINGS: The uterus is 9 x 4 x 5 cm with a combined endometrial thickness of 16 mm.. The endometrium is homogeneously thickened. No uterine mass is evident. There are small nabothian cyst measuring up to 8 mm. The right ovary is 2 x 1.7 cm. Left ovary is 2.2 x 1.4 cm. No adnexal mass or cul-de-sac fluid. IMPRESSION: 1. Thickened endometrium. 2. Otherwise negative pelvic ultrasound
== END ==
LOC: RAD 10:39
DX: N92.0 Excessive and frequent menstruation with regular cycle (principal)

== ENCOUNTER → 2017-06-30 | Emergency (ER) | payer MEDICAID ==
[~2017-06-30] VITALS: Ht 157.5 cm; Wt 124.7 kg
[~2017-06-30] MED LIST changes: +MACROBID100 M3 PO; +ZOFRAN ODT4 MG PO
--- OUTSIDE RECORDS SUMMARY | 2017-06-30 15:42 | External Medical Summary Rpt | CCD ---
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 Webmaster Name Role Phone Nixon Vigil MD, Unavailable Unavailable Nixon LOAIZA MD, Unavailable Unavailable JUILAN Wise MD, Unavailable Unavailable Angela SHORT, Unavailable Unavailable DARIO SHORT Purpose Continuity of Care Document - 10-01-2012 through 2016 Problems Code Diagnosis DOS Provider Status 250.00 250.00 DIAB 08-24-2013 [facility], TYPE Hospital II OR UNSPEC TYPE, NOT UNCNTRLD 401.9 401.9 08-24-2013 [place] HYPERTENSIO [facility] NOS [facility] 493.90 493.90 08-24-2013 [place] ASTHMA, [facility] UNSPECIFIED Hospital 530.81 530.81 08-24-2013 [place] ESOPHAGEAL [facility] REFLUX Hospital 575.8 575.8 DIS 08-24-2013 [facility] GALLBLADDER Hospital NEC 786.59 786.59 08-24-2013 [place] CHEST PAIN [facility] 272.4 272.4 06-02-2013 [place] HYPERLIPIDE [facility] NEC/NOS Hospital 845.09 845.09 06-02-2013 [place] SPRAIN OF [facility] ANKLE [facility] E928.9 E928.9 06-02-2013 [place] ACCIDENT [facility] 845.00 845.00 05-20-2013 [place] SPRAIN OF [facility] ANKLE [facility] E849.8 E849.8 05-20-2013 [place] ACCIDENT IN [facility] PLACE [facility] E927.0 E927.0 05-20-2013 [place] OVEREXERTIO [facility] FROM [facility] SUDDEN STRENUOUS MOVEMENT 915.6 915.6 03-18-2013 [place] FOREIGN [facility] BODY [facility] 729.5 729.5 PAIN 10-01-2012 [place] IN LIMB [facility] 844.9 844.9 10-01-2012 [place] SPRAIN OF [facility] KNEE & LEG [facility] NOS E849.0 E849.0 10-01-2012 [place] ACCIDENT IN [facility] E885.9 E885.9 FALL 10-01-2012 [place] FROM [facility] SLIPPING, Hospital TRIPPING, OR STUMBLING NEC Allergies, Adverse Reactions, Alerts Type Drug Allergy Food Allergy Adverse Reaction to Substance Substance Reaction Severity Aspirin NA-NAUSEA/VOMITING Unknown Seafood I-HIVES Intermediate Mushroom I-HIVES Intermediate Seafood I-HIVES Intermediate Clinical Alert Notifications Alert Asthma: no influenza vaccine in the last 365 days Diabetes: no A1C in the last 6 months Diabetes: no eye exam in the last 365 days Diabetes: no influenza vaccine in the last 365 days Diabetes: no lipid panel in the last 365 days Diabetes: no urine protein screening in the last 365 days Medications Na ND Rx Da Fi Fi Am Da Di Ph RX Ph St me C No te ll ll ou ys ag ar # ys at rm s nt no ma ic us Or Da si cy ia de te s n re d Sa 63 01 0 No li 80 [...] 1 Ac TA ti BL ve ET Vital Signs 08-24-2013 12:52 Name Value Interpretat [...] Order Detail nces retati t Range on Serum or plasma thyroid stimulating horm (06-14-2017 16:36) Serum 06-14-2 = 3.58 0.358-3 complet or 017 uIU/ml .740 ed plasma 16:36 thyroid stimula ting horm Basic metabolic panel (06-14-2017 16:36) Serum = 138 136-145 complet sodium 017 mmoL/L ed measure 16:36 ment Serum = 4.8 3.5-5.1 complet potassi 017 mmoL/L ed um 16:36 measure ment Serum = 107 74-106 complet or 017 mg/dL ed plasma 16:36 glucose measure ment (mas Estimat = 55 59- complet ed 017 ML/MIN ed glomeru 16:36 lar filtrat ion rate (GF Comment: REFERENCE RANGE: >60 ML/MIN/1.73 SQUARE METERS Comment: If this patient is -Wallisian, then multiply the Comment: result by 1.210. Serum = 1.1 0.55-1. complet or 017 mg/dL 02 ed plasma 16:36 creatin ine measure ment ( Carbon = 29 21.0-32 complet dioxide 017 mmoL/L .0 ed 16:36 measure ment Serum = 103 98-107 complet or 017 mmoL/L ed plasma 16:36 chlorid e measure ment (mo Serum = 9.4 8.5-10. complet or 017 mg/dL 1 ed plasma 16:36 calcium measure ment (mas Serum = 14 7-18 complet or 017 mg/dL ed plasma 16:36 urea nitroge n measure men Serum test (06-14-2017 16:36) Serum = NEG complet pregnan 017 NEGATIV ed cy test 16:36 E CBC w auto diff (06-14-2017 16:36) Blood = 9.1 4.8-10. complet leukocy 017 K/MM3 8 ed michael 16:36 count (number /volume ) Automat = 13.5 11.5-17 complet ed 017 % .5 ed erythro 16:36 cyte distrib ution width Red = 4.28 4.2-5.4 complet blood 017 M/mm3 ed cell 16:36 count Blood = 283 142-424 complet platele 017 K/mm3 ed t count 16:36 Automat = 10.0 7.4-10. complet ed 017 fl 4 ed blood 16:36 platele t mean volume pat [place] % = 5.8 % 1.7-9.3 complet 017 ed 16:36 Absolut = 0.5 0.1-1.0 complet e 017 K/mm3 ed monocyt 16:36 e count Automat = 89.7 82.2-97 complet ed 017 fl .8 ed erythro 16:36 cyte mean corpusc ular v Automat = 32.4 31.8-35 complet ed 017 g/dl .4 ed erythro 16:36 cyte mean corpusc ular h Mean = 29.1 27-31.2 complet corpusc 017 pg ed ular 16:36 hemoglo bin (MCH) determ Lymphoc = 38.6 10-50.0 complet yte 017 % ed count, 16:36 blood, automat ed Absolut = 3.5 0.7-4.5 complet e 017 K/mm3 ed lymphoc 16:36 yte count Blood = 12.5 12.2-16 complet hemoglo 017 g/dL .2 ed bin 16:36 measure ment (mass/v olum Blood = 38.4 37.0-47 complet hematoc 017 % .0 ed rit 16:36 (volume fractio n) Baso % = 0.7 % 0.1-2.0 complet 017 ed 16:36 Granulo = 53.5 37.0-80 complet cyte 017 % .0 ed percent 16:36 age Blood = 4.9 1.8-7.8 complet granulo 017 K/mm3 ed cytes 16:36 automat ed count (numb Automat 11-06-2 = 1.3 % 0.1-12. complet ed 017 0 ed blood 16:36 eosinop hils/10 0 leukocy t Automat = 0.1 0.0-0.4 complet ed 017 K/mm3 ed blood 16:36 eosinop hil count Automat = 0.1 0-0.2 complet ed 017 K/MM3 ed blood 16:36 basophi l count (count/ vo Hemoglobin A1c in Blood (04-28-2017 14:10) Hemoglo [...] 014 gm/dL ed SerPl-m 08:45 Cnc Globuli 4.3 1.3-3.2 complet n 014 gm/dL ed Ser-mCn 08:45 c Albumin 0.8 UNK 1.1-1.8 complet /Glob 014 ed SerPl-m 08:45 Rto Bilirub 0.3 0.2-1.0 complet 014 mg/dL ed SerPl-m 08:45 Cnc AST 36 U/L 15-37 complet SerPl-c 014 ed Cnc 08:45 ALT 74 U/L 12-78 complet SerPl-c 014 ed Cnc 08:45 ALP 96 U/L 50-136 complet SerPl-c 014 ed Cnc 08:45 BNP Bld-mCnc (08-24-2013 08:45) BNP 15 0-100 complet Bld-mCn 014 pg/mL ed c 08:45 CBC with AUTO DIFF (08-24-2013 08:45) WBC # 08-24- 7.7 4.8-10. complet Bld 014 K/MM3 8 ed Auto 08:45 RBC # 08-24-2 4.40 4.2-5.4 complet Bld 014 M/mm3 ed Auto 08:45 Hgb 13.4 12.2-16 complet Bld-mCn 014 g/dL .2 ed c 08:45 Hct Fr 39.6 % 37.0-47 complet Bld 014 .0 ed 08:45 MCV RBC 90.0 fl 82.2-97 complet 014 .8 ed 08:45 MCH RBC 30.6 pg 27-31.2 complet Qn 014 ed Auto 08:45 MEAN 34.0 31.8-35 complet CORPUSC 014 g/dl .4 ed ULAR 08:45 HGB CONC RDW RBC 15.0 % 11.5-17 complet Auto 014 .5 ed 08:45 Platele 228 142-424 complet t Bld 014 K/mm3 ed Ql 08:45 Manual MEAN 8.9 fl 7.4-10. complet PLATELE 014 4 ed T 08:45 VOLUME Granulo 58.0 % 37.0-80 complet cytes 014 .0 ed Fr Bld 08:45 Auto LYMPH % 01-16-2 34.0 % 10-50.0 complet 014 ed 08:45 Monocyt -16-2 4.5 % 1.7-9.3 complet es Fr 014 ed Bld 08:45 Auto Eosinop -16-2 2.7 % 0.1-12. complet hil Fr 014 0 ed Bld 08:45 Auto Basophi 16-2 0.8 % 0.1-2.0 complet ls Fr 014 ed Bld 08:45 Auto Granulo 16-2 4.5 1.8-7.8 complet cytes # 014 K/mm3 ed Bld 08:45 Auto Lymphoc 16-2 2.6 0.7-4.5 complet ytes Fr 014 K/mm3 ed Bld 08:45 Auto Monocyt 16-2 0.4 0.1-1.0 complet es # 014 K/mm3 ed Bld 08:45 Auto Eosinop 16-2 0.2 0.0-0.4 complet hil # 014 K/mm3 ed Bld 08:45 Auto Basophi 16-2 0.1 0-0.2 complet ls # 014 K/MM3 ed Bld 08:45 Auto Procedures Procedure DOS Code Location Performer Comment INCIS W 86.05 Nixon REM OF Yaritza [place] FORIEGN BODY OR DEV FROM SKIN & SUBCUT TISSUE Encounters Encounter Start End Date Code Location Performer Type Date Emergency MARY LOAIZA MD (ER) 4 08:50 4 12:52 [facility] Emergency MARY Wise MD (ER) 3 11:11 3 12:27 [facility] Emergency MARY Wise MD (ER) 3 17:32 3 18:42 [facility] Emergency MARY Vigil MD (ER) 3 18:16 3 18:[address] [facility] Emergency MARY SHORT (ER) 3 17:52 3 20:18 [facility]
--- OUTSIDE RECORDS SUMMARY | 2017-06-30 15:42 | External Medical Summary Rpt | CCD ---
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 Correctional Therapy Director Name Role Phone Nixon Vigil MD, Unavailable Unavailable Nixon LOAIZA MD, Unavailable Unavailable JULIAN Wise MD, Unavailable Unavailable Angela SHORT, Unavailable Unavailable DARIO SHORT Purpose Continuity of Care Document - 10-01-2012 through 2016 Problems Code Diagnosis DOS Provider Status 250.00 250.00 DIAB 08-24-2013 [facility], TYPE Hospital II OR UNSPEC TYPE, NOT UNCNTRLD 401.9 401.9 08-24-2013 [place] HYPERTENSIO [facility] NOS [facility] 493.90 493.90 08-24-2013 [place] ASTHMA, [facility] UNSPECIFIED Hospital 530.81 530.81 08-24-2013 [place] ESOPHAGEAL [facility] REFLUX Hospital 575.8 575.8 DIS 08-24-2013 [facility] GALLBLADDER Hospital NEC 786.59 786.59 08-24-2013 [place] CHEST PAIN [facility] 272.4 272.4 06-02-2013 [place] HYPERLIPIDE [facility] NEC/NOS Hospital 845.09 845.09 06-02-2013 [place] SPRAIN OF [facility] ANKLE [place] [facility] E928.9 E928.9 06-02-2013 [place] ACCIDENT [facility] 845.00 845.00 05-20-2013 [place] SPRAIN OF [facility] ANKLE [facility] E849.8 E849.8 05-20-2013 [place] ACCIDENT IN [facility] PLACE [place] [facility] E927.0 E927.0 05-20-2013 [place] OVEREXERTIO [facility] FROM [facility] SUDDEN STRENUOUS MOVEMENT 915.6 915.6 03-18-2013 [place] FOREIGN [facility] BODY [facility] 729.5 729.5 PAIN 10-01-2012 [place] IN LIMB [facility] 844.9 844.9 10-01-2012 [place] SPRAIN OF [facility] KNEE & LEG [facility] NOS E849.0 E849.0 10-01-2012 [place] ACCIDENT IN [facility] E885.9 E885.9 FALL 10-01-2012 [place] FROM [facility] SLIPPING, Hospital TRIPPING, OR STUMBLING NEC [...] SQUARE METERS Comment: If this patient is -Swedish, then multiply the Comment: result by 1.210. [...] blood 16:36 platele t mean volume pat [place] % = 5.8 % 1.7-9.3 complet 017 [...] LOAIZA MD (ER) 4 08:50 4 12:52 [facility] Emergency MARY Wise MD (ER) 3 11:11 3 12:27 [facility] Emergency MARY Wise MD (ER) 3 17:32 3 18:42 [facility] Emergency MARY Vigil MD (ER) 3 18:16 3 18:49 [facility] Emergency MARY SHORT (ER) 3 17:52 3 20:18 [facility]
--- OUTSIDE RECORDS SUMMARY | 2017-06-30 15:43 | External Medical Summary Rpt | CCD ---
Author Author [employer] Organization [employer] Address Unknown Phone Unavailable Purpose Continuity of Care Document - through 2016
--- OUTSIDE RECORDS SUMMARY | 2017-06-30 15:43 | External Medical Summary Rpt ---
Author Author CHADKANDACE Moulton, JOSIANE [employer] Address Unknown Phone Unavailable Results Basic metabolic panel in Blood Observa Value Referen Units Interpr Notes Date tion ce etation Range Urea 7 - 18 mg/dL Normal No Jun 14 nitrogen informati 2016 4:36 [Mass/vol on in PM ume] in source Serum or data Plasma Calcium 8.5 - mg/dL Normal No Jun 14 [Mass/vol 10.1 informati 2016 4:36 ume] in on in PM Serum or source Plasma data Chloride 98 - 107 mmoL/L Normal No Jun 14 [Moles/vo informati 2016 4:36 lume] in on in PM Serum or source Plasma data Carbon 21.0 - mmoL/L Normal No Jun 14 dioxide, 32.0 informati 2016 4:36 total on in PM [Moles/vo source lume] in data Serum or Plasma Creatinin 0.55 - mg/dL High No Jun 14 e 1.02 informati 2016 4:36 [Mass/vol on in PM ume] in source Serum or data Plasma Estimated 59- ML/MIN Low REFERENCE Jun 14 RANGE: 2017 4:36 glomerula >60 PM r ML/MIN/1. filtratio 73 SQUARE n rate METERSIf (GF this patient is -A merican, then multiply theresult by 1.210. Glucose 74 - 106 mg/dL High No Jun 14 [Mass/vol informati 2016 4:36 ume] in on in PM Serum or source Plasma data Potassium 3.5 - 5.1 mmoL/L Normal No Jun 14 informati 2016 4:36 [Moles/vo on in PM lume] in source Serum or data Plasma Sodium 136 - 145 mmoL/L Normal No Jun 14 [Moles/vo informati 2016 4:36 lume] in on in PM Serum or source Plasma data Thyrotropin [Units/volume] in Serum or Plasma Observa Value Referen Units Interpr Notes Date ti ce etation Range Thyrotrop 0.358 - uIU/ml Normal No Nov 6 in 3.740 informati 2016 4:36 [Units/vo on in PM lume] in source Serum or data Plasma Choriogonadotropin [Units/volume] in Serum or Plasma Observa Value Referen Units Interpr Notes Date tion ce etation Range Choriogon NEG No No No Jun 6 adotropin informati informati informati 2016 4:36 on in on in on in PM [Units/vo source source source lume] in data data data Serum or Plasma CBC W Auto Differential panel in Blood Observa Value Referen Units Interpr Notes Date tion ce etation Range Basophils 0 - 0.2 K/MM3 Normal No Jun 6 informati 2016 4:36 [#/volume on in PM ] in source Blood by data Automated count Basophils 0.1 - 2.0 % Normal No Jun 14 /100 informati 2017 4:36 leukocyte on in PM s in source Blood by data Automated count Eosinophi 0.0 - 0.4 K/mm3 Normal No Jun 14 ls informati 2016 4:36 [#/volume on in PM ] in source Blood by data Automated count Eosinophi 0.1 - % Normal No Jun 14 ls/100 12.0 informati 2016 4:36 leukocyte on in PM s in source Blood by data Automated count Granulocy 1.8 - 7.8 K/mm3 Normal No Jun 6 michael informati 2016 4:36 [#/volume on in PM ] in source Blood by data Automated count Granulocy 37.0 - % Normal No Jun 14 michael/100 80.0 informati 2016 4:36 leukocyte on in PM s in source Blood by data Automated count Hematocri 37.0 - % Normal No Jun 14 t [Volume 47.0 informati 2016 4:36 on in PM Fraction] source of Blood data Hemoglobi 12.2 - g/dL Normal No Jun 14 n 16.2 informati 2016 4:36 [Mass/vol on in PM ume] in source Blood data Lymphocyt 0.7 - 4.5 K/mm3 Normal No Jun 14 es informati 2016 4:36 [#/volume on in PM ] in source Unspecifi data ed specimen by Automated count Lymphocyt 10 - 50.0 % Normal No Jun 14 es informati 2016 4:36 [#/volume on in PM ] in source Unspecifi data ed specimen by Automated count Erythrocy 27 - 31.2 pg Normal No Jun 14 te mean informati 2016 4:36 corpuscul on in PM ar source hemoglobi data n [Entitic mass] Erythrocy 31.8 - g/dl Normal No Jun 14 te mean 35.4 informati 2016 4:36 corpuscul on in PM ar source hemoglobi data n concentra tion [Mass/vol ume] by Automated count Erythrocy 82.2 - fl Normal No Jun 14 te mean 97.8 informati 2016 4:36 corpuscul on in PM ar volume source [Entitic data volume] by Automated count Monocytes 0.1 - 1.0 K/mm3 Normal No Jun 14 informati 2016 4:36 [#/volume on in PM ] in source Blood by data Automated count Monocytes 1.7 - 9.3 % Normal No Jun 14 informati 2016 4:36 leukocyte on in PM s in source Blood by data Automated count Platelet 7.4 - fl Normal No Jun 14 mean 10.4 informati 2016 4:36 volume on in PM [Entitic source volume] data in Blood by Automated count Platelets 142 - 424 K/mm3 Normal No Jun 14 informati 2016 4:36 [#/volume on in PM ] in source Blood data Erythrocy 4.2 - 5.4 M/mm3 Normal No Jun 14 michael informati 2017 4:36 [#/volume on in PM ] in source Amniotic data fluid Erythrocy 11.5 - % Normal No Jun 14 te 17.5 informati 2016 4:36 distribut on in PM ion width source [Entitic data volume] by Automated count Leukocyte 4.8 - K/MM3 Normal No Jun 14 s 10.8 informati 2016 4:36 [#/volume on in PM ] in source Blood data Cobalamin (Vitamin B12) [Mass/volume] in Serum Observa Value Referen Units Interpr Notes Date tion ce etation Range Cobalamin 211 - 946 pg/mL No Apr 28 (Vitamin informati at: CB 2016 2:10 B12) on in - [facility] PM [Mass/vol source ume] in data [id number] Serum 0 [place], [place] [id number] Guest Relations Officer: Dez Flores PhD, Phone: [phone] Folate [Mass/volume] in Serum or Plasma [...] data creatPerf ormed at: CB - [facility] [address] [id number] [address] [place], [place] [id number] Guest Relations Officer: Dez Flores PhD, Phone: [phone] Creatinin Not mg/dL No No Sep [...] been Serum or defined Plasma by the [place] [facility] e and an Endocrine Society practice guideline as alevel of serum 25-OH vitamin D less than 20 ng/mL (1,2).The Endocrine Society went on to further define vitamin Dinsuffic iency as a level between 21 and 29 ng/mL (2).1. IOM (Institut e of Medicine) . 2010. Dietary reference intakes for calcium and D. [place]: TheNation al Academies Press.2. Dina MF, Bobo NC, Leigh Kwok VELASCO, et al.Evalua tion, treatment , and preventio n of vitamin Ddeficien cy: an Endocrine Society clinical practiceg uideline. JCEM. 2010; 96(7):191 1-30.Perf ormed at: CB - [facility] [id number] [place], [place] [id number] Guest Relations Officer: Dez Flores PhD, Phone: [phone] Hemoglobin A1c in Blood Observa Value [...] gm/dL High No Sep 20 [Mass/vol informati 2016 2:10 ume] in on in PM Serum source data Glucose 74 - 106 mg/dL High No Sep 20 [Mass/vol informati 2016 2:10 ume] in on in PM Serum or source Plasma data Potassium 3.5 - 5.1 mmoL/L Normal No Sep 20 inform2016 2:10 [Moles/vo on in PM lume] in source Serum or data Plasma Sodium 136 - 145 mmoL/L Normal No Sep 20 [Moles/vo informati 2016 2:10 lume] in on in PM Serum or source Plasma data Aspartate 15 - 37 U/L Normal No Sep 20 inform2016 2:10 aminotran on in PM sferase source [Enzymati data c activity/ volume] in Serum or Plasma Alanine 12 - 78 U/L Normal No Sep 20 aminotran 2016 2:10 sferase on in PM [Enzymati source c data activity/ volume] in Serum or Plasma Protein 6.4 - 8.2 gm/dL Normal No Sep 20 [Mass/vol informati 2016 2:10 ume] in on in PM Serum or source Plasma data Thyroxine (T4) free [Mass/volume] in Serum or Plasma Observa Value Referen Units Interpr Notes Date tion ce etation Range Thyroxine 0.76 - ng/dL Normal No Sep 20 (T4) 1.46 2016 2:10 free on in PM [Mass/vol source ume] in data Serum or Plasma Lipid 1996 panel in Serum or Plasma Observa Value Referen Units Interpr Notes Date tion ce etation Range Cholester < 200 mg/dL No No Sep 20 ol informati informati 2016 2:10 [Moles/vo on in on in PM lume] in source source Unspecifi data data ed specimen Cholester 40 - 60 MG/DL Normal No Sep 20 ol in HDL informati 2016 2:10 on in PM [Mass/vol source ume] in data Serum or Plasma Cholester 0 - 130 mg/dL Normal No Sep 20 ol in LDL informati 2016 2:10 on in PM [Mass/vol source ume] in data Serum or Plasma by calculati on Triglycer 30 - 200 mg/dL Normal No Sep 20 tess 2017 2:10 [Moles/vo on in PM lume] in source Serum or data Plasma Cholester 0 - 40 No Normal No Sep 20 ol in informati inform2016 2:10 VLDL on in on in PM [...] - 0.2 K/MM3 Normal No Sep 20 2016 2:10 [#/volume on in PM ] in source Blood by data Automated count Basophils 0.1 - 2.0 % Normal No Sep 20 /100 inform2016 2:10 leukocyte on in PM s in source Blood by data Automated count Eosinophi 0.0 - 0.4 K/mm3 Normal No Sep 20 ls informati 2016 2:10 [#/volume on in PM ] in source Blood by data Automated count Eosinophi 0.1 - % Normal No Sep 20 ls/100 12.0 inform2016 2:10 leukocyte on in PM s in source Blood by data Automated count Granulocy 1.8 - 7.8 K/mm3 Normal No Sep 20 michael 2016 2:10 [#/volume on in PM ] in source Blood by data Automated count Granulocy 37.0 - % Normal No Sep 20 michael/100 80.0 informati 2016 2:10 leukocyte on in PM s in source Blood by data Automated count Hematocri 37.0 - % Normal No Sep 20 t [Volume 47.0 inform2016 2:10 on in PM Fraction] source of Blood data Hemoglobi 12.2 - g/dL Normal No Sep 20 n 16.2 inform2016 2:10 [Mass/vol on in PM ume] in source Blood data Lymphocyt 0.7 - 4.5 K/mm3 Normal No Sep 20 es 2016 2:10 [#/volume on in PM ] in source Unspecifi data ed specimen by Automated count Lymphocyt 10 - 50.0 % Normal No Sep 20 es inform2016 2:10 [#/volume on in PM ] in source Unspecifi data ed specimen by Automated count Erythrocy 27 - 31.2 pg Normal No Sep 20 te mean inform2016 2:10 corpuscul on in PM ar source hemoglobi data n [Entitic mass] Erythrocy 31.8 - g/dl Normal No Sep 20 te mean 35.4 informati 2016 2:10 corpuscul on in PM ar source hemoglobi data n concentra tion [Mass/vol ume] by Automated count Erythrocy 82.2 - fl Normal No Sep 20 te mean 97.8 informati 2016 2:10 corpuscul on in PM ar volume source [Entitic data volume] by Automated count Monocytes 0.1 - 1.0 K/mm3 Normal No Sep 20 inform2016 2:10 [#/volume on in PM ] in source Blood by data Automated count Monocytes 1.7 - 9.3 % Normal No Sep 20 /100 informati 2016 2:10 leukocyte on in PM s in source Blood by data Automated count Platelet 7.4 - fl High No Sep 20 mean 10.4 informati 2016 2:10 volume on in PM [Entitic source volume] data in Blood by Automated count Platelets 142 - 424 K/mm3 Normal No Sep 20 inform2016 2:10 [#/volume on in PM ] in source Blood data Erythrocy 4.2 - 5.4 M/mm3 Low No Sep 20 michael informati 2016 2:10 [#/volume on in PM ] in source Amniotic data fluid Erythrocy 11.5 - % Normal No Sep 20 te 17.5 informati 2016 2:10 distribut on in PM ion width source [Entitic data volume] by Automated count Leukocyte 4.8 - K/MM3 Normal No Sep 20 s 10.8 informati 2016 2:10 [#/volume on in PM ] in source Blood data Glucose [Mass/volume] in Capillary blood by Glucometer Observa Value Referen Units Interpr Notes Date tion ce etation Range Glucose 70 - 110 mg/dl Normal No Feb 22 [Mass/vol informati 2017 8:54 ume] in on in AM Capillary [...] - 5.1 mmoL/L Normal No Feb 18 informati 2016 5:52 [Moles/vo on in PM lume] in [...] - 0.2 K/MM3 Normal No Feb 18 informati 2016 5:52 [...] - 7.8 K/mm3 Normal No Feb 18 michale informati 2016 5:52 [#/volume on in PM [...] - 9.3 % Normal No Feb 18 / informati 2016 5:52 leukocyte on in PM [...] M/mm3 Normal No Feb 18 michael informati 2016 5:52 [#/volume on in PM ] in source Amniotic data fluid Erythrocy 11.5 - % Normal No Feb 18 te 17.5 informati 2016 5:52 distribut on in PM ion width source [Entitic data volume] by Automated count Leukocyte 4.8 - K/MM3 Normal No Feb 18 s 10.8 informati 2016 5:52 [#/volume on in PM ] in source Blood data
--- OUTSIDE RECORDS SUMMARY | 2017-06-30 15:43 | External Medical Summary Rpt | CCD ---
Author Author , JOSIANE JOSHUA Address Unknown Phone [email or web address] Immunization Name Date Rout CVX Reac Dose Comm Prov Is Faci e tion ent ider Refu lity Give sed n Tdap 01-2 115 999 Hist H149 No H149 , 9-20 oric Adso 13 al rbed Info rmat ion - Sour ce Unsp ecif ied
--- OUTSIDE RECORDS SUMMARY | 2017-06-30 15:43 | External Medical Summary Rpt ---
Author Author CHADKANDACE Moulton, JOSIANE [employer] Organization [employer] Address Unknown Phone Unavailable [...] [facility] PM [Mass/vol source ume] in data [id number] [place], [place] [id number] Insurance Executive: Dez Flores PhD, Phone: [phone] Folate [Mass/volume] in Serum or Plasma [...] data creatPerf ormed at: CB - [facility] [address] [address] [address] [place], [place] [id number] Insurance Executive: Dez Flores PhD, Phone: [phone] Creatinin Not mg/dL No No Sep [...] been Serum or defined Plasma by the [place] [facility] e and an Endocrine Society practice [...] 96(7):191 1-30.Perf ormed at: CB - [facility] [id number] [place], [place] [id number] Insurance Executive: Dez Flores PhD, Phone: [phone] Hemoglobin A1c in Blood Observa Value [...]
--- OUTSIDE RECORDS SUMMARY | 2017-06-30 15:43 | External Medical Summary Rpt | CCD ---
Author Author , JOSIANE JOSHUA Address Unknown Phone [email or web address] Immunization Name Date Rout CVX Reac Dose Comm Prov Is Faci e tion ent ider Refu lity Give sed n Tdap 01-2 115 999 Hist H149 No H149 , 9-20 oric Adso 13 al rbed Info rmat ion - Sour ce Unsp ecif ied
--- NOTE | 2017-06-30 15:52 | Emergency Room Report ---
History of Present Illness Time Seen by [id number] Presenting Problem in Triage Pt arrived:Walked Presenting Problem:pt states has back pain that is unrelieved with movement or analgesic at home reports that it began earlier this week mentions that she has been taking an exercise class but doesn't feel its related; thinks its urine /kidney related Onset of symptoms date/time:/ or onset unknown for:MEDICAL HX UNKNOWN Treatment Prior to Arrival: DIRECT SUPPORT [facility] Provided by: Sepsis Risk Assessment: Temp: 97.8 B/P: 129/73 MAP: 91 Pulse: 85 Resp: 18 Recent fever? N Clinical Suspician of Infection? N Mental Status: 1 - Regular (Normal Baseline) Sepsis Risk:Low Sepsis Risk Have you (or family members/close friends) recently traveled outside the [place]? N If Yes, where/when: Have you had exposure to infectious disease within the past month? TB? Other? Specify: Back pain, "can't get comfortable" last day or so; no fever or urinary sx. No loss of bowel or bladder function. No fever. Has had hx of mesh repair per Dr. Cristina this past year. Has done well since then. Her pain is not positional, is mostly on left greater than right, no relief with Tylenol 3 this AM. No n/v. ALLERGIES Coded Allergies: Fish Containing Products (From SEAFOOD (F/D)) (Intermediate, I-HIVES 06/30/17) Mushroom (Intermediate, I-HIVES 06/30/17) SEAFOOD (F) (From SEAFOOD (F/D)) (Intermediate, I-HIVES 06/30/17) mold (06/30/17) aspirin (Mild, NA-NAUSEA/VOMITING 06/30/17) Home Medications Active Scripts Acyclovir (Acyclovir 800MG) 800 MG PO 5XDAY #35 TAB Prov: 05/19/17 DICLOFENAC SODIUM (Diclofenac 50MG) 50 MG PO BID #60 TAB Prov: 06/05/16 Methocarbamol (Robaxin) 500 MG PO BID #60 TAB Prov: 06/05/16 Naproxen (Naprosyn 500MG Tab) 500 MG PO BID #12 TAB Prov: 10/05/14 VALSARTAN/HYDROCHLOROTHIAZIDE (Diovan Hct 320-25 MG Tablet) 1 TAB PO DAILY #30 TAB Prov: 06/29/16 Reported Medications Levothyroxine Sodium (Levothyroxine 0.088MG) 0.088 MG PO DAILY Lovastatin 40 MG PO DAILY Lisinopril (PRINIVIL (GEQ) 40MG) 40 MG PO DAILY Famotidine (Famotidine 20MG) 20 MG PO DAILY #90 History Medical History General CAD? No Angina: Yes CA: No Hypertension? Yes Hyperlipidemia? Yes CHF? No DVT? No PE? No COPD? No Asthma? Yes Anemia? No GERD? Yes Gastric ulcers? No GI Bleed? No Hernia? No Thyroid Problems? No Hypothyroidism? Yes CVA? No Seizures? No Diabetes? No Insulin Dependent: No Insulin Pump: No Home FSBS? Yes Renal Insuffiency? No End Stage Renal Disease? No UTI? Yes Stones? No BPH? No GB Disease: Yes Nephritic Syndrome? No Asplenia? No Hepatitis? No Sickle Cell Disease? No Arthritis? Yes Migraines? Yes Cataracts? No Glaucoma? No MRSA? No HIV? No TB? No Anxiety? Yes Depression? Yes Cancer? No More? No Immunization Hx Ped.Immunizations UTD Yes DT/Tetanus 1-4 Years Ago Flu 2016-17FSN Pneumonia Never Had Surgical Hx Previous Surgery?Y GALLBLADDER ORAL SURGERY LUMPECTOMY STOMACH BIOPSY IUD-INSERTION/REMOVAL COLONOSCOPY EGD [employer] Hx LMP N/A Family History Family Hx Diabetes Yes CAD Yes Hypertension Yes Hyperlipidemia Yes Cancer Yes TB No Social History Smoking Hx Smoker: Never Smoker Tobacco: No Are you/the child exposed to second-hand smoke: No Alcohol Alcohol: No Review of Systems All Other Systems Reviewed and Negative Genitourinary see HPI (flank pain). Musculoskeletal see HPI, back pain Physical Exam Vital Signs Vital Signs Date Time Temp Pulse Resp B/P Pulse O2 O2 Flow FiO2 Ox Delivery Rate 06/30 1534 97.8 85 18 129/73 99 General Appearance normal appearance, WD/WN, no apparent distress Eye Exam - bilateral eye normal exam, bilateral eye PERRL, bilateral eye EOMI Neck normal inspection, non-tender, supple, full range of motion Respiratory Status Yes: trachea midline, chest symmetrical, non tender chest. No: respiratory distress, tender on palpation, use of accessory muscles, pain on inspiration, pain on expiration. Lung Sounds bilateral: normal breath sounds, lungs clear. Cardiovascular normal exam, regular rate/rhythm, no peripheral edema, no gallop, no JVD, no murmur, no rub, normal peripheral pulses Gastrointestinal normal bowel sounds, normal exam, non tender, soft, no organomegaly, no pulsatile mass, no guarding, no rebound Back normal inspection, no CVA tenderness, no vertebral tenderness, bowel/ bladder continent, gait normal, strt leg raising(L)-NML, strt leg raising(R)-NML Extremities non-tender, normal range of motion, normal inspection, normal capillary refill, no calf tenderness, no pedal edema Strength 5 Upper Ext (L), 5 Upper Ext (R), 5 Lower Ext (L), 5 Lower Ext (R) Neurologic alert, normal exam, no motor/sensory deficits, oriented x 3 Glascow Coma Scale Glascow Coma Scale Response Value EYE response: 4 Spontaneously 4 MOTOR response: 6 OBEYS 6 VERBAL response: 5 Oriented & Converses 5 Total 15 Reflexes DTR 3+ knee (R), 3+ knee (L) Skin intact, normal color, warm/dry, no rash cons.w/shingles Medical Decision Making LABS/Meds/Orders Pt receiving controlled substance in ED? No (declines meds on arrival) Results/Orders Laboratory Tests 06/30/17 1726: Urine Color Cancelled, Urine Appearance Cancelled, Urine pH Cancelled, Ur Specific [place] Cancelled 06/30/17 1555: Urine Color YELLOW, Urine Appearance SL CLOUDY, Urine pH 6.0, Ur Specific [place] >= 1.030, Urine Protein NEGATIVE, Urine Ketones NEGATIVE, Urine Blood 3+ H, Urine Nitrate NEGATIVE, Urine Bilirubin NEGATIVE, Urine Urobilinogen 0.2, Ur Leukocyte Esterase 1+ H, Urine RBC 5-10, Urine WBC 20-50, Ur Squamous Epith Cells TNTC, Urine Bacteria 3+, Urine Glucose NEGATIVE 06/30/17 1550: Sodium 142, Potassium 4.3, Chloride 105, Carbon Dioxide 28, BUN 15, Creatinine 1.2 H, Estimated Creat Clear 124, Estimated GFR (MDRD) 50 L, Glucose 136 H, Calcium 9.0, Total Bilirubin 0.3, AST 25, ALT 37, Alkaline Phosphatase 82, Total Protein 7.8, Albumin 3.7, Globulin 4.1 H, Albumin/Globulin Ratio 0.9 L, Lipase 165, WBC 8.5, RBC 4.41, Hgb 13.0, Hct 39.5, MCV 89.6, RDW 13.7, Plt Count 292, MPV 9.5, Gran % 61.5, Gran # 5.2, Lymphocytes % 31.4, Monocytes % 4.7, Eosinophils % 2.0, Basophils % 0.5, Lymphocytes # 2.7, Monocytes # 0.4, Eosinophils # 0.2, Basophils # 0.0, PUBS MCHC 33.0, MCH 29.5 Current Medication Orders Sig/Annalise Start time Last Medication Dose Route Stop Time Status Admin Sodium Chloride 10 ML PRN PRN 06/30 1545 AC IV 07/01 1539 Orders Procedure Date/time Status DIET-NOTHING BY MOUTH 06/30 D Active URINARY CATHETER INSERT 06/[address] ABD & PELVIS W/O CONTRAST 06/30 1638 Active CULTURE, URINE 06/30 1555 Active URINALYSIS/COMPLETE 06/30 1546 Complete URINE 06/[address] ABD/PELVIS REQ 06/30 1539 Complete IV SALINE LOCK 06/30 1539 Active LIPASE 06/30 1539 Complete CBC WITH AUTO DIFF 06/30 1539 Complete CHEM 12 PROFILE 06/30 1539 Complete XRAY/CT/US XRAY/CT/US CT abdomen, pelvis CT interpretation by reviewed by me ([facility] report reviewed) Time results known: 1739 CT Results normal/NAD, no stones; nl appendix Departure Departure Time of Disposition 1740 Disposition DC Home or Self Care(routine) Clinical Impression Primary Impression: Back pain Qualifiers: Back pain location: low back pain Chronicity: acute Back pain laterality: unspecified Sciatica presence: without sciatica Qualified Code: M54.5 - Low back pain Ruled Out Impressions: Kidney stone Condition STABLE Patient Instructions DI for Flank Pain Additional Instructions urine specimen somewhat contaminated, but will treat for possible UTI; see Dr. Ayala next week for follow up; Rx Macrobid and Zofran. Discharge Counseling Counseled pt/family regarding diagnosis, test results, medications/RX, home care, follow up needs Prescriptions Current Visit Scripts NITROFURANTOIN MONOHYD/M-CRYST (Macrobid 100 MG Capsule) 100 MG PO BID #14 CAP Ondansetron (Zofran 4MG Odt) 4 MG PO Q6HP PRN NAUSEA AND VOMITING #6 ODT ED Critical Care Critical Care No at [id number]
[2017-06-30 15:56] LABS: LYMPH # 2.7 K/mm3 (0.7-4.5); LYMPH % 31.4 % (10-50.0)
[2017-06-30 16:22] LABS: URINE BILIRUBIN - DIPSTICK NEGATIVE (NEG); URINE BLOOD 3+ (NEG)
[2017-06-30 16:56] LABS: URINE SQUAMOUS CELLS TNTC #/hpf (0-5)
[2017-06-30 17:55] VITALS: BP 122/91
--- NOTE | 2017-06-30 18:37 | RADIOLOGY REPORT PS360 ---
CT ABD PELVIS W/O CONTRAST CLINICAL INDICATION: Left flank pain ABD PAIN ORDERING PHYSICIAN: Linda Vasquez MD PATIENT AGE: 41 years COMPARISON: 09/28/2014 TECHNIQUE: Axial images obtained with sagittal and coronal reformats. PROCEDURE: Oral Contrast: None IV Contrast: None . FINDINGS: Lower thorax: No acute finding ABDOMEN: Liver: There is elevated right hemidiaphragm and a long lateral segment left hepatic lobe as a normal variant Gallbladder: Cholecystectomy. No ductal dilatation Pancreas: No masses or peripancreatic fluid collections. Spleen: Unremarkable. Adrenals: Unremarkable Kidneys/ureters: No masses. No renal calculi. No hydronephrosis. No perinephric fluid collections. No ureteral dilatation or obvious ureteral calculi. Stomach bowel: Nondistended. No obvious mass or thickening. Appendix: No evidence of appendicitis. PELVIS: Reproductive: Unremarkable Bladder: Nondistended. No obvious stones or masses. ABDOMEN & PELVIS: Peritoneum: No abnormal fluid collections. No obvious inflammatory changes. No free air. Lymph nodes: No enlarged lymph nodes apparent. Vasculature: No evidence of abdominal aortic aneurysm. No retroperitoneal hemorrhage evident. Bones: No acute fracture IMPRESSION: 1. No acute abdominal or pelvic findings. 2. No obstructing renal or ureteral calculi. 3. No change with no acute finding
== END ==
LOC: ER 15:24
PROVIDERS: Emergency Medicine
DX: M54.5 Low back pain (principal); I10 Essential (primary) hypertension; J45.909 Unspecified asthma, uncomplicated; K21.9 Gastro-esophageal reflux disease without esophagitis; E78.5 Hyperlipidemia, unspecified; E03.9 Hypothyroidism, unspecified

== ENCOUNTER 2017-07-08 17:05 | Emergency (ER) | payer MEDICAID ==
[~2017-07-08] VITALS: Ht 157.5 cm; Wt 136.1 kg
--- OUTSIDE RECORDS SUMMARY | 2017-07-08 17:16 | External Medical Summary Rpt | CCD ---
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 automat ed Mean = 29.1 27-31.2 complet corpusc 017 pg ed ular 16:36 hemoglo bin (MCH) determ Automat = 32.4 31.8-35 complet ed 017 g/dl .4 ed erythro 16:36 cyte mean corpusc ular h Automat = 89.7 82.2-97 complet ed 017 fl .8 ed erythro 16:36 cyte mean corpusc ular v Absolut = 0.5 0.1-1.0 complet e 017 K/mm3 ed monocyt 16:36 e count Douglas % = 5.8 % 1.7-9.3 complet 017 ed 16:36 Automat = 10.0 7.4-10. complet ed 017 fl 4 ed blood 16:36 platele t mean volume pat Blood = 283 142-424 complet platele 017 K/mm3 ed t count 16:36 Red = 4.28 4.2-5.4 complet blood 017 M/mm3 ed cell 16:36 count Automat = 13.5 11.5-17 complet ed 017 % .5 ed erythro 16:36 cyte distrib ution width Blood = 9.1 4.8-10. complet leukocy 017 K/MM3 8 ed michael 16:36 count (number /volume ) Serum test (06-14-2017 16:36) Serum = NEG complet pregnan 017 NEGATIV ed cy test 16:36 E Basic metabolic panel (06-14-2017 16:36) Serum = 14 7-18 complet or 017 mg/dL ed plasma 16:36 urea nitroge n measure men Serum = 9.4 8.5-10. complet or 017 mg/dL 1 ed plasma 16:36 calcium measure ment (mas Serum = 103 98-107 complet or 017 mmoL/L ed plasma 16:36 chlorid e measure ment (mo Carbon = 29 21.0-32 complet dioxide 017 mmoL/L .0 ed 16:36 measure ment Serum = 1.1 0.55-1. complet or 017 mg/dL 02 ed plasma 16:36 creatin ine measure ment ( Estimat = 55 59- complet ed 017 ML/MIN ed glomeru 16:36 lar filtrat ion rate (GF Comment: REFERENCE RANGE: >60 ML/MIN/1.73 SQUARE METERS Comment: If this patient is -[place]ian, then multiply the Comment: result by 1.210. Serum = 107 74-106 complet or 017 mg/dL ed plasma 16:36 glucose measure ment (mas Serum = 4.8 3.5-5.1 complet potassi 017 mmoL/L ed um 16:36 measure ment Serum = 138 136-145 complet sodium 017 mmoL/L ed measure 16:36 ment Serum or plasma thyroid stimulating horm (06-14-2017 16:36) Serum = 3.58 0.358-3 complet or 017 uIU/ml .740 ed plasma 16:36 thyroid stimula ting horm Hemoglobin A1c in Blood (04-28-2017 14:10) Hemoglo [...] K/MM3 8 ed Auto 08:45 RBC # -16-2 4.40 4.2-5.4 complet Bld 014 M/mm3 ed Auto 08:45 Hgb -16-2 13.4 12.2-16 complet Bld-mCn 014 g/dL .2 ed c 08:45 Hct Fr 16-2 39.6 % 37.0-47 complet Bld 014 .0 ed 08:45 MCV RBC 16-2 90.0 fl 82.2-97 complet 014 .8 ed 08:45 MCH RBC 16-2 30.6 pg 27-31.2 complet Qn 014 ed Auto 08:45 MEAN 16-2 34.0 31.8-35 complet CORPUSC 014 g/dl .4 ed ULAR 08:45 HGB CONC RDW RBC 16-2 15.0 % 11.5-17 complet Auto 014 .5 ed 08:45 Platele -16-2 228 142-424 complet t Bld 014 K/mm3 ed Ql 08:45 Manual MEAN 16-2 8.9 fl 7.4-10. complet PLATELE 014 4 ed T 08:45 VOLUME Granulo -16-2 58.0 % 37.0-80 complet cytes 014 .0 ed Fr Bld 08:45 Auto LYMPH % 16-2 34.0 % 10-50.0 complet 014 ed 08:45 Monocyt -16-2 4.5 % 1.7-9.3 complet es Fr 014 ed Bld 08:45 Auto Eosinop -16-2 2.7 % 0.1-12. complet hil Fr 014 0 ed Bld 08:45 Auto Basophi -16-2 0.8 % 0.1-2.0 complet ls Fr 014 ed Bld 08:45 Auto Granulo -16-2 4.5 1.8-7.8 complet cytes # 014 K/mm3 [...] End Date Code Location Performer Type Date [facility] - 7 7 [facility] 6 6 [facility] 5 5 [facility] 5 5 [facility] 5 5 [facility] 5 5 [facility] 5 5 [facility] 5 5 [facility] 5 5 [facility] 5 5 [facility] 5 5 [facility] 5 5 [facility] - 5 5 [facility] - 4 4 [facility] - 4 4 [facility] - 4 4 [facility] 4 [facility] 4 [facility] 4 4 [facility] 4 4 [facility] 4 [facility]EN [facility] Emergency MARY LOAIZA MD (ER) 4 08:50 4 12:52 [facility] Emergency MARY Wise MD (ER) 3 11:11 3 12:27 [facility] Emergency MARY Wise MD (ER) 3 17:32 3 18:42 [facility] Emergency MARY Vigil MD (ER) 3 18:16 3 18:49 [facility] Emergency MARY SHORT (ER) 3 17:52 3 20:18 [facility]
--- OUTSIDE RECORDS SUMMARY | 2017-07-08 17:16 | External Medical Summary Rpt | CCD ---
Author Author , JOSIANE Organization JOSIANE Address Unknown Phone [email or web address] Care Team Providers Care Facilities Operator Name Role Phone CHELY PORTER MD, PSC, Unavailable Unavailable CHELY PORTER MD, PSC Nixon Vigil MD, Unavailable Unavailable Nixon LOAIZA MD, Unavailable Unavailable JULIAN LOAIZA MD [facility] Unavailable Unavailable [facility], [facility] GIANLUCA NGUYEN MD, Unavailable Unavailable GIANLUCA NGUYEN MD [facility] Unavailable Unavailable INC, [facility] Unavailable [facility]available H[facility]PITAL, [facility] Unavailable Unavailable [facility]PITAL P, [facility], Unavailable Unavailable [facility] Unavailable Unavailable IM[facility]ING [facility], [facility] Angela Wise MD, Unavailable Unavailable Angela Wise MD [facility] Unavailable Unavailable SERVICES, [facility], Unavailable Unavailable [facility] Un[facility] Un[facility] Unavailable PLL[facility], [facility], [facility] Unavailable Unavailable [facility] Unavailable Unavailable [facility], [facility] Unavailable Unavailable EMERGENCY PHYS, [facility] DARIO SHORT, Unavailable Unavailable DARIO SHORT Purpose Continuity of Care Document - 10-01-2012 through 2016 Problems Code Diagnosis DOS Provider Status E039 HYPOTHYROID 06-07-2017 [facility] ISM PHYSICIANS UNSPECIFIED GROUP E0841 DM D/T 06-07-2017 [facility] UNDERLYING PHYSICIANS COND GROUP W/DIABETIC MONONEUROPA THY M545 LOW BACK 06-07-2017 [facility] PAIN PHYSICIANS GROUP B029 ZOSTER 05-19-2017 [facility] WITHOUT [facility] COMPLICATIO INC NS E785 HYPERLIPIDE 05-19-2017 [facility] UNSPECIFIED INC I10 ESSENTIAL 05-19-2017 [facility] HYPERTENSIO INC N [id number] UNSPECIFIED 05-19-2017 [facility] UNCOMPLICAT INC ED 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-06-2017 [facility] BILATERAL E559 VITAMIN D 05-05-2017 [facility] DEFICIENCY PHYSICIANS UNSPECIFIED GROUP M1990 UNSPECIFIED 05-05-2017 [facility] PHYSICIANS OSTEOARTHRI GROUP TIS UNSPECIFIED SITE N946 DYSMENORRHE 05-05-2017 [facility] A PHYSICIANS UNSPECIFIED GROUP E119 TYPE 2 04-28-2017 [facility] DIABETES PHYSICIANS MELLITUS GROUP WITHOUT COMPLICATIO NS J329 CHRONIC 04-28-2017 [facility] SINUSITIS PHYSICIANS UNSPECIFIED GROUP L989 DISORDER 04-07-2017 [facility] THE SKIN & PHYSICIANS SUBCUTANEOU GROUP S TISSUE UNS Z8719 PERSONAL 04-07-2017 [facility] HISTORY PHYSICIANS OTHER GROUP DISEASES DIGESTIVE SYSTEM N393 STRESS 02-22-2017 [facility] INCONTINENC PHYSICIANS E FEMALE GROUP MALE E6601 MORBID 12-22-2016 [facility] SEVERE PHYSICIANS OBESITY DUE GROUP TO EXCESS CALORIES L680 HIRSUTISM 12-22-2016 [facility] PHYSICIANS GROUP H6980 OTHER SPEC 11-26-2016 [facility] DISORDERS PHYSICIANS EUSTACHIAN GROUP TUBE UNS EAR J309 ALLERGIC 11-26-2016 [facility] RHINITIS PHYSICIANS UNSPECIFIED GROUP J310 CHRONIC 11-26-2016 [facility] RHINITIS PHYSICIANS GROUP J320 CHRONIC 11-16-2016 [facility] MAXILLARY PHYSICIANS SINUSITIS GROUP J342 DEVIATED 11-16-2016 [facility] NASAL PHYSICIANS SEPTUM GROUP J341 CYST AND 11-03-2016 [place] [facility] NASAL SINUS R040 EPISTAXIS 10-22-2016 [facility] PHYSICIANS GROUP R1013 EPIGASTRIC 09-24-2016 [facility] PAIN PHYSICIANS GROUP K210 GASTRO-ESOP 08-28-2016 [facility] HAGEAL PHYSICIANS REFLUX GROUP DISEASE W/ ESOPHAGITIS J0100 ACUTE 08-11-2016 [facility] MAXILLARY PHYSICIANS, SINUSITIS PLLC UNSPECIFIED V29796 PAIN IN 07-20-2016 [facility] LEFT KNEE PHYSICIANS, PLLC N819 FEMALE 07-16-2016 [facility] GENITAL PHYSICIANS PROLAPSE GROUP UNSPECIFIED N920 EXCESS & 07-16-2016 [facility] FREQUENT PHYSICIANS MENSTRUATIO GROUP N W/REGULAR CYCLE Z1231 ENCOUNTER 07-16-2016 [place] SCREENING MEDICAL MAMMO MALIG IMAGING ASS NEOPLASM BREAST Z3009 ENCOUNTER 07-16-2016 [facility] OT GENERAL PHYSICIANS GROUP ALL 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 ANALYST&ADV ICE CONTRACEPT E663 OVERWEIGHT 07-13-2016 [facility] PHYSICIANS GROUP 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 07-13-2016 [facility]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 D/O GROUP W/RADICULOP ATHY LUMB RGN N888 OTH SPEC 07-13-2016 [place] NONINFLAMMA MEDICAL TORY IMAGING ASS DISORDERS CERVIX UTERI R102 PELVIC AND 07-13-2016 [place] PERINEAL MEDICAL PAIN IMAGING ASS I27136 OTHER 07-08-2016 [facility] O43339 ENCOUNTER 06-30-2016 [facility] HOROLOGIST EXAM PHYSICIANS GENERAL RTN GROUP W/ABNORMAL FIND W50428 ENCOUNTER 06-30-2016 [facility] HOROLOGIST EXAM PHYSICIANS GENERAL RTN GROUP W/O ABNORMAL FIND Z803 FAMILY 06-30-2016 [facility] HISTORY OF PHYSICIANS MALIGNANT GROUP NEOPLASM OF BREAST R05 COUGH 06-29-2016 [facility]YSIC[facility]ANS, PLLC J40 BRONCHITIS 06-19-2016 [facility] NOT PHYSICIANS SPECIFIED GROUP ACUTE OR CHRONIC K219 GASTRO-ESOP 06-19-2016 [facility] H REFLUX PHYSICIANS DISEASE GROUP WITHOUT ESOPHAGITIS R32 UNSPECIFIED 06-19-2016 [facility] URINARY PHYSICIANS INCONTINENC GROUP E [id number] ALLERGY 06-19-2016 [facility] UNSPECIFIED PHYSICIANS INITIAL GROUP ENCOUNTER J029 ACUTE 06-05-2016 [facility] PHARYNGITIS PHYSICIANS, PLLC UNSPECIFIED M1712 UNILATERAL 06-05-2016 [facility] PRIMARY PHYSICIANS, OSTEOARTHRI PLLC TIS LEFT KNEE R0989 OT SPEC SX 06-05-2016 [place] & SIGNS MEDICAL INVLV THE IMAGING ASS CIRC & RESP SYS O471 FALSE LABOR 05-13-2016 [facility] AT/AFTER PHYSICIANS 37 GROUP COMPLETED WEEKS GEST M7541 IMPINGEMENT 04-14-2016 [facility] OF RIGHT INC SHOULDER S52204 PAIN IN 02-28-2016 [place] RIGHT MEDICAL SHOULDER IMAGING ASS M542 CERVICALGIA 02-28-2016 [facility] PHYSICIANS GROUP W352YMZ UNSPECIFIED 02-28-2016 [place] INJURY OF MEDICAL NECK IMAGING ASS INITIAL ENCOUNTER [id number] STRN UNS 02-28-2016 [facility] M&T SHLDR PHYSICIANS UP ARM LEVL GROUP RT ARM INIT ENC G4733 OBSTRUCTIVE 01-28-2016 [facility] ADULT MEDICAL PEDIATRIC EQUIPME E049 NONTOXIC 01-23-2016 [facility] GOITER PHYSICIANS UNSPECIFIED GROUP G4730 SLEEP APNEA 01-02-2016 [facility]PEC[facility]IED [facility]OSP[facility] I959 HYPOTENSION 01-02-2016 [facility] R7989 OTHER SPEC 01-02-2016 [facility] BLOOD CHEMISTRY E1165 TYPE 2 11-28-2015 [facility] WITH [place]PERGLYCEM [place] N926 IRREGULAR 11-28-2015 [facility] UNSPECIFIED F47191 OTHER 09-26-2015 [facility] MUSCLE PHYSICIANS SPASM GROUP C59518N LACERATION 09-26-2015 [facility] WITHOUT PHYSICIANS FOREIGN GROUP BODY LT EAR INITIAL Z23 ENCOUNTER 09-26-2015 [facility] FOR PHYSICIANS IMMUNIZATIO GROUP N E139 OT SPEC 08-27-2015 [facility] DI[facility]ETES LAR MELLITUS CONSULTANTS W/O O COMPLICATIO NS G737 MYOPATHY IN 08-27-2015 [facility] DISEASES PHYSICIANS CLASSIFIED GROUP ELSEWHERE I119 HYPERTENSIV 08-27-2015 [facility] E HEART LAR DISEASE CONSULTANTS WITHOUT O HEART FAILURE M791 MYALGIA 08-27-2015 [facility] PHYSICIANS GROUP E669 OBESITY 08-21-2015 [place] UNSPECIFIED MEDICAL IMAGING ASS I209 ANGINA 07-18-2015 [...] LAR IOGRAM CONSULTANTS O R002 PALPITATION 06-17-2015 [facility] P 62126 DEGEN 04-19-2015 [facility] LUMBAR/LUMB [facility] OSACRAL INC INTERVERTEB RAL DISC 7244 THORACIC/AMY 03-21-2015 SOHA LEDESMA MD, PSC NEURITIS/RA DICULITIS UNSPEC V5869 LONG-TERM 12-24-2014 [facility] (CURRENT) [facility] USE OF INC OTHER MEDICATIONS 31961 OSTEOARTHRO 11-21-2014 [facility] SIS UNSPEC PHYSICIANS WHETHER GROUP GEN/LOC LOWER LEG 97848 PAIN IN 11-16-2014 [place] JOINT, MEDICAL LOWER LEG IMAGING ASS V7263 PRE-PROCEDU 11-16-2014 [facility] HOSP LABORATORY INC EXAMINATION 2449 UNSPECIFIED 11-14-2014 [facility] HYPOTHYROID INC ISM 68945 DIAB W/O 11-14-2014 [facility] COMP TYPE [facility] II/UNS NOT INC STATED UNCNTRL 6259 UNSPEC 11-02-2014 [facility] SYMPTOM [facility] W/FEMALE GENITAL ORGANS 6262 EXCESSIVE 11-02-2014 GIAN[facility]CA Davis OR FREQUENT [facility] MENSTRUATIO N V7231 ROUTINE 11-02-2014 GIANLUCA Davis GYNECOLOGIC [facility] AL EXAMINATION 60876 ESOPHAGEAL 10-23-2014 [facility] REFLUX PHYSICIANS GROUP 09948 ABDOMINAL 10-23-2014 [facility] PAIN, PHYSICIANS EPIGASTRIC GROUP 6160 CERVICITIS 10-18-2014 [place] AND MEDICAL ENDOCERVICI IMAGING ASS TIS 49747 ABDOMINAL 10-18-2014 [place] PAIN OTHER MEDICAL SPECIFIED IMAGING ASS SITE 77363 ABDOMINAL 10-09-2014 [place] PAIN, MEDICAL UNSPECIFIED IMAGING ASS SITE 4019 UNSPECIFIED 10-06-2014 [facility] P N 4139 OTHER AND 10-06-2014 [facility] P PECTORIS 43569 ASTHMA, 10-06-2014 [facility] P UNSPECIFIED STATUS 1129 CANDIDIASIS 09-19-2014 [facility] OF PHYSICIANS UNSPECIFIED GROUP SITE 04473 REFLUX 09-04-2014 [facility] 5368 DYSPEPSIA&O 09-03-2014 [facility] THER SPEC PHYSICIANS DISORDERS GROUP FUNCTION STOMACH 54566 OBESITY, 08-23-2014 [facility] UNSPECIFIED PHYSICIANS GROUP 7242 LUMBAGO 08-23-2014 [facility] PHYSICIANS GROUP 67009 CLOSED 07-20-2014 [facility] FRACTURE OF PHYSICIANS UPPER END GROUP OF FIBULA V0481 NEED 07-20-2014 [facility] PROPHYLACTI PHYSICIANS C GROUP VACCINATION &INOCULATIO N FLU 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 SYNDROME GROUP V5416 AFTERCARE 07-19-2014 [facility] HEALING PHYSICIANS TRAUMATIC GROUP FRACTURE LOWER LEG 8449 SPRAIN&STRA 06-22-2014 [facility] IN OF PHYSICIANS UNSPECIFIED GROUP SITE OF KNEE&LEG 52536 CLOSED 06-16-2014 [facility] FRACTURE OF N EMERGENCY PHYS UNSPECIFIED PART OF FIBULA 11667 UNSPECIFIED 06-16-2014 [facility] SITE OF N EMERGENCY ANKLE PHYS SPRAIN AND STRAIN E8888 OTHER FALL 06-16-2014 [facility] N EMERGENCY PHYS 7231 CERVICALGIA 02-22-2014 [facility] 7291 UNSPECIFIED 02-22-2014 [facility] MYOSITIS 7210 CERVICAL 02-16-2014 [place] SPONDYLOSIS MEDICAL WITHOUT IMAGING ASS MYELOPATHY 7213 LUMBOSACRAL 02-16-2014 [place] MEDICAL SPONDYLOSIS IMAGING ASS WITHOUT MYELOPATHY 7220 DISPLCMT 02-16-2014 [place] CERV MEDICAL INTERVERT IMAGING ASS DISC WITHOUT MYELOPATHY 01045 DISPLCMT 02-16-2014 [place] LUMBAR MEDICAL INTERVERT IMAGING ASS DISC W/O MYELOPATHY E8859 FALL FROM 02-10-2014 [facility] OTHER N EMERGENCY SLIPPING PHYS TRIPPING OR STUMBLING V1582 PERS HX 02-10-2014 [facility]ACCO [facility] PRESENTING INC HAZARDS HEALTH 2409 GOITER, 01-09-2014 [place] UNSPECIFIED MEDICAL IMAGING ASS 7842 SWELLING 01-09-2014 [facility] OR [facility] LUMP IN INC HEAD AND NECK 7945 NONSPECIFIC 01-09-2014 [place] ABNORM MEDICAL RESULTS IMAGING ASS THYROID FUNCT STUDY 7245 UNSPECIFIED 12-19-2013 [facility] BACKACHE PHYSICIANS GROUP 87000 HELICOBACTE 11-20-2013 [facility] R PYLORI PHYSICIANS INFECTION GROUP 3559 MONONEURITI 10-19-2013 [facility] S OF PHYSICIANS UNSPECIFIED GROUP SITE 2724 OTHER AND 10-10-2013 [facility] UNSPECIFIED PHYSICIANS GROUP HYPERLIPIDE JOSE 95811 PAIN IN 10-10-2013 [facility] JOINT, SITE PHYSICIANS GROUP UNSPECIFIED 96077 CHEST PAIN 10-04-2013 [facility] INC 250.00 250.00 DIAB 08-24-2013 [facility] JOVITA WO [facility] COMPL, TYPE Hospital II OR UNSPEC TYPE, NOT UNCNTRLD 401.9 401.9 08-24-2013 Joseph HYPERTENSIO [facility] N NOS Hospital 493.90 493.90 08-24-2013 Joseph ASTHMA, [facility] UNSPECIFIED Hospital 530.81 530.81 08-24-2013 Joseph ESOPHAGEAL [facility] REFLUX Hospital 575.8 575.8 DIS 08-24-2013 Joseph OF [facility] GALLBLADDER [facility] 786.59 786.59 08-24-2013 Joseph CHEST PAIN [facility] 73201 OTHER CHEST 08-24-2013 [facility] 272.4 272.4 06-02-2013 Joseph HYPERLIPIDE [facility]/NOS [facility] 845.09 845.09 06-02-2013 Joseph SPRAIN OF [facility] ANKLE [facility] E928.9 E928.9 06-02-2013 Joseph ACCIDENT [facility] 845.00 845.00 05-20-2013 Joseph SPRAIN OF [facility] ANKLE [facility] E849.8 E849.8 05-20-2013 Joseph ACCIDENT IN [facility] E927.0 E927.0 05-20-2013 Joseph OVEREXERTIO [facility] SUDDEN STRENUOUS MOVEMENT 915.6 915.6 03-18-2013 Joseph FOREIGN [facility] BODY [facility] 729.5 729.5 PAIN 10-01-2012 Joseph IN LIMB [facility] 844.9 844.9 10-01-2012 Joseph SPRAIN OF [facility] KNEE & LEG [facility] NOS E849.0 E849.0 10-01-2012 Joseph ACCIDENT IN [facility] E885.9 E885.9 FALL 10-01-2012 Joseph FROM [facility] SLIPPING, Hospital TRIPPING, OR STUMBLING [facility] M54.9 DORSALGIA, UNSPECIFIED Allergies, Adverse [...] 10 11 60 30 00 EA Ac HI 59 -2 -[address] ti [...] 50 DE ZA 11 17 17 72 HI 0 26 PH IN AR E MA [...] 50 DE ZA 11 17 17 24 HI 0 47 PH IN AR E MA [...] 15 0- 3- 00 00 SI ve HI 02 20 20 50 DE ED 20 [...] 5 39 PH CE AR TA MA MN CY NO PH OF CY 7. NT [...] 5 27 PH CE AR TA MA MN CY NO PH OF CY 7. NT [...] 20 5- 8- 00 00 SI ve MN 76 20 20 0 49 DE N [...] 07 07 60 30 00 EA Ac HI 59 -0 -[address] ti [...] 17 17 71 E 5 33 PH HI AR OP MA CY 50 OF MC [...] 17 17 71 E 5 33 PH HI AR OP MA CY 50 OF MC [...] 05 06 60 30 00 EA Ac HI 59 -3 -[address] ti [...] ti OR 20 - 00 SI ve MN 76 20 20 0 48 DE N [...] 04 05 60 30 00 EA Ac HI 18 -1 -[address] ti [...] 17 17 71 E 5 33 PH HI AR OP MA CY 50 OF MC [...] 47 DE ZA 11 17 17 73 HI 0 89 PH IN AR E MA [...] 5 48 PH CE AR TA MA MN CY NO PH OF EN CY NT [...] 02 03 60 30 00 EA Ac HI 18 -2 -[address] ti [...] 20 3- 4- 00 00 SI ve MN 76 20 20 47 DE N 01 [...] 47 DE ZA 11 17 17 73 HI 0 89 PH IN AR E MA [...] 46 DE ZA 11 16 17 52 HI 0 42 PH IN AR E MA 10 CY MG OF CY TA NT BL HI ET AN A IN C ME 68 12 01 60 30 00 EA Ac TF 38 -2 -[address] ti OR 20 3- 0- 00 00 SI ve MN 76 20 20 45 DE N 01 [...] 12 01 60 30 00 EA Ac HI 18 -2 -[address] ti [...] 12 01 20 10 00 EA Ac HI 46 -1 -[address] ti [...] 017 K/mm3 ed monocyt 15:50 e count [place] % = 4.7 % 1.7-9.3 complet 017 [...] SQUARE METERS Comment: If this patient is -Hungarian, then multiply the Comment: result by 1.210. [...] 017 K/mm3 ed monocyt 16:36 e count [place] % = 5.8 % 1.7-9.3 complet 017 [...] SQUARE METERS Comment: If this patient is -Hungarian, then multiply the Comment: result by 1.210. [...] End Date Code Location Performer Type Date [facility] JOSEPH - 7 7 [facility] JOSEPH - 6 6 [facility] JO[facility] - 5 5 [facility] - 5 5 [facility] - 5 5 [facility] - 5 5 [facility] - 5 5 [facility] - 5 5 [facility] - 5 5 [facility] - 5 5 [facility] - 5 5 [facility] - 5 5 [facility] - 5 5 [facility] - 4 4 [facility] - 4 4 [facility] - 4 4 [facility] - 4 4 [facility] JO[facility] - 4 4 [facility] JOSEPH - 4 4 [facility] - 4 4 [facility]PATI[facility] - 4 4 [facility] OUTPATIEN [facility] Emergency MARY LOAIZA MD (ER) 4 08:50 4 12:52 [facility] Emergency MARY Wise MD (ER) 3 11:11 3 12:27 [facility] Emergency MARY Wise MD (ER) 3 17:32 3 18:42 [facility] Emergency MARY Vigil MD (ER) 3 18:16 3 18:49 [facility] Emergency MARY SHORT (ER) 3 17:52 3 20:18 [facility]
--- OUTSIDE RECORDS SUMMARY | 2017-07-08 17:22 | External Medical Summary Rpt | CCD ---
Author Author , JOSIANE BONILLAKANDACE Address Unknown Phone [email or web address] Care Team Providers Care Stamping Mill Tender Name Role Phone CHELY PORTER MD, PSC, Unavailable Unavailable CHELY PORTER MD, PSC [facility] Unavailable Unavailable CONSULTANTS O, [facility] GIANLUCA NGUYEN MD, Unavailable Unavailable GIANLUCA NGUYEN MD [facility] Unavailable Unavailable INC, [facility] Unavailable [facility]available HOSPITAL, [facility] Unavailable Unavailable HOSPITAL P, [facility] P [facility], Unavailable Unavailable [facility] Un[facility], [facility] Unavailable SERVICES, [facility], Unavailable Unavailable [facility] Un[facility] Unavailable Unavailable PLL[facility], [facility] Unavailable Unavailable [facility] Unavailable Unavailable EQUIPME, [facility] Unavailable Unavailable EMERGENCY PHYS, [facility] Purpose Continuity of Care Document - 08-24-2013 through 2016 Problems Code Diagnosis DOS Provider Status E039 HYPOTHYROID 06-07-2017 [facility] ISM PHYSICIANS UNSPECIFIED GROUP E0841 DM D/T 06-07-2017 [facility] UNDERLYING PHYSICIANS COND GROUP W/DIABETIC MONONEUROPA THY M545 LOW BACK 06-07-2017 [facility] PAIN PHYSICIANS GROUP B029 ZOSTER 05-19-2017 [facility] COMPLICATIO INC NS E785 HYPERLIPIDE 05-19-2017 [facility] UNSPECIFIED INC I10 ESSENTIAL 05-19-2017 [facility] HYPERTENSIO INC N [id number] UNSPECIFIED 05-19-2017 [facility] UNCOMPLICAT INC ED 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-06-2017 [facility] BILATERAL E559 VITAMIN D 05-05-2017 [facility] DEFICIENCY PHYSICIANS UNSPECIFIED GROUP M1990 UNSPECIFIED 05-05-2017 [facility] PHYSICIANS OSTEOARTHRI GROUP TIS UNSPECIFIED SITE N946 DYSMENORRHE 05-05-2017 [facility] A PHYSICIANS UNSPECIFIED GROUP E119 TYPE 2 04-28-2017 [facility] DIABETES PHYSICIANS MELLITUS GROUP WITHOUT COMPLICATIO NS J329 CHRONIC 04-28-2017 [facility] SINUSITIS PHYSICIANS UNSPECIFIED GROUP L989 DISORDER 04-07-2017 [facility] THE SKIN & PHYSICIANS SUBCUTANEOU GROUP S TISSUE UNS Z8719 PERSONAL 04-07-2017 [facility] HISTORY PHYSICIANS OTHER GROUP DISEASES DIGESTIVE SYSTEM N393 STRESS 02-22-2017 [facility] INCONTINENC PHYSICIANS E FEMALE GROUP MALE E6601 MORBID 12-22-2016 [facility] SEVERE PHYSICIANS OBESITY DUE GROUP TO EXCESS CALORIES L680 HIRSUTISM 12-22-2016 [facility] PHYSICIANS GROUP H6980 OTHER SPEC 11-26-2016 [facility] DISORDERS PHYSICIANS EUSTACHIAN GROUP TUBE UNS EAR J309 ALLERGIC 11-26-2016 [facility] RHINITIS PHYSICIANS UNSPECIFIED GROUP J310 CHRONIC 11-26-2016 [facility] RHINITIS PHYSICIANS GROUP J320 CHRONIC 11-16-2016 [facility] MAXILLARY PHYSICIANS SINUSITIS GROUP J342 DEVIATED 11-16-2016 [facility] NASAL PHYSICIANS SEPTUM GROUP J341 CYST AND 11-03-2016 [facility] NASAL SINUS R040 EPISTAXIS 10-22-2016 [facility] PHYSICIANS GROUP R1013 EPIGASTRIC 09-24-2016 [facility] PAIN PHYSICIANS GROUP K210 GASTRO-ESOP 08-28-2016 [facility] HAGEAL PHYSICIANS REFLUX GROUP DISEASE W/ ESOPHAGITIS J0100 ACUTE 08-11-2016 [facility] MAXILLARY [facility], SINUSITIS PLLC UNSPECIFIED [id number] PAIN IN 07-20-2016 [facility] LEFT KNEE PHYSICIANS, PLLC N819 FEMALE 07-16-2016 [facility] GENITAL PHYSICIANS PROLAPSE GROUP UNSPECIFIED N920 EXCESS & 07-16-2016 [facility] FREQUENT PHYSICIANS MENSTRUATIO GROUP N W/REGULAR CYCLE Z1231 ENCOUNTER 07-16-2016 [facility]MO MALIG IMAGING ASS NEOPLASM BREAST Z3009 ENCOUNTER 07-16-2016 [facility] OT GENERAL PHYSICIANS GROUP ASSOCIATE PROFESSOR OF AUTOMATION&ADV ICE CONTRACEPT E663 OVERWEIGHT 07-13-2016 [facility] PHYSICIANS GROUP 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 N888 OTH SPEC 07-13-2016 [facility] NONINFLAMMA MEDICAL TORY IMAGING ASS DISORDERS CERVIX UTERI R102 PELVIC AND 07-13-2016 [facility] PERINEAL [facility]ICAL PAIN IMAGING ASS S19821 OTHER 07-08-2016 [facility] B80699 ENCOUNTER 06-30-2016 [facility] SUGAR CANE PLANTER EXAM PHYSICIANS GENERAL RTN GROUP W/ABNORMAL FIND F18384 ENCOUNTER 06-30-2016 [facility] SUGAR CANE PLANTER EXAM PHYSICIANS GENERAL RTN GROUP W/O ABNORMAL FIND Z803 FAMILY 06-30-2016 [facility] HISTORY OF PHYSICIANS MALIGNANT GROUP NEOPLASM OF BREAST R05 COUGH 06-29-2016 [facility] PLLC J40 BRONCHITIS 06-19-2016 [facility] NOT PHYSICIANS SPECIFIED GROUP ACUTE OR CHRONIC K219 GASTRO-ESOP 06-19-2016 [facility] H REFLUX PHYSICIANS DISEASE GROUP WITHOUT ESOPHAGITIS R32 UNSPECIFIED 06-19-2016 [facility] URINARY PHYSICIANS INCONTINENC GROUP E [id number] ALLERGY 06-19-2016 [facility] UNSPECIFIED PHYSICIANS INITIAL GROUP ENCOUNTER J029 ACUTE 06-05-2016 [facility] PHARYNGITIS PHYSICIANS, PLLC UNSPECIFIED M1712 UNILATERAL 06-05-2016 [facility] PRIMARY PHYSICIANS, OSTEOARTHRI PLLC TIS LEFT KNEE R0989 OTH SPEC SX 06-05-2016 [facility] THE IMAGING ASS CIRC & RESP SYS O471 FALSE LABOR 05-13-2016 [facility] AT/AFTER PHYSICIANS 37 GROUP COMPLETED WEEKS GEST M7541 IMPINGEMENT 04-14-2016 [facility] SH[facility] [id number] PAIN IN 02-28-2016 [facility] RIGHT MEDICAL SHOULDER IMAGING ASS M542 CERVICALGIA 02-28-2016 [facility] PHYSICIANS GROUP H523VHY UNSPECIFIED 02-28-2016 [facility] INJURY OF MEDICAL NECK IMAGING ASS INITIAL ENCOUNTER V07596V STRN UNS 02-28-2016 [facility] M&T SHLDR PHYSICIANS UP ARM LEVL GROUP RT ARM INIT ENC G4733 OBSTRUCTIVE 01-28-2016 [facility] ADULT [facility] PEDIATRIC EQUIPME E049 NONTOXIC 01-23-2016 [facility] GOITER PHYSICIANS UNSPECIFIED GROUP G4730 SLEEP APNEA 01-02-2016 [facility] I959 HYPOTENSION 01-02-2016 [facility] R7989 OTHER SPEC 01-02-2016 [facility] BLOOD CHEMISTRY E1165 TYPE 2 11-28-2015 [facility] WITH HYPERGLYCEM IA N926 IRREGULAR 11-28-2015 [facility] UNSPECIFIED H25188 OTHER 09-26-2015 [facility] MUSCLE PHYSICIANS SPASM GROUP N74003S LACERATION 09-26-2015 [facility] WITHOUT PHYSICIANS FOREIGN GROUP BODY LT EAR INITIAL Z23 ENCOUNTER 09-26-2015 [facility] FOR PHYSICIANS IMMUNIZATIO GROUP N E139 OTH SPEC 08-27-2015 [facility] LAR MELLITUS CONSULTANTS W/O O COMPLICATIO NS G737 MYOPATHY IN 08-27-2015 [facility] DISEASES PHYSICIANS CLASSIFIED GROUP ELSEWHERE I119 HYPERTENSIV 08-27-2015 [facility] E HEART LAR DISEASE CONSULTANTS WITHOUT O HEART FAILURE M791 MYALGIA 08-27-2015 [facility] PHYSICIANS GROUP E669 OBESITY 08-21-2015 [facility] UNSPECIFIED MEDICAL IMAGING ASS I209 ANGINA 07-18-2015 [...] MEM HOS[facility] GIDDINESS INC R9430 ABNORMAL 07-02-2015 [facility] RESULT CV PHYSICIANS FUNCTION GROUP STUDY UNS R9431 ABNORMAL 07-02-2015 [facility] ELECTROCARD LAR IOGRAM CONSULTANTS O R002 PALPITATION 06-17-2015 [facility] P 01808 DEGEN 04-19-2015 [facility] LUMBAR/LUMB [facility] OSACRAL INC INTERVERTEB RAL DISC 7244 THORACIC/AMY 03-21-2015 SOHA LEDESMA MD, PSC NEURITIS/RA DICULITIS UNSPEC V5869 LONG-TERM 12-24-2014 [facility] (CURRENT) [facility] USE OF INC OTHER MEDICATIONS 74453 OSTEOARTHRO 11-21-2014 [facility] SIS UNSPEC PHYSICIANS WHETHER GROUP GEN/LOC LOWER LEG 05437 PAIN IN 11-16-2014 [facility], MEDICAL LOWER LEG IMAGING ASS V7263 PRE-PROCEDU 11-16-2014 [facility] RAL [facility] LABORATORY INC EXAMINATION 2449 UNSPECIFIED 11-14-2014 [facility] HYPOTHYROID INC ISM 28295 DIAB W/O 11-14-2014 [facility] COMP TYPE [facility] II/UNS NOT INC STATED UNCNTRL 6259 UNSPEC 11-02-2014 [facility] SYMPTOM [facility] W/FEMALE GENITAL ORGANS 6262 EXCESSIVE 11-02-2014 [facility] OR FREQUENT [facility] MENSTRUATIO N V7231 ROUTINE 11-02-2014 [facility] GYNECOLOGIC [facility] AL EXAMINATION 34063 ESOPHAGEAL 10-23-2014 [facility] REFLUX PHYSICIANS GROUP 44561 ABDOMINAL 10-23-2014 [facility] PAIN, PHYSICIANS EPIGASTRIC GROUP 6160 CERVICITIS 10-18-2014 [facility]ICAL ENDOCERVICI IMAGING ASS TIS 34474 ABDOMINAL 10-18-2014 [facility] OTHER MEDICAL SPECIFIED IMAGING ASS SITE 92722 ABDOMINAL 10-09-2014 [facility], MEDICAL UNSPECIFIED IMAGING ASS SITE 4019 UNSPECIFIED 10-06-2014 [facility] P N 4139 OTHER AND 10-06-2014 [facility] PECTORIS 96456 ASTHMA, 10-06-2014 [facility] P UNSPECIFIED STATUS 1129 CANDIDIASIS 09-19-2014 [facility] OF PHYSICIANS UNSPECIFIED GROUP SITE 68459 REFLUX 09-04-2014 [facility], ESOPHAGITIS [facility] 5368 DYSPEPSIA&O 09-03-2014 [facility] THER SPEC PHYSICIANS DISORDERS GROUP FUNCTION STOMACH 50099 OBESITY, 08-23-2014 [facility] UNSPECIFIED PHYSICIANS GROUP 7242 LUMBAGO 08-23-2014 [facility] PHYSICIANS GROUP 51250 CLOSED 07-20-2014 [facility] FRACTURE OF PHYSICIANS UPPER END GROUP OF FIBULA V0481 NEED 07-20-2014 [facility] PROPHYLACTI PHYSICIANS C GROUP VACCINATION &INOCULATIO N FLU 3540 CARPAL 07-19-2014 [facility] TUNNEL PHYSICIANS SYNDROME GROUP V5416 AFTERCARE 07-19-2014 [facility] HEALING PHYSICIANS TRAUMATIC GROUP FRACTURE LOWER LEG 8449 SPRAIN&STRA 06-22-2014 [facility] IN OF PHYSICIANS UNSPECIFIED GROUP SITE OF KNEE&LEG 75530 CLOSED 06-16-2014 [facility] FRACTURE OF N EMERGENCY PHYS UNSPECIFIED PART OF FIBULA 21678 UNSPECIFIED 06-16-2014 [facility] SITE OF N EMERGENCY ANKLE PHYS SPRAIN AND STRAIN E8888 OTHER FALL 06-16-2014 [facility] N EMERGENCY PHYS 7231 CERVICALGIA 02-22-2014 [facility] 7291 UNSPECIFIED 02-22-2014 [facility] MYOSITIS 7210 CERVICAL 02-16-2014 [facility] SPONDYLOSIS [facility]ICAL WITHOUT IMAGING ASS MYELOPATHY 7213 LUMBOSACRAL 02-16-2014 [facility] SPONDYLOSIS IMAGING ASS WITHOUT MYELOPATHY 7220 DISPLCMT 02-16-2014 [facility] CERV [facility]ICAL INTERVERT IMAGING ASS DISC WITHOUT MYELOPATHY 60735 DISPLCMT 02-16-2014 [facility] LUMBAR MEDICAL INTERVERT IMAGING ASS DISC W/O MYELOPATHY E8859 FALL FROM 02-10-2014 [facility] OTHER N EMERGENCY SLIPPING PHYS TRIPPING OR STUMBLING V1582 PERS HX 02-10-2014 [facility] TOBACCO USE [facility] PRESENTING INC [facility]DS [facility] 2409 GOITER, 01-09-2014 [facility] UNSPECIFIED [facility]ICAL IMAGING ASS 7842 SWELLING 01-09-2014 [facility] MASS OR [facility] LUMP IN INC HEAD AND NECK 7945 NONSPECIFIC 01-09-2014 [facility] ABNORM MEDICAL RESULTS IMAGING ASS THYROID FUNCT STUDY 7245 UNSPECIFIED 12-19-2013 [facility] BACKACHE PHYSICIANS GROUP 10524 HELICOBACTE 11-20-2013 [facility] R PYLORI PHYSICIANS INFECTION GROUP 3559 MONONEURITI 10-19-2013 [facility] S OF PHYSICIANS UNSPECIFIED GROUP SITE 2724 OTHER AND 10-10-2013 [facility] UNSPECIFIED PHYSICIANS GROUP HYPERLIPIDE JOSE 53838 PAIN IN 10-10-2013 [facility] JOINT, SITE PHYSICIANS GROUP UNSPECIFIED 24714 CHEST PAIN 10-04-2013 [facility] UNSPECIFIED [facility] INC 92382 OTHER CHEST 08-24-2013 [facility] Medications Na ND Rx [...] ST ti ON 20 8- 4- 00 SI ve OL 51 20 20 [...] 10 11 60 30 00 EA Ac TX 59 -2 -[address] ti [...] 50 DE ZA 11 17 17 72 TX 0 26 PH IN AR E MA [...] 50 DE ZA 11 17 17 24 TX 0 47 PH IN AR E MA 10 CY MG OF CY TA NT BL HI ET AN A IN C CE 16 09 10 30 30 00 EA Ac TI 71 -2 -[address] ti RI 40 1- 0- 00 00 SI ve ZI 27 20 20 50 DE NE 10 17 17 25 3 31 PH HC AR L MA 10 CY MG OF CY TA NT BL HI ET AN A IN C VA 65 09 10 30 30 00 EA Ac LS 86 -2 -[address] ti AR 20 5- 0- 00 00 SI ve TA 55 20 20 50 DE N- 19 17 17 28 HC 0 44 PH TZ AR MA 32 CY 0- 25 OF CY MG NT HI TA AN B A IN C 69 09 10 4. 28 00 EA Ac T 45 -2 -[address] ti D2 20 7- 0- 0 00 SI ve 15 20 20 50 DE 1. 12 17 17 32 25 0 05 PH AR MG MA CY (5 0, OF 00 CY 0 NT UN HI IT AN ) A IN C CE 65 09 10 [...] 15 0- 3- 00 00 SI ve TX 02 20 20 50 DE ED 20 [...] ET A IN C LE 00 09 90 90 00 EA Ac VO [...] AN A IN C VA 65 08 30 30 00 EA Ac LS 86 [...] HI AN A IN C VA 65 12 12 30 30 00 EA Ac LS 86 [...] 20 8- 2- 00 00 SI ve MN 76 20 [...] HI ET AN A IN C GL 00 02 03 90 90 00 EA [...] 2. 00 ST ti OP 14 7- 4 00 00 SI ve RA 05 20 20 0 47 DE ZO 44 17 17 78 L- 2 14 PH AM AR OX MA IC CY IL -C OF LA CY RI NT TH HI RO AN A IN C GL 00 02 30 30 00 EA Ac IP 78 -2 -[address] ti IZ 11 4- 7- 00 SI ve ID 45 20 20 [...] NT HI AN A IN C LO 12 30 30 00 EA Ac VA 18 -0 -[address] 50 9- 9- 00 00 SI ve AT 07 20 20 46 DE IN 26 16 17 83 0 66 PH 20 AR MA MG CY TA OF BL CY ET NT HI AN A IN C LE 12 01 30 30 00 EA Ac [...] .[address] ti OX 20 2- 00 SI ve EN 19 20 20 46 DE 00 16 17 86 50 5 35 PH 0 AR MG MA CY TA BL OF ET CY NT HI AN A IN C OX 62 12 01 21 21 00 EA Ac YB 17 -0 -[address] ti UT 50 8- 00 SI ve YN 27 20 20 46 DE IN 13 16 17 82 7 10 PH CL AR MA ER CY 10 OF CY MG NT HI TA AN BL A ET IN C Encounters Encounter Start End Date Code Location Performer Type Date [facility] - 7 7 [facility] 6 [facility] 5 5 [facility] 5 5 [facility] - 5 5 [facility] - 5 5 [facility] - 5 5 [facility] - 5 5 [facility] - 5 5 [facility] - 5 5 [facility] - 5 5 [facility] - 5 5 [facility] - 4 4 [facility] - 4 4 [facility] - 4 4 [facility] - 4 4 [facility] - 4 4 [facility] 4 4 [facility] - 4 4 [facility] - 4 4 [facility]
--- OUTSIDE RECORDS SUMMARY | 2017-07-08 17:22 | External Medical Summary Rpt | CCD ---
Author Author , JOSIANE BONILLAKANDACE Address Unknown Phone [email or web address] Care Team Providers Care Interchange Agent Name Role Phone CHELY PORTER MD, PSC, Unavailable Unavailable CHELY PORTER MD, PSC [facility] Unavailable Unavailable CONSULTANTS O, [facility] GIANLUCA NGUYEN MD, Unavailable Unavailable GIANLUCA NGUYEN MD [facility] Unavailable Unavailable INC, [facility] Unavailable Unavailable HOSPITAL, [facility] Unavailable [facility]available HOSPITAL P, [facility], Unavailable Unavailable [facility] Un[facility] Un[facility], [facility] Unavailable Unavailable SERVICES, [facility], Unavailable Unavailable [facility] Un[facility] Un[facility] Unavailable [facility], [facility], [facility] Unavailable Unavailable [facility] Unavailable Unavailable EQUIPME, [facility] Unavailable Unavailable EMERGENCY PHYS, [facility] Purpose Continuity of Care Document - 08-24-2013 through 2016 Problems Code Diagnosis DOS Provider Status E039 HYPOTHYROID 06-07-2017 [facility] ISM PHYSICIANS UNSPECIFIED GROUP E0841 DM D/T 06-07-2017 [facility] UNDERLYING PHYSICIANS COND GROUP W/DIABETIC MONONEUROPA THY M545 LOW BACK 06-07-2017 [facility] PAIN PHYSICIANS GROUP B029 ZOSTER 05-19-2017 [facility] COMPLICATIO INC NS E785 HYPERLIPIDE 05-19-2017 [facility] UNSPECIFIED INC I10 ESSENTIAL 05-19-2017 [facility] HYPERTENSIO INC N [id number] UNSPECIFIED 05-19-2017 [facility]MA [facility] UNCOMPLICAT INC ED 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-06-2017 [facility] BILATERAL E559 VITAMIN D 05-05-2017 [facility] DEFICIENCY PHYSICIANS UNSPECIFIED GROUP M1990 UNSPECIFIED 05-05-2017 [facility] PHYSICIANS OSTEOARTHRI GROUP TIS UNSPECIFIED SITE N946 DYSMENORRHE 05-05-2017 [facility] A PHYSICIANS UNSPECIFIED GROUP E119 TYPE 2 04-28-2017 [facility] DIABETES PHYSICIANS MELLITUS GROUP WITHOUT COMPLICATIO NS J329 CHRONIC 04-28-2017 [facility] SINUSITIS PHYSICIANS UNSPECIFIED GROUP L989 DISORDER 04-07-2017 [facility] THE SKIN & PHYSICIANS SUBCUTANEOU GROUP S TISSUE UNS Z8719 PERSONAL 04-07-2017 [facility] HISTORY PHYSICIANS OTHER GROUP DISEASES DIGESTIVE SYSTEM N393 STRESS 02-22-2017 [facility] INCONTINENC PHYSICIANS E FEMALE GROUP MALE E6601 MORBID 12-22-2016 [facility] SEVERE PHYSICIANS OBESITY DUE GROUP TO EXCESS CALORIES L680 HIRSUTISM 12-22-2016 [facility] PH[facility]IC[facility]ANS GROUP H6980 OTHER SPEC 11-26-2016 [facility] DISORDERS PHYSICIANS EUSTACHIAN GROUP TUBE UNS EAR J309 ALLERGIC 11-26-2016 [facility] RHINITIS PHYSICIANS UNSPECIFIED GROUP J310 CHRONIC 11-26-2016 [facility] RHINITIS PHYSICIANS GROUP J320 CHRONIC 11-16-2016 [facility] MAXILLARY PHYSICIANS SINUSITIS GROUP J342 DEVIATED 11-16-2016 [facility] NASAL PHYSICIANS SEPTUM GROUP J341 CYST AND 11-03-2016 [facility] NASAL SINUS R040 EPISTAXIS 10-22-2016 [facility]ANS GROUP R1013 EPIGASTRIC 09-24-2016 [facility] PAIN PHYSICIANS GROUP K210 GASTRO-ESOP 08-28-2016 [facility] HAGEAL PHYSICIANS REFLUX GROUP DISEASE W/ ESOPHAGITIS J0100 ACUTE 08-11-2016 [facility] MAXILLARY [facility], SINUSITIS PLLC UNSPECIFIED O82002 PAIN IN 07-20-2016 [facility] LEFT KNEE PHYSICIANS, PLLC N819 FEMALE 07-16-2016 [facility] GENITAL PHYSICIANS PROLAPSE GROUP UNSPECIFIED N920 EXCESS & 07-16-2016 [facility] FREQUENT PHYSICIANS MENSTRUATIO GROUP N W/REGULAR CYCLE Z1231 ENCOUNTER 07-16-2016 [facility]CRE[facility]MO MALIG [facility] ASS NEOPLASM BREAST Z3009 ENCOUNTER 07-16-2016 [facility] OT GENERAL PHYSICIANS GROUP PIPE COVERER AND INSULATOR&ADV ICE CONTRACEPT E663 OVERWEIGHT 07-13-2016 [facility] PHYSIC[facility]ANS GROUP 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 N888 OTH SPEC 07-13-2016 [facility] NONINFLAMMA MEDICAL TORY IMAGING ASS DISORDERS CERVIX UTERI R102 PELVIC AND 07-13-2016 [facility] PERINEAL [facility]ICAL PAIN [facility] M41744 OTHER 07-08-2016 [facility] F49263 ENCOUNTER 06-30-2016 [facility] DRIVER LICENSE REVIEWING OFFICER EXAM PHYSICIANS GENERAL RTN GROUP W/ABNORMAL FIND [id number] ENCOUNTER 06-30-2016 [facility] DRIVER LICENSE REVIEWING OFFICER EXAM PHYSICIANS GENERAL RTN GROUP W/O ABNORMAL FIND Z803 FAMILY 06-30-2016 [facility] HISTORY OF PHYSICIANS MALIGNANT GROUP NEOPLASM OF BREAST R05 COUGH 06-29-2016 [facility] J40 BRONCHITIS 06-19-2016 [facility] NOT PHYSICIANS SPECIFIED GROUP ACUTE OR CHRONIC K219 GASTRO-ESOP 06-19-2016 [facility] H REFLUX PHYSICIANS DISEASE GROUP WITHOUT ESOPHAGITIS R32 UNSPECIFIED 06-19-2016 [facility] URINARY PHYSICIANS INCONTINENC GROUP E [id number] ALLERGY 06-19-2016 [facility] UNSPECIFIED PHYSICIANS INITIAL GROUP ENCOUNTER J029 ACUTE 06-05-2016 [facility] PHARYNGITIS PHYSICIANS, PLLC UNSPECIFIED M1712 UNILATERAL 06-05-2016 [facility] PRIMARY PHYSICIANS, OSTEOARTHRI PLLC TIS LEFT KNEE R0989 OTH SPEC SX 06-05-2016 [facility] IN[facility] THE IMAGING ASS CIRC & RESP SYS O471 FALSE LABOR 05-13-2016 [facility] AT/AFTER PHYSICIANS 37 GROUP COMPLETED WEEKS GEST M7541 IMPINGEMENT 04-14-2016 [facility]NDROME [facility] OF RIGHT [facility] SHOULDER S87756 PAIN IN 02-28-2016 [facility] RIGHT MEDICAL SHOULDER IMAGING ASS M542 CERVICALGIA 02-28-2016 [facility] PHYSICIANS GROUP X109HQL UNSPECIFIED 02-28-2016 [facility] INJURY OF MEDICAL NECK IMAGING ASS INITIAL ENCOUNTER U09537C STRN UNS 02-28-2016 [facility] M&T SHLDR PHYSICIANS UP ARM LEVL GROUP RT ARM INIT ENC G4733 OBSTRUCTIVE 01-28-2016 [facility]ULT [facility]IC EQUIPME E049 NONTOXIC 01-23-2016 [facility] GOITER PHYSICIANS UNSPECIFIED GROUP G4730 SLEEP APNEA 01-02-2016 [facility] I959 HYPOTENSION 01-02-2016 [facility] R7989 OTHER SPEC 01-02-2016 [facility] BLOOD CHEMISTRY E1165 TYPE 2 11-28-2015 [facility] WITH HYPERGLYCEM IA N926 IRREGULAR 11-28-2015 [facility] UNSPECIFIED Z29971 OTHER 09-26-2015 [facility] MUSCLE PHYSICIANS SPASM GROUP [id number] LACERATION 09-26-2015 [facility] WITHOUT PHYSICIANS FOREIGN GROUP BODY LT EAR INITIAL Z23 ENCOUNTER 09-26-2015 [facility] FOR PHYSICIANS IMMUNIZATIO GROUP N E139 OTH SPEC 08-27-2015 [facility] LAR MELLITUS CONSULTANTS W/O O COMPLICATIO NS G737 MYOPATHY IN 08-27-2015 [facility] DISEASES PHYSICIANS CLASSIFIED GROUP ELSEWHERE I119 HYPERTENSIV 08-27-2015 [facility] E HEART LAR DISEASE CONSULTANTS WITHOUT O HEART FAILURE M791 MYALGIA 08-27-2015 [facility] PHYSICIANS GROUP E669 OBESITY 08-21-2015 [facility] MEDICAL IMAGING ASS I209 ANGINA 07-18-2015 [...] [facility] GIDDINESS INC R9430 ABNORMAL 07-02-2015 [facility] RESULT CV PHYSICIANS FUNCTION GROUP STUDY UNS R9431 ABNORMAL 07-02-2015 [facility] ELECTROCARD LAR IOGRAM CONSULTANTS O R002 PALPITATION 06-17-2015 [facility] P 26176 DEGEN 04-19-2015 [facility] LUMBAR/LUMB [facility] OSACRAL INC INTERVERTEB RAL DISC 7244 THORACIC/AMY 03-21-2015 [facility] LEDESMA MD, PSC NEURITIS/RA DICULITIS UNSPEC V5869 LONG-TERM 12-24-2014 [facility] (CURRENT) [facility] USE OF INC OTHER MEDICATIONS 09376 OSTEOARTHRO 11-21-2014 [facility] SIS UNSPEC PHYSICIANS WHETHER GROUP GEN/LOC LOWER LEG 84527 PAIN IN 11-16-2014 [facility] JOINT, MEDICAL LOWER LEG IMAGING ASS V7263 PRE-PROCEDU 11-16-2014 [facility] RAL [facility] LABORATORY INC EXAMINATION 2449 UNSPECIFIED 11-14-2014 [facility] HYPOTHYROID INC ISM 45356 DIAB W/O 11-14-2014 [facility] COMP TYPE [facility] II/UNS NOT INC STATED UNCNTRL 6259 UNSPEC 11-02-2014 [facility] SYMPTOM [facility] W/FEMALE GENITAL ORGANS 6262 EXCESSIVE 11-02-2014 GIANLUCA Davis OR FREQUENT [facility] MENSTRUATIO N V7231 ROUTINE 11-02-2014 GIANLUCA Davis GYNECOLOGIC [facility] AL EXAMINATION 62373 ESOPHAGEAL 10-23-2014 [facility] REFLUX PHYSICIANS GROUP 06792 ABDOMINAL 10-23-2014 [facility] PAIN, PHYSICIANS EPIGASTRIC GROUP 6160 CERVICITIS 10-18-2014 [facility] AND MEDICAL ENDOCERVICI IMAGING ASS TIS 24255 ABDOMINAL 10-18-2014 [facility] OTHER MEDICAL SPECIFIED IMAGING ASS SITE 10347 ABDOMINAL 10-09-2014 [facility] PAIN, MEDICAL UNSPECIFIED IMAGING ASS SITE 4019 UNSPECIFIED 10-06-2014 [facility] P N 4139 OTHER AND 10-06-2014 [facility] P PECTORIS 89186 ASTHMA, 10-06-2014 [facility] UNSPECIFIED STATUS 1129 CANDIDIASIS 09-19-2014 [facility] OF PHYSICIANS UNSPECIFIED GROUP SITE 97416 REFLUX 09-04-2014 [facility], ESOPHAGITIS [facility] 5368 DYSPEPSIA&O 09-03-2014 [facility] THER SPEC PHYSICIANS DISORDERS GROUP FUNCTION STOMACH 35729 OBESITY, 08-23-2014 [facility] UNSPECIFIED PHYSICIANS GROUP 7242 LUMBAGO 08-23-2014 [facility] PHYSICIANS GROUP 52970 CLOSED 07-20-2014 [facility] FRACTURE OF PHYSICIANS UPPER END GROUP OF FIBULA V0481 NEED 07-20-2014 [facility] PROPHYLACTI PHYSICIANS C GROUP VACCINATION &INOCULATIO N FLU 3540 CARPAL 07-19-2014 [facility] TUNNEL PHYSICIANS SYNDROME GROUP V5416 AFTERCARE 07-19-2014 [facility] HEALING PHYSICIANS TRAUMATIC GROUP FRACTURE LOWER LEG 8449 SPRAIN&STRA 06-22-2014 [facility] IN OF PHYSICIANS UNSPECIFIED GROUP SITE OF KNEE&LEG 72993 CLOSED 06-16-2014 [facility] FRACTURE OF N EMERGENCY PHYS UNSPECIFIED PART OF FIBULA 24802 UNSPECIFIED 06-16-2014 [facility] SITE OF N EMERGENCY ANKLE PHYS SPRAIN AND STRAIN E8888 OTHER FALL 06-16-2014 [facility] N EMERGENCY PHYS 7231 CERVICALGIA 02-22-2014 [facility] 7291 UNSPECIFIED 02-22-2014 [facility] MYOSITIS 7210 CERVICAL 02-16-2014 [facility] SPONDYLOSIS [facility]ICAL WITHOUT IMAGING ASS MYELOPATHY 7213 LUMBOSACRAL 02-16-2014 [facility] SPONDYLOSIS IMAGING ASS WITHOUT MYELOPATHY 7220 DISPLCMT 02-16-2014 [facility] CERV MEDICAL INTERVERT IMAGING ASS DISC WITHOUT MYELOPATHY 85667 DISPLCMT 02-16-2014 [facility] LUMBAR [facility]ICAL INTERVERT IMAGING ASS DISC W/O MYELOPATHY E8859 FALL FROM 02-10-2014 [facility] OTHER N EMERGENCY SLIPPING PHYS TRIPPING OR STUMBLING V1582 PERS HX 02-10-2014 [facility] TOBACCO USE [facility] PRESENTING INC HAZARDS HEALTH 2409 GOITER, 01-09-2014 [facility] UNSPECIFIED [facility]ICAL IMAGING ASS 7842 SWELLING 01-09-2014 [facility] MASS OR [facility] LUMP IN INC HEAD AND NECK 7945 NONSPECIFIC 01-09-2014 [facility] ABNORM MEDICAL RESULTS IMAGING ASS THYROID FUNCT STUDY 7245 UNSPECIFIED 12-19-2013 [facility] BACKACHE PHYSICIANS GROUP 72741 HELICOBACTE 11-20-2013 [facility] R PYLORI PHYSICIANS INFECTION GROUP 3559 MONONEURITI 10-19-2013 [facility] S OF PHYSICIANS UNSPECIFIED GROUP SITE 2724 OTHER AND 10-10-2013 [facility] UNSPECIFIED PHYSICIANS GROUP HYPERLIPIDE JOSE 06837 PAIN IN 10-10-2013 [facility] JOINT, SITE PHYSICIANS GROUP UNSPECIFIED 50839 CHEST PAIN 10-04-2013 [facility] UNSPECIFIED [facility] INC 31733 OTHER CHEST 08-24-2013 [facility] Medications Na ND Rx [...] 5 39 PH CE AR TA MA WY CY NO PH OF CY 7. NT [...] 5 27 PH CE AR TA MA [place] CY NO PH OF CY 7. NT [...] 20 5- 8- 00 00 SI ve [place] 76 20 20 0 49 DE N [...] 20 8- 2- 00 00 SI ve [place] 76 20 20 0 48 DE N [...] 5 48 PH CE AR TA MA [place] CY NO PH OF EN CY NT [...] 20 3- 4- 00 00 SI ve [place] 76 20 20 47 DE N 01 [...] 20 3- 0- 00 00 SI ve [place] 76 20 20 45 DE N 01 [...] End Date Code Location Performer Type Date [facility] - 7 7 [facility] - 6 6 [facility] - 5 5 [facility] - 5 5 [facility] - 5 5 [facility] - 5 5 [facility] - 5 5 [facility] - 5 5 [facility] - 5 5 [facility] - 5 5 [facility] - 5 5 [facility] - 5 5 [facility] - 5 5 [facility] - 4 4 [facility] - 4 4 [facility] 4 4 [facility] - [facility] - 4 4 [facility] - 4 4 [facility]
--- OUTSIDE RECORDS SUMMARY | 2017-07-08 17:23 | External Medical Summary Rpt | CCD ---
Author Author , JOSIANE JOSHUA Address Unknown Phone [email or web address] Immunization Name Date Rout CVX Reac Dose Comm Prov Is Faci e tion ent ider Refu lity Give sed n Tdap 01-2 115 999 Hist H149 No H149 , 9-20 oric Adso 13 al rbed Info rmat ion - Sour ce Unsp ecif ied
--- OUTSIDE RECORDS SUMMARY | 2017-07-08 17:23 | External Medical Summary Rpt | CCD ---
Author Author , JOSIANE JOSHUA Address Unknown Phone [email or web address] Immunization Name Date Rout CVX Reac Dose Comm Prov Is Faci e tion ent ider Refu lity Give sed n Tdap 01-2 115 999 Hist H149 No H149 , 9-20 oric Adso 13 al rbed Info rmat ion - Sour ce Unsp ecif ied
--- OUTSIDE RECORDS SUMMARY | 2017-07-08 17:24 | External Medical Summary Rpt ---
Author Author CHADKANDACE Moulton, JOSIANE Placed Organization [employer] Address Unknown Phone Unavailable Results Choriogonadotropin.beta subunit [Units] in 24 hour Urine Observa Value Referen Units Interpr Notes Date tion ce etation Range Choriogon NEG No No No Jun 30 adotropin informati informati informati 2017 3:55 .beta on in on in on in PM subunit source source source [Units] data data data in 24 hour Urine Comprehensive metabolic 2000 panel in Serum or Plasma Observa Value Referen Units Interpr Notes Date tion ce etation Range Albumin/G 1.1 - 1.8 No Low No Jun 30 lobulin informati informati 2016 3:50 [Mass on in on in PM ratio] in source source Serum or data data Plasma Albumin 3.4 - 5.0 gm/dL Normal No Jun 30 [Mass/vol informati 2016 3:50 ume] in on in PM Serum or source Plasma data Alkaline 46 - 116 U/L Normal Jun 30 phosphata informati 2016 3:50 se on in PM [Enzymati source c data activity/ volume] in Serum or Plasma Bilirubin 0.2 - 1.0 mg/dL Normal Jun 30 .total informati 2016 3:50 [Mass/vol on in PM ume] in source Serum or data Plasma Urea 7 - 18 mg/dL Normal No Jun 30 nitrogen informati 2016 3:50 [Mass/vol on in PM ume] in source Serum or data Plasma Calcium 8.5 - mg/dL Normal No Jun 30 [Mass/vol 10.1 informati 2017 3:50 ume] in on in PM Serum or source Plasma data Chloride 98 - 107 mmoL/L Normal No Jun 30 [Moles/vo informati 2016 3:50 lume] in on in PM Serum or source Plasma data Carbon 21.0 - mmoL/L Normal No Jun 30 dioxide, 32.0 informati 2017 3:50 total on in PM [Moles/vo source lume] in data Serum or Plasma Creatinin 0.55 - mg/dL High No Jun 30 e 1.02 informati 2016 3:50 [Mass/vol on in PM ume] in source Serum or data Plasma Creatinin 50 - 200 ML/MIN Normal No Jun 30 e renal informati 2016 3:50 clearance on in PM source predicted data by Cockcroft -Gault formula Estimated 59- ML/MIN Low REFERENCE Jun 30 RANGE: 2016 3:50 glomerula >60 PM r ML/MIN/1. filtratio 73 SQUARE n rate METERSIf (GF this patient is -A merican, then multiply theresult by 1.210. Globulin 1.3 - 3.2 gm/dL High No Jun 30 [Mass/vol informati 2016 3:50 ume] in on in PM Serum source data Glucose 74 - 106 mg/dL High No Jun 30 [Mass/vol informati 2016 3:50 ume] in on in PM Serum or source Plasma data Potassium 3.5 - 5.1 mmoL/L Normal POTASSIUM Jun 30December 3:50 [Moles/vo FALSELY PM lume] in ELEVATED Serum or DUE TO Plasma SLIGHT HEMOLYSIS Sodium 136 - 145 mmoL/L Normal No Jun 30 [Moles/vo informati 2016 3:50 lume] in on in PM Serum or source Plasma data Aspartate 15 - 37 U/L Normal AST DecemberJun 302016 3:50 aminotran FALSELY PM sferase ELEVATED [Enzymati DUE TO c SLIGHT activity/ HEMOLYSIS volume] in Serum or Plasma Alanine 12 - 78 U/L Normal Jun 30 aminotran informati 2016 3:50 sferase on in PM [Enzymati source c data activity/ volume] in Serum or Plasma Protein 6.4 - 8.2 gm/dL Normal No Jun 30 [Mass/vol informati 2016 3:50 ume] in on in PM Serum or source Plasma data Lipase [Enzymatic activity/volume] in Serum or Plasma Observa Value Referen Units Interpr Notes Date tion ce etation Range Lipase 73 - 393 U/L Normal No Jun 30 [Enzymati informati 2016 3:50 c on in PM activity/ source volume] data in Serum or Plasma CBC W Auto Differential panel in Blood Observa Value Referen Units Interpr Notes Date tion ce etation Range Basophils 0 - 0.2 K/MM3 Normal No Jun 30 informati 2016 3:50 [#/volume on in PM ] in source Blood by data Automated count Basophils 0.1 - 2.0 % Normal No Jun 30 informati 2016 3:50 leukocyte on in PM s in source Blood by data Automated count Eosinophi 0.0 - 0.4 K/mm3 Normal No Jun 30 ls informati 2016 3:50 [#/volume on in PM ] in source Blood by data Automated count Eosinophi 0.1 - % Normal No Jun 30 ls/100 12.0 informati 2016 3:50 leukocyte on in PM s in source Blood by data Automated count Granulocy 1.8 - 7.8 K/mm3 Normal No Jun 30 michael informati 2016 3:50 [#/volume on in PM ] in source Blood by data Automated count Granulocy 37.0 - % Normal No Jun 30 michael/100 80.0 informati 2016 3:50 leukocyte on in PM s in source Blood by data Automated count Hematocri 37.0 - % Normal No Jun 30 t [Volume 47.0 informati 2016 3:50 on in PM Fraction] source of Blood data Hemoglobi 12.2 - g/dL Normal No Jun 30 n 16.2 informati 2016 3:50 [Mass/vol on in PM ume] in source Blood data Lymphocyt 0.7 - 4.5 K/mm3 Normal No Jun 30 es informati 2016 3:50 [#/volume on in PM ] in source Unspecifi data ed specimen by Automated count Lymphocyt 10 - 50.0 % Normal No Jun 30 es informati 2016 3:50 [#/volume on in PM ] in source Unspecifi data ed specimen by Automated count Erythrocy 27 - 31.2 pg Normal Jun 30 te mean informati 2016 3:50 corpuscul on in PM ar source hemoglobi data n [Entitic mass] Erythrocy 31.8 - g/dl Normal No Jun 30 te mean 35.4 informati 2016 3:50 corpuscul on in PM ar source hemoglobi data n concentra tion [Mass/vol ume] by Automated count Erythrocy 82.2 - fl Normal Jun 30 te mean 97.8 informati 2016 3:50 corpuscul on in PM ar volume source [Entitic data volume] by Automated count Monocytes 0.1 - 1.0 K/mm3 Normal No Jun 30ati 2016 3:50 [#/volume on in PM ] in source Blood by data Automated count Monocytes 1.7 - 9.3 % Normal No Jun 30 /100 informati 2016 3:50 leukocyte on in PM s in source Blood by data Automated count Platelet 7.4 - fl Normal No Jun 30 mean 10.4 informati 2016 3:50 volume on in PM [Entitic source volume] data in Blood by Automated count Platelets 142 - 424 K/mm3 Normal No Jun 30 informati 2016 3:50 [#/volume on in PM ] in source Blood data Erythrocy 4.2 - 5.4 M/mm3 Normal No Jun 30 michael informati 2016 3:50 [#/volume on in PM ] in source Amniotic data fluid Erythrocy 11.5 - % Normal Jun 30 te 17.5 informati 2016 3:50 distribut on in PM ion width source [Entitic data volume] by Automated count Leukocyte 4.8 - K/MM3 Normal No Jun 30 s 10.8 informati 2016 3:50 [#/volume on in PM ] in source Blood data Basic metabolic panel in Blood Observa Value Referen Units Interpr Notes Date tion ce etation Range Urea 7 - 18 mg/dL Normal No Jun 14 nitrogen informati 2016 4:36 [Mass/vol on in PM ume] in source Serum or data Plasma Calcium 8.5 - mg/dL Normal Jun 14 [Mass/vol 10.1 informati 2016 4:36 ume] in on in PM Serum or source Plasma data Chloride 98 - 107 mmoL/L Normal No Jun 14 [Moles/vo informati 2016 4:36 lume] in on in PM Serum or source Plasma data Carbon 21.0 - mmoL/L Normal Jun 14 dioxide, 32.0 informati 2016 4:36 total on in PM [Moles/vo source lume] in data Serum or Plasma Creatinin 0.55 - mg/dL High No Jun 14 e 1.02 informati 2016 4:36 [Mass/vol on in PM ume] in source Serum or data Plasma Estimated 59- ML/MIN Low REFERENCE Jun 14 RANGE: 2016 4:36 glomerula >60 PM r ML/MIN/1. filtratio 73 SQUARE n rate METERSIf (GF this patient is -A merican, then multiply theresult by 1.210. Glucose 74 - 106 mg/dL High No Jun 14 [Mass/vol informati 2016 4:36 ume] in on in PM Serum or source Plasma data Potassium 3.5 - 5.1 mmoL/L Normal No Jun 14 inform2016 4:36 [Moles/vo on in PM lume] in source Serum or data Plasma Sodium 136 - 145 mmoL/L Normal No Jun 14 [Moles/vo informati 2016 4:36 lume] in on in PM Serum or source Plasma data Thyrotropin [Units/volume] in Serum or Plasma Observa Value Referen Units Interpr Notes Date tion ce etation Range Thyrotrop 0.358 - uIU/ml Normal No Jun 14 in 3.740 informati 2016 4:36 [Units/vo on in PM lume] in source Serum or data Plasma Choriogonadotropin [Units/volume] in Serum or Plasma Observa Value Referen Units Interpr Notes Date tion ce etation Range Choriogon NEG No No No Jun 14 adotropin informati informati informati 2016 4:36 on in on in on in PM [Units/vo source source source lume] in data data data Serum or Plasma CBC W Auto Differential panel in Blood Observa Value Referen Units Interpr Notes Date tion ce etation Range Basophils 0 - 0.2 K/MM3 Normal No Jun 142016 4:36 [#/volume on in PM ] in source Blood by data Automated count Basophils 0.1 - 2.0 % Normal No Jun 14 informati 2016 4:36 leukocyte on in PM s in source Blood by data Automated count Eosinophi 0.0 - 0.4 K/mm3 Normal No Jun 14 ls 2016 4:36 [#/volume on in PM ] in source Blood by data Automated count Eosinophi 0.1 - % Normal No Jun 14 ls/100 12.0 informati 2016 4:36 leukocyte on in PM s in source Blood by data Automated count Granulocy 1.8 - 7.8 K/mm3 Normal No Jun 14 michael informati 2016 4:36 [#/volume on in [...] Normal No Jun 14 n 16.2 informati 2017 4:36 [Mass/vol on in PM ume] in [...] Normal No Jun 14 te mean informati 2017 4:36 corpuscul on in PM ar source hemoglobi data n [Entitic mass] Erythrocy 31.8 - g/dl Normal No Jun 14 te mean 35.4 informati 2017 4:36 corpuscul on in PM ar source hemoglobi data n concentra tion [Mass/vol ume] by Automated count Erythrocy 82.2 - fl Normal Jun 14 te mean 97.8 informati 2016 4:36 corpuscul on in PM ar volume source [Entitic data volume] by Automated count Monocytes 0.1 - 1.0 K/mm3 Normal No Jun 14 informati 2016 4:36 [#/volume on in PM ] in source Blood by data Automated count Monocytes 1.7 - 9.3 % Normal No Jun 14 /100 informati 2017 4:36 leukocyte on in PM s in source Blood by data Automated count Platelet 7.4 - fl Normal Jun 14 mean 10.4 informati 2016 4:36 [...] Leukocyte 4.8 - K/MM3 Normal No Jun 6 s 10.8 informati 2016 4:36 [#/volume on in PM ] in source Blood data Cobalamin (Vitamin B12) [Mass/volume] in Serum Observa Value Referen Units Interpr Notes Date tion ce etation Range Cobalamin 211 - 946 pg/mL No Performed Sep 20 (Vitamin informati at: CB 2017 2:10 B12) on in - [facility] PM [Mass/vol source ume] in data [id number] Serum 0 [place], [place] [id number] Medical Secretary Receptionist: Dez Flores PhD, Phone: [phone] Folate [Mass/volume] in Serum or Plasma [...] data creatPerf ormed at: CB - [facility] [id number] [place], [place] [id number] Medical Secretary Receptionist: Dez Flores PhD, Phone: [phone] Creatinin Not mg/dL No No Sep 20 e Estab. informati informati 2017 2:10 [Mass/vol on in on in PM ume] in source source Urine data data 25-Hydroxyvitamin D [Mass/volume] in Serum or Plasma Observa Value Referen Units Interpr Notes Date tion ce etation Range 25-Hydrox 30.0 - ng/mL Low Vitamin D Sep 20 yvitamin 100.0 2017 2:10 D deficienc PM [Mass/vol y has ume] in been Serum or defined Plasma by the [place] ofMedicin e and an Endocrine Society practice guideline as alevel of serum 25-OH vitamin D less than 20 ng/mL (1,2).The Endocrine Society went on to further define vitamin Dinsuffic iency as a level between 21 and 29 ng/mL (2).1. IOM (Institut e of Medicine) . 2010. Dietary reference intakes for calcium and D. Francisco Javier waterman [place]: TheNation al Academies Press.2. Dina MF, Bobo NC, Leigh Kwok VELASCO, et al.Evalua tion, treatment , and preventio n of vitamin Ddeficien cy: an Endocrine Society clinical practiceg uivazquez. JCEM. 2010; 96(7):191 1-30.Perf ormed at: CB - [facility] [address] [id number] [address] [place], [place] [id number] Medical Secretary Receptionist: Dez Flores PhD, Phone: [phone] Hemoglobin A1c in Blood Observa Value Referen Units Interpr Notes Date tion ce etation Range Hemoglo 5.9 0.0 - % Normal < 6% Sep 20 bin A1c 7.0 NON-MAURICIO 2017 in [facility] 2:10 PM Blood LEVEL< 7% CONTROL LED [...] Normal No Sep 20 dioxide, 32.0 informati 2016 2:10 total on in PM [Moles/vo source lume] in data Serum or Plasma Creatinin 0.55 - mg/dL High No Sep 20 e 1.02 informati 2016 2:10 [Mass/vol on in PM ume] in [...] ng/dL Normal No Sep 20 (T4) 1.46 inform2016 2:10 free on in PM [Mass/vol source ume] in data Serum or Plasma Lipid 1996 panel in Serum or Plasma Observa Value Referen Units Interpr Notes Date tion ce etation Range Cholester < 200 mg/dL No No Sep 20 ol informati inform2016 2:10 [Moles/vo on in on in PM lume] in source source Unspecifi data data ed specimen Cholester 40 - 60 MG/DL Normal No Sep 20 ol in HDL 2016 2:10 on in PM [Mass/vol source ume] in data Serum or Plasma Cholester 0 - 130 mg/dL Normal No Sep 20 ol in LDL inform2016 2:10 on in PM [Mass/vol source ume] in data Serum or Plasma by calculati on Triglycer 30 - 200 mg/dL Normal No Sep 20 tess 2016 2:10 [Moles/vo on in PM lume] in [...] No No Sep 20 in 3.740 informati inform2016 2:10 [Units/vo on in on in PM [...] 2.0 % Normal No Sep 20 /100 2016 2:10 leukocyte on in PM s in source Blood by data Automated count Eosinophi 0.0 - 0.4 K/mm3 Normal No Sep 20 ls 2016 2:10 [#/volume on in PM ] [...] % Normal No Sep 20 michael/100 80.0 inform2016 2:10 leukocyte on in PM s in source Blood by data Automated count Hematocri 37.0 - % Normal No Sep 20 t [Volume 47.0 informati 2016 2:10 on in PM Fraction] source of Blood data Hemoglobi 12.2 - g/dL Normal No Sep 20 n 16.2 informati 2016 2:10 [Mass/vol on in PM ume] in source Blood data Lymphocyt 0.7 - 4.5 K/mm3 Normal No Sep 20 es informati 2016 2:10 [#/volume on in PM ] in source Unspecifi data ed specimen by Automated count Lymphocyt 10 - 50.0 % Normal No Sep 20 es informati 2017 2:10 [#/volume on in PM ] in source Unspecifi data ed specimen by Automated count Erythrocy 27 - 31.2 pg Normal No Sep 20 te mean informati 2016 2:10 corpuscul on in PM [...] - 1.0 K/mm3 Normal No Sep 20 informati 2016 2:10 [#/volume on in PM [...] 424 K/mm3 Normal No Sep 20 informati 2016 2:10 [#/volume on in PM ] in source Blood data Erythrocy 4.2 - 5.4 M/mm3 Low No Sep 20 michael informati 2017 2:10 [#/volume on [...] Interpr Notes Date ti ce etation Range Urea 7 - 18 [...] - 2.0 % Normal No Feb 18 / informati [...] % Normal No Feb 18 /100 informati 2016 5:52 leukocyte on in PM [...]
--- OUTSIDE RECORDS SUMMARY | 2017-07-08 17:24 | External Medical Summary Rpt ---
Author Author CHADKANDACE Moulton, JOSIANE [employer]ub[employer] Organization [employer] Address Unknown Phone Unavailable [...] [facility] PM [Mass/vol source ume] in data [id number] Serum 0 [place], [place] [id number] Hand Scudder: Dez Flores PhD, Phone: [phone] Folate [Mass/volume] in Serum or Plasma [...] data creatPerf ormed at: CB - [facility] [id number] [place], [place] [id number] Hand Scudder: Dez Flores PhD, Phone: [phone] Creatinin Not mg/dL No No Sep [...] been Serum or defined Plasma by the [place] ofMedicin e and an Endocrine Society practice [...] 96(7):191 1-30.Perf ormed at: CB - [facility] [address] [id number] [address] [place], [place] [id number] Hand Scudder: Dez Flores PhD, Phone: [phone] Hemoglobin A1c in Blood Observa Value Referen Units Interpr Notes Date tion ce etation Range Hemoglo 5.9 0.0 - % Normal < 6% Sep 20 bin A1c 7.0 NON-MAURICIO 2017 in [facility] 2:10 PM Blood LEVEL< 7% CONTROL LED [...]
[2017-07-08 18:20] VITALS: BP 150/74
--- NOTE | 2017-07-08 18:20 | Urgent Treatment Center Report ---
History of Present Issue Date/Time Seen by Provider 07/08/171804 Visit Reason Pt arrived:Walked Presenting Problem:PT STATES SHE HAS AN EARRING BACK STUCK IN HER EARRING HOLE. PT STATES THIS HAPPENED TWO DAYS AGO Location if Accident: Onset of symptoms date/time:/ or onset unknown for:MEDICAL HX UNKNOWN Have you (or family members/close friends) recently traveled outside the [place]? N If Yes, where/when: Have you had exposure to infectious disease within the past month? TB? Other? Specify: c/o earring back embedded in left ear lobe x 2 days. While removing earring, backing went into back of ear lobe. Unable to remove since occurred. Can feel it within ear lobe. No pain, swelling, discharge, redness. Ear piercings 15 years old. Source patient Exam Limitations no limitations ALLERGIES Coded Allergies: Fish Containing Products (From SEAFOOD (F/D)) (Intermediate, I-HIVES 06/30/17) Mushroom (Intermediate, I-HIVES 06/30/17) SEAFOOD (F) (From SEAFOOD (F/D)) (Intermediate, I-HIVES 06/30/17) mold (06/30/17) aspirin (Mild, NA-NAUSEA/VOMITING 06/30/17) Home Medications Active Scripts Acyclovir (Acyclovir 800MG) 800 MG PO 5XDAY #35 TAB Prov: 05/19/17 DICLOFENAC SODIUM (Diclofenac 50MG) 50 MG PO BID #60 TAB Prov: 06/05/16 Methocarbamol (Robaxin) 500 MG PO BID #60 TAB Prov: 06/05/16 Ondansetron (Zofran 4MG Odt) 4 MG PO Q6HP PRN NAUSEA AND VOMITING #6 ODT Prov: 06/30/17 NAPROXEN (NAPROXEN 500MG TAB) 500 MG PO BIDP PRN pain #20 TAB Prov: 06/30/17 Naproxen (Naprosyn 500MG Tab) 500 MG PO BID #12 TAB Prov: 10/05/14 VALSARTAN/HYDROCHLOROTHIAZIDE (Diovan Hct 320-25 MG Tablet) 1 TAB PO DAILY #30 TAB Prov: 06/29/16 Reported Medications Levothyroxine Sodium (Levothyroxine 0.088MG) 0.088 MG PO DAILY Lovastatin 40 MG PO DAILY Lisinopril (PRINIVIL (GEQ) 40MG) 40 MG PO DAILY Famotidine (Famotidine 20MG) 20 MG PO DAILY #90 History Medical History General CAD? No Angina: Yes HI: No Hypertension? Yes Hyperlipidemia? Yes CHF? No DVT? No PE? No COPD? No Asthma? Yes Anemia? No GERD? Yes Gastric ulcers? No GI Bleed? No Hernia? No Thyroid Problems? No Hypothyroidism? Yes CVA? No Seizures? No Diabetes? No Insulin Dependent: No Insulin Pump: No Home FSBS? Yes Renal Insuffiency? No UTI? Yes Stones? No BPH? No GB Disease: Yes Nephritic Syndrome? No Asplenia? No Hepatitis? No Sickle Cell Disease? No Arthritis? Yes Migraines? Yes Cataracts? No Glaucoma? No MRSA? No HIV? No TB? No Anxiety? Yes Depression? Yes Cancer? No More? No Immunization HX DT/Tetanus 1-4 Years Ago Flu 2015- Flu Season Pneumonia Never Had Surgical Hx Previous Surgery?Y GALLBLADDER ORAL SURGERY LUMPECTOMY STOMACH BIOPSY IUD-INSERTION/REMOVAL COLONOSCOPY EGD Family History Family HX Diabetes Yes CAD Yes Hypertension Yes Hyperlipidemia Yes Cancer Yes TB No Social History Smoking Hx Smoker: Never Smoker Tobacco: No Alcohol Alcohol: No Review of Systems All Other Systems Reviewed and Negative Constitutional denies fever, denies malaise Eyes denies inflammation, denies pain ENT see HPI. denies: ear discharge, nose pain, mouth pain, throat pain. Respiratory denies shortness of breath Gastrointestinal denies no symptoms reported Skin see HPI Psychiatric/Neurological denies headache Physical Exam Vital Signs Vital Signs Date Time Temp Pulse Resp B/P Pulse O2 O2 Flow FiO2 Ox Delivery Rate 07/08 1751 97.9 85 20 150/74 99 General Appearance no apparent distress, obese Ear, Nose, Throat 4-6 piercings each ear lobe but otherwise, appear normal however small hard object can be palpated within left ear lobule consistent w/ pt's report of earring back without redness, swelling, drainage or tenderness; danita EAC and TM unremarkable Neck non-tender, supple Respiratory Status No: respiratory distress. Cardiovascular no peripheral edema Neurologic alert Skin normal color, warm/dry Lymphatic no adenopathy Medical Decision Making LABS/Meds/Orders Pt receiving controlled substance in ED? No Consult MD Physician Consult Consult/PCP Dr. Vasquez, ER Time Called 180 Reason Pt. Condition Comments Discussed HPI and exam. Referral to ENT or plastic surgery for removal to reduce the risk of scarring. Departure Departure Time of Disposition 1815 Disposition DC Home or Self Care(routine) Clinical Impression Primary Impression: Foreign body in left ear lobe Qualifiers: Encounter type: initial encounter Qualified Code: S00.452A - Superficial foreign body of left ear, initial encounter Condition STABLE Referrals Rocco RUTHERFORD,Dino Gonsales Call office tomorrow. Report seen in [facility]. Foreign body in left ear lobe believed to be the back of your earring. Referred to ENT for removal Patient Instructions DI for Wound Infection Additional Instructions No sign of infection currently. Monitor closely for ANY new symptoms to include redness, swelling, pain, drainage, fever. Be sure to follow up immediately if occurs. Otherwise, follow up with ENT for removal. Discharge Counseling Counseled pt/family regarding diagnosis, home care, follow up needs at 1826
== END 2017-07-08 18:25 | disposition home or self-care (01) ==
LOC: UTC 17:05
DX: S00.452A Superficial foreign body of left ear, initial encounter (principal); I10 Essential (primary) hypertension; E78.5 Hyperlipidemia, unspecified; K21.9 Gastro-esophageal reflux disease without esophagitis; E03.9 Hypothyroidism, unspecified; F41.8 Other specified anxiety disorders